=== PATIENT | male | born 1945 | race Caucasian/White ===

== ENCOUNTER → 2017-11-18 11:04 | Outpatient (CLI) | payer MEDICARE, OTHER, SELFPAY ==
--- NOTE | 2017-11-18 | DI.RAD.S_ITS ---
PROCEDURE: XR CERVICAL SPINE 4V OR 5V INDICATIONS: CERVICALGIA TECHNIQUE: 5 views of the cervical spine acquired. COMPARISON: [facility], MR, C-SPINE WITHOUT CONTRAST, 09/26/2010, 8:27. [facility], CR, CERVICAL SPINE 2 OR 3 VIEWS, 10/22/2010, 14:32. FINDINGS: Bones: No fractures or dislocations to the C7-T1 level. Oblique images demonstrate no bony foraminal stenoses. Anterior fusion C4-6 is noted. Hardware is intact. There is significant disc space narrowing at C6-7, C7-T1. Multilevel significant foraminal narrowing. Soft tissues: No prevertebral soft tissue swelling. IMPRESSION: Prominent degenerative disc and foraminal narrowing. Dictated by: Lennie Kramer M.D. on 11/18/2017 at 14:25 Approved by: Lennie Kramer M.D. on 11/18/2017 at 14:28
== END ==
PROVIDERS: PCP Student in an Organized Health Care Education/Training Program; Visit Provider Student in an Organized Health Care Education/Training Program
DX: M50.323 Other cervical disc degeneration at C6-C7 level (principal); M48.02 Spinal stenosis, cervical region
CPT/HCPCS: 72050

== ENCOUNTER 2017-11-22 12:55 | Emergency (ER) | payer MEDICARE, OTHER, SELFPAY ==
[2017-11-22 13:16] VITALS: BP 145/89; PULSE 60; RESP 15; O2SAT 94; BMI 28.8
--- NOTE | 2017-11-22 14:01 | DI.US.S_ITS ---
PROCEDURE: US PERIPH VENOUS UP EXTREM LT INDICATIONS: bruising/swelling of arm. no known trauma TECHNIQUE: Real-time imaging, as well as color and pulse Doppler interrogation, was performed of the left upper extremity deep veins from the inferior neck to the antecubital fossa. COMPARISON: None. FINDINGS: The internal jugular vein, visualized portions of the subclavian vein, axillary, and brachial veins are free of intraluminal thrombus. Where physically possible, the veins are normally compressible. Color and pulse Doppler demonstrate normal intraluminal flow, with expected phasicity and pulsatility. Additional scanning of the cephalic and basilic veins of the superficial system demonstrate normal compressibility, without thrombus. IMPRESSION: No deep vein thrombosis of the left upper extremity. Dictated by: Alesia Winters M.D. on 11/22/2017 at 15:46 Approved by: Alesia Winters M.D. on 11/22/2017 at 15:47
--- NOTE | 2017-11-22 14:03 | ED.EXTPRO ---
HPI - Extremity Problem General Chief complaint: Extremity Injury, Upper Stated complaint: BAD BRUISE ON LT ARM AND SWELLING Time Seen by Provider: 11/22/17 13:41 Source: patient Mode of arrival: ambulatory Limitations: no limitations History of Present Illness HPI Narrative: This is a 72-year-old gentleman who comes into the emergency department with bruising of his left upper extremity. Patient states he also has some bruising on his left abdomen. He does not recall any trauma. 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 He states that really hurt. He has not noticed any weakness. He does feel like there is some swelling or discomfort in the arm. He does take an aspirin daily and states he normally gets some mild bruising but nothing this extensive. He has not had any fevers. No chest pain, no shortness of breath. No nausea, vomiting diarrhea or constipation. He has not noticed any other symptoms of bleeding. He also does not recall having any injury to the side of his abdomen although he states he bumps into things quite frequently and is fairly physical. Patient has not noticed any blood in his urine. He has not been coughing up any blood. He has not had similar symptoms in the past. Patient does drink alcohol, states he drinks 2-4 drinks nightly when he is drinking which sounds like is upper is sporadic but more often than not. Related Data Home Medications Medication Instructions Recorded Confirmed ASPIRIN (Aspir-Low) 81 mg PO QDAY #0 10/17/10 omeprazole 20 mg PO QDAY #0 10/17/10 ACETAMINOPHEN 650 mg PO Q6HP #0 09/19/11 amlodipine [Norvasc] 7.5 mg PO DAILY #0 09/19/11 fluticasone 2 spray INTRANASAL QDAY #0 09/19/11 fluticasone [Flovent HFA] 1 puff INH BID #12 gm 09/19/11 gabapentin [Neurontin] 300 mg PO HS #30 cap 10/06/15 Previous Rx's Medication Instructions Recorded polymyxin B sulf-trimethoprim 0 TOPICAL SEE INSTRUCTIONS #1 bot 10/06/15 [Polytrim] Allergies Allergy/AdvReac Type Severity Reaction Status Date / Time oyster extract Allergy Unknown HIVES Verified 11/22/17 13:16 [OYSTER EXTRACT] Review of Systems Review of Systems All systems reviewed & are unremarkable except as noted in HPI and below Constitutional Denies chills, Denies fever(s), Denies frequent falls, Denies headache(s), Denies lethargy and Denies weakness ENT Ears, Nose, Mouth, and Throat: Denies headache(s) Cardiovascular Denies chest pain, Denies irregular heart rhythm, Denies lightheadedness, Denies palpitations, Denies dyspnea, Denies dyspnea on exertion and Denies orthopnea Respiratory Denies cough, Denies dyspnea, Denies dyspnea on exertion and Denies wheezing Gastrointestinal Gastrointestinal: Denies abdominal pain, Denies melena, Denies hematochezia, Denies change in bowel habits, Denies diarrhea, Denies nausea, Denies vomiting and Denies hematemesis Genitourinary Denies hematuria and Denies flank pain Musculoskeletal Reports as per HPI, Denies myalgias, Denies deformity, Denies limited range of motion and Reports other Integumentary/Breasts Reports unusual bruising Neurologic Denies frequent falls, Denies headache(s), Denies other visual disturbances and Denies weakness Endocrine Denies palpitations Allergic/Immunologic Denies wheezing COUNT INCLUDES THE [facility] Social History Smoking Status: Never smoker Exam Initial Vital Signs Initial Vital Signs: Vital Signs Pulse Rate 60 11/22/17 13:16 Respiratory Rate 15 11/22/17 13:16 Blood Pressure 145/89 H 11/22/17 13:16 Pulse Oximetry 94 11/22/17 13:16 Const General: cooperative, comfortable, well developed, well groomed and No acute distress Nutritional Appearance: well nourished Orientation: alert, awake, oriented x3 and not confused Chest Chest: normal inspection of the chest Resp Effort & Inspection: normal respiratory effort, able to speak in complete sentences, no respiratory distress and no use of accessory muscles Auscultation: clear to auscultation bilaterally, no rales, no rhonchi and no wheezes Cardio Rate: regular rate Rhythm: regular rhythm Heart Sounds: no click, no gallops, no murmurs and no rubs Pulses: normal peripheral pulses GI Inspection: abdominal wall ecchymosis (left waist, patient has 4cm area of eccymosis, no hematoma palpable. No other bruising noted.) and non-distended Palpation: soft, no hepatosplenomegaly, No guarding, No pulsatile mass and No tender Auscultation: normal bowel sounds Skin General: ecchymosis (Left upper extremity just above the medial fold of the elbow. Patient has bruising that appears to followed her pattern consistent with some drainage from gravity. Patient does not have any tenderness.) Neuro General: alert, oriented x3, gait normal and no focal motor deficits Speech: speech normal Extrem General: full ROM and capillary refill normal Right upper extremity: full ROM, normal capillary refill and shoulder/upper arm (5/5 muscle strength b/l upper ext, 2+ radial pulses b/l, normal sensation b/l) Details: swelling, axillary nerve sensory function normal and normal ROM; no tenderness, no abrasions and no crepitus; no cyanosis and no edema (slightly swelling above elbow on the medial side where ecchymosis is present, no hematoma palpated. ) Course Orders Ordered: ED Orders 11/22/17 14:01 US periph venous up extrem lt Stat 11/22/17 14:10 Complete Blood Count AUTO DIFF Stat Comprehensive Metabolic Panel Stat Partial Thromboplastin Time Stat Prothrombin Time INR Stat Vital Signs - 8 hr 11/22/17 13:16 11/22/17 15:52 Pulse Rate 60 87 Respiratory Rate 15 10 L Blood Pressure 145/89 H 144/71 H Pulse Oximetry 94 100 MDM - Extremity (Nontraumatic) Lab Data Result diagrams: 11/22/17 14:10 11/22/17 14:10 Lab Results 11/22/17 11/22/17 11/22/17 Range/Units 14:10 14:10 14:10 WBC 4.4 L (4.5-11.0) X10^3/uL RBC 5.02 (4.5-5.9) X10^6/uL Hgb 16.0 (13.5-17.5) g/dL Hct 46.5 (41-53) % MCV 92.7 (80-100) fL MCH 31.8 (26-34) PG MCHC 34.4 (30-36) % RDW 12.9 (11.6-14.8) % Plt Count 184 (150-400) X10^3/uL Neut % (Auto) 59.8 (50-75) % Lymph % (Auto) 24.7 L (25-40) % Glenn % (Auto) 11.9 (3-14) % Eos % (Auto) 3.0 (2-4) % Baso % (Auto) 0.6 (0-2) % Neut # (Auto) 2600 L (1918-7574) /uL PT 11.2 (10.1-12.7) SECONDS INR 1.0 (0.9-1.3) APTT 27 (26.4-36.2) SECONDS Sodium 144 (137-145) mmol/L Potassium 4.6 (3.4-5.1) mmol/L Chloride 105 (98-107) mmol/L Carbon Dioxide 30 (22-32) mmol/L BUN 14 (9-20) mg/dL Creatinine 0.80 (0.66-1.25) mg/dL Estimated GFR > 60.0 (>60) mL/min BUN/Creatinine Ratio 17.5 (6-22) Glucose 101 (80-110) mg/dL Calcium 9.8 (8.4-10.2) mg/dL Total Bilirubin 0.9 (0.2-1.3) mg/dL AST 34 (17-59) IU/L ALT 33 (21-72) IU/L Alkaline Phosphatase 79 (38-126) U/L Total Protein 7.7 (6.3-8.2) g/dL Albumin 4.6 (3.5-5.0) g/dL Globulin 3.1 (1.7-4.1) g/dL Albumin/Globulin Ratio 1.5 (1.0-2.8) Imaging Data Ultrasound upper extremity: Radiologist's impression: Patient: Elgin Styles MR#: [id number] : 1945 Acct:[id number] Age/Sex: 72 / M Date of Service: 11/22/17 Loc: ED Accession Number: [id number] Procedure: US periph venous up extrem lt Ordering Provider: Heather Cortez D.O. PROCEDURE: US PERIPH VENOUS UP EXTREM LT INDICATIONS: bruising/swelling of arm. no known trauma TECHNIQUE: Real-time imaging, as well as color and pulse Doppler interrogation, was performed of the left upper extremity deep veins from the inferior neck to the antecubital fossa. COMPARISON: None. FINDINGS: The internal jugular vein, visualized portions of the subclavian vein, axillary, and brachial veins are free of intraluminal thrombus. Where physically possible, the veins are normally compressible. Color and pulse Doppler demonstrate normal intraluminal flow, with expected phasicity and pulsatility. Additional scanning of the cephalic and basilic veins of the superficial system demonstrate normal compressibility, without thrombus. IMPRESSION: No deep vein thrombosis of the left upper extremity. Dictated by: Alesia Winters M.D. on 11/22/2017 at 15:46 Approved by: Alesia Winters M.D. on 11/22/2017 at 15:47 [facility] Narrative Medical decision making narrative: Discussed with patient his lab work does not show any show any acute abnormalities that would be causing his bruising. He does sound like he drinks pretty regularly and sometimes heavily so he could be falling or having other injuries although he denies these currently. He is on aspirin daily which would cause him to the bruising easier. He also had history of a feeling of a snap the other day although he did not think much of it on Thursday. This could potentially have been either a muscle tear or a tendon tear that was incomplete is his muscle strength is equal in bilateral upper extremities he has no difficulty with rotation, pronation supination or flexion extension. We did discuss that if he had a minor tear that he needs to avoid certain activities in order to prevent further tear and he should follow up with his primary care physician for referral. If he is continuing to have symptoms or even if not they may want to refer him for an MRI for further evaluation. Discharge Plan Departure Patient Disposition: Home Clinical Impression: Contusion of arm, left Discharge Date/Time: 11/22/17 15:53 Interventions: ED Discharge Assessment Last Done: 11/22/17 15:52 Activity Restrictions/Additional Instructions: Follow-up for re-evaluation, Call tomorrow for an appointment. Your lab work shows no acute abnormalities. Your exam does show bruising and could be consistent with a biceps tendon injury. I would recommend followup and avoiding any heavy lifting or sudden pulling of the arm as this could increase or severely injure the tendon if it does have a minor injury. Prescriptions: No Action omeprazole 20 MG capsule,delayed release(DR/EC) 20 mg PO QDAY Qty: 0 RF: 0 ASPIRIN (Aspir-Low) 81 mg PO QDAY Qty: 0 RF: 0 fluticasone 16 GM spray,suspension 2 spray Intranasal QDAY Qty: 0 RF: 0 ACETAMINOPHEN 650 mg PO Q6HP Qty: 0 RF: 0 fluticasone [Flovent HFA] 12 GM HFA aerosol inhaler 1 puff INH BID Qty: 12 RF: 0 amlodipine [Norvasc] 5 MG tablet 7.5 mg PO DAILY Qty: 0 RF: 0 gabapentin [Neurontin] 300 MG capsule 300 mg PO HS Qty: 30 RF: 0 polymyxin B sulf-trimethoprim [Polytrim] 10 ML drops Topical SEE INSTRUCTIONS Qty: 1 RF: 0 Referrals: Georgia Raymond PA-C [Primary Care Provider] -
[2017-11-22 14:22] LABS: Add Manual Diff / Slide Review NO; Basophils Percent Auto 0.6 % (0-2); Hematocrit 46.5 % (41-53); Lymphocytes Percent Auto 24.7 % (25-40); Mean Corpuscular HGB Conc 34.4 % (30-36); Mean Corpuscular Hemoglobin 31.8 PG (26-34); Mean Corpuscular Volume 92.7 fL (80-100); Monocytes Percent Auto 11.9 % (3-14); Neutrophils Absolute Auto 2600 /uL (3000-5900); Neutrophils Percent Auto 59.8 % (50-75); Platelet Count 184 X10^3/uL (150-400); Red Blood Cell Count 5.02 X10^6/uL (4.5-5.9); Red Cell Distribution Width 12.9 % (11.6-14.8); White Blood Cell Count 4.4 X10^3/uL (4.5-11.0)
[2017-11-22 14:26] LABS: Prothrombin Time 11.2 SECONDS (10.1-12.7)
[2017-11-22 14:28] LABS: PTT Partial Thromboplastin Tim 27 SECONDS (26.4-36.2)
[2017-11-22 14:30] LABS: Alanine Aminotransferase 33 IU/L (21-72); Albumin 4.6 g/dL (3.5-5.0); Albumin Globulin Ratio 1.5 (1.0-2.8); Alkaline Phosphatase 79 U/L (38-126); Aspartate Aminotransferase 34 IU/L (17-59); BUN Creatinine Ratio 17.5 (6-22); Bilirubin Total 0.9 mg/dL (0.2-1.3); Blood Urea Nitrogen 14 mg/dL (9-20); Calcium 9.8 mg/dL (8.4-10.2); Carbon Dioxide 30 mmol/L (22-32); Chloride 105 mmol/L (98-107); Estimated Glomerular Filt Rate > 60.0 mL/min (>60); Globulin 3.1 g/dL (1.7-4.1); Glucose 101 mg/dL (80-110); HEMOLYSIS < 15 (0-50); Potassium 4.6 mmol/L (3.4-5.1); Sodium 144 mmol/L (137-145); Total Protein 7.7 g/dL (6.3-8.2)
--- NOTE | 2017-11-22 15:17 | PC.NURSE ---
Purple bruising noted to left upper arm. Also a purple bruise noted on left hip/flank area. No known injury. Noticed the hip/flank bruise on Thursday. Noticed the arm bruise a couple hours ago. Takes baby aspirin daily.
[2017-11-22 15:52] VITALS: BP 144/71; PULSE 87; RESP 10; O2SAT 100
== END 2017-11-22 15:53 | disposition home or self-care (01) ==
PROVIDERS: Emergency Provider Emergency Medicine; PCP Student in an Organized Health Care Education/Training Program
DX: S40.022A Contusion of left upper arm, initial encounter (principal)
CPT/HCPCS: 36415; 80053; 85025; 85610; 85730; 93971; 99282; 99284

== ENCOUNTER 2017-12-14 15:15 | Outpatient (RCR) | payer MEDICARE, OTHER, SELFPAY ==
--- NOTE | 2017-11-25 17:00 | PT.OIE ---
Current Diagnoses Pain in left shoulder (11/25/17) Cervicalgia (11/25/17) Provider Visit Care Team Role Provider Type Georgia Raymond PA-C Attending Provider Physician Primary Care Provider Specialty: Internal Medicine Address: [address] [place] [address], [id number] Email: Physical Therapy Initial Evaluation PT-OP-A Visit Information Start: 11/25/17 09:12 Freq: Status: Active Protocol: Document 11/25/17 09:13 SAK (Rec: 11/25/17 16:58 SAK [id number]) Out-Patient Physical Therapy Visit Information Visit Information Visit Type Initial Evaluation Visit Note 03/18 Visit Start Time 09:13 Visit Stop Time 10:08 Total Visit Minutes 55 Visit Number 1 Number of POWER MARKETER Visits 0 Evaluation Information Evaluation Date 11/25/17 PT-OP-B Current Condition Start: 11/25/17 09:12 Freq: Status: Active Protocol: Document 11/25/17 09:13 SAK (Rec: 11/25/17 09:27 SAK [id number]) Current Condition History of Current Condition Onset Date 4 months Current Complaints progressive worsening of neck pain History of Current Condition No known injury, noted progressive increase in neck pain without numbness or tingling. Has also gained weight due to of a couple friends, not exercising as much. 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 Prior history of neck surgery with fusion. 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 Current Functional Impairments (Reported) Functional Limitations- ADL's turning head for driving PT-OP-C Subjective Start: 11/25/17 16:39 Freq: Status: Active Protocol: Document 11/25/17 09:13 SAK (Rec: 11/25/17 16:58 SAK [id number]) Patient Questionnaires Neck Disability Index NDI Score 32 Neck Disability Index Impairment 20 to 39% Impaired (Score 10- 19) OP-PT Pain Assessment Pain Assessment Grid Paper Pain Assessment Grid Completed Yes Location Left Neck Pain Location Details left cervical spine Intensity 7 Scale Used Numeric (1 - 10) Description Aching Spasm Tightness Frequency Frequent Pain Aggravating Factors Position Activity Pain Alleviating Factors None PT-OP-H Neuro Start: 11/25/17 16:39 Freq: Status: Active Protocol: Document 11/25/17 09:13 SAK (Rec: 11/25/17 16:58 [facility] [id number]) Sensation Evaluation Gross Sensation Gross Sensation WNL Comments Summary Comments denies N/T PT-OP-J Posture/Palpation/Skin Start: 11/25/17 16:58 Freq: Status: Active Protocol: Document 11/25/17 09:13 SAK (Rec: 11/25/17 16:59 [facility] [id number]) Posture Evaluation Position Sitting Head/C-Spine Posture Forward Head Shoulder Posture (L) Rounded (R) Rounded Scapula Posture (L) Protracted (R) Protracted Arm Posture (L) Internally Rotated (R) Internally Rotated Palpation Assessment Location One Palpation Location cervical spine and upper traps Palpation Findings Soft Tissue Tightness Tenderness PT-OP-K Range of Motion Start: 11/25/17 16:39 Freq: Status: Active Protocol: Document 11/25/17 09:13 [facility] (Rec: 11/25/17 16:58 [facility] [id number]) Cervical Spine Range of Motion Cervical Spine Active Testing Position Sitting Flexion 35 Extension 25 Rotation Left 38 Rotation Right 30 Lateral Flexion Left 10 Lateral Flexion Right 15 ROM Limitations Soft Tissue Tightness Shoulder Goniometric Range of Motion Shoulder ROM Limitations Comments shoulder ROM WFL though with pain left endrange especially internal rotation. Additionally patient injured left UE lifting a chair recently and has moderate bruising throughout right upper arm; went to ER with possible biceps injury. PT-OP-L Special Tests Start: 11/25/17 16:39 Freq: Status: Active Protocol: Document 11/25/17 09:13 [facility] (Rec: 11/25/17 16:58 [facility] [id number]) Special Tests Cervical Spine Special Tests Traction Test Results some decrease in pain Foraminal Compression Test Results negative PT-OP-M Strength Start: 11/25/17 16:39 Freq: Status: Active Protocol: Document 11/25/17 09:13 SAK (Rec: 11/25/17 16:58 [facility] [id number]) Cervical Spine Strength Cervical Spine Manual Muscle Testing Testing Position Sitting Flexion (C1-2) 4+ Good+ Extension 4+ Good+ Rotation Right 4+ Good+ Lateral Flexion Left (C3) 4+ Good+ Lateral Flexion Right (C3) 4+ Good+ PT-OP-Q Treatments Start: 11/25/17 16:39 Freq: Status: Active Protocol: Document 11/25/17 09:13 [facility] (Rec: 11/25/17 16:58 [facility] [id number]) Self-Care/Home Management Treatment Education Patient Education Home Exercise Program Other Education written instructions for gentle supine sidebending and rotation PT-OP-R Modalities Start: 11/25/17 16:39 Freq: Status: Active Protocol: Document 11/25/17 09:13 [facility] (Rec: 11/25/17 16:58 [facility] [id number]) Electric Stimulation Electric Stimulation Interferential Current (IFC) Body Location bilateral c/s and UT Duration (Minutes) 15 Intensity 16 Target/Sweep Sweep High/Low High Patient Position Hooklying Combined With Heat/Cold Hot Pack PT-OP-T Assessment and Plan Start: 11/25/17 16:39 Freq: Status: Active Protocol: Document 11/25/17 09:13 [facility] (Rec: 11/25/17 16:58 [facility] [id number]) Physical Therapy Assessment Rehab Potential Rehabilitation Potential Excellent Evaluation Complexity Number of Personal Factors/Comorbidities 1-2 Number of Body Systems Impaired 3 Clinical Presentation at Evaluation Evolving Impairments Impairments Activity Tolerance Pain Posture ROM Soft Tissue Mobility Goals Four Impairment posture Short Term Goal (STG) Patient will improve his postural awareness and be able to self-correct 75% STG Duration 6 wks Production Controller Goal (LTG) Patient will demonstrate improved postural alignment statically and dynamically with usual activities, especially artwork LTG Duration 3 months Three Impairment activity tolerance Short Term Goal (STG) Patient will report improved ability to tolerate his usual activities STG Duration 4 wks Production Controller Goal (LTG) Patient will be able to resume all usual activities without an increase in pain LTG Duration 3 months Two Impairment ROM Short Term Goal (STG) Patient to be instructed in ROM ex for cervical spine STG Duration 1 wks Production Controller Goal (LTG) Patient to improve neck ROM to WFL, sufficient to allow him to turn head for purposes of safe driving without difficulty. One Impairment pain Short Term Goal (STG) decrease pain to no greater than 4/10 STG Duration 6 wks Production Controller Goal (LTG) decrease pain to no greater than 1/10 LTG Duration 3 months Assessment Summary Assessment Patient presents with function -limiting neck pain left greater than right with no precipitating event. 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 Additionally has history of neck pain with prior surgical intervention and x-ray shows foraminal narrowing and degenerative disc disease. He would benefit from PT to address his pain, postural dysfunction, decreased ROM and help him return to his usual activities without an increase in pain. Physical Therapy Plan Frequency and Duration Frequency of Treatment 1x/Week Duration of Treatment 3 months Plan of Care Start Date 11/25/17 Plan of Care End Date 02/24/18 Therapeutic Interventions Therapeutic Interventions Home Exercise Program Manual Therapy Patient/Caregiver Education Self-Care/Home Management Soft Tissue Mobilization Taping Therapeutic Activities Therapeutic Exercises Modalities Cold Pack/Ice Massage Electric Stimulation Hot Packs Traction- Mechanical Next Visit Focus/Plan Next Note Type Treatment Note Next Visit Plan review HEP, postural exercises , manual therapy and modalities for pain
--- NOTE | 2017-11-25 17:00 | PT.OPPOC ---
Current Diagnoses Pain in left shoulder (11/25/17) Cervicalgia (11/25/17) Provider Visit Care Team Role Provider Type Georgia Raymond PA-C Attending Provider Physician Primary Care Provider Specialty: Internal Medicine Address: [address] [place] [address], [id number] Email: Plan Of Care PT-OP-T Assessment and Plan Start: 11/25/17 16:39 Freq: Status: Active Protocol: Document 11/25/17 09:13 SAK (Rec: 11/25/17 16:58 SAK [id number]) Physical Therapy Assessment Rehab Potential Rehabilitation Potential Excellent Evaluation Complexity Number of Personal Factors/Comorbidities 1-2 Number of Body Systems Impaired 3 Clinical Presentation at Evaluation Evolving Impairments Impairments Activity Tolerance Pain Posture ROM Soft Tissue Mobility Goals Four Impairment posture Short Term Goal (STG) Patient will improve his postural awareness and be able to self-correct 75% STG Duration 6 wks Rooming House Inspector Goal (LTG) Patient will demonstrate improved postural alignment statically and dynamically with usual activities, especially artwork LTG Duration 3 months Three Impairment activity tolerance Short Term Goal (STG) Patient will report improved ability to tolerate his usual activities STG Duration 4 wks Rooming House Inspector Goal (LTG) Patient will be able to resume all usual activities without an increase in pain LTG Duration 3 months Two Impairment ROM Short Term Goal (STG) Patient to be instructed in ROM ex for cervical spine STG Duration 1 wks Rooming House Inspector Goal (LTG) Patient to improve neck ROM to WFL, sufficient to allow him to turn head for purposes of safe driving without difficulty. One Impairment pain Short Term Goal (STG) decrease pain to no greater than 4/10 STG Duration 6 wks Senior Care Goal (LTG) decrease pain to no greater than 1/10 LTG Duration 3 months Assessment Summary Assessment Patient presents with function -limiting neck pain left greater than right with no precipitating event. 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 Additionally has history of neck pain with prior surgical intervention and x-ray shows foraminal narrowing and degenerative disc disease. He would benefit from PT to address his pain, postural dysfunction, decreased ROM and help him return to his usual activities without an increase in pain. Physical Therapy Plan Frequency and Duration Frequency of Treatment 1x/Week Duration of Treatment 3 months Plan of Care Start Date 11/25/17 Plan of Care End Date 02/24/18 Therapeutic Interventions Therapeutic Interventions Home Exercise Program Manual Therapy Patient/Caregiver Education Self-Care/Home Management Soft Tissue Mobilization Taping Therapeutic Activities Therapeutic Exercises Modalities Cold Pack/Ice Massage Electric Stimulation Hot Packs Traction- Mechanical Next Visit Focus/Plan Next Note Type Treatment Note Next Visit Plan review HEP, postural exercises , manual therapy and modalities for pain Plan of Care Dates Plan of Care Start Date 11/25/17 Plan of Care End Date 02/24/18 Please Sign and Return: I have reviewed this Plan of Care and certify that the skilled therapy services above are required to meet the patient?s needs. Physician Signature Date Printed Name and Credentials Clinical Instructor Signature Printed Name and Credentials
--- NOTE | 2017-12-08 16:28 | PT.OTN ---
Current Diagnoses Pain in left shoulder (12/08/17) Cervicalgia (12/08/17) Physical Therapy Treatment Note PT-OP-A Visit Information Start: 11/25/17 09:12 Freq: Status: Active Protocol: Document 12/08/17 15:18 [facility] (Rec: 12/08/17 16:00 [facility] [id number]) Out-Patient Physical Therapy Visit Information Visit Information Visit Type Treatment Note Visit Start Time 15:15 Visit Stop Time 16:10 Total Visit Minutes 55 Visit Number 2 Number of PRODUCT BLENDING SUPERVISOR Visits 0 PT-OP-B Current Condition Start: 11/25/17 09:12 Freq: Status: Active Protocol: Document 11/25/17 09:13 [facility] (Rec: 11/25/17 09:27 [facility] [id number]) Current Condition History of Current Condition Onset Date 4 months Current Complaints progressive worsening of neck pain History of Current Condition No known injury, noted progressive increase in neck pain without numbness or tingling. Has also gained weight due to of a couple friends, not exercising as much. 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 Prior history of neck surgery with fusion. 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 Patient Reported Progress Improving PT-OP-H Neuro Start: 11/25/17 16:39 Freq: Status: Active Protocol: Document 11/25/17 09:13 [facility] (Rec: 11/25/17 16:58 [facility] [id number]) Sensation Evaluation Gross Sensation Gross Sensation WNL Comments Summary Comments denies N/T PT-OP-J Posture/Palpation/Skin Start: 11/25/17 16:58 Freq: Status: Active Protocol: Document 11/25/17 09:13 [facility]AK (Rec: 11/25/17 16:59 [facility] [id number]) Posture Evaluation Position Sitting Head/C-Spine Posture Forward Head Shoulder Posture (L) Rounded (R) Rounded Scapula Posture (L) Protracted (R) Protracted Arm Posture (L) Internally Rotated (R) Internally Rotated Palpation Assessment Location One Palpation Location cervical spine and upper traps Palpation Findings Soft Tissue Tightness Tenderness PT-OP-K Range of Motion Start: 11/25/17 16:39 Freq: Status: Active Protocol: Document 11/25/17 09:13 [facility] (Rec: 11/25/17 16:58 [facility] [id number]) Cervical Spine Range of Motion Cervical Spine Active Testing Position Sitting Flexion 35 Extension 25 Rotation Left 38 Rotation Right 30 Lateral Flexion Left 10 Lateral Flexion Right 15 ROM Limitations Soft Tissue Tightness Shoulder Goniometric Range of Motion Shoulder ROM Limitations Comments shoulder ROM WFL though with pain left endrange especially internal rotation. Additionally patient injured left UE lifting a chair recently and has moderate bruising throughout right upper arm; went to ER with possible biceps injury. PT-OP-L Special Tests Start: 11/25/17 16:39 Freq: Status: Active Protocol: Document 11/25/17 09:13 [facility] (Rec: 11/25/17 16:58 [facility] [id number]) Special Tests Cervical Spine Special Tests Traction Test Results some decrease in pain Foraminal Compression Test Results negative PT-OP-M Strength Start: 11/25/17 16:39 Freq: Status: Active Protocol: Document 11/25/17 09:13 [facility] (Rec: 11/25/17 16:58 [facility] [id number]) Cervical Spine Strength Cervical Spine Manual Muscle Testing Testing Position Sitting Flexion (C1-2) 4+ Good+ Extension 4+ Good+ Rotation Right 4+ Good+ Lateral Flexion Left (C3) 4+ Good+ Lateral Flexion Right (C3) 4+ Good+ PT-OP-Q Treatments Start: 11/25/17 16:39 Freq: Status: Active Protocol: Document 12/08/17 15:18 [facility] (Rec: 12/08/17 16:28 [facility] [id number]) Cardio Equipment Upper Body Ergometer (UBE) Duration (Minutes) 6 RPM 60 Therapeutic Exercises Supine Exercises c/s AROM Reps/Minutes 5x iliopsoas stretch Reps/Minutes 2 hamstring stretch Reps/Minutes 2 DKTC, SKTC Reps/Minutes 10x lower trunk rotation Reps/Minutes 10x bridge (segmental) Reps/Minutes 10x Standing Exercises wall posture Reps/Minutes 5x row, shld ext, ER Equipment Used L1 TB Reps/Minutes 10x ea Comments postural emphasis Other Exercises c/s rotation contract/relax with eye movements Reps/Minutes 3x ea sude Manual Therapy Treatment Soft Tissue Mobilization c/s, pec dino Mobilization Type Myofascial Release Rolling Body Position Prone PT-OP-R Modalities Start: 11/25/17 16:39 Freq: Status: Active Protocol: Document 12/08/17 15:18 [facility] (Rec: 12/08/17 16:00 [facility] [id number]) Hot Pack/Cold Pack Treatment Hot Pack Location cervical and lumbar spines Patient Position Hooklying Treatment Duration (minutes) 15 Patient Tolerance Good PT-OP-T Assessment and Plan Start: 11/25/17 16:39 Freq: Status: Active Protocol: Document 12/08/17 15:18 [facility] (Rec: 12/08/17 16:28 [facility] [id number]) Physical Therapy Assessment Goals Four Impairment posture Short Term Goal (STG) Patient will improve his postural awareness and be able to self-correct 75% STG Duration 6 wks Prison Goal (LTG) Patient will demonstrate improved postural alignment statically and dynamically with usual activities, especially artwork LTG Duration 3 months Three Impairment activity tolerance Short Term Goal (STG) Patient will report improved ability to tolerate his usual activities STG Duration 4 wks Prison Goal (LTG) Patient will be able to resume all usual activities without an increase in pain LTG Duration 3 months Two Impairment ROM Short Term Goal (STG) Patient to be instructed in ROM ex for cervical spine STG Duration 1 wks Prison Goal (LTG) Patient to improve neck ROM to WFL, sufficient to allow him to turn head for purposes of safe driving without difficulty. One Impairment pain Short Term Goal (STG) decrease pain to no greater than 4/10 STG Duration 6 wks Prison Goal (LTG) decrease pain to no greater than 1/10 LTG Duration 3 months Assessment Summary Assessment Patient reports much improved neck pain after first session, working on postural correction as instructed. With postural correction of neck and shoulders patient tends to have posterior shift of thorax which may be contributing to LBP; needs work on integration of entire kinetic chain with postural correction. Physical Therapy Plan Frequency and Duration Frequency of Treatment 1x/Week Duration of Treatment 3 months Plan of Care Start Date 11/25/17 Plan of Care End Date 02/24/18 Therapeutic Interventions Therapeutic Interventions Home Exercise Program Manual Therapy Patient/Caregiver Education Self-Care/Home Management Soft Tissue Mobilization Taping Therapeutic Activities Therapeutic Exercises Modalities Cold Pack/Ice Massage Electric Stimulation Hot Packs Traction- Mechanical Next Visit Focus/Plan Next Note Type Treatment Note Next Visit Plan review HEP, postural exercises , manual therapy and modalities for pain
--- NOTE | 2017-12-14 16:03 | PT.OTN ---
Current Diagnoses Pain in left shoulder (12/14/17) Cervicalgia (12/14/17) Physical Therapy Treatment Note PT-OP-A Visit Information Start: 11/25/17 09:12 Freq: Status: Active Protocol: Document 12/14/17 15:20 [facility] (Rec: 12/14/17 16:02 [facility] [id number]) Out-Patient Physical Therapy Visit Information Visit Information Visit Type Treatment Note Visit Start Time 15:15 Visit Stop Time 16:05 Total Visit Minutes 50 Visit Number 3 Number of REACHER Visits 0 Evaluation Information Evaluation Date 11/25/17 PT-OP-B Current Condition Start: 11/25/17 09:12 Freq: Status: Active Protocol: Document 11/25/17 09:13 [facility] (Rec: 11/25/17 09:27 [facility] [id number]) Current Condition History of Current Condition Onset Date 4 months Current Complaints progressive worsening of neck pain History of Current Condition No known injury, noted progressive increase in neck pain without numbness or tingling. Has also gained weight due to of a couple friends, not exercising as much. 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 Prior history of neck surgery with fusion. 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 All painful areas better. Not sure he needs much more therapy PT-OP-H Neuro Start: 11/25/17 16:39 Freq: Status: Active Protocol: Document 11/25/17 09:13 [facility] (Rec: 11/25/17 16:58 [facility] [id number]) Sensation Evaluation Gross Sensation Gross Sensation WNL Comments Summary Comments denies N/T PT-OP-J Posture/Palpation/Skin Start: 11/25/17 16:58 Freq: Status: Active Protocol: Document 11/25/17 09:13 [facility] (Rec: 11/25/17 16:59 [facility] [id number]) Posture Evaluation Position Sitting Head/C-Spine Posture Forward Head Shoulder Posture (L) Rounded (R) Rounded Scapula Posture (L) Protracted (R) Protracted Arm Posture (L) Internally Rotated (R) Internally Rotated Palpation Assessment Location One Palpation Location cervical spine and upper traps Palpation Findings Soft Tissue Tightness Tenderness PT-OP-K Range of Motion Start: 11/25/17 16:39 Freq: Status: Active Protocol: Document 11/25/17 09:13 [facility] (Rec: 11/25/17 16:58 [facility] [id number]) Cervical Spine Range of Motion Cervical Spine Active Testing Position Sitting Flexion 35 Extension 25 Rotation Left 38 Rotation Right 30 Lateral Flexion Left 10 Lateral Flexion Right 15 ROM Limitations Soft Tissue Tightness Shoulder Goniometric Range of Motion Shoulder ROM Limitations Comments shoulder ROM WFL though with pain left endrange especially internal rotation. Additionally patient injured left UE lifting a chair recently and has moderate bruising throughout right upper arm; went to ER with possible biceps injury. PT-OP-L Special Tests Start: 11/25/17 16:39 Freq: Status: Active Protocol: Document 11/25/17 09:13 [facility] (Rec: 11/25/17 16:58 [facility] [id number]) Special Tests Cervical Spine Special Tests Traction Test Results some decrease in pain Foraminal Compression Test Results negative PT-OP-M Strength Start: 11/25/17 16:39 Freq: Status: Active Protocol: Document 11/25/17 09:13 [facility] (Rec: 11/25/17 16:58 [facility] [id number]) Cervical Spine Strength Cervical Spine Manual Muscle Testing Testing Position Sitting Flexion (C1-2) 4+ Good+ Extension 4+ Good+ Rotation Right 4+ Good+ Lateral Flexion Left (C3) 4+ Good+ Lateral Flexion Right (C3) 4+ Good+ PT-OP-Q Treatments Start: 11/25/17 16:39 Freq: Status: Active Protocol: Document 12/14/17 15:20 [facility] (Rec: 12/14/17 16:02 [facility] [id number]) Cardio Equipment Recumbent Elliptical (TGV Software) Duration (Minutes) 10 Resistance 4 Therapeutic Exercises Supine Exercises bicycle Reps/Minutes 1 min c/s AROM Reps/Minutes 5x iliopsoas stretch Reps/Minutes 2 hamstring stretch Reps/Minutes 2 DKTC, SKTC Reps/Minutes 10x lower trunk rotation Reps/Minutes 10x bridge (segmental) Reps/Minutes 10x Prone Exercises plank Reps/Minutes 1x 6 sec Comments poorly tolerated by shoulders PT-OP-R Modalities Start: 11/25/17 16:39 Freq: Status: Active Protocol: Document 12/14/17 15:20 [facility] (Rec: 12/14/17 16:03 [facility] [id number]) Hot Pack/Cold Pack Treatment Hot Pack Location cervical and lumbar spines Patient Position Hooklying Treatment Duration (minutes) 15 Patient Tolerance Good PT-OP-T Assessment and Plan Start: 11/25/17 16:39 Freq: Status: Active Protocol: Document 12/14/17 15:20 [facility] (Rec: 12/14/17 16:02 [facility] [id number]) Physical Therapy Assessment Goals Four Impairment posture Short Term Goal (STG) Patient will improve his postural awareness and be able to self-correct 75% STG Duration 6 wks Skilled Nursing Goal (LTG) Patient will demonstrate improved postural alignment statically and dynamically with usual activities, especially artwork LTG Duration 3 months Three Impairment activity tolerance Short Term Goal (STG) Patient will report improved ability to tolerate his usual activities STG Duration 4 wks Skilled Nursing Goal (LTG) Patient will be able to resume all usual activities without an increase in pain LTG Duration 3 months Two Impairment ROM Short Term Goal (STG) Patient to be instructed in ROM ex for cervical spine STG Duration 1 wks Skilled Nursing Goal (LTG) Patient to improve neck ROM to WFL, sufficient to allow him to turn head for purposes of safe driving without difficulty. One Impairment pain Short Term Goal (STG) decrease pain to no greater than 4/10 STG Duration 6 wks Skilled Nursing Goal (LTG) decrease pain to no greater than 1/10 LTG Duration 3 months Assessment Summary Assessment No significant pain today, reviewed HEP plan with modifications made and supine bicycle added for core strengthening. Feel patient may be ready for discharge pending any other issues coming up over the nexty week. Physical Therapy Plan Next Visit Focus/Plan Next Visit Plan Patient to cancel PT x 1 wk, let PT know if he is feeling ready for discharge or feels need to probleml-solve further issues related to his pain and function, HEP.
--- NOTE | 2018-04-13 14:19 | PT.OPDS ---
Current Diagnoses Pain in left shoulder (12/14/17) Cervicalgia (12/14/17) Provider Visit Care Team Role Provider Type Georgia Raymond PA-C Attending Provider Physician Primary Care Provider Specialty: Internal Medicine Address: [address] [place] [address], [facility] Email: Visit Number Visit Number 3 Discharge Summary PT-OP-B Current Condition Start: 11/25/17 09:12 Freq: Status: Active Protocol: Document 11/25/17 09:13 [facility] (Rec: 11/25/17 09:27 [facility] [id number]) Current Condition History of Current Condition Onset Date 4 months Current Complaints progressive worsening of neck pain History of Current Condition No known injury, noted progressive increase in neck pain without numbness or tingling. Has also gained weight due to of a couple friends, not exercising as much. 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 Prior history of neck surgery with fusion. 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 All painful areas better. Not sure he needs much more therapy PT-OP-H Neuro Start: 11/25/17 16:39 Freq: Status: Active Protocol: Document 11/25/17 09:13 [facility] (Rec: 11/25/17 16:58 [facility] [id number]) Sensation Evaluation Gross Sensation Gross Sensation WNL Comments Summary Comments denies N/T PT-OP-J Posture/Palpation/Skin Start: 11/25/17 16:58 Freq: Status: Active Protocol: Document 11/25/17 09:13 [facility] (Rec: 11/25/17 16:59 [facility] [id number]) Posture Evaluation Position Sitting Head/C-Spine Posture Forward Head Shoulder Posture (L) Rounded (R) Rounded Scapula Posture (L) Protracted (R) Protracted Arm Posture (L) Internally Rotated (R) Internally Rotated Palpation Assessment Location One Palpation Location cervical spine and upper traps Palpation Findings Soft Tissue Tightness Tenderness PT-OP-K Range of Motion Start: 11/25/17 16:39 Freq: Status: Active Protocol: Document 11/25/17 09:13 [facility] (Rec: 11/25/17 16:58 [facility] [id number]) Cervical Spine Range of Motion Cervical Spine Active Testing Position Sitting Flexion 35 Extension 25 Rotation Left 38 Rotation Right 30 Lateral Flexion Left 10 Lateral Flexion Right 15 ROM Limitations Soft Tissue Tightness Shoulder Goniometric Range of Motion Shoulder ROM Limitations Comments shoulder ROM WFL though with pain left endrange especially internal rotation. Additionally patient injured left UE lifting a chair recently and has moderate bruising throughout right upper arm; went to ER with possible biceps injury. PT-OP-L Special Tests Start: 11/25/17 16:39 Freq: Status: Active Protocol: Document 11/25/17 09:13 [facility] (Rec: 11/25/17 16:58 [facility] [id number]) Special Tests Cervical Spine Special Tests Traction Test Results some decrease in pain Foraminal Compression Test Results negative PT-OP-M Strength Start: 11/25/17 16:39 Freq: Status: Active Protocol: Document 11/25/17 09:13 [facility] (Rec: 11/25/17 16:58 [facility] [id number]) Cervical Spine Strength Cervical Spine Manual Muscle Testing Testing Position Sitting Flexion (C1-2) 4+ Good+ Extension 4+ Good+ Rotation Right 4+ Good+ Lateral Flexion Left (C3) 4+ Good+ Lateral Flexion Right (C3) 4+ Good+ PT-OP-T Assessment and Plan Start: 11/25/17 16:39 Freq: Status: Active Protocol: Document 04/13/18 14:18 [facility] (Rec: 04/13/18 14:19 [facility] [id number]) Physical Therapy Assessment Goals Four Impairment posture Short Term Goal (STG) Patient will improve his postural awareness and be able to self-correct 75% STG Duration 6 wks Detention Goal (LTG) Patient will demonstrate improved postural alignment statically and dynamically with usual activities, especially artwork LTG Duration 3 months Three Impairment activity tolerance Short Term Goal (STG) Patient will report improved ability to tolerate his usual activities STG Duration 4 wks Detention Goal (LTG) Patient will be able to resume all usual activities without an increase in pain LTG Duration 3 months Two Impairment ROM Short Term Goal (STG) Patient to be instructed in ROM ex for cervical spine STG Duration 1 wks Obstetrics/Gynecology Nurse Goal (LTG) Patient to improve neck ROM to WFL, sufficient to allow him to turn head for purposes of safe driving without difficulty. One Impairment pain Short Term Goal (STG) decrease pain to no greater than 4/10 STG Duration 6 wks Obstetrics/Gynecology Nurse Goal (LTG) decrease pain to no greater than 1/10 LTG Duration 3 months Physical Therapy Plan Discharge Physical Therapy Discharge Reasons Goals Met
== END 2018-04-13 16:33 ==
LOC: PHYS 15:15
PROVIDERS: PCP Student in an Organized Health Care Education/Training Program; Visit Provider Student in an Organized Health Care Education/Training Program
DX: M54.2 Cervicalgia (principal); M25.512 Pain in left shoulder
CPT/HCPCS: 97014; 97110; 97140; 97161; 97535; G0283

== ENCOUNTER → 2018-06-18 08:44 | Outpatient (CLI) | payer MEDICARE, OTHER, SELFPAY ==
--- NOTE | 2018-06-18 09:34 | DI.CT.S_ITS ---
PROCEDURE: CT ABDOMEN PELVIS W CON INDICATIONS: UPPER ABD PAIN TECHNIQUE: After the administration of oral and intravenous contrast, 5 mm thick sections acquired from the diaphragms to the symphysis. 5 mm thick coronal and sagittal reformats were performed. For radiation dose reduction, the following was used: automated exposure control, adjustment of mA and/or kV according to patient size. COMPARISON: [facility], CT, ABDOMEN/PELVIS WITH CONTRAST, 07/08/2015, 2:50. FINDINGS: Image quality: Excellent. ABDOMEN: Lung bases: Lung bases are clear. Heart size is normal. Advanced coronary artery atherosclerotic calcifications. Solid organs: Liver is normal in size and enhancement. Gallbladder is unremarkable. Biliary system is non-dilated. Pancreas enhances normally. Spleen is normal in size and enhancement. No adrenal nodules. Kidneys are normal in size and enhancement, without hydronephrosis. Peritoneum and bowel: Stomach, small bowel, and colon loops are normal in caliber and wall thickness. No free fluid or air. Large amount of fecal debris in the proximal transverse colon and right colon. Nodes and vessels: No retroperitoneal or mesenteric adenopathy. Aorta and inferior vena cava are normal in caliber. Aortic calcifications. Miscellaneous: No ventral hernias. PELVIS: Genitourinary: Bladder wall thickness is normal. Miscellaneous: No inguinal hernias or adenopathy. Bones: No suspicious bony lesions. Remote L3-L5 left hemilaminectomy. No vertebral body compression fractures. IMPRESSION: 1. No evidence acute abdominal process. 2. Large amount of fecal debris in proximal transverse colon and right colon 3. Extensive atherosclerotic coronary artery calcifications. Dictated by: Mario Tamayo M.D. on 06/18/2018 at 10:29 Approved by: Mario Tamayo M.D. on 06/18/2018 at 10:35
== END ==
PROVIDERS: PCP Student in an Organized Health Care Education/Training Program; Visit Provider Student in an Organized Health Care Education/Training Program
DX: R10.10 Upper abdominal pain, unspecified (principal); I25.10 Atherosclerotic heart disease of native coronary artery without angina pectoris
CPT/HCPCS: 74177; Q9967

== ENCOUNTER → 2018-08-31 13:44 | Outpatient (CLI) | payer MEDICARE, OTHER, SELFPAY ==
--- NOTE | 2018-08-31 | DI.NM.S_ITS ---
PROCEDURE: NM LUDWIG PERF SPECT REST & STR Rest and exercise myocardial perfusion SPECT with gated imaging and ejection fraction RADIOPHARMACEUTICAL: 21.6 mCi Tc-99m sestamibi IV at rest and 21.2 mCi Tc-99m sestamibi IV at peak exercise. A two day-protocol was performed. INDICATIONS: Chest pain, unspecified TECHNIQUE: Radiopharmaceutical was injected at peak stress test, and also at rest. SPECT images were obtained. SPECT myocardial perfusion images were displayed in short axis, horizontal long axis, and vertical long axis views. Gated images were reviewed using [employer] software. COMPARISON: None. CARDIAC STRESS: A standard Agustin treadmill exercise tolerance test was performed by the patient under the supervision of an attending staff. The patient exercised for 8 minutes and 5 seconds; functional aerobic impairment (EVELIO) is -20%. Hemodynamic data: There is normal blood pressure and heart rate response to exercise stress. Patient achieved 82% of maximum predicted heart rate at peak exercise. Symptoms: Patient denied chest pain during exercise. EKG: No diagnostic EKG changes of ischemia; no ectopy. FINDINGS: Raw data: There is good myocardial labeling by radiotracer. No significant motion artifacts. Gvlq-[id number]-tlhvk ratio is 0.32 (normal is less than 0.38 for sestamibi tracer, and less than 0.50 for thallium tracer). Left ventricle function: Gated images demonstrate normal left ventricle wall thickening. No segmental wall motion abnormality. No transient ischemic dilation; TID is 0.82 (normal less than 1.3). The left ventricle resting end-diastolic volume is 130 mL. Left ventricle stress ejection fraction is 70%; normal values are above 45%. Myocardial perfusion: There is moderately severe fixed inferior wall defect that essentially resolves with prone imaging suggesting diaphragmatic attenuation than true ischemia or infarction. IMPRESSION: Low risk, probably normal treadmill nuclear stress test. 1) Probably normal perfusion images. There is moderately severe fixed inferior wall defect that essentially resolves with prone imaging suggesting diaphragmatic attenuation than true ischemia or infarction. 2) Normal left ventricular size, wall motion, and systolic function (EF post stress 70%). 3) No ECG evidence of ischemia. 4) No angina during the study. 5) Good exercise tolerance (10.1 METs, EVELIO -20%). Adequate stress test based on double product. 6) Compared to the nuclear stress test done 07/30/2011, no significant change. Dictated by: Patrick Vazquez MD on 09/01/2018 at 12:51 Approved by: Patrick Vazquez MD on 09/01/2018 at 12:55
--- NOTE | 2018-08-31 14:56 | P.PCN_ITS ---
Cardiac Stress Test Report Referral & Results Date Patient Seen: 08/31/18 Requesting provider: Patrick Vazquez Indication: Chest discomfort Rest ECG: Unremarkable Procedure Note: Today following both written and verbal informed consent the patient was exercised according to a standard Agsutin protocol patient went for a total of 8 minutes 5 seconds achieving a maximum heart rate of 132, maximum systolic blood pressure of 180. This is approximately 10.1 METS. Exercise was terminated at this point because of targets were met. Patient was also given Cardiolite through a previously started Hep-Lock IV by the lead nuclear medicine technologist approximately 1 minute prior to the cessation of exercise. No ST-T segment changes Normal heart rate and blood pressure response Functional aerobic impairment-20% in the active scale her 120% of normal Rare PVC identified Impression: No ECG evidence of ischemia Excellent exercise capacity Please see perfusion imaging report as well. Please note: Actual ECG tracings can be found in the PACS system.
== END ==
PROVIDERS: PCP Student in an Organized Health Care Education/Training Program; Visit Provider Internal Medicine Cardiovascular Disease
DX: R07.9 Chest pain, unspecified (principal); I25.10 Atherosclerotic heart disease of native coronary artery without angina pectoris
CPT/HCPCS: 78452; 93016; 93017; 93018; A9502

== ENCOUNTER → 2018-10-19 09:51 | Outpatient (CLI) | payer MEDICARE, OTHER, SELFPAY ==
[2018-10-19 11:18] LABS: Cholesterol 160 mg/dL (140-199); HDL Cholesterol 69 mg/dL (40-60); LDL Cholesterol Calculated 62 mg/dL (<100); Triglycerides 146 mg/dL (35-150)
== END ==
PROVIDERS: PCP Student in an Organized Health Care Education/Training Program; Visit Provider Internal Medicine Cardiovascular Disease
DX: E78.5 Hyperlipidemia, unspecified (principal)
CPT/HCPCS: 36415; 80061

== ENCOUNTER → 2018-11-16 10:08 | Outpatient (CLI) | payer MEDICARE, OTHER, SELFPAY ==
[2018-11-16 10:42] LABS: Add Manual Diff / Slide Review NO; Basophils Absolute Auto 0 /uL (0-100); Basophils Percent Auto 0.6 % (0-2); Eosinophils Absolute Auto 200 /uL (0-450); Eosinophils Percent Auto 3.5 % (2-4); Hematocrit 46.4 % (41-53); Hemoglobin 15.8 g/dL (13.5-17.5); Lymphocytes Absolute Auto 1700 /uL (1100-4500); Lymphocytes Percent Auto 33.2 % (25-40); Mean Corpuscular Hemoglobin 32.1 PG (26-34); Mean Corpuscular Volume 94.3 fL (80-100); Monocytes Absolute Auto 600 /uL (0-900); Monocytes Percent Auto 10.8 % (3-14); Neutrophils Absolute Auto 2700 /uL (1500-7000); Neutrophils Percent Auto 51.9 % (50-75); Platelet Count 192 X10^3/uL (150-400); Red Blood Cell Count 4.92 X10^6/uL (4.5-5.9); Red Cell Distribution Width 12.9 % (11.6-14.8); White Blood Cell Count 5.3 X10^3/uL (4.5-11.0)
[2018-11-16 10:54] LABS: Alanine Aminotransferase 31 IU/L (21-72); Albumin 4.5 g/dL (3.5-5.0); Albumin Globulin Ratio 1.5 (1.0-2.8); Alkaline Phosphatase 63 U/L (38-126); Aspartate Aminotransferase 33 IU/L (17-59); BUN Creatinine Ratio 17.5 (6-22); Bilirubin Total 1.1 mg/dL (0.2-1.3); Blood Urea Nitrogen 14 mg/dL (9-20); Calcium 9.7 mg/dL (8.4-10.2); Carbon Dioxide 29 mmol/L (22-32); Chloride 103 mmol/L (98-107); Estimated Glomerular Filt Rate > 60.0 mL/min (>60); Globulin 3.1 g/dL (1.7-4.1); Glucose 102 mg/dL (80-110); HEMOLYSIS < 15 (0-50); Potassium 4.3 mmol/L (3.4-5.1); Sodium 141 mmol/L (137-145); Total Protein 7.6 g/dL (6.3-8.2)
[2018-11-16 12:01] LABS: TSH w/ Reflex to FT4 2.38 uIU/mL (0.47-4.68)
== END ==
PROVIDERS: PCP Student in an Organized Health Care Education/Training Program; Visit Provider Student in an Organized Health Care Education/Training Program
DX: E78.00 Pure hypercholesterolemia, unspecified (principal); I10 Essential (primary) hypertension; Z13.228 Encounter for screening for other metabolic disorders; M19.90 Unspecified osteoarthritis, unspecified site; F32.9 Major depressive disorder, single episode, unspecified; M48.061 Spinal stenosis, lumbar region without neurogenic claudication
CPT/HCPCS: 36415; 80053; 84443; 85025

== ENCOUNTER 2018-11-22 15:15 | Outpatient (RCR) | payer MEDICARE, OTHER, SELFPAY ==
--- NOTE | 2018-08-24 11:26 | PT.OPPOC ---
Current Diagnoses Pain in right shoulder (08/24/18) Unsteadiness on feet (08/24/18) Weakness (08/24/18) History of falling (08/24/18) Provider Visit Care Team Role Provider Type Georgia Raymond PA-C Attending Provider Physician Primary Care Provider Specialty: Internal Medicine Address: [address] [place] [address], [id number] Email: Plan Of Care PT-OP-T Assessment and Plan Start: 08/24/18 11:25 Freq: Status: Active Protocol: Document 08/24/18 11:26 SAK (Rec: 08/25/18 09:58 SAK [id number]) Physical Therapy Assessment Rehab Potential Rehabilitation Potential Good Evaluation Complexity Number of Personal Factors/Comorbidities 1-2 Number of Body Systems Impaired 3 Clinical Presentation at Evaluation Evolving Impairments Impairments Functional Activities Pain ROM Strength Goals dizziness with history of falls Impairment dizziness Long-Term Goal (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 LTG Duration 11/24/18 functional activity Impairment Quickdash UE disability score 23% Short Term Goal (STG) Decrease Quickdash score to no greater than 15% STG Duration 09/23/18 Long-Term Goal (LTG) Decrease Quickdash score to no greater than 5% LTG Duration 11/24/18 Strength Impairment decreased strength right shoulder Short Term Goal (STG) Patient to be independent with HEP for right shoulder strengthening STG Duration 09/23/18 Associate Professor Physician Goal (LTG) right shoulder strength 5/5 ROM Impairment decreased right shoulder ROM Short Term Goal (STG) Patient to be independent with HEP for purposes of right shoulder ROM STG Duration 09/23/18 Long-Term Goal (LTG) Patient to demonstrate full AROM right shoulder without pain LTG Duration 11/24/18 pain Impairment right shoulder pain Short Term Goal (STG) Decrease resting pain level to no greater than 3/10 STG Duration 09/23/18 Long-Term Goal (LTG) Decrease pain at rest and with usual activity to no greater than 1/10 LTG Duration 11/24/18 Assessment Summary Assessment Patient presents to PT with function-limiting pain in his right shoulder related to a fall. He states his dizziness may be related to dehydration and he has been upping his fluid intake with significant improvement in the dizziness, though still persists at lower level. At this time he would like to focus on his shoulder pain but we discussed having him see vestibular specialist in PT department if doesn't fully resolve. This PT notes patient ambulating better than when he was last seen in PT. He has good potential for improvement in his right shoulder pain with PT with modalities and manual therapy to decrease his pain and progression of ROM and strengthening exercises as tolerated. If no improvement seen with PT patient may benefit from imaging studies Physical Therapy Plan Frequency and Duration Frequency of Treatment 2x/Week Duration of Treatment 12 wks Plan of Care Start Date 08/24/18 Plan of Care End Date 11/24/18 Therapeutic Interventions Therapeutic Interventions Aquatic Therapy Home Exercise Program Joint Mobilizations Manual Therapy Neuromuscular Re-education Patient/Caregiver Education Self-Care/Home Management Soft Tissue Mobilization Taping Therapeutic Activities Therapeutic Exercises Modalities Cold Pack/Ice Massage Electric Stimulation Hot Packs Iontophoresis Ultrasound Next Visit Focus/Plan Next Note Type Treatment Note Next Visit Plan Initiate wand and theraband exercises for right shoulder. Plan of Care Dates Plan of Care Start Date 08/24/18 Plan of Care End Date 11/24/18 Please Sign and Return: I have reviewed this Plan of Care and certify that the skilled therapy services above are required to meet the patient?s needs. Physician Signature Date Printed Name and Credentials Clinical Instructor Signature Printed Name and Credentials
--- NOTE | 2018-08-24 11:26 | PT.OIE ---
Current Diagnoses Pain in right shoulder (08/24/18) Unsteadiness on feet (08/24/18) Weakness (08/24/18) History of falling (08/24/18) Provider Visit Care Team Role Provider Type Georgia Raymond PA-C Attending Provider Physician Primary Care Provider Specialty: Internal Medicine Address: [address] [place] [address], [id number] Email: Physical Therapy Initial Evaluation PT-OP-A Visit Information Start: 08/24/18 11:25 Freq: Status: Active Protocol: Document 08/24/18 11:26 SAK (Rec: 08/25/18 09:58 SAK [id number]) Out-Patient Physical Therapy Visit Information Visit Information Visit Type Initial Evaluation Visit Start Time 11:15 Visit Stop Time 12:15 Total Visit Minutes 60 Visit Number 1 Number of AUTOMOTIVE FINANCE MANAGER Visits 0 Evaluation Information Evaluation Date 08/24/18 Precautions Precautions PMH: HTN dizziness falls [facility] [place] [facility] PT-OP-B Current Condition Start: 08/24/18 11:25 Freq: Status: Active Protocol: Document 08/24/18 11:26 SAK (Rec: 08/24/18 12:05 SAK [id number]) Current Condition History of Current Condition Onset Date 07/17/18 Current Complaints right shoulder pain and dysfunction. History of Current Condition primary c/o right shoulder s/p fall onto right UE (elbow) jamming right shoulder. 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 Ice and heat helpful sometimes. States Tramedol and Meloxicam not really effective. Cannibas balm helpful. Pain seems to be worse after activity and then reports he experiences it at rest. Fall possibly related to severe dizziness. Improvement in hydration level has helped but some persistent dizziness. 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 Prior Treatments and Tests No imaging Treatment Goals Patient/Caregiver Goals Decrease shoulder pain to allow him to return to usual activities and sleep without pain. 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 PT-OP-C Subjective Start: 08/24/18 11:25 Freq: Status: Active Protocol: Document 08/24/18 11:26 [facility] (Rec: 08/25/18 09:58 [facility] [id number]) Patient Questionnaires Quick Dash- Upper Extremity Quick Dash UE Score 23 OP-PT Pain Assessment Pain Assessment Grid Paper Pain Assessment Grid Completed Yes Location Right Shoulder Pain Location Details anterior, inferior Intensity 5 Description Aching Pressure Sharp Shooting Stabbing Throbbing Frequency Frequent Pain Aggravating Factors Activity Pain Alleviating Factors Cold Heat Inactivity Pain Behaviors Pain Behaviors Facial Grimacing Guarding Wincing PT-OP-E Functional Tests Start: 08/24/18 11:25 Freq: Status: Active Protocol: Document 08/24/18 11:26 [facility] (Rec: 08/25/18 09:58 [facility] [id number]) Functional Tests Apley's Scratch Test Action 1- Left posterior shoulder Action 1- Right top of shoulder Action 2- Left T2 Action 2- Right back of head Action 3- Left T7 Action 3- Right T12 PT-OP-F Manual Assessment Start: 08/24/18 11:25 Freq: Status: Active Protocol: Document 08/24/18 11:26 [facility] (Rec: 08/25/18 09:58 [facility] [id number]) Manual Assessments Soft Tissue Assessment Soft Tissue Mobility Assessment tightness bilateral UT right greater than left Joint Mobility Assessment Joint Mobility Assessment Decreased inferior glide and posterior glide right PT-OP-J Posture/Palpation/Skin Start: 08/24/18 11:25 Freq: Status: Active Protocol: Document 08/24/18 11:26 [facility] (Rec: 08/25/18 09:58 [facility] [id number]) Posture Evaluation Position Sitting Head/C-Spine Posture Forward Head T-Spine Posture Increased Kyphosis Shoulder Posture (L) Rounded (R) Rounded Shoulder Subluxation Position (R) Anterior Arm Posture (L) Internally Rotated (R) Internally Rotated Palpation Assessment Location anterior shoulder Palpation Findings Tenderness Palpation Details GH joint line PT-OP-K Range of Motion Start: 08/24/18 11:25 Freq: Status: Active Protocol: Document 08/24/18 11:26 SAK (Rec: 08/25/18 09:58 [facility] [id number]) Cervical Spine Range of Motion Cervical Spine Active ROM Limitations Soft Tissue Tightness Bony Restriction Comments due to arthritis Shoulder Goniometric Range of Motion Shoulder Right Active Shoulder ROM WFL No Flexion 165 Extension 15 Abduction 145 External Rotation at 45 degrees 55 Abduction Internal Rotation 40 Left Shoulder ROM WFL Yes Shoulder ROM Limitations Shoulder ROM Limitations Pain Comments most painful with ER right Elbow/Forearm Range of Motion Elbow/Forearm jennyfer Elbow/Forearm ROM WFL Yes PT-OP-L Special Tests Start: 08/24/18 11:25 Freq: Status: Active Protocol: Document 08/24/18 11:26 [facility] (Rec: 08/25/18 09:58 [facility] [id number]) Special Tests Shoulder Special Tests Elevation Impingement Test Results negative Biceps Load II Test Test Results negative Belly Press Test Results negative Apprehension Test Test Results negative Drop Arm Rotator Cuff Test Results negative jennyfer PT-OP-M Strength Start: 08/24/18 11:25 Freq: Status: Active Protocol: Document 08/24/18 11:26 [facility] (Rec: 08/25/18 09:58 [facility] [id number]) Shoulder Strength Shoulder Manual Muscle Testing Right Flexion 4 Good Extension 4 Good Abduction (C5) 4 Good External Rotation 4- Good- Internal Rotation 4 Good Comments painful all resisted motions, worst with ER Left Flexion 5 Normal Extension 4+ Good+ Abduction (C5) 5 Normal External Rotation 4 Good Internal Rotation 4+ Good+ Elbow/Forearm Strength Elbow and Forearm Manual Muscle Testing Right Flexion (C6) 4+ Good+ Extension (C7) 4+ Good+ Left Flexion (C6) 5 Normal Extension (C7) 5 Normal PT-OP-Q Treatments Start: 08/24/18 11:25 Freq: Status: Active Protocol: Document 08/24/18 11:26 [facility] (Rec: 08/25/18 10:00 [facility] [id number]) Self-Care/Home Management Treatment Education Patient Education Home Exercise Program Pain Management PT-OP-R Modalities Start: 08/24/18 11:25 Freq: Status: Active Protocol: Document 08/24/18 11:26 [facility] (Rec: 08/25/18 09:58 [facility] [id number]) Electric Stimulation Electric Stimulation Interferential Current (IFC) Body Location right shoulder Duration (Minutes) 12 Target/Sweep Sweep High/Low High Patient Position Hooklying Combined With Heat/Cold Cold Pack Ultrasound Therapy Treatment anterior GH joint line Patient Position Supine Coupling Medium Ultrasound Gel Frequency Setting (mHz) 1 Mode Setting Pulsed Duty Cycle 50% Intensity Setting (w/cm2) 1.2 PT-OP-T Assessment and Plan Start: 08/24/18 11:25 Freq: Status: Active Protocol: Document 08/24/18 11:26 [facility] (Rec: 08/25/18 09:58 [facility] [id number]) Physical Therapy Assessment Rehab Potential Rehabilitation Potential Good Evaluation Complexity Number of Personal Factors/Comorbidities 1-2 Number of Body Systems Impaired 3 Clinical Presentation at Evaluation Evolving Impairments Impairments Functional Activities Pain ROM Strength Goals dizziness with history of falls Impairment dizziness Lobby Concierge Goal (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 LTG Duration 11/24/18 functional activity Impairment Quickdash UE disability score 23% Short Term Goal (STG) Decrease Quickdash score to no greater than 15% STG Duration 09/23/18 Lobby Concierge Goal (LTG) Decrease Quickdash score to no greater than 5% LTG Duration 11/24/18 Strength Impairment decreased strength right shoulder Short Term Goal (STG) Patient to be independent with HEP for right shoulder strengthening STG Duration 09/23/18 Lobby Concierge Goal (LTG) right shoulder strength 5/5 ROM Impairment decreased right shoulder ROM Short Term Goal (STG) Patient to be independent with HEP for purposes of right shoulder ROM STG Duration 09/23/18 Lobby Concierge Goal (LTG) Patient to demonstrate full AROM right shoulder without pain LTG Duration 11/24/18 pain Impairment right shoulder pain Short Term Goal (STG) Decrease resting pain level to no greater than 3/10 STG Duration 09/23/18 Lobby Concierge Goal (LTG) Decrease pain at rest and with usual activity to no greater than 1/10 LTG Duration 11/24/18 Assessment Summary Assessment Patient presents to PT with function-limiting pain in his right shoulder related to a fall. He states his dizziness may be related to dehydration and he has been upping his fluid intake with significant improvement in the dizziness, though still persists at lower level. At this time he would like to focus on his shoulder pain but we discussed having him see vestibular specialist in PT department if doesn't fully resolve. This PT notes patient ambulating better than when he was last seen in PT. He has good potential for improvement in his right shoulder pain with PT with modalities and manual therapy to decrease his pain and progression of ROM and strengthening exercises as tolerated. If no improvement seen with PT patient may benefit from imaging studies Physical Therapy Plan Frequency and Duration Frequency of Treatment 2x/Week Duration of Treatment 12 wks Plan of Care Start Date 08/24/18 Plan of Care End Date 11/24/18 Therapeutic Interventions Therapeutic Interventions Aquatic Therapy Home Exercise Program Joint Mobilizations Manual Therapy Neuromuscular Re-education Patient/Caregiver Education Self-Care/Home Management Soft Tissue Mobilization Taping Therapeutic Activities Therapeutic Exercises Modalities Cold Pack/Ice Massage Electric Stimulation Hot Packs Iontophoresis Ultrasound Next Visit Focus/Plan Next Note Type Treatment Note Next Visit Plan Initiate wand and theraband exercises for right shoulder.
--- NOTE | 2018-08-26 16:06 | PT.OTN ---
Current Diagnoses Pain in right shoulder (08/26/18) Unsteadiness on feet (08/26/18) Weakness (08/26/18) History of falling (08/26/18) Physical Therapy Treatment Note PT-OP-A Visit Information Start: 08/24/18 11:25 Freq: Status: Active Protocol: Document 08/26/18 15:50 SAK (Rec: 08/26/18 16:06 [facility] [id number]) Out-Patient Physical Therapy Visit Information Visit Information Visit Type Initial Evaluation Visit Start Time 14:30 Visit Stop Time 15:25 Total Visit Minutes 55 Visit Number 2 Number of TIN PLATER Visits 0 Evaluation Information Evaluation Date 08/24/18 Precautions Precautions PMH: HTN dizziness falls [place] [place] [facility] PT-OP-B Current Condition Start: 08/24/18 11:25 Freq: Status: Active Protocol: Document 08/24/18 11:26 SAK (Rec: 08/24/18 12:05 SAK [id number]) Current Condition History of Current Condition Onset Date 07/17/18 Current Complaints right shoulder pain and dysfunction. History of Current Condition primary c/o right shoulder s/p fall onto right UE (elbow) jamming right shoulder. 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 Ice and heat helpful sometimes. States Tramedol and Meloxicam not really effective. Cannibas balm helpful. Pain seems to be worse after activity and then reports he experiences it at rest. Fall possibly related to severe dizziness. Improvement in hydration level has helped but some persistent dizziness. 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 Prior Treatments and Tests No imaging Treatment Goals Patient/Caregiver Goals Decrease shoulder pain to allow him to return to usual activities and sleep without pain. 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 Pain with reaching activities mostly today. PT-OP-E Functional Tests Start: 08/24/18 11:25 Freq: Status: Active Protocol: Document 08/24/18 11:26 [facility] (Rec: 08/25/18 09:58 [facility] [id number]) Functional Tests Apley's Scratch Test Action 1- Left posterior shoulder Action 1- Right top of shoulder Action 2- Left T2 Action 2- Right back of head Action 3- Left T7 Action 3- Right T12 PT-OP-F Manual Assessment Start: 08/24/18 11:25 Freq: Status: Active Protocol: Document 08/24/18 11:26 [facility] (Rec: 08/25/18 09:58 [facility] [id number]) Manual Assessments Soft Tissue Assessment Soft Tissue Mobility Assessment tightness bilateral UT right greater than left Joint Mobility Assessment Joint Mobility Assessment Decreased inferior glide and posterior glide right PT-OP-J Posture/Palpation/Skin Start: 08/24/18 11:25 Freq: Status: Active Protocol: Document 08/24/18 11:26 [facility] (Rec: 08/25/18 09:58 [facility] [id number]) Posture Evaluation Position Sitting Head/C-Spine Posture Forward Head T-Spine Posture Increased Kyphosis Shoulder Posture (L) Rounded (R) Rounded Shoulder Subluxation Position (R) Anterior Arm Posture (L) Internally Rotated (R) Internally Rotated Palpation Assessment Location anterior shoulder Palpation Findings Tenderness Palpation Details GH joint line PT-OP-K Range of Motion Start: 08/24/18 11:25 Freq: Status: Active Protocol: Document 08/24/18 11:26 [facility] (Rec: 08/25/18 09:58 [facility] [id number]) Cervical Spine Range of Motion Cervical Spine Active ROM Limitations Soft Tissue Tightness Bony Restriction Comments due to arthritis Shoulder Goniometric Range of Motion Shoulder Right Active Shoulder ROM WFL No Flexion 165 Extension 15 Abduction 145 External Rotation at 45 degrees 55 Abduction Internal Rotation 40 Left Shoulder ROM WFL Yes Shoulder ROM Limitations Shoulder ROM Limitations Pain Comments most painful with ER right Elbow/Forearm Range of Motion Elbow/Forearm jennyfer Elbow/Forearm ROM WFL Yes PT-OP-L Special Tests Start: 08/24/18 11:25 Freq: Status: Active Protocol: Document 08/24/18 11:26 [facility] (Rec: 08/25/18 09:58 [facility] [id number]) Special Tests Shoulder Special Tests Elevation Impingement Test Results negative Biceps Load II Test Test Results negative Belly Press Test Results negative Apprehension Test Test Results negative Drop Arm Rotator Cuff Test Results negative jennyfer PT-OP-M Strength Start: 08/24/18 11:25 Freq: Status: Active Protocol: Document 08/24/18 11:26 [facility] (Rec: 08/25/18 09:58 [facility] [id number]) Shoulder Strength Shoulder Manual Muscle Testing Right Flexion 4 Good Extension 4 Good Abduction (C5) 4 Good External Rotation 4- Good- Internal Rotation 4 Good Comments painful all resisted motions, worst with ER Left Flexion 5 Normal Extension 4+ Good+ Abduction (C5) 5 Normal External Rotation 4 Good Internal Rotation 4+ Good+ Elbow/Forearm Strength Elbow and Forearm Manual Muscle Testing Right Flexion (C6) 4+ Good+ Extension (C7) 4+ Good+ Left Flexion (C6) 5 Normal Extension (C7) 5 Normal PT-OP-Q Treatments Start: 08/24/18 11:25 Freq: Status: Active Protocol: Document 08/26/18 15:50 [facility] (Rec: 08/26/18 16:06 [facility] [id number]) Therapeutic Exercises Supine Exercises shoulder IR/ER Reps/Minutes 10x Comments AAROM at 45 shoulder flex 90 to 180 Equipment Used wand, 1# Reps/Minutes 10x chest press Equipment Used wand, 1# Reps/Minutes 10x Standing Exercises row, shld ext, ER Equipment Used L1 TB Reps/Minutes 10x Manual Therapy Treatment Soft Tissue Mobilization pec dino, biceps Mobilization Type Myofascial Release Rolling Strumming Comments with manual pec stretch Joint Mobilizations lateral distraction GH Grade II Body Position Hooklying GH long axis distraction Grade II Body Position Hooklying PT-OP-R Modalities Start: 08/24/18 11:25 Freq: Status: Active Protocol: Document 08/26/18 15:50 [facility] (Rec: 08/26/18 16:06 [facility] [id number]) Electric Stimulation Electric Stimulation Interferential Current (IFC) Body Location right shoulder Duration (Minutes) 12 Target/Sweep Sweep High/Low High Patient Position Hooklying Combined With Heat/Cold Cold Pack Ultrasound Therapy Treatment anterior GH joint line Patient Position Supine Coupling Medium Ultrasound Gel Frequency Setting (mHz) 1 Mode Setting Pulsed Duty Cycle 50% Intensity Setting (w/cm2) 1.2 PT-OP-T Assessment and Plan Start: 08/24/18 11:25 Freq: Status: Active Protocol: Document 08/26/18 15:50 [facility] (Rec: 08/26/18 16:06 SAK [id number]) Physical Therapy Assessment Goals dizziness with history of falls Impairment dizziness Install Technician Goal (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 LTG Duration 11/24/18 functional activity Impairment Quickdash UE disability score 23% Short Term Goal (STG) Decrease Quickdash score to no greater than 15% STG Duration 09/23/18 Install Technician Goal (LTG) Decrease Quickdash score to no greater than 5% LTG Duration 11/24/18 Strength Impairment decreased strength right shoulder Short Term Goal (STG) Patient to be independent with HEP for right shoulder strengthening STG Duration 09/23/18 Jail Goal (LTG) right shoulder strength 5/5 ROM Impairment decreased right shoulder ROM Short Term Goal (STG) Patient to be independent with HEP for purposes of right shoulder ROM STG Duration 09/23/18 Install Technician Goal (LTG) Patient to demonstrate full AROM right shoulder without pain LTG Duration 11/24/18 pain Impairment right shoulder pain Short Term Goal (STG) Decrease resting pain level to no greater than 3/10 STG Duration 09/23/18 Jail Goal (LTG) Decrease pain at rest and with usual activity to no greater than 1/10 LTG Duration 11/24/18 Assessment Summary Assessment Good response to first PT treatment with decrease in shoulder pain and improved ability to sleep. Has obtained a referral for dizziness so will schedule with vestibular specialist when able. Physical Therapy Plan Frequency and Duration Frequency of Treatment 2x/Week Duration of Treatment 12 wks Plan of Care Start Date 08/24/18 Plan of Care End Date 11/24/18 Therapeutic Interventions Therapeutic Interventions Aquatic Therapy Home Exercise Program Joint Mobilizations Manual Therapy Neuromuscular Re-education Patient/Caregiver Education Self-Care/Home Management Soft Tissue Mobilization Taping Therapeutic Activities Therapeutic Exercises Modalities Cold Pack/Ice Massage Electric Stimulation Hot Packs Iontophoresis Ultrasound Next Visit Focus/Plan Next Note Type Treatment Note Next Visit Plan Assess response to today's session, progress strengthening ex for right shoulder as tolerated. Patient to schedule for PT appointment with vestibular PT .
--- NOTE | 2018-08-30 15:31 | PT.OTRE ---
Current Diagnoses Pain in right shoulder (08/30/18) Unsteadiness on feet (08/30/18) Dizziness and giddiness (08/30/18) Weakness (08/30/18) History of falling (08/30/18) Provider Visit Care Team Role Provider Type Georgia Raymond PA-C Attending Provider Physician Primary Care Provider Specialty: Internal Medicine Address: [address] [place] [address], [facility] Email: Physical Therapy Re-Evaluation PT-OP-A Visit Information Start: 08/24/18 11:25 Freq: Status: Active Protocol: Document 08/30/18 12:00 DCW (Rec: 08/30/18 15:30 DCW [id number]) Out-Patient Physical Therapy Visit Information Visit Information Visit Type Re-Evaluation Visit Start Time 12:00 Visit Stop Time 12:45 Total Visit Minutes 45 Visit Number 3 Number of BOARD WINDER Visits 0 Evaluation Information Evaluation Date 08/24/18 Precautions Precautions PMH: HTN dizziness falls [place] LUIS PT-OP-B Current Condition Start: 08/24/18 11:25 Freq: Status: Active Protocol: Document 08/30/18 12:00 DCW (Rec: 08/30/18 15:30 DCW [id number]) Current Condition History of Current Condition Onset Date 07/17/18 Current Complaints right shoulder pain and dysfunction. History of Current Condition primary c/o right shoulder s/p fall onto right UE (elbow) jamming right shoulder. 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 Ice and heat helpful sometimes. States Tramedol and Meloxicam not really effective. Cannibas balm helpful. Pain seems to be worse after activity and then reports he experiences it at rest. Fall possibly related to severe dizziness. Improvement in hydration level has helped but some persistent dizziness. Since last seen in PT has had gut problems and has been to associate financial planner as well; having treadmill test end of month. ADDENDUM 08/30/18: Pt underwent vestibular assessment today for ongoing complaints of imbalance. Pt reports he was having symptoms of dizziness, like my head was expanded, or like I had a stuffy head cold for a number of months, until he was instructed by a associate financial planner to drink more water. This helped his eliminate the main complaints of dizziness, but since that time (~1 year), he has just had a chronic sensation of dizziness/poor balance. Pt notes that his symptoms mainly occur after standing up and starting to walk, but is still present at a low-level occasionall when sitting still . Prior Treatments and Tests No imaging PT-OP-C Subjective Start: 08/24/18 11:25 Freq: Status: Active Protocol: Document 08/30/18 12:00 DCW (Rec: 08/30/18 15:30 DCW [id number]) OP-PT Subjective Patient Comments Patient Comments Pt notes that he is scared to work on his balance due to his falls history PT-OP-D Balance Start: 08/24/18 11:25 Freq: Status: Active Protocol: Document 08/30/18 12:00 DCW (Rec: 08/30/18 15:30 DCW [id number]) Balance Tests CTSIB CTSIB Position 1 Mild Sway CTSIB Position 2 Moderate Sway CTSIB Position 3 Severe Sway CTSIB Position 4 Moderate Sway CTSIB Position 5 Fall Reaction CTSIB Position 6 Fall Reaction PT-OP-E Functional Tests Start: 08/24/18 11:25 Freq: Status: Active Protocol: Document 08/24/18 11:26 SAK (Rec: 08/25/18 09:58 SAK [id number]) Functional Tests Apley's Scratch Test Action 1: The subject is instructed to touch the opposite shoulder with his/her hand. This motion checks Glenohumeral adduction, internal rotation , horizontal adduction and scapular protraction Action 2: The subject is instructed to place his/her arm overhead and reach behind the neck to touch his/her upper back. This motion checks Glenohumeral abduction, external rotation and scapular upward rotation and elevation. Action 3: The subject puts his/her hand on the lower back and reaches upward as far as possible. This motion checks glenohumeral adduction, internal rotation and scapular retraction with downward rotation Action 1- Left posterior shoulder Action 1- Right top of shoulder Action 2- Left T2 Action 2- Right back of head Action 3- Left T7 Action 3- Right T12 PT-OP-F Manual Assessment Start: 08/24/18 11:25 Freq: Status: Active Protocol: Document 08/24/18 11:26 [facility] (Rec: 08/25/18 09:58 [facility] [id number]) Manual Assessments Soft Tissue Assessment Soft Tissue Mobility Assessment tightness bilateral UT right greater than left Joint Mobility Assessment Joint Mobility Assessment Decreased inferior glide and posterior glide right PT-OP-J Posture/Palpation/Skin Start: 08/24/18 11:25 Freq: Status: Active Protocol: Document 08/24/18 11:26 [facility] (Rec: 08/25/18 09:58 [facility] [id number]) Posture Evaluation Position Sitting Head/C-Spine Posture Forward Head T-Spine Posture Increased Kyphosis Shoulder Posture (L) Rounded (R) Rounded Shoulder Subluxation Position (R) Anterior Arm Posture (L) Internally Rotated (R) Internally Rotated Palpation Assessment Location anterior shoulder Palpation Findings Tenderness Palpation Details GH joint line PT-OP-K Range of Motion Start: 08/24/18 11:25 Freq: Status: Active Protocol: Document 08/24/18 11:26 [facility] (Rec: 08/25/18 09:58 [facility] [id number]) Cervical Spine Range of Motion Cervical Spine Active ROM Limitations Soft Tissue Tightness Bony Restriction Comments due to arthritis Shoulder Goniometric Range of Motion Shoulder Measured in Degrees Right Active Shoulder ROM WFL No Flexion 165 Extension 15 Abduction 145 External Rotation at 45 degrees 55 Abduction Internal Rotation 40 Left Shoulder ROM WFL Yes Shoulder ROM Limitations Shoulder ROM Limitations Pain Comments most painful with ER right Elbow/Forearm Range of Motion Elbow/Forearm Measured in Degrees jennyfer Elbow/Forearm ROM WFL Yes PT-OP-L Special Tests Start: 08/24/18 11:25 Freq: Status: Active Protocol: Document 08/24/18 11:26 [facility] (Rec: 08/25/18 09:58 [facility] [id number]) Special Tests Shoulder Special Tests Elevation Impingement Test Results negative Biceps Load II Test Test Results negative Belly Press Test Results negative Apprehension Test Test Results negative Drop Arm Rotator Cuff Test Results negative jennyfer PT-OP-M Strength Start: 08/24/18 11:25 Freq: Status: Active Protocol: Document 08/24/18 11:26 [facility] (Rec: 08/25/18 09:58 [facility] [id number]) Shoulder Strength Shoulder Manual Muscle Testing Right Flexion 4 Good Extension 4 Good Abduction (C5) 4 Good External Rotation 4- Good- Internal Rotation 4 Good Comments painful all resisted motions, worst with ER Left Flexion 5 Normal Extension 4+ Good+ Abduction (C5) 5 Normal External Rotation 4 Good Internal Rotation 4+ Good+ Elbow/Forearm Strength Elbow and Forearm Manual Muscle Testing Right Flexion (C6) 4+ Good+ Extension (C7) 4+ Good+ Left Flexion (C6) 5 Normal Extension (C7) 5 Normal PT-OP-O Vestibular Start: 08/24/18 11:25 Freq: Status: Active Protocol: Document 08/30/18 12:00 DCW (Rec: 08/30/18 15:30 DCW [id number]) Vestibular Assessment Screening Tests Vestibular Artery Screen Negative Auditory Tests Ortiz Test Negative Rinne Test Negative Air Conduction Results Equal Visual Testing Smooth Pursuits Horizontal WNL Smooth Pursuits Vertical WNL Saccades Horizontal WNL Gaze Evoked Nystagmus With Fixation Negative Gaze Evoked Nystagmus Without Fixation Negative Heave Test Unclear Thrust Head Unclear DVA (Line Degradation) 4 Head Shake Negative Spontaneous Nystagmus Negative Positional Testing Merrill-Hallpike Negative Left Negative Right Rolling Test Negative Left Negative Right Comments Vestibular Comments Thrust and heave tests inconclusive due to pt closing his eyes and jerking his head in shock with every single attempt PT-OP-Q Treatments Start: 08/24/18 11:25 Freq: Status: Active Protocol: Document 08/26/18 15:50 SAK (Rec: 08/26/18 16:06 [facility] [id number]) Therapeutic Exercises Supine Exercises shoulder IR/ER Reps/Minutes 10x Comments AAROM at 45 shoulder flex 90 to 180 Equipment Used wand, 1# Reps/Minutes 10x chest press Equipment Used wand, 1# Reps/Minutes 10x Standing Exercises row, shld ext, ER Equipment Used L1 TB Reps/Minutes 10x Manual Therapy Treatment Soft Tissue Mobilization pec dino, biceps Mobilization Type Myofascial Release Rolling Strumming Comments with manual pec stretch Joint Mobilizations lateral distraction GH Grade II Body Position Hooklying GH long axis distraction Grade II Body Position Hooklying PT-OP-R Modalities Start: 08/24/18 11:25 Freq: Status: Active Protocol: Document 08/26/18 15:50 SAK (Rec: 08/26/18 16:06 SAK [id number]) Electric Stimulation Electric Stimulation Interferential Current (IFC) Body Location right shoulder Duration (Minutes) 12 Target/Sweep Sweep High/Low High Patient Position Hooklying Combined With Heat/Cold Cold Pack Ultrasound Therapy Treatment anterior GH joint line Patient Position Supine Coupling Medium Ultrasound Gel Frequency Setting (mHz) 1 Mode Setting Pulsed Duty Cycle 50% Intensity Setting (w/cm2) 1.2 PT-OP-T Assessment and Plan Start: 08/24/18 11:25 Freq: Status: Active Protocol: Document 08/30/18 12:00 DCW (Rec: 08/30/18 15:30 DCW [id number]) Physical Therapy Assessment Goals dizziness with history of falls Impairment dizziness Rail Bender Goal (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 LTG Duration 11/24/18 functional activity Impairment Quickdash UE disability score 23% Short Term Goal (STG) Decrease Quickdash score to no greater than 15% STG Duration 09/23/18 [facility] Goal (LTG) Decrease Quickdash score to no greater than 5% LTG Duration 11/24/18 Strength Impairment decreased strength right shoulder Short Term Goal (STG) Patient to be independent with HEP for right shoulder strengthening STG Duration 09/23/18 Rail Bender Goal (LTG) right shoulder strength 5/5 ROM Impairment decreased right shoulder ROM Short Term Goal (STG) Patient to be independent with HEP for purposes of right shoulder ROM STG Duration 09/23/18 [facility] Goal (LTG) Patient to demonstrate full AROM right shoulder without pain LTG Duration 11/24/18 pain Impairment right shoulder pain Short Term Goal (STG) Decrease resting pain level to no greater than 3/10 STG Duration 09/23/18 [facility] Goal (LTG) Decrease pain at rest and with usual activity to no greater than 1/10 LTG Duration 11/24/18 Assessment Summary Assessment Pt's vestibular examination entirely negative. Per CTSIB, pt clearly has impaired balance, especially when visual imput in removed, however there is no indication of central or peripheral vertigo. Pt's symptoms may be caused by cervicogenic dysfunction, however there is no appropriate testing to rule this in. Other DDx may include orthostatic hypotension, however this is less likely due to symptoms with sitting still, or may be side-effects from multiple medications. Pt should benefit from skilled therapy focusing on balance training, as well as continue current POC for his right shoulder dysfunction . Physical Therapy Plan Frequency and Duration Frequency of Treatment 2x/Week Duration of Treatment 12 wks Plan of Care Start Date 08/30/18 Plan of Care End Date 11/30/18 Therapeutic Interventions Therapeutic Interventions Aquatic Therapy Home Exercise Program Joint Mobilizations Manual Therapy Neuromuscular Re-education Patient/Caregiver Education Self-Care/Home Management Soft Tissue Mobilization Taping Therapeutic Activities Therapeutic Exercises Modalities Cold Pack/Ice Massage Electric Stimulation Hot Packs Iontophoresis Ultrasound Next Visit Focus/Plan Next Note Type Treatment Note Next Visit Plan Assess response to today's session, progress strengthening ex for right shoulder as tolerated. Work on static/dynamic balance training.
--- NOTE | 2018-08-30 15:31 | PT.OPPOC ---
Current Diagnoses Pain in right shoulder (08/30/18) Unsteadiness on feet (08/30/18) Dizziness and giddiness (08/30/18) Weakness (08/30/18) History of falling (08/30/18) Provider Visit Care Team Role Provider Type Georgia Raymond PA-C Attending Provider Physician Primary Care Provider Specialty: Internal Medicine Address: [address] [place] [address], [facility] Email: Plan Of Care PT-OP-T Assessment and Plan Start: 08/24/18 11:25 Freq: Status: Active Protocol: Document 08/30/18 12:00 DCW (Rec: 08/30/18 15:30 DCW [id number]) Physical Therapy Assessment Goals dizziness with history of falls Impairment dizziness Detention Goal (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 LTG Duration 11/24/18 functional activity Impairment Quickdash UE disability score 23% Short Term Goal (STG) Decrease Quickdash score to no greater than 15% STG Duration 09/23/18 Management Trainee Marketing Goal (LTG) Decrease Quickdash score to no greater than 5% LTG Duration 11/24/18 Strength Impairment decreased strength right shoulder Short Term Goal (STG) Patient to be independent with HEP for right shoulder strengthening STG Duration 09/23/18 Detention Goal (LTG) right shoulder strength 5/5 ROM Impairment decreased right shoulder ROM Short Term Goal (STG) Patient to be independent with HEP for purposes of right shoulder ROM STG Duration 09/23/18 Management Trainee Marketing Goal (LTG) Patient to demonstrate full AROM right shoulder without pain LTG Duration 11/24/18 pain Impairment right shoulder pain Short Term Goal (STG) Decrease resting pain level to no greater than 3/10 STG Duration 09/23/18 Management Trainee Marketing Goal (LTG) Decrease pain at rest and with usual activity to no greater than 1/10 LTG Duration 11/24/18 Assessment Summary Assessment Pt's vestibular examination entirely negative. Per CTSIB, pt clearly has impaired balance, especially when visual imput in removed, however there is no indication of central or peripheral vertigo. Pt's symptoms may be caused by cervicogenic dysfunction, however there is no appropriate testing to rule this in. Other DDx may include orthostatic hypotension, however this is less likely due to symptoms with sitting still, or may be side-effects from multiple medications. Pt should benefit from skilled therapy focusing on balance training, as well as continue current POC for his right shoulder dysfunction . Physical Therapy Plan Frequency and Duration Frequency of Treatment 2x/Week Duration of Treatment 12 wks Plan of Care Start Date 08/30/18 Plan of Care End Date 11/30/18 Therapeutic Interventions Therapeutic Interventions Aquatic Therapy Home Exercise Program Joint Mobilizations Manual Therapy Neuromuscular Re-education Patient/Caregiver Education Self-Care/Home Management Soft Tissue Mobilization Taping Therapeutic Activities Therapeutic Exercises Modalities Cold Pack/Ice Massage Electric Stimulation Hot Packs Iontophoresis Ultrasound Next Visit Focus/Plan Next Note Type Treatment Note Next Visit Plan Assess response to today's session, progress strengthening ex for right shoulder as tolerated. Work on static/dynamic balance training. Plan of Care Dates Plan of Care Start Date 08/30/18 Plan of Care End Date 11/30/18 Please Sign and Return: I have reviewed this Plan of Care and certify that the skilled therapy services above are required to meet the patient?s needs. Physician Signature Date Printed Name and Credentials Clinical Instructor Signature Printed Name and Credentials
--- NOTE | 2018-09-03 14:30 | PT.OTN ---
Current Diagnoses Pain in right shoulder (09/03/18) Unsteadiness on feet (09/03/18) Dizziness and giddiness (09/03/18) Weakness (09/03/18) History of falling (09/03/18) Physical Therapy Treatment Note PT-OP-A Visit Information Start: 08/24/18 11:25 Freq: Status: Active Protocol: Document 09/03/18 08:14 SAK (Rec: 09/03/18 08:30 SAK [id number]) Out-Patient Physical Therapy Visit Information Visit Information Visit Type Treatment Note Visit Start Time 08:15 Visit Stop Time 09:10 Total Visit Minutes 55 Visit Number 4 Number of ERISA ATTORNEY Visits 0 Evaluation Information Evaluation Date 09/03/18 Precautions Precautions PMH: HTN dizziness falls [place] PT-OP-B Current Condition Start: 08/24/18 11:25 Freq: Status: Active Protocol: Document 08/30/18 12:00 DCW (Rec: 08/30/18 15:30 DCW [id number]) Current Condition History of Current Condition Onset Date 07/17/18 Current Complaints right shoulder pain and dysfunction. History of Current Condition primary c/o right shoulder s/p fall onto right UE (elbow) jamming right shoulder. 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 Ice and heat helpful sometimes. States Tramedol and Meloxicam not really effective. Cannibas balm helpful. Pain seems to be worse after activity and then reports he experiences it at rest. Fall possibly related to severe dizziness. Improvement in hydration level has helped but some persistent dizziness. Since last seen in PT has had gut problems and has been to facilities maintenance worker as well; having treadmill test end of month. ADDENDUM 08/30/18: Pt underwent vestibular assessment today for ongoing complaints of imbalance. Pt reports he was having symptoms of dizziness, like my head was expanded, or like I had a stuffy head cold for a number of months, until he was instructed by a facilities maintenance worker to drink more water. This helped his eliminate the main complaints of dizziness, but since that time (~1 year), he has just had a chronic sensation of dizziness/poor balance. Pt notes that his symptoms mainly occur after standing up and starting to walk, but is still present at a low-level occasionall when sitting still . Prior Treatments and Tests No imaging PT-OP-C Subjective Start: 08/24/18 11:25 Freq: Status: Active Protocol: Document 09/03/18 08:14 SAK (Rec: 09/03/18 08:30 SAK [id number]) OP-PT Subjective Patient Comments Patient Comments Had to get up after a couple hours; put cannibas ball on it , used Tylenol, ice, and slept in chair. Decreased pain for a couple hours after last treatment on shoulder. PT-OP-D Balance Start: 08/24/18 11:25 Freq: Status: Active Protocol: Document 08/30/18 12:00 DCW (Rec: 08/30/18 15:30 DCW [id number]) Balance Tests CTSIB CTSIB Position 1 Mild Sway CTSIB Position 2 Moderate Sway CTSIB Position 3 Severe Sway CTSIB Position 4 Moderate Sway CTSIB Position 5 Fall Reaction CTSIB Position 6 Fall Reaction PT-OP-E Functional Tests Start: 08/24/18 11:25 Freq: Status: Active Protocol: Document 08/24/18 11:26 SAK (Rec: 08/25/18 09:58 [facility] [id number]) Functional Tests Apley's Scratch Test Action 1- Left posterior shoulder Action 1- Right top of shoulder Action 2- Left T2 Action 2- Right back of head Action 3- Left T7 Action 3- Right T12 PT-OP-F Manual Assessment Start: 08/24/18 11:25 Freq: Status: Active Protocol: Document 08/24/18 11:26 SAK (Rec: 08/25/18 09:58 [facility] [id number]) Manual Assessments Soft Tissue Assessment Soft Tissue Mobility Assessment tightness bilateral UT right greater than left Joint Mobility Assessment Joint Mobility Assessment Decreased inferior glide and posterior glide right PT-OP-J Posture/Palpation/Skin Start: 08/24/18 11:25 Freq: Status: Active Protocol: Document 08/24/18 11:26 SAK (Rec: 08/25/18 09:58 [facility] [id number]) Posture Evaluation Position Sitting Head/C-Spine Posture Forward Head T-Spine Posture Increased Kyphosis Shoulder Posture (L) Rounded (R) Rounded Shoulder Subluxation Position (R) Anterior Arm Posture (L) Internally Rotated (R) Internally Rotated Palpation Assessment Location anterior shoulder Palpation Findings Tenderness Palpation Details GH joint line PT-OP-K Range of Motion Start: 08/24/18 11:25 Freq: Status: Active Protocol: Document 08/24/18 11:26 SAK (Rec: 08/25/18 09:58 [facility] [id number]) Cervical Spine Range of Motion Cervical Spine Active ROM Limitations Soft Tissue Tightness Bony Restriction Comments due to arthritis Shoulder Goniometric Range of Motion Shoulder Right Active Shoulder ROM WFL No Flexion 165 Extension 15 Abduction 145 External Rotation at 45 degrees 55 Abduction Internal Rotation 40 Left Shoulder ROM WFL Yes Shoulder ROM Limitations Shoulder ROM Limitations Pain Comments most painful with ER right Elbow/Forearm Range of Motion Elbow/Forearm jennyfer Elbow/Forearm ROM WFL Yes PT-OP-L Special Tests Start: 08/24/18 11:25 Freq: Status: Active Protocol: Document 08/24/18 11:26 [facility] (Rec: 08/25/18 09:58 [facility] [id number]) Special Tests Shoulder Special Tests Elevation Impingement Test Results negative Biceps Load II Test Test Results negative Belly Press Test Results negative Apprehension Test Test Results negative Drop Arm Rotator Cuff Test Results negative jennyfer PT-OP-M Strength Start: 08/24/18 11:25 Freq: Status: Active Protocol: Document 08/24/18 11:26 [facility] (Rec: 08/25/18 09:58 [facility] [id number]) Shoulder Strength Shoulder Manual Muscle Testing Right Flexion 4 Good Extension 4 Good Abduction (C5) 4 Good External Rotation 4- Good- Internal Rotation 4 Good Comments painful all resisted motions, worst with ER Left Flexion 5 Normal Extension 4+ Good+ Abduction (C5) 5 Normal External Rotation 4 Good Internal Rotation 4+ Good+ Elbow/Forearm Strength Elbow and Forearm Manual Muscle Testing Right Flexion (C6) 4+ Good+ Extension (C7) 4+ Good+ Left Flexion (C6) 5 Normal Extension (C7) 5 Normal PT-OP-O Vestibular Start: 08/24/18 11:25 Freq: Status: Active Protocol: Document 08/30/18 12:00 DCW (Rec: 08/30/18 15:30 DCW [id number]) Vestibular Assessment Screening Tests Vestibular Artery Screen Negative Auditory Tests Ortiz Test Negative Rinne Test Negative Air Conduction Results Equal Visual Testing Smooth Pursuits Horizontal WNL Smooth Pursuits Vertical WNL Saccades Horizontal WNL Gaze Evoked Nystagmus With Fixation Negative Gaze Evoked Nystagmus Without Fixation Negative Heave Test Unclear Thrust Head Unclear DVA (Line Degradation) 4 Head Shake Negative Spontaneous Nystagmus Negative Positional Testing [place]-Hallpike Negative Left Negative Right Rolling Test Negative Left Negative Right Comments Vestibular Comments Thrust and heave tests inconclusive due to pt closing his eyes and jerking his head in shock with every single attempt PT-OP-Q Treatments Start: 08/24/18 11:25 Freq: Status: Active Protocol: Document 09/03/18 08:14 [facility] (Rec: 09/03/18 08:30 [facility] [id number]) Therapeutic Exercises Supine Exercises shoulder IR/ER Reps/Minutes 10x Comments AAROM at 45 shoulder flex 90 to 180 Equipment Used wand, 1# Reps/Minutes 10x chest press Equipment Used wand, 1# Reps/Minutes 10x Standing Exercises row, shld ext, ER Equipment Used L1 TB Reps/Minutes 10x Comments verbal and manual cues Manual Therapy Treatment Soft Tissue Mobilization pec dino, biceps Mobilization Type Myofascial Release Rolling Strumming Comments with manual pec stretch Joint Mobilizations lateral distraction GH Grade II Body Position Hooklying GH long axis distraction Grade II Body Position Hooklying PT-OP-R Modalities Start: 08/24/18 11:25 Freq: Status: Active Protocol: Document 09/03/18 08:14 [facility] (Rec: 09/03/18 08:30 [facility] [id number]) Electric Stimulation Electric Stimulation Interferential Current (IFC) Body Location right shoulder Duration (Minutes) 12 Target/Sweep Sweep High/Low High Patient Position Hooklying Combined With Heat/Cold Cold Pack Ultrasound Therapy Treatment anterior GH joint line Patient Position Supine Coupling Medium Ultrasound Gel Frequency Setting (mHz) 1 Mode Setting Pulsed Duty Cycle 50% Intensity Setting (w/cm2) 1.2 PT-OP-T Assessment and Plan Start: 08/24/18 11:25 Freq: Status: Active Protocol: Document 09/03/18 08:14 [facility] (Rec: 09/03/18 08:30 [facility] [id number]) Physical Therapy Assessment Goals dizziness with history of falls Impairment dizziness Grades 9 Through 12 Teacher Goal (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 Evaluated by vestibular specialist who did not feel he would benefit from PT, no BPPV. LTG Duration MET functional activity Impairment Quickdash UE disability score 23% Short Term Goal (STG) Decrease Quickdash score to no greater than 15% STG Duration 09/23/18 [employer] 9 [employer] 12 Teacher Goal (LTG) Decrease Quickdash score to no greater than 5% LTG Duration 11/24/18 Strength Impairment decreased strength right shoulder Short Term Goal (STG) Patient to be independent with HEP for right shoulder strengthening STG Duration 09/23/18 Fpc Goal (LTG) right shoulder strength 5/5 ROM Impairment decreased right shoulder ROM Short Term Goal (STG) Patient to be independent with HEP for purposes of right shoulder ROM STG Duration 09/23/18 Gr[employer] 9 Through 12 Teacher Goal (LTG) Patient to demonstrate full AROM right shoulder without pain LTG Duration 11/24/18 pain Impairment right shoulder pain Short Term Goal (STG) Decrease resting pain level to no greater than 3/10 STG Duration 09/23/18 Gr[employer] 9 Through 12 Teacher Goal (LTG) Decrease pain at rest and with usual activity to no greater than 1/10 LTG Duration 11/24/18 Assessment Summary Assessment Patient responds well to PT. Needs moderate verbal and manual cues for correct exercise performance especially activation of scapular stabilizers. Instructed to use L1 TB at home (has been using L3 and demonstrates compensatory patterns with use of L3) Physical Therapy Plan Frequency and Duration Frequency of Treatment 2x/Week Duration of Treatment 12 wks Plan of Care Start Date 08/30/18 Plan of Care End Date 11/30/18 Therapeutic Interventions Therapeutic Interventions Aquatic Therapy Home Exercise Program Joint Mobilizations Manual Therapy Neuromuscular Re-education Patient/Caregiver Education Self-Care/Home Management Soft Tissue Mobilization Taping Therapeutic Activities Therapeutic Exercises Modalities Cold Pack/Ice Massage Electric Stimulation Hot Packs Iontophoresis Ultrasound Next Visit Focus/Plan Next Note Type Treatment Note Next Visit Plan Continue PT to decrease pain and improve right shoulder function.
--- NOTE | 2018-09-15 15:55 | PT.OTN ---
Current Diagnoses Pain in right shoulder (09/15/18) Unsteadiness on feet (09/15/18) Dizziness and giddiness (09/15/18) Weakness (09/15/18) History of falling (09/15/18) Physical Therapy Treatment Note PT-OP-A Visit Information Start: 08/24/18 11:25 Freq: Status: Active Protocol: Document 09/15/18 10:14 SAK (Rec: 09/15/18 11:01 SAK [id number]) Out-Patient Physical Therapy Visit Information Visit Information Visit Type Treatment Note Visit Start Time 10:15 Visit Stop Time 11:10 Total Visit Minutes 55 Visit Number 5 Number of SOCKET WELDER HELPER Visits 0 Evaluation Information Evaluation Date 09/03/18 Precautions Precautions PMH: HTN dizziness falls [place] PT-OP-B Current Condition Start: 08/24/18 11:25 Freq: Status: Active Protocol: Document 08/30/18 12:00 DCW (Rec: 08/30/18 15:30 DCW [id number]) Current Condition History of Current Condition Onset Date 07/17/18 Current Complaints right shoulder pain and dysfunction. History of Current Condition primary c/o right shoulder s/p fall onto right UE (elbow) jamming right shoulder. 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 Ice and heat helpful sometimes. States Tramedol and Meloxicam not really effective. Cannibas balm helpful. Pain seems to be worse after activity and then reports he experiences it at rest. Fall possibly related to severe dizziness. Improvement in hydration level has helped but some persistent dizziness. Since last seen in PT has had gut problems and has been to technology instructor as well; having treadmill test end of month. ADDENDUM 08/30/18: Pt underwent vestibular assessment today for ongoing complaints of imbalance. Pt reports he was having symptoms of dizziness, like my head was expanded, or like I had a stuffy head cold for a number of months, until he was instructed by a technology instructor to drink more water. This helped his eliminate the main complaints of dizziness, but since that time (~1 year), he has just had a chronic sensation of dizziness/poor balance. Pt notes that his symptoms mainly occur after standing up and starting to walk, but is still present at a low-level occasionall when sitting still . Prior Treatments and Tests No imaging PT-OP-C Subjective Start: 08/24/18 11:25 Freq: Status: Active Protocol: Document 09/03/18 08:14 SAK (Rec: 09/03/18 08:30 SAK [id number]) OP-PT Subjective Patient Comments Patient Comments Had to get up after a couple hours; put cannibas ball on it , used Tylenol, ice, and slept in chair. Decreased pain for a couple hours after last treatment on shoulder. PT-OP-D Balance Start: 08/24/18 11:25 Freq: Status: Active Protocol: Document 08/30/18 12:00 DCW (Rec: 08/30/18 15:30 DCW [id number]) Balance Tests CTSIB CTSIB Position 1 Mild Sway CTSIB Position 2 Moderate Sway CTSIB Position 3 Severe Sway CTSIB Position 4 Moderate Sway CTSIB Position 5 Fall Reaction CTSIB Position 6 Fall Reaction PT-OP-E Functional Tests Start: 08/24/18 11:25 Freq: Status: Active Protocol: Document 08/24/18 11:26 SAK (Rec: 08/25/18 09:58 [facility] [id number]) Functional Tests Apley's Scratch Test Action 1- Left posterior shoulder Action 1- Right top of shoulder Action 2- Left T2 Action 2- Right back of head Action 3- Left T7 Action 3- Right T12 PT-OP-F Manual Assessment Start: 08/24/18 11:25 Freq: Status: Active Protocol: Document 08/24/18 11:26 SAK (Rec: 08/25/18 09:58 [facility] [id number]) Manual Assessments Soft Tissue Assessment Soft Tissue Mobility Assessment tightness bilateral UT right greater than left Joint Mobility Assessment Joint Mobility Assessment Decreased inferior glide and posterior glide right PT-OP-J Posture/Palpation/Skin Start: 08/24/18 11:25 Freq: Status: Active Protocol: Document 08/24/18 11:26 SAK (Rec: 08/25/18 09:58 [facility] [id number]) Posture Evaluation Position Sitting Head/C-Spine Posture Forward Head T-Spine Posture Increased Kyphosis Shoulder Posture (L) Rounded (R) Rounded Shoulder Subluxation Position (R) Anterior Arm Posture (L) Internally Rotated (R) Internally Rotated Palpation Assessment Location anterior shoulder Palpation Findings Tenderness Palpation Details GH joint line PT-OP-K Range of Motion Start: 08/24/18 11:25 Freq: Status: Active Protocol: Document 08/24/18 11:26 SAK (Rec: 08/25/18 09:58 [facility] [id number]) Cervical Spine Range of Motion Cervical Spine Active ROM Limitations Soft Tissue Tightness Bony Restriction Comments due to arthritis Shoulder Goniometric Range of Motion Shoulder Right Active Shoulder ROM WFL No Flexion 165 Extension 15 Abduction 145 External Rotation at 45 degrees 55 Abduction Internal Rotation 40 Left Shoulder ROM WFL Yes Shoulder ROM Limitations Shoulder ROM Limitations Pain Comments most painful with ER right Elbow/Forearm Range of Motion Elbow/Forearm jennyfer Elbow/Forearm ROM WFL Yes PT-OP-L Special Tests Start: 08/24/18 11:25 Freq: Status: Active Protocol: Document 08/24/18 11:26 [facility] (Rec: 08/25/18 09:58 [facility] [id number]) Special Tests Shoulder Special Tests Elevation Impingement Test Results negative Biceps Load II Test Test Results negative Belly Press Test Results negative Apprehension Test Test Results negative Drop Arm Rotator Cuff Test Results negative jennyfer PT-OP-M Strength Start: 08/24/18 11:25 Freq: Status: Active Protocol: Document 08/24/18 11:26 [facility] (Rec: 08/25/18 09:58 [facility] [id number]) Shoulder Strength Shoulder Manual Muscle Testing Right Flexion 4 Good Extension 4 Good Abduction (C5) 4 Good External Rotation 4- Good- Internal Rotation 4 Good Comments painful all resisted motions, worst with ER Left Flexion 5 Normal Extension 4+ Good+ Abduction (C5) 5 Normal External Rotation 4 Good Internal Rotation 4+ Good+ Elbow/Forearm Strength Elbow and Forearm Manual Muscle Testing Right Flexion (C6) 4+ Good+ Extension (C7) 4+ Good+ Left Flexion (C6) 5 Normal Extension (C7) 5 Normal PT-OP-O Vestibular Start: 08/24/18 11:25 Freq: Status: Active Protocol: Document 08/30/18 12:00 DCW (Rec: 08/30/18 15:30 DCW [id number]) Vestibular Assessment Screening Tests Vestibular Artery Screen Negative Auditory Tests Ortiz Test Negative Rinne Test Negative Air Conduction Results Equal Visual Testing Smooth Pursuits Horizontal WNL Smooth Pursuits Vertical WNL Saccades Horizontal WNL Gaze Evoked Nystagmus With Fixation Negative Gaze Evoked Nystagmus Without Fixation Negative Heave Test Unclear Thrust Head Unclear DVA (Line Degradation) 4 Head Shake Negative Spontaneous Nystagmus Negative Positional Testing [place]-Hallpike Negative Left Negative Right Rolling Test Negative Left Negative Right Comments Vestibular Comments Thrust and heave tests inconclusive due to pt closing his eyes and jerking his head in shock with every single attempt PT-OP-Q Treatments Start: 08/24/18 11:25 Freq: Status: Active Protocol: Document 09/15/18 10:14 [facility] (Rec: 09/15/18 11:01 [facility] [id number]) Therapeutic Exercises Supine Exercises shoulder IR/ER Reps/Minutes 10x Comments AAROM at 45 Standing Exercises UT stretch Reps/Minutes 2x Comments due to increased muscle tension and guarding scapular squeeze Reps/Minutes 10x Manual Therapy Treatment Soft Tissue Mobilization pec dino, biceps Mobilization Type Myofascial Release Rolling Strumming Comments with manual pec stretch Joint Mobilizations posterior glide Grade III Body Position Hooklying lateral distraction GH Grade II Body Position Hooklying GH long axis distraction Grade II Body Position Hooklying PT-OP-R Modalities Start: 08/24/18 11:25 Freq: Status: Active Protocol: Document 09/15/18 10:14 [facility] (Rec: 09/15/18 11:01 [facility] [id number]) Electric Stimulation Electric Stimulation Interferential Current (IFC) Body Location right shoulder Duration (Minutes) 12 Target/Sweep Sweep High/Low High Patient Position Hooklying Combined With Heat/Cold Cold Pack Ultrasound Therapy Treatment anterior GH joint line Patient Position Supine Coupling Medium Ultrasound Gel Frequency Setting (mHz) 1 Mode Setting Pulsed Duty Cycle 50% Intensity Setting (w/cm2) 1.2 PT-OP-T Assessment and Plan Start: 08/24/18 11:25 Freq: Status: Active Protocol: Document 09/15/18 10:14 [facility] (Rec: 09/15/18 11:01 [facility] [id number]) Physical Therapy Assessment Goals dizziness with history of falls Impairment dizziness Care Home Goal (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 Evaluated by vestibular specialist who did not feel he would benefit from PT, no BPPV. LTG Duration MET functional activity Impairment Quickdash UE disability score 23% Short Term Goal (STG) Decrease Quickdash score to no greater than 15% STG Duration 09/23/18 Care Home Goal (LTG) Decrease Quickdash score to no greater than 5% LTG Duration 11/24/18 Strength Impairment decreased strength right shoulder Short Term Goal (STG) Patient to be independent with HEP for right shoulder strengthening STG Duration 09/23/18 Care Home Goal (LTG) right shoulder strength 5/5 ROM Impairment decreased right shoulder ROM Short Term Goal (STG) Patient to be independent with HEP for purposes of right shoulder ROM STG Duration 09/23/18 Fleet Administrator Goal (LTG) Patient to demonstrate full AROM right shoulder without pain LTG Duration 11/24/18 pain Impairment right shoulder pain Short Term Goal (STG) Decrease resting pain level to no greater than 3/10 STG Duration 09/23/18 Fleet Administrator Goal (LTG) Decrease pain at rest and with usual activity to no greater than 1/10 LTG Duration 11/24/18 Assessment Summary Assessment Patient pain exacerbated by overuse of right shoulder; states his physician had him wear a sling for a few days and it improved significantly though still with more pain at this time. States he is trying to limit use of his right UE though not wearing sling anymore. Moderate muscle guarding of right UE noted; decreased with treatment. Physical Therapy Plan Frequency and Duration Frequency of Treatment 2x/Week Duration of Treatment 12 wks Plan of Care Start Date 08/30/18 Plan of Care End Date 11/30/18 Therapeutic Interventions Therapeutic Interventions Aquatic Therapy Home Exercise Program Joint Mobilizations Manual Therapy Neuromuscular Re-education Patient/Caregiver Education Self-Care/Home Management Soft Tissue Mobilization Taping Therapeutic Activities Therapeutic Exercises Modalities Cold Pack/Ice Massage Electric Stimulation Hot Packs Iontophoresis Ultrasound Next Visit Focus/Plan Next Note Type Treatment Note Next Visit Plan Continue PT to decrease pain and improve right shoulder function.
--- NOTE | 2018-09-17 12:15 | PT.OTN ---
Current Diagnoses Pain in right shoulder (09/17/18) Unsteadiness on feet (09/17/18) Dizziness and giddiness (09/17/18) Weakness (09/17/18) History of falling (09/17/18) Physical Therapy Treatment Note PT-OP-A Visit Information Start: 08/24/18 11:25 Freq: Status: Active Protocol: Document 09/17/18 12:15 SAK (Rec: 09/19/18 17:13 SAK [id number]) Out-Patient Physical Therapy Visit Information Visit Information Visit Type Aquatic Treatment Note Visit Start Time 12:15 Visit Stop Time 13:00 Total Visit Minutes 45 Visit Number 6 Number of HIM DIRECTOR Visits 0 Evaluation Information Evaluation Date 09/03/18 Precautions Precautions PMH: HTN dizziness falls [place] PT-OP-B Current Condition Start: 08/24/18 11:25 Freq: Status: Active Protocol: Document 08/30/18 12:00 DCW (Rec: 08/30/18 15:30 DCW [id number]) Current Condition History of Current Condition Onset Date 07/17/18 Current Complaints right shoulder pain and dysfunction. History of Current Condition primary c/o right shoulder s/p fall onto right UE (elbow) jamming right shoulder. 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 Ice and heat helpful sometimes. States Tramedol and Meloxicam not really effective. Cannibas balm helpful. Pain seems to be worse after activity and then reports he experiences it at rest. Fall possibly related to severe dizziness. Improvement in hydration level has helped but some persistent dizziness. Since last seen in PT has had gut problems and has been to cryptological technician as well; having treadmill test end of month. ADDENDUM 08/30/18: Pt underwent vestibular assessment today for ongoing complaints of imbalance. Pt reports he was having symptoms of dizziness, like my head was expanded, or like I had a stuffy head cold for a number of months, until he was instructed by a cryptological technician to drink more water. This helped his eliminate the main complaints of dizziness, but since that time (~1 year), he has just had a chronic sensation of dizziness/poor balance. Pt notes that his symptoms mainly occur after standing up and starting to walk, but is still present at a low-level occasionall when sitting still . Prior Treatments and Tests No imaging PT-OP-C Subjective Start: 08/24/18 11:25 Freq: Status: Active Protocol: Document 09/03/18 08:14 SAK (Rec: 09/03/18 08:30 SAK [id number]) OP-PT Subjective Patient Comments Patient Comments Had to get up after a couple hours; put cannibas ball on it , used Tylenol, ice, and slept in chair. Decreased pain for a couple hours after last treatment on shoulder. PT-OP-D Balance Start: 08/24/18 11:25 Freq: Status: Active Protocol: Document 08/30/18 12:00 DCW (Rec: 08/30/18 15:30 DCW [id number]) Balance Tests CTSIB CTSIB Position 1 Mild Sway CTSIB Position 2 Moderate Sway CTSIB Position 3 Severe Sway CTSIB Position 4 Moderate Sway CTSIB Position 5 Fall Reaction CTSIB Position 6 Fall Reaction PT-OP-E Functional Tests Start: 08/24/18 11:25 Freq: Status: Active Protocol: Document 08/24/18 11:26 [facility] (Rec: 08/25/18 09:58 [facility] [id number]) Functional Tests Apley's Scratch Test Action 1- Left posterior shoulder Action 1- Right top of shoulder Action 2- Left T2 Action 2- Right back of head Action 3- Left T7 Action 3- Right T12 PT-OP-F Manual Assessment Start: 08/24/18 11:25 Freq: Status: Active Protocol: Document 08/24/18 11:26 SAK (Rec: 08/25/18 09:58 [facility] [id number]) Manual Assessments Soft Tissue Assessment Soft Tissue Mobility Assessment tightness bilateral UT right greater than left Joint Mobility Assessment Joint Mobility Assessment Decreased inferior glide and posterior glide right PT-OP-J Posture/Palpation/Skin Start: 08/24/18 11:25 Freq: Status: Active Protocol: Document 08/24/18 11:26 SAK (Rec: 08/25/18 09:58 [facility] [id number]) Posture Evaluation Position Sitting Head/C-Spine Posture Forward Head T-Spine Posture Increased Kyphosis Shoulder Posture (L) Rounded (R) Rounded Shoulder Subluxation Position (R) Anterior Arm Posture (L) Internally Rotated (R) Internally Rotated Palpation Assessment Location anterior shoulder Palpation Findings Tenderness Palpation Details GH joint line PT-OP-K Range of Motion Start: 08/24/18 11:25 Freq: Status: Active Protocol: Document 08/24/18 11:26 [facility] (Rec: 08/25/18 09:58 [facility] [id number]) Cervical Spine Range of Motion Cervical Spine Active ROM Limitations Soft Tissue Tightness Bony Restriction Comments due to arthritis Shoulder Goniometric Range of Motion Shoulder Right Active Shoulder ROM WFL No Flexion 165 Extension 15 Abduction 145 External Rotation at 45 degrees 55 Abduction Internal Rotation 40 Left Shoulder ROM WFL Yes Shoulder ROM Limitations Shoulder ROM Limitations Pain Comments most painful with ER right Elbow/Forearm Range of Motion Elbow/Forearm jennyfer Elbow/Forearm ROM WFL Yes PT-OP-L Special Tests Start: 08/24/18 11:25 Freq: Status: Active Protocol: Document 08/24/18 11:26 [facility] (Rec: 08/25/18 09:58 [facility] [id number]) Special Tests Shoulder Special Tests Elevation Impingement Test Results negative Biceps Load II Test Test Results negative Belly Press Test Results negative Apprehension Test Test Results negative Drop Arm Rotator Cuff Test Results negative jennyfer PT-OP-M Strength Start: 08/24/18 11:25 Freq: Status: Active Protocol: Document 08/24/18 11:26 [facility] (Rec: 08/25/18 09:58 [facility] [id number]) Shoulder Strength Shoulder Manual Muscle Testing Right Flexion 4 Good Extension 4 Good Abduction (C5) 4 Good External Rotation 4- Good- Internal Rotation 4 Good Comments painful all resisted motions, worst with ER Left Flexion 5 Normal Extension 4+ Good+ Abduction (C5) 5 Normal External Rotation 4 Good Internal Rotation 4+ Good+ Elbow/Forearm Strength Elbow and Forearm Manual Muscle Testing Right Flexion (C6) 4+ Good+ Extension (C7) 4+ Good+ Left Flexion (C6) 5 Normal Extension (C7) 5 Normal PT-OP-O Vestibular Start: 08/24/18 11:25 Freq: Status: Active Protocol: Document 08/30/18 12:00 DCW (Rec: 08/30/18 15:30 DCW [id number]) Vestibular Assessment Screening Tests Vestibular Artery Screen Negative Auditory Tests Ortiz Test Negative Rinne Test Negative Air Conduction Results Equal Visual Testing Smooth Pursuits Horizontal WNL Smooth Pursuits Vertical WNL Saccades Horizontal WNL Gaze Evoked Nystagmus With Fixation Negative Gaze Evoked Nystagmus Without Fixation Negative Heave Test Unclear Thrust Head Unclear DVA (Line Degradation) 4 Head Shake Negative Spontaneous Nystagmus Negative Positional Testing La-Hallpike Negative Left Negative Right Rolling Test Negative Left Negative Right Comments Vestibular Comments Thrust and heave tests inconclusive due to pt closing his eyes and jerking his head in shock with every single attempt PT-OP-Q Treatments Start: 08/24/18 11:25 Freq: Status: Active Protocol: Document 09/15/18 10:14 [facility] (Rec: 09/15/18 11:01 [facility] [id number]) Therapeutic Exercises Supine Exercises shoulder IR/ER Reps/Minutes 10x Comments AAROM at 45 Standing Exercises UT stretch Reps/Minutes 2x Comments due to increased muscle tension and guarding scapular squeeze Reps/Minutes 10x Manual Therapy Treatment Soft Tissue Mobilization pec dino, biceps Mobilization Type Myofascial Release Rolling Strumming Comments with manual pec stretch Joint Mobilizations posterior glide Grade III Body Position Hooklying lateral distraction GH Grade II Body Position Hooklying GH long axis distraction Grade II Body Position Hooklying PT-OP-R Modalities Start: 08/24/18 11:25 Freq: Status: Active Protocol: Document 09/15/18 10:14 [facility] (Rec: 09/15/18 11:01 [facility] [id number]) Electric Stimulation Electric Stimulation Interferential Current (IFC) Body Location right shoulder Duration (Minutes) 12 Target/Sweep Sweep High/Low High Patient Position Hooklying Combined With Heat/Cold Cold Pack Ultrasound Therapy Treatment anterior GH joint line Patient Position Supine Coupling Medium Ultrasound Gel Frequency Setting (mHz) 1 Mode Setting Pulsed Duty Cycle 50% Intensity Setting (w/cm2) 1.2 PT-OP-S Aquatic Treatment Start: 08/24/18 11:25 Freq: Status: Active Protocol: Document 09/17/18 12:15 [facility] (Rec: 09/19/18 17:13 [facility] [id number]) Aquatics Treatment Pool Entry/Exit Pool Entry/Exit Method Stairs Assistance Independent Water Walking march with shoulder flex/ext Water Level Chest Level Level of Assistance Verbal Cues sideways with shoulder ab/ad Water Level Chest Level Level of Assistance Verbal Cues backward with reverse breastroke UE's Water Level Chest Level Level of Assistance Verbal Cues forward with breastroke UE's Water Level Chest Level Level of Assistance Verbal Cues Upper Extremity Exercises UE circles Body Position Standing Water Level Chest Level Reps/Duration 12x shoulder IR/ER Body Position Standing Water Level Chest Level Reps/Duration 12x shoulder flex/ex Body Position Standing Water Level Chest Level Reps/Duration 12x shoulder hor ab/ad Body Position Standing Water Level Chest Level Reps/Duration 12x Upper Extremity Stretches UT stretch Body Position Standing Water Level Chest Level [place] Activities [place] Activities Bicycle [place] Running Other Activities with gentle UE breastroke and flex/ext as indicated and tolerated Equipment flotation belt L Duration 10 min Manual Techniques Esteban Prasadaz for shoulder PROM Aquatic Massage To decrease muscle tension UT, rhomboids right PT-OP-T Assessment and Plan Start: 08/24/18 11:25 Freq: Status: Active Protocol: Document 09/17/18 12:15 SAK (Rec: 09/19/18 17:13 SAK [id number]) Physical Therapy Assessment Goals dizziness with history of falls Impairment dizziness [employer] Goal (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 Evaluated by vestibular specialist who did not feel he would benefit from PT, no BPPV. LTG Duration MET functional activity Impairment Quickdash UE disability score 23% Short Term Goal (STG) Decrease Quickdash score to no greater than 15% STG Duration 09/23/18 Detention Goal (LTG) Decrease Quickdash score to no greater than 5% LTG Duration 11/24/18 Strength Impairment decreased strength right shoulder Short Term Goal (STG) Patient to be independent with HEP for right shoulder strengthening STG Duration 09/23/18 Detention Goal (LTG) right shoulder strength 5/5 ROM Impairment decreased right shoulder ROM Short Term Goal (STG) Patient to be independent with HEP for purposes of right shoulder ROM STG Duration 09/23/18 Detention Goal (LTG) Patient to demonstrate full AROM right shoulder without pain LTG Duration 11/24/18 pain Impairment right shoulder pain Short Term Goal (STG) Decrease resting pain level to no greater than 3/10 STG Duration 09/23/18 Svp [employer] Goal (LTG) Decrease pain at rest and with usual activity to no greater than 1/10 LTG Duration 11/24/18 Progress Towards Goals Progress Towards Goals Progressing Toward Goals Assessment Summary Assessment Good tolerance for aquatic therapy, denied increase in pain. Physical Therapy Plan Frequency and Duration Frequency of Treatment 2x/Week Duration of Treatment 12 wks Plan of Care Start Date 08/30/18 Plan of Care End Date 11/30/18 Therapeutic Interventions Therapeutic Interventions Aquatic Therapy Home Exercise Program Joint Mobilizations Manual Therapy Neuromuscular Re-education Patient/Caregiver Education Self-Care/Home Management Soft Tissue Mobilization Taping Therapeutic Activities Therapeutic Exercises Modalities Cold Pack/Ice Massage Electric Stimulation Hot Packs Iontophoresis Ultrasound Next Visit Focus/Plan Next Note Type Treatment Note Next Visit Plan Continue to progress with ther ex in land and aquatic therapy settings, modalities and manual therapy as indicated.
--- NOTE | 2018-09-20 16:15 | PT.OTN ---
Current Diagnoses Pain in right shoulder (09/20/18) Unsteadiness on feet (09/20/18) Dizziness and giddiness (09/20/18) Weakness (09/20/18) History of falling (09/20/18) Physical Therapy Treatment Note PT-OP-A Visit Information Start: 08/24/18 11:25 Freq: Status: Active Protocol: Document 09/20/18 15:17 SAK (Rec: 09/20/18 16:14 SAK [id number]) Out-Patient Physical Therapy Visit Information Visit Information Visit Type Treatment Note Visit Start Time 15:15 Visit Stop Time 16:10 Total Visit Minutes 45 Visit Number 7 Number of SQL DBA Visits 0 Evaluation Information Evaluation Date 09/03/18 Precautions Precautions PMH: HTN dizziness falls TE-MOAK LUIS PT-OP-B Current Condition Start: 08/24/18 11:25 Freq: Status: Active Protocol: Document 08/30/18 12:00 DCW (Rec: 08/30/18 15:30 DCW [id number]) Current Condition History of Current Condition Onset Date 07/17/18 Current Complaints right shoulder pain and dysfunction. History of Current Condition primary c/o right shoulder s/p fall onto right UE (elbow) jamming right shoulder. 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 Ice and heat helpful sometimes. States Tramedol and Meloxicam not really effective. Cannibas balm helpful. Pain seems to be worse after activity and then reports he experiences it at rest. Fall possibly related to severe dizziness. Improvement in hydration level has helped but some persistent dizziness. Since last seen in PT has had gut problems and has been to rubber flap cutter as well; having treadmill test end of month. ADDENDUM 08/30/18: Pt underwent vestibular assessment today for ongoing complaints of imbalance. Pt reports he was having symptoms of dizziness, like my head was expanded, or like I had a stuffy head cold for a number of months, until he was instructed by a rubber flap cutter to drink more water. This helped his eliminate the main complaints of dizziness, but since that time (~1 year), he has just had a chronic sensation of dizziness/poor balance. Pt notes that his symptoms mainly occur after standing up and starting to walk, but is still present at a low-level occasionall when sitting still . Prior Treatments and Tests No imaging PT-OP-C Subjective Start: 08/24/18 11:25 Freq: Status: Active Protocol: Document 09/03/18 08:14 SAK (Rec: 09/03/18 08:30 SAK [id number]) OP-PT Subjective Patient Comments Patient Comments Had to get up after a couple hours; put cannibas ball on it , used Tylenol, ice, and slept in chair. Decreased pain for a couple hours after last treatment on shoulder. PT-OP-D Balance Start: 08/24/18 11:25 Freq: Status: Active Protocol: Document 08/30/18 12:00 DCW (Rec: 08/30/18 15:30 DCW [id number]) Balance Tests CTSIB CTSIB Position 1 Mild Sway CTSIB Position 2 Moderate Sway CTSIB Position 3 Severe Sway CTSIB Position 4 Moderate Sway CTSIB Position 5 Fall Reaction CTSIB Position 6 Fall Reaction PT-OP-E Functional Tests Start: 08/24/18 11:25 Freq: Status: Active Protocol: Document 08/24/18 11:26 SAK (Rec: 08/25/18 09:58 [facility] [id number]) Functional Tests Apley's Scratch Test Action 1- Left posterior shoulder Action 1- Right top of shoulder Action 2- Left T2 Action 2- Right back of head Action 3- Left T7 Action 3- Right T12 PT-OP-F Manual Assessment Start: 08/24/18 11:25 Freq: Status: Active Protocol: Document 08/24/18 11:26 SAK (Rec: 08/25/18 09:58 [facility] [id number]) Manual Assessments Soft Tissue Assessment Soft Tissue Mobility Assessment tightness bilateral UT right greater than left Joint Mobility Assessment Joint Mobility Assessment Decreased inferior glide and posterior glide right PT-OP-J Posture/Palpation/Skin Start: 08/24/18 11:25 Freq: Status: Active Protocol: Document 08/24/18 11:26 SAK (Rec: 08/25/18 09:58 [facility] [id number]) Posture Evaluation Position Sitting Head/C-Spine Posture Forward Head T-Spine Posture Increased Kyphosis Shoulder Posture (L) Rounded (R) Rounded Shoulder Subluxation Position (R) Anterior Arm Posture (L) Internally Rotated (R) Internally Rotated Palpation Assessment Location anterior shoulder Palpation Findings Tenderness Palpation Details GH joint line PT-OP-K Range of Motion Start: 08/24/18 11:25 Freq: Status: Active Protocol: Document 08/24/18 11:26 SAK (Rec: 08/25/18 09:58 [facility] [id number]) Cervical Spine Range of Motion Cervical Spine Active ROM Limitations Soft Tissue Tightness Bony Restriction Comments due to arthritis Shoulder Goniometric Range of Motion Shoulder Right Active Shoulder ROM WFL No Flexion 165 Extension 15 Abduction 145 External Rotation at 45 degrees 55 Abduction Internal Rotation 40 Left Shoulder ROM WFL Yes Shoulder ROM Limitations Shoulder ROM Limitations Pain Comments most painful with ER right Elbow/Forearm Range of Motion Elbow/Forearm jennyfer Elbow/Forearm ROM WFL Yes PT-OP-L Special Tests Start: 08/24/18 11:25 Freq: Status: Active Protocol: Document 08/24/18 11:26 [facility] (Rec: 08/25/18 09:58 [facility] [id number]) Special Tests Shoulder Special Tests Elevation Impingement Test Results negative Biceps Load II Test Test Results negative Belly Press Test Results negative Apprehension Test Test Results negative Drop Arm Rotator Cuff Test Results negative jennyfer PT-OP-M Strength Start: 08/24/18 11:25 Freq: Status: Active Protocol: Document 08/24/18 11:26 [facility] (Rec: 08/25/18 09:58 [facility] [id number]) Shoulder Strength Shoulder Manual Muscle Testing Right Flexion 4 Good Extension 4 Good Abduction (C5) 4 Good External Rotation 4- Good- Internal Rotation 4 Good Comments painful all resisted motions, worst with ER Left Flexion 5 Normal Extension 4+ Good+ Abduction (C5) 5 Normal External Rotation 4 Good Internal Rotation 4+ Good+ Elbow/Forearm Strength Elbow and Forearm Manual Muscle Testing Right Flexion (C6) 4+ Good+ Extension (C7) 4+ Good+ Left Flexion (C6) 5 Normal Extension (C7) 5 Normal PT-OP-O Vestibular Start: 08/24/18 11:25 Freq: Status: Active Protocol: Document 08/30/18 12:00 DCW (Rec: 08/30/18 15:30 DCW [id number]) Vestibular Assessment Screening Tests Vestibular Artery Screen Negative Auditory Tests Ortiz Test Negative Rinne Test Negative Air Conduction Results Equal Visual Testing Smooth Pursuits Horizontal WNL Smooth Pursuits Vertical WNL Saccades Horizontal WNL Gaze Evoked Nystagmus With Fixation Negative Gaze Evoked Nystagmus Without Fixation Negative Heave Test Unclear Thrust Head Unclear DVA (Line Degradation) 4 Head Shake Negative Spontaneous Nystagmus Negative Positional Testing [place]-Hallpike Negative Left Negative Right Rolling Test Negative Left Negative Right Comments Vestibular Comments Thrust and heave tests inconclusive due to pt closing his eyes and jerking his head in shock with every single attempt PT-OP-Q Treatments Start: 08/24/18 11:25 Freq: Status: Active Protocol: Document 09/20/18 15:17 [facility] (Rec: 09/20/18 16:14 [facility] [id number]) Therapeutic Exercises Sitting Exercises pulleys for shoulder flex Reps/Minutes 10x Standing Exercises shoulder flex Standing Exercise Name with isometric abd Resistance L1 TB Reps/Minutes 10x shoulder add Resistance L1 TB Reps/Minutes 10x UT stretch Reps/Minutes 2x Comments due to increased muscle tension and guarding row, shld ext, ER Equipment Used L1 TB Reps/Minutes 10x Comments verbal and manual cues Manual Therapy Treatment Soft Tissue Mobilization rhomboids, Teres min and dino Mobilization Type Rolling Strumming Intensity/Depth mod Body Position Sidelying pec dino, biceps Mobilization Type Myofascial Release Rolling Strumming Comments with manual pec stretch Taping right shoulder Comments 3 Y strips PT-OP-R Modalities Start: 08/24/18 11:25 Freq: Status: Active Protocol: Document 09/20/18 15:17 [facility] (Rec: 09/20/18 16:14 [facility] [id number]) Electric Stimulation Electric Stimulation Interferential Current (IFC) Body Location right shoulder Duration (Minutes) 12 Target/Sweep Sweep High/Low High Patient Position Hooklying Combined With Heat/Cold Cold Pack Ultrasound Therapy Treatment anterior GH joint line Patient Position Supine Coupling Medium Ultrasound Gel Frequency Setting (mHz) 1 Mode Setting Pulsed Duty Cycle 50% Intensity Setting (w/cm2) 1.2 PT-OP-S Aquatic Treatment Start: 08/24/18 11:25 Freq: Status: Active Protocol: Document 09/17/18 12:15 [facility] (Rec: 09/19/18 17:13 [facility] [id number]) Aquatics Treatment Pool Entry/Exit Pool Entry/Exit Method Stairs Assistance Independent Water Walking march with shoulder flex/ext Water Level Chest Level Level of Assistance Verbal Cues sideways with shoulder ab/ad Water Level Chest Level Level of Assistance Verbal Cues backward with reverse breastroke UE's Water Level Chest Level Level of Assistance Verbal Cues forward with breastroke UE's Water Level Chest Level Level of Assistance Verbal Cues Upper Extremity Exercises UE circles Body Position Standing Water Level Chest Level Reps/Duration 12x shoulder IR/ER Body Position Standing Water Level Chest Level Reps/Duration 12x shoulder flex/ex Body Position Standing Water Level Chest Level Reps/Duration 12x shoulder hor ab/ad Body Position Standing Water Level Chest Level Reps/Duration 12x Upper Extremity Stretches UT stretch Body Position Standing Water Level Chest Level Paw Paw Activities P[place] Paw Activities Bicycle Cross Country Running Other Activities with gentle UE breastroke and flex/ext as indicated and tolerated Equipment flotation belt L Duration 10 min Manual Techniques Esteban Argueta for shoulder PROM Aquatic Massage To decrease muscle tension UT, rhomboids right PT-OP-T Assessment and Plan Start: 08/24/18 11:25 Freq: Status: Active Protocol: Document 09/20/18 15:17 SAK (Rec: 09/20/18 16:14 SAK [id number]) Physical Therapy Assessment Goals dizziness with history of falls Impairment dizziness [facility] Goal (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 Evaluated by vestibular specialist who did not feel he would benefit from PT, no BPPV. LTG Duration MET functional activity Impairment Quickdash UE disability score 23% Short Term Goal (STG) Decrease Quickdash score to no greater than 15% STG Duration 09/23/18 [facility] Goal (LTG) Decrease Quickdash score to no greater than 5% LTG Duration 11/24/18 Strength Impairment decreased strength right shoulder Short Term Goal (STG) Patient to be independent with HEP for right shoulder strengthening STG Duration 09/23/18 [facility] Goal (LTG) right shoulder strength 5/5 ROM Impairment decreased right shoulder ROM Short Term Goal (STG) Patient to be independent with HEP for purposes of right shoulder ROM STG Duration 09/23/18 [facility] Goal (LTG) Patient to demonstrate full AROM right shoulder without pain LTG Duration 11/24/18 pain Impairment right shoulder pain Short Term Goal (STG) Decrease resting pain level to no greater than 3/10 STG Duration 09/23/18 [facility] Goal (LTG) Decrease pain at rest and with usual activity to no greater than 1/10 LTG Duration 11/24/18 Progress Towards Goals Progress Towards Goals Progressing Toward Goals Assessment Summary Assessment Pain decreasing, toleratede new ex well with modifications and cues to exercise in pain- free ROM. Unable to tolerate sidelying shoulder abd Physical Therapy Plan Frequency and Duration Frequency of Treatment 2x/Week Duration of Treatment 12 wks Plan of Care Start Date 08/30/18 Plan of Care End Date 11/30/18 Therapeutic Interventions Therapeutic Interventions Aquatic Therapy Home Exercise Program Joint Mobilizations Manual Therapy Neuromuscular Re-education Patient/Caregiver Education Self-Care/Home Management Soft Tissue Mobilization Taping Therapeutic Activities Therapeutic Exercises Modalities Cold Pack/Ice Massage Electric Stimulation Hot Packs Iontophoresis Ultrasound Next Visit Focus/Plan Next Note Type Treatment Note Next Visit Plan Continue to progress with ther ex in land and aquatic therapy settings, modalities and manual therapy as indicated.
--- NOTE | 2018-09-22 17:00 | PT.OTN ---
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 History of Current Condition primary c/o right shoulder s/p fall onto right UE (elbow) jamming right shoulder. 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 Ice and heat helpful sometimes. States Tramedol and Meloxicam not really effective. Cannibas balm helpful. Pain seems to be worse after activity and then reports he experiences it at rest. Fall possibly related to severe dizziness. Improvement in hydration level has helped but some persistent dizziness. Since last seen in PT has had gut problems and has been to sports coordinator as well; having treadmill test end of month. ADDENDUM 08/30/18: Pt underwent vestibular assessment today for ongoing complaints of imbalance. Pt reports he was having symptoms of dizziness, like my head was expanded, or like I had a stuffy head cold for a number of months, until he was instructed by a sports coordinator to drink more water. This helped his eliminate the main complaints of dizziness, but since that time (~1 year), he has just had a chronic sensation of dizziness/poor balance. Pt notes that his symptoms mainly occur after standing up and starting to walk, but is still present at a low-level occasionall when sitting still . Prior Treatments and Tests No imaging PT-OP-C Subjective Start: 08/24/18 11:25 Freq: Status: Active Protocol: Document 09/03/18 08:14 SAK (Rec: 09/03/18 08:30 SAK [id number]) OP-PT Subjective Patient Comments Patient Comments Had to get up after a couple hours; put cannibas ball on it , used Tylenol, ice, and slept in chair. Decreased pain for a couple hours after last treatment on shoulder. PT-OP-D Balance Start: 08/24/18 11:25 Freq: Status: Active Protocol: Document 08/30/18 12:00 DCW (Rec: 08/30/18 15:30 DCW [id number]) Balance Tests CTSIB CTSIB Position 1 Mild Sway CTSIB Position 2 Moderate Sway CTSIB Position 3 Severe Sway CTSIB Position 4 Moderate Sway CTSIB Position 5 Fall Reaction CTSIB Position 6 Fall Reaction PT-OP-E Functional Tests Start: 08/24/18 11:25 Freq: Status: Active Protocol: Document 08/24/18 11:26 SAK (Rec: 08/25/18 09:58 [facility] [id number]) Functional Tests Apley's Scratch Test Action 1- Left posterior shoulder Action 1- Right top of shoulder Action 2- Left T2 Action 2- Right back of head Action 3- Left T7 Action 3- Right T12 PT-OP-F Manual Assessment Start: 08/24/18 11:25 Freq: Status: Active Protocol: Document 08/24/18 11:26 SAK (Rec: 08/25/18 09:58 [facility] [id number]) Manual Assessments Soft Tissue Assessment Soft Tissue Mobility Assessment tightness bilateral UT right greater than left Joint Mobility Assessment Joint Mobility Assessment Decreased inferior glide and posterior glide right PT-OP-J Posture/Palpation/Skin Start: 08/24/18 11:25 Freq: Status: Active Protocol: Document 08/24/18 11:26 SAK (Rec: 08/25/18 09:58 [facility] [id number]) Posture Evaluation Position Sitting Head/C-Spine Posture Forward Head T-Spine Posture Increased Kyphosis Shoulder Posture (L) Rounded (R) Rounded Shoulder Subluxation Position (R) Anterior Arm Posture (L) Internally Rotated (R) Internally Rotated Palpation Assessment Location anterior shoulder Palpation Findings Tenderness Palpation Details GH joint line PT-OP-K Range of Motion Start: 08/24/18 11:25 Freq: Status: Active Protocol: Document 08/24/18 11:26 SAK (Rec: 08/25/18 09:58 [facility] [id number]) Cervical Spine Range of Motion Cervical Spine Active ROM Limitations Soft Tissue Tightness Bony Restriction Comments due to arthritis Shoulder Goniometric Range of Motion Shoulder Right Active Shoulder ROM WFL No Flexion 165 Extension 15 Abduction 145 External Rotation at 45 degrees 55 Abduction Internal Rotation 40 Left Shoulder ROM WFL Yes Shoulder ROM Limitations Shoulder ROM Limitations Pain Comments most painful with ER right Elbow/Forearm Range of Motion Elbow/Forearm jennyfer Elbow/Forearm ROM WFL Yes PT-OP-L Special Tests Start: 08/24/18 11:25 Freq: Status: Active Protocol: Document 08/24/18 11:26 [facility] (Rec: 08/25/18 09:58 [facility] [id number]) Special Tests Shoulder Special Tests Elevation Impingement Test Results negative Biceps Load II Test Test Results negative Belly Press Test Results negative Apprehension Test Test Results negative Drop Arm Rotator Cuff Test Results negative jennyfer PT-OP-M Strength Start: 08/24/18 11:25 Freq: Status: Active Protocol: Document 08/24/18 11:26 [facility] (Rec: 08/25/18 09:58 [facility] [id number]) Shoulder Strength Shoulder Manual Muscle Testing Right Flexion 4 Good Extension 4 Good Abduction (C5) 4 Good External Rotation 4- Good- Internal Rotation 4 Good Comments painful all resisted motions, worst with ER Left Flexion 5 Normal Extension 4+ Good+ Abduction (C5) 5 Normal External Rotation 4 Good Internal Rotation 4+ Good+ Elbow/Forearm Strength Elbow and Forearm Manual Muscle Testing Right Flexion (C6) 4+ Good+ Extension (C7) 4+ Good+ Left Flexion (C6) 5 Normal Extension (C7) 5 Normal PT-OP-O Vestibular Start: 08/24/18 11:25 Freq: Status: Active Protocol: Document 08/30/18 12:00 DCW (Rec: 08/30/18 15:30 DCW [id number]) Vestibular Assessment Screening Tests Vestibular Artery Screen Negative Auditory Tests Ortiz Test Negative Rinne Test Negative Air Conduction Results Equal Visual Testing Smooth Pursuits Horizontal WNL Smooth Pursuits Vertical WNL Saccades Horizontal WNL Gaze Evoked Nystagmus With Fixation Negative Gaze Evoked Nystagmus Without Fixation Negative Heave Test Unclear Thrust Head Unclear DVA (Line Degradation) 4 Head Shake Negative Spontaneous Nystagmus Negative Positional Testing La-Hallpike Negative Left Negative Right Rolling Test Negative Left Negative Right Comments Vestibular Comments Thrust and heave tests inconclusive due to pt closing his eyes and jerking his head in shock with every single attempt PT-OP-Q Treatments Start: 08/24/18 11:25 Freq: Status: Active Protocol: Document 09/20/18 15:17 [facility] (Rec: 09/20/18 16:14 [facility] [id number]) Therapeutic Exercises Sitting Exercises pulleys for shoulder flex Reps/Minutes 10x Standing Exercises shoulder flex Standing Exercise Name with isometric abd Resistance L1 TB Reps/Minutes 10x shoulder add Resistance L1 TB Reps/Minutes 10x UT stretch Reps/Minutes 2x Comments due to increased muscle tension and guarding row, shld ext, ER Equipment Used L1 TB Reps/Minutes 10x Comments verbal and manual cues Manual Therapy Treatment Soft Tissue Mobilization rhomboids, Teres min and dino Mobilization Type Rolling Strumming Intensity/Depth mod Body Position Sidelying pec dino, biceps Mobilization Type Myofascial Release Rolling Strumming Comments with manual pec stretch Taping right shoulder Comments 3 Y strips PT-OP-R Modalities Start: 08/24/18 11:25 Freq: Status: Active Protocol: Document 09/20/18 15:17 [facility] (Rec: 09/20/18 16:14 [facility] [id number]) Electric Stimulation Electric Stimulation Interferential Current (IFC) Body Location right shoulder Duration (Minutes) 12 Target/Sweep Sweep High/Low High Patient Position Hooklying Combined With Heat/Cold Cold Pack Ultrasound Therapy Treatment anterior GH joint line Patient Position Supine Coupling Medium Ultrasound Gel Frequency Setting (mHz) 1 Mode Setting Pulsed Duty Cycle 50% Intensity Setting (w/cm2) 1.2 PT-OP-S Aquatic Treatment Start: 08/24/18 11:25 Freq: Status: Active Protocol: Document 09/22/18 11:30 [facility] (Rec: 09/22/18 17:00 [facility] [id number]) Aquatics Treatment Pool Entry/Exit Pool Entry/Exit Method Stairs Assistance Independent Water Walking march with shoulder flex/ext Water Level Chest Level Level of Assistance Verbal Cues sideways with shoulder ab/ad Water Level Chest Level Level of Assistance Verbal Cues backward with reverse breastroke UE's Water Level Chest Level Level of Assistance Verbal Cues forward with breastroke UE's Water Level Chest Level Level of Assistance Verbal Cues Upper Extremity Exercises water angels Body Position Supine Equipment neck and waist floats, LE floats Reps/Duration 10x UE pull downs Body Position Standing Equipment med barbells Reps/Duration forward and lat pec stretch Details walk with noodle behind figure 8's Body Position Standing Equipment 12 disc UE circles Body Position Standing Water Level Chest Level Reps/Duration 12x shoulder IR/ER Body Position Standing Water Level Chest Level Reps/Duration 12x shoulder flex/ex Body Position Standing Water Level Chest Level Reps/Duration 12x shoulder hor ab/ad Body Position Standing Water Level Chest Level Reps/Duration 12x Upper Extremity Stretches UT stretch Body Position Standing Water Level Chest Level [place] Activities [place] Activities Bicycle [place] Running Equipment flotation belt L Duration 10 min Comments 6 rounds of intervals 15:30 x 3, 30:30 x 3 Manual Techniques Bad Ragaz for shoulder PROM Aquatic Joint Mobilizations thoracic PA's to increase thoracic mobility Aquatic Massage To decrease muscle tension UT, rhomboids right PT-OP-T Assessment and Plan Start: 08/24/18 11:25 Freq: Status: Active Protocol: Document 09/22/18 11:30 [facility] (Rec: 09/22/18 17:00 [facility] [id number]) Physical Therapy Assessment Goals dizziness with history of falls Impairment dizziness Detention Goal (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 Evaluated by vestibular specialist who did not feel he would benefit from PT, no BPPV. LTG Duration MET functional activity Impairment Quickdash UE disability score 23% Short Term Goal (STG) Decrease Quickdash score to no greater than 15% STG Duration 09/23/18 Media Relations Intern Goal (LTG) Decrease Quickdash score to no greater than 5% LTG Duration 11/24/18 Strength Impairment decreased strength right shoulder Short Term Goal (STG) Patient to be independent with HEP for right shoulder strengthening STG Duration 09/23/18 Media Relations Intern Goal (LTG) right shoulder strength 5/5 ROM Impairment decreased right shoulder ROM Short Term Goal (STG) Patient to be independent with HEP for purposes of right shoulder ROM STG Duration 09/23/18 Media Relations Intern Goal (LTG) Patient to demonstrate full AROM right shoulder without pain LTG Duration 11/24/18 pain Impairment right shoulder pain Short Term Goal (STG) Decrease resting pain level to no greater than 3/10 STG Duration 09/23/18 Media Relations Intern Goal (LTG) Decrease pain at rest and with usual activity to no greater than 1/10 LTG Duration 11/24/18 Progress Towards Goals Progress Towards Goals Progressing Toward Goals Assessment Summary Assessment Continues to progress with increasing functional strength and activity tolerance. Physical Therapy Plan Frequency and Duration Frequency of Treatment 2x/Week Duration of Treatment 12 wks Plan of Care Start Date 08/30/18 Plan of Care End Date 11/30/18 Therapeutic Interventions Therapeutic Interventions Aquatic Therapy Home Exercise Program Joint Mobilizations Manual Therapy Neuromuscular Re-education Patient/Caregiver Education Self-Care/Home Management Soft Tissue Mobilization Taping Therapeutic Activities Therapeutic Exercises Modalities Cold Pack/Ice Massage Electric Stimulation Hot Packs Iontophoresis Ultrasound Next Visit Focus/Plan Next Note Type Treatment Note Next Visit Plan Continue to progress with ther ex in land and aquatic therapy settings, modalities and manual therapy as indicated.
--- NOTE | 2018-09-24 15:24 | PT.OTN ---
Current Diagnoses Pain in right shoulder (09/24/18) Unsteadiness on feet (09/24/18) Dizziness and giddiness (09/24/18) Weakness (09/24/18) History of falling (09/24/18) Physical Therapy Treatment Note PT-OP-A Visit Information Start: 08/24/18 11:25 Freq: Status: Active Protocol: Document 09/24/18 15:14 LJ (Rec: 09/24/18 15:24 LJ [id number]) Out-Patient Physical Therapy Visit Information Visit Information Visit Type Aquatic Treatment Note Visit Start Time 11:30 Visit Stop Time 12:15 Total Visit Minutes 45 Visit Number 9 Number of SIZE MARKER Visits 1 Precautions Precautions PMH: HTN dizziness falls TATITLEK LUIS PT-OP-B Current Condition Start: 08/24/18 11:25 Freq: Status: Active Protocol: Document 08/30/18 12:00 DCW (Rec: 08/30/18 15:30 DCW [id number]) Current Condition History of Current Condition Onset Date 07/17/18 Current Complaints right shoulder pain and dysfunction. History of Current Condition primary c/o right shoulder s/p fall onto right UE (elbow) jamming right shoulder. 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 Ice and heat helpful sometimes. States Tramedol and Meloxicam not really effective. Cannibas balm helpful. Pain seems to be worse after activity and then reports he experiences it at rest. Fall possibly related to severe dizziness. Improvement in hydration level has helped but some persistent dizziness. Since last seen in PT has had gut problems and has been to patient support specialist as well; having treadmill test end of month. ADDENDUM 08/30/18: Pt underwent vestibular assessment today for ongoing complaints of imbalance. Pt reports he was having symptoms of dizziness, like my head was expanded, or like I had a stuffy head cold for a number of months, until he was instructed by a patient support specialist to drink more water. This helped his eliminate the main complaints of dizziness, but since that time (~1 year), he has just had a chronic sensation of dizziness/poor balance. Pt notes that his symptoms mainly occur after standing up and starting to walk, but is still present at a low-level occasionall when sitting still . Prior Treatments and Tests No imaging PT-OP-C Subjective Start: 08/24/18 11:25 Freq: Status: Active Protocol: Document 09/24/18 15:14 LJ (Rec: 09/24/18 15:24 LJ [email or web address]) OP-PT Subjective Patient Comments Patient Comments pt has been feeling well and pain free on right shoulder. Resumed t band exercises recently and feels ready to move to higher resistance band . PT-OP-D Balance Start: 08/24/18 11:25 Freq: Status: Active Protocol: Document 08/30/18 12:00 DCW (Rec: 08/30/18 15:30 DCW [id number]) Balance Tests CTSIB CTSIB Position 1 Mild Sway CTSIB Position 2 Moderate Sway CTSIB Position 3 Severe Sway CTSIB Position 4 Moderate Sway CTSIB Position 5 Fall Reaction CTSIB Position 6 Fall Reaction PT-OP-E Functional Tests Start: 08/24/18 11:25 Freq: Status: Active Protocol: Document 08/24/18 11:26 SAK (Rec: 08/25/18 09:58 SAK [id number]) Functional Tests Apley's Scratch Test Action 1- Left posterior shoulder Action 1- Right top of shoulder Action 2- Left T2 Action 2- Right back of head Action 3- Left T7 Action 3- Right T12 PT-OP-F Manual Assessment Start: 08/24/18 11:25 Freq: Status: Active Protocol: Document 08/24/18 11:26 SAK (Rec: 08/25/18 09:58 SAK [id number]) Manual Assessments Soft Tissue Assessment Soft Tissue Mobility Assessment tightness bilateral UT right greater than left Joint Mobility Assessment Joint Mobility Assessment Decreased inferior glide and posterior glide right PT-OP-J Posture/Palpation/Skin Start: 08/24/18 11:25 Freq: Status: Active Protocol: Document 08/24/18 11:26 SAK (Rec: 08/25/18 09:58 SAK [id number]) Posture Evaluation Position Sitting Head/C-Spine Posture Forward Head T-Spine Posture Increased Kyphosis Shoulder Posture (L) Rounded (R) Rounded Shoulder Subluxation Position (R) Anterior Arm Posture (L) Internally Rotated (R) Internally Rotated Palpation Assessment Location anterior shoulder Palpation Findings Tenderness Palpation Details GH joint line PT-OP-K Range of Motion Start: 08/24/18 11:25 Freq: Status: Active Protocol: Document 08/24/18 11:26 [facility] (Rec: 08/25/18 09:58 [facility] [id number]) Cervical Spine Range of Motion Cervical Spine Active ROM Limitations Soft Tissue Tightness Bony Restriction Comments due to arthritis Shoulder Goniometric Range of Motion Shoulder Right Active Shoulder ROM WFL No Flexion 165 Extension 15 Abduction 145 External Rotation at 45 degrees 55 Abduction Internal Rotation 40 Left Shoulder ROM WFL Yes Shoulder ROM Limitations Shoulder ROM Limitations Pain Comments most painful with ER right Elbow/Forearm Range of Motion Elbow/Forearm jennyfer Elbow/Forearm ROM WFL Yes PT-OP-L Special Tests Start: 08/24/18 11:25 Freq: Status: Active Protocol: Document 08/24/18 11:26 [facility] (Rec: 08/25/18 09:58 [facility] [id number]) Special Tests Shoulder Special Tests Elevation Impingement Test Results negative Biceps Load II Test Test Results negative Belly Press Test Results negative Apprehension Test Test Results negative Drop Arm Rotator Cuff Test Results negative jennyfer PT-OP-M Strength Start: 08/24/18 11:25 Freq: Status: Active Protocol: Document 08/24/18 11:26 [facility] (Rec: 08/25/18 09:58 [facility] [id number]) Shoulder Strength Shoulder Manual Muscle Testing Right Flexion 4 Good Extension 4 Good Abduction (C5) 4 Good External Rotation 4- Good- Internal Rotation 4 Good Comments painful all resisted motions, worst with ER Left Flexion 5 Normal Extension 4+ Good+ Abduction (C5) 5 Normal External Rotation 4 Good Internal Rotation 4+ Good+ Elbow/Forearm Strength Elbow and Forearm Manual Muscle Testing Right Flexion (C6) 4+ Good+ Extension (C7) 4+ Good+ Left Flexion (C6) 5 Normal Extension (C7) 5 Normal PT-OP-O Vestibular Start: 08/24/18 11:25 Freq: Status: Active Protocol: Document 08/30/18 12:00 DCW (Rec: 08/30/18 15:30 DCW [id number]) Vestibular Assessment Screening Tests Vestibular Artery Screen Negative Auditory Tests Ortiz Test Negative Rinne Test Negative Air Conduction Results Equal Visual Testing Smooth Pursuits Horizontal WNL Smooth Pursuits Vertical WNL Saccades Horizontal WNL Gaze Evoked Nystagmus With Fixation Negative Gaze Evoked Nystagmus Without Fixation Negative Heave Test Unclear Thrust Head Unclear DVA (Line Degradation) 4 Head Shake Negative Spontaneous Nystagmus Negative Positional Testing La-Hallpike Negative Left Negative Right Rolling Test Negative Left Negative Right Comments Vestibular Comments Thrust and heave tests inconclusive due to pt closing his eyes and jerking his head in shock with every single attempt PT-OP-Q Treatments Start: 08/24/18 11:25 Freq: Status: Active Protocol: Document 09/20/18 15:17 SAK (Rec: 09/20/18 16:14 SAK [id number]) Therapeutic Exercises Sitting Exercises pulleys for shoulder flex Reps/Minutes 10x Standing Exercises shoulder flex Standing Exercise Name with isometric abd Resistance L1 TB Reps/Minutes 10x shoulder add Resistance L1 TB Reps/Minutes 10x UT stretch Reps/Minutes 2x Comments due to increased muscle tension and guarding row, shld ext, ER Equipment Used L1 TB Reps/Minutes 10x Comments verbal and manual cues Manual Therapy Treatment Soft Tissue Mobilization rhomboids, Teres min and dino Mobilization Type Rolling Strumming Intensity/Depth mod Body Position Sidelying pec dino, biceps Mobilization Type Myofascial Release Rolling Strumming Comments with manual pec stretch Taping right shoulder Comments 3 Y strips PT-OP-R Modalities Start: 08/24/18 11:25 Freq: Status: Active Protocol: Document 09/20/18 15:17 [facility] (Rec: 09/20/18 16:14 SAK [id number]) Electric Stimulation Electric Stimulation Interferential Current (IFC) Body Location right shoulder Duration (Minutes) 12 Target/Sweep Sweep High/Low High Patient Position Hooklying Combined With Heat/Cold Cold Pack Ultrasound Therapy Treatment anterior GH joint line Patient Position Supine Coupling Medium Ultrasound Gel Frequency Setting (mHz) 1 Mode Setting Pulsed Duty Cycle 50% Intensity Setting (w/cm2) 1.2 PT-OP-S Aquatic Treatment Start: 08/24/18 11:25 Freq: Status: Active Protocol: Document 09/24/18 15:14 DEION (Rec: 09/24/18 15:24 LJ [id number]) Aquatics Treatment Pool Entry/Exit Pool Entry/Exit Method Stairs Assistance Independent Water Walking march with shoulder flex/ext Water Level Chest Level Level of Assistance Verbal Cues Comments keeping shoulders adducted sideways with shoulder ab/ad Water Level Chest Level Level of Assistance Verbal Cues backward with reverse breastroke UE's Water Level Chest Level Level of Assistance Verbal Cues Upper Extremity Exercises lat pull downs Body Position Standing Water Level Chest Level Equipment stretch cords Reps/Duration 12x Comments double cords pec stretch Details walk Water Level Chest Level Equipment UE paddles shoulder IR/ER Body Position Standing Water Level Chest Level Equipment stretch cords-single Reps/Duration 12x shoulder flex/ex Body Position Standing Water Level Chest Level Equipment stretch cords Reps/Duration 12x Upper Extremity Stretches UT stretch Body Position Standing Water Level Chest Level [place] Activities [place] Activities Bicycle [place] Running Other Activities modified side stroke Equipment flotation belt L Duration 10 min Manual Techniques Bad Ragaz for shoulder PROM Aquatic Joint Mobilizations thoracic PA's to increase thoracic mobility Aquatic Massage To decrease muscle tension UT, rhomboids right PT-OP-T Assessment and Plan Start: 08/24/18 11:25 Freq: Status: Active Protocol: Document 09/24/18 15:14 LJ (Rec: 09/24/18 15:24 LJ [email or web address]) Physical Therapy Assessment Goals dizziness with history of falls Impairment 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 Evaluated by vestibular specialist who did not feel he would benefit from PT, no BPPV. LTG Duration MET functional activity Impairment Quickdash UE disability score 23% Short Term Goal (STG) Decrease Quickdash score to no greater than 15% STG Duration 09/23/18 Custodial Goal (LTG) Decrease Quickdash score to no greater than 5% LTG Duration 11/24/18 Strength Impairment decreased strength right shoulder Short Term Goal (STG) Patient to be independent with HEP for right shoulder strengthening STG Duration 09/23/18 [facility] [employer] Goal (LTG) right shoulder strength 5/5 ROM Impairment decreased right shoulder ROM Short Term Goal (STG) Patient to be independent with HEP for purposes of right shoulder ROM STG Duration 09/23/18 [facility] [employer] Goal (LTG) Patient to demonstrate full AROM right shoulder without pain LTG Duration 11/24/18 pain Impairment right shoulder pain Short Term Goal (STG) Decrease resting pain level to no greater than 3/10 STG Duration 09/23/18 Custodial Goal (LTG) Decrease pain at rest and with usual activity to no greater than 1/10 LTG Duration 11/24/18 Progress Towards Goals Progress Towards Goals Progressing Toward Goals Assessment Summary Assessment Continues to progress with increasing functional strength and activity tolerance. Physical Therapy Plan Frequency and Duration Frequency of Treatment 2x/Week Duration of Treatment 12 wks Plan of Care Start Date 08/30/18 Plan of Care End Date 11/30/18 Therapeutic Interventions Therapeutic Interventions Aquatic Therapy Home Exercise Program Joint Mobilizations Manual Therapy Neuromuscular Re-education Patient/Caregiver Education Self-Care/Home Management Soft Tissue Mobilization Taping Therapeutic Activities Therapeutic Exercises Modalities Cold Pack/Ice Massage Electric Stimulation Hot Packs Iontophoresis Ultrasound Next Visit Focus/Plan Next Visit Plan Continue to progress with ther ex in land and aquatic therapy settings, modalities and manual therapy as indicated.
--- NOTE | 2018-09-29 07:54 | PT.OTN ---
Current Diagnoses Pain in right shoulder (09/27/18) Unsteadiness on feet (09/27/18) Dizziness and giddiness (09/27/18) Weakness (09/27/18) History of falling (09/27/18) Physical Therapy Treatment Note PT-OP-A Visit Information Start: 08/24/18 11:25 Freq: Status: Active Protocol: Document 09/27/18 11:30 SAK (Rec: 09/29/18 07:52 SAK [id number]) Out-Patient Physical Therapy Visit Information Visit Information Visit Type Aquatic Treatment Note Visit Start Time 11:30 Visit Stop Time 12:15 Total Visit Minutes 45 Visit Number 10 Number of BLOW PIT OPERATOR Visits 0 Precautions Precautions PMH: HTN dizziness falls GALENA LUIS PT-OP-B Current Condition Start: 08/24/18 11:25 Freq: Status: Active Protocol: Document 08/30/18 12:00 DCW (Rec: 08/30/18 15:30 DCW [id number]) Current Condition History of Current Condition Onset Date 07/17/18 Current Complaints right shoulder pain and dysfunction. History of Current Condition primary c/o right shoulder s/p fall onto right UE (elbow) jamming right shoulder. 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 Ice and heat helpful sometimes. States Tramedol and Meloxicam not really effective. Cannibas balm helpful. Pain seems to be worse after activity and then reports he experiences it at rest. Fall possibly related to severe dizziness. Improvement in hydration level has helped but some persistent dizziness. Since last seen in PT has had gut problems and has been to hoop punch and coiler operator helper as well; having treadmill test end of month. ADDENDUM 08/30/18: Pt underwent vestibular assessment today for ongoing complaints of imbalance. Pt reports he was having symptoms of dizziness, like my head was expanded, or like I had a stuffy head cold for a number of months, until he was instructed by a hoop punch and coiler operator helper to drink more water. This helped his eliminate the main complaints of dizziness, but since that time (~1 year), he has just had a chronic sensation of dizziness/poor balance. Pt notes that his symptoms mainly occur after standing up and starting to walk, but is still present at a low-level occasionall when sitting still . Prior Treatments and Tests No imaging PT-OP-C Subjective Start: 08/24/18 11:25 Freq: Status: Active Protocol: Document 09/27/18 11:30 SAK (Rec: 09/29/18 07:52 SAK [id number]) OP-PT Subjective Patient Comments Patient Comments Reports doing some of his art activities using left UE is awkward but is trying to do as recommended to decrease overuse right UE PT-OP-D Balance Start: 08/24/18 11:25 Freq: Status: Active Protocol: Document 08/30/18 12:00 DCW (Rec: 08/30/18 15:30 DCW [id number]) Balance Tests CTSIB CTSIB Position 1 Mild Sway CTSIB Position 2 Moderate Sway CTSIB Position 3 Severe Sway CTSIB Position 4 Moderate Sway CTSIB Position 5 Fall Reaction CTSIB Position 6 Fall Reaction PT-OP-E Functional Tests Start: 08/24/18 11:25 Freq: Status: Active Protocol: Document 08/24/18 11:26 SAK (Rec: 08/25/18 09:58 SAK [id number]) Functional Tests Apley's Scratch Test Action 1- Left posterior shoulder Action 1- Right top of shoulder Action 2- Left T2 Action 2- Right back of head Action 3- Left T7 Action 3- Right T12 PT-OP-F Manual Assessment Start: 08/24/18 11:25 Freq: Status: Active Protocol: Document 08/24/18 11:26 SAK (Rec: 08/25/18 09:58 SAK [id number]) Manual Assessments Soft Tissue Assessment Soft Tissue Mobility Assessment tightness bilateral UT right greater than left Joint Mobility Assessment Joint Mobility Assessment Decreased inferior glide and posterior glide right PT-OP-J Posture/Palpation/Skin Start: 08/24/18 11:25 Freq: Status: Active Protocol: Document 08/24/18 11:26 SAK (Rec: 08/25/18 09:58 SAK [id number]) Posture Evaluation Position Sitting Head/C-Spine Posture Forward Head T-Spine Posture Increased Kyphosis Shoulder Posture (L) Rounded (R) Rounded Shoulder Subluxation Position (R) Anterior Arm Posture (L) Internally Rotated (R) Internally Rotated Palpation Assessment Location anterior shoulder Palpation Findings Tenderness Palpation Details GH joint line PT-OP-K Range of Motion Start: 08/24/18 11:25 Freq: Status: Active Protocol: Document 08/24/18 11:26 [facility] (Rec: 08/25/18 09:58 [facility] [id number]) Cervical Spine Range of Motion Cervical Spine Active ROM Limitations Soft Tissue Tightness Bony Restriction Comments due to arthritis Shoulder Goniometric Range of Motion Shoulder Right Active Shoulder ROM WFL No Flexion 165 Extension 15 Abduction 145 External Rotation at 45 degrees 55 Abduction Internal Rotation 40 Left Shoulder ROM WFL Yes Shoulder ROM Limitations Shoulder ROM Limitations Pain Comments most painful with ER right Elbow/Forearm Range of Motion Elbow/Forearm jennyfer Elbow/Forearm ROM WFL Yes PT-OP-L Special Tests Start: 08/24/18 11:25 Freq: Status: Active Protocol: Document 08/24/18 11:26 [facility] (Rec: 08/25/18 09:58 [facility] [id number]) Special Tests Shoulder Special Tests Elevation Impingement Test Results negative Biceps Load II Test Test Results negative Belly Press Test Results negative Apprehension Test Test Results negative Drop Arm Rotator Cuff Test Results negative jennyfer PT-OP-M Strength Start: 08/24/18 11:25 Freq: Status: Active Protocol: Document 08/24/18 11:26 [facility] (Rec: 08/25/18 09:58 [facility] [id number]) Shoulder Strength Shoulder Manual Muscle Testing Right Flexion 4 Good Extension 4 Good Abduction (C5) 4 Good External Rotation 4- Good- Internal Rotation 4 Good Comments painful all resisted motions, worst with ER Left Flexion 5 Normal Extension 4+ Good+ Abduction (C5) 5 Normal External Rotation 4 Good Internal Rotation 4+ Good+ Elbow/Forearm Strength Elbow and Forearm Manual Muscle Testing Right Flexion (C6) 4+ Good+ Extension (C7) 4+ Good+ Left Flexion (C6) 5 Normal Extension (C7) 5 Normal PT-OP-O Vestibular Start: 08/24/18 11:25 Freq: Status: Active Protocol: Document 08/30/18 12:00 DCW (Rec: 08/30/18 15:30 DCW [id number]) Vestibular Assessment Screening Tests Vestibular Artery Screen Negative Auditory Tests Ortiz Test Negative Rinne Test Negative Air Conduction Results Equal Visual Testing Smooth Pursuits Horizontal WNL Smooth Pursuits Vertical WNL Saccades Horizontal WNL Gaze Evoked Nystagmus With Fixation Negative Gaze Evoked Nystagmus Without Fixation Negative Heave Test Unclear Thrust Head Unclear DVA (Line Degradation) 4 Head Shake Negative Spontaneous Nystagmus Negative Positional Testing [place]-Hallpike Negative Left Negative Right Rolling Test Negative Left Negative Right Comments Vestibular Comments Thrust and heave tests inconclusive due to pt closing his eyes and jerking his head in shock with every single attempt PT-OP-Q Treatments Start: 08/24/18 11:25 Freq: Status: Active Protocol: Document 09/20/18 15:17 [facility] (Rec: 09/20/18 16:14 SAK [id number]) Therapeutic Exercises Sitting Exercises pulleys for shoulder flex Reps/Minutes 10x Standing Exercises shoulder flex Standing Exercise Name with isometric abd Resistance L1 TB Reps/Minutes 10x shoulder add Resistance L1 TB Reps/Minutes 10x UT stretch Reps/Minutes 2x Comments due to increased muscle tension and guarding row, shld ext, ER Equipment Used L1 TB Reps/Minutes 10x Comments verbal and manual cues Manual Therapy Treatment Soft Tissue Mobilization rhomboids, Teres min and dino Mobilization Type Rolling Strumming Intensity/Depth mod Body Position Sidelying pec idno, biceps Mobilization Type Myofascial Release Rolling Strumming Comments with manual pec stretch Taping right shoulder Comments 3 Y strips PT-OP-R Modalities Start: 08/24/18 11:25 Freq: Status: Active Protocol: Document 09/20/18 15:17 [facility] (Rec: 09/20/18 16:14 [facility] [id number]) Electric Stimulation Electric Stimulation Interferential Current (IFC) Body Location right shoulder Duration (Minutes) 12 Target/Sweep Sweep High/Low High Patient Position Hooklying Combined With Heat/Cold Cold Pack Ultrasound Therapy Treatment anterior GH joint line Patient Position Supine Coupling Medium Ultrasound Gel Frequency Setting (mHz) 1 Mode Setting Pulsed Duty Cycle 50% Intensity Setting (w/cm2) 1.2 PT-OP-S Aquatic Treatment Start: 08/24/18 11:25 Freq: Status: Active Protocol: Document 09/27/18 11:30 [facility] (Rec: 09/29/18 07:52 [facility] [id number]) Aquatics Treatment Pool Entry/Exit Pool Entry/Exit Method Stairs Assistance Independent Water Walking march with shoulder flex/ext Water Level Chest Level Level of Assistance Verbal Cues Comments keeping shoulders adducted sideways with shoulder ab/ad Water Level Chest Level Level of Assistance Verbal Cues backward with reverse breastroke UE's Water Level Chest Level Level of Assistance Verbal Cues forward with breastroke UE's Water Level Chest Level Level of Assistance Verbal Cues Upper Extremity Exercises water angels Body Position Supine Equipment neck and waist floats, LE floats Reps/Duration 10x UE pull downs Body Position Standing Equipment med barbells Reps/Duration forward and lat pec stretch Details walk Water Level Chest Level Equipment UE paddles figure 8's Body Position Standing Equipment 12 disc Upper Extremity Stretches UT stretch Body Position Standing Water Level Chest Level [place] Activities [place] Activities Bicycle [place] Running Other Activities modified side stroke forward with barbell held behind with scapulae squeeze and depression Equipment flotation belt L Duration 10 min Comments long barbell with backward bicycle with emphasis on shoulder stab Manual Techniques Esteban [place] for shoulder PROM and thoracic mobilization Aquatic Joint Mobilizations thoracic PA's to increase thoracic mobility Aquatic Massage To decrease muscle tension UT, rhomboids right PT-OP-T Assessment and Plan Start: 08/24/18 11:25 Freq: Status: Active Protocol: Document 09/27/18 11:30 SAK (Rec: 09/29/18 07:52 SAK [id number]) Physical Therapy Assessment Goals dizziness with history of falls Impairment dizziness Fur Blender Goal (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 Evaluated by vestibular specialist who did not feel he would benefit from PT, no BPPV. LTG Duration MET functional activity Impairment Quickdash UE disability score 23% Short Term Goal (STG) Decrease Quickdash score to no greater than 15% 09/27/18: good goal progress STG Duration 09/23/18 Prison Goal (LTG) Decrease Quickdash score to no greater than 5% LTG Duration 11/24/18 Strength Impairment decreased strength right shoulder Short Term Goal (STG) Patient to be independent with HEP for right shoulder strengthening 09/27/18 goal met for land- based though ongoing progression for land-based and aquatic. Not yet met for aquatic STG Duration 09/23/18 Prison Goal (LTG) right shoulder strength 5/5 09/27/18: good goal progress, not fully achieved LTG Duration 11/24/18 ROM Impairment decreased right shoulder ROM Short Term Goal (STG) Patient to be independent with HEP for purposes of right shoulder ROM 09/27/18: goal MET for land- based HEP, not aquatic STG Duration 09/23/18 Fur Blender Goal (LTG) Patient to demonstrate full AROM right shoulder without pain LTG Duration 11/24/18 pain Impairment right shoulder pain Short Term Goal (STG) Decrease resting pain level to no greater than 3/10 09/27/18: good goal progress STG Duration 09/23/18 Fur Blender Goal (LTG) Decrease pain at rest and with usual activity to no greater than 1/10 LTG Duration 11/24/18 Progress Towards Goals Progress Towards Goals Progressing Toward Goals Assessment Summary Assessment Good progress with decrease in pain and improving functional activity tolerance. Good follow-through as well with modification of activities to prevent overuse. Physical Therapy Plan Frequency and Duration Frequency of Treatment 2x/Week Duration of Treatment 12 wks Plan of Care Start Date 08/30/18 Plan of Care End Date 11/30/18 Therapeutic Interventions Therapeutic Interventions Aquatic Therapy Home Exercise Program Joint Mobilizations Manual Therapy Neuromuscular Re-education Patient/Caregiver Education Self-Care/Home Management Soft Tissue Mobilization Taping Therapeutic Activities Therapeutic Exercises Modalities Cold Pack/Ice Massage Electric Stimulation Hot Packs Iontophoresis Ultrasound Next Visit Focus/Plan Next Visit Plan Continue PT with emphasis on aquatic PT as patient compliant with HEP and is reporting better benefit from aquatic PT. Patient to bring mask and snorkel next visit for prone aquatic therapy activities.
--- NOTE | 2018-10-06 14:46 | PT.OTN ---
Current Diagnoses Pain in right shoulder (10/06/18) Unsteadiness on feet (10/06/18) Dizziness and giddiness (10/06/18) Weakness (10/06/18) History of falling (10/06/18) Physical Therapy Treatment Note PT-OP-A Visit Information Start: 08/24/18 11:25 Freq: Status: Active Protocol: Document 10/06/18 13:00 LJ (Rec: 10/06/18 14:46 LJ [id number]) Out-Patient Physical Therapy Visit Information Visit Information Visit Type Aquatic Treatment Note Visit Start Time 13:00 Visit Stop Time 13:45 Total Visit Minutes 45 Visit Number 11 Number of BOARD OF DIRECTORS Visits 1 Precautions Precautions PMH: HTN dizziness falls NOORVIK LUIS PT-OP-B Current Condition Start: 08/24/18 11:25 Freq: Status: Active Protocol: Document 08/30/18 12:00 DCW (Rec: 08/30/18 15:30 DCW [id number]) Current Condition History of Current Condition Onset Date 07/17/18 Current Complaints right shoulder pain and dysfunction. History of Current Condition primary c/o right shoulder s/p fall onto right UE (elbow) jamming right shoulder. 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 Ice and heat helpful sometimes. States Tramedol and Meloxicam not really effective. Cannibas balm helpful. Pain seems to be worse after activity and then reports he experiences it at rest. Fall possibly related to severe dizziness. Improvement in hydration level has helped but some persistent dizziness. Since last seen in PT has had gut problems and has been to tour leader as well; having treadmill test end of month. ADDENDUM 08/30/18: Pt underwent vestibular assessment today for ongoing complaints of imbalance. Pt reports he was having symptoms of dizziness, like my head was expanded, or like I had a stuffy head cold for a number of months, until he was instructed by a tour leader to drink more water. This helped his eliminate the main complaints of dizziness, but since that time (~1 year), he has just had a chronic sensation of dizziness/poor balance. Pt notes that his symptoms mainly occur after standing up and starting to walk, but is still present at a low-level occasionall when sitting still . Prior Treatments and Tests No imaging PT-OP-C Subjective Start: 08/24/18 11:25 Freq: Status: Active Protocol: Document 10/06/18 13:00 LJ (Rec: 10/06/18 14:46 LJ [email or web address]) OP-PT Subjective Patient Comments Patient Comments Back still stiff when waking in the mornng. Shoulder is feeling fine. PT-OP-D Balance Start: 08/24/18 11:25 Freq: Status: Active Protocol: Document 08/30/18 12:00 DCW (Rec: 08/30/18 15:30 DCW [id number]) Balance Tests CTSIB CTSIB Position 1 Mild Sway CTSIB Position 2 Moderate Sway CTSIB Position 3 Severe Sway CTSIB Position 4 Moderate Sway CTSIB Position 5 Fall Reaction CTSIB Position 6 Fall Reaction PT-OP-E Functional Tests Start: 08/24/18 11:25 Freq: Status: Active Protocol: Document 08/24/18 11:26 SAK (Rec: 08/25/18 09:58 SAK [id number]) Functional Tests Apley's Scratch Test Action 1- Left posterior shoulder Action 1- Right top of shoulder Action 2- Left T2 Action 2- Right back of head Action 3- Left T7 Action 3- Right T12 PT-OP-F Manual Assessment Start: 08/24/18 11:25 Freq: Status: Active Protocol: Document 08/24/18 11:26 SAK (Rec: 08/25/18 09:58 SAK [id number]) Manual Assessments Soft Tissue Assessment Soft Tissue Mobility Assessment tightness bilateral UT right greater than left Joint Mobility Assessment Joint Mobility Assessment Decreased inferior glide and posterior glide right PT-OP-J Posture/Palpation/Skin Start: 08/24/18 11:25 Freq: Status: Active Protocol: Document 08/24/18 11:26 SAK (Rec: 08/25/18 09:58 SAK [id number]) Posture Evaluation Position Sitting Head/C-Spine Posture Forward Head T-Spine Posture Increased Kyphosis Shoulder Posture (L) Rounded (R) Rounded Shoulder Subluxation Position (R) Anterior Arm Posture (L) Internally Rotated (R) Internally Rotated Palpation Assessment Location anterior shoulder Palpation Findings Tenderness Palpation Details GH joint line PT-OP-K Range of Motion Start: 08/24/18 11:25 Freq: Status: Active Protocol: Document 08/24/18 11:26 SAK (Rec: 08/25/18 09:58 [facility] [id number]) Cervical Spine Range of Motion Cervical Spine Active ROM Limitations Soft Tissue Tightness Bony Restriction Comments due to arthritis Shoulder Goniometric Range of Motion Shoulder Right Active Shoulder ROM WFL No Flexion 165 Extension 15 Abduction 145 External Rotation at 45 degrees 55 Abduction Internal Rotation 40 Left Shoulder ROM WFL Yes Shoulder ROM Limitations Shoulder ROM Limitations Pain Comments most painful with ER right Elbow/Forearm Range of Motion Elbow/Forearm jennyfer Elbow/Forearm ROM WFL Yes PT-OP-L Special Tests Start: 08/24/18 11:25 Freq: Status: Active Protocol: Document 08/24/18 11:26 [facility] (Rec: 08/25/18 09:58 [facility] [id number]) Special Tests Shoulder Special Tests Elevation Impingement Test Results negative Biceps Load II Test Test Results negative Belly Press Test Results negative Apprehension Test Test Results negative Drop Arm Rotator Cuff Test Results negative jennyfer PT-OP-M Strength Start: 08/24/18 11:25 Freq: Status: Active Protocol: Document 08/24/18 11:26 [facility] (Rec: 08/25/18 09:58 [facility] [id number]) Shoulder Strength Shoulder Manual Muscle Testing Right Flexion 4 Good Extension 4 Good Abduction (C5) 4 Good External Rotation 4- Good- Internal Rotation 4 Good Comments painful all resisted motions, worst with ER Left Flexion 5 Normal Extension 4+ Good+ Abduction (C5) 5 Normal External Rotation 4 Good Internal Rotation 4+ Good+ Elbow/Forearm Strength Elbow and Forearm Manual Muscle Testing Right Flexion (C6) 4+ Good+ Extension (C7) 4+ Good+ Left Flexion (C6) 5 Normal Extension (C7) 5 Normal PT-OP-O Vestibular Start: 08/24/18 11:25 Freq: Status: Active Protocol: Document 08/30/18 12:00 DCW (Rec: 08/30/18 15:30 DCW [id number]) Vestibular Assessment Screening Tests Vestibular Artery Screen Negative Auditory Tests Ortiz Test Negative Rinne Test Negative Air Conduction Results Equal Visual Testing Smooth Pursuits Horizontal WNL Smooth Pursuits Vertical WNL Saccades Horizontal WNL Gaze Evoked Nystagmus With Fixation Negative Gaze Evoked Nystagmus Without Fixation Negative Heave Test Unclear Thrust Head Unclear DVA (Line Degradation) 4 Head Shake Negative Spontaneous Nystagmus Negative Positional Testing [place]-Hallpike Negative Left Negative Right Rolling Test Negative Left Negative Right Comments Vestibular Comments Thrust and heave tests inconclusive due to pt closing his eyes and jerking his head in shock with every single attempt PT-OP-Q Treatments Start: 08/24/18 11:25 Freq: Status: Active Protocol: Document 09/20/18 15:17 [facility] (Rec: 09/20/18 16:14 SAK [id number]) Therapeutic Exercises Sitting Exercises pulleys for shoulder flex Reps/Minutes 10x Standing Exercises shoulder flex Standing Exercise Name with isometric abd Resistance L1 TB Reps/Minutes 10x shoulder add Resistance L1 TB Reps/Minutes 10x UT stretch Reps/Minutes 2x Comments due to increased muscle tension and guarding row, shld ext, ER Equipment Used L1 TB Reps/Minutes 10x Comments verbal and manual cues Manual Therapy Treatment Soft Tissue Mobilization rhomboids, Teres min and dino Mobilization Type Rolling Strumming Intensity/Depth mod Body Position Sidelying pec dino, biceps Mobilization Type Myofascial Release Rolling Strumming Comments with manual pec stretch Taping right shoulder Comments 3 Y strips PT-OP-R Modalities Start: 08/24/18 11:25 Freq: Status: Active Protocol: Document 09/20/18 15:17 [facility] (Rec: 09/20/18 16:14 [facility] [id number]) Electric Stimulation Electric Stimulation Interferential Current (IFC) Body Location right shoulder Duration (Minutes) 12 Target/Sweep Sweep High/Low High Patient Position Hooklying Combined With Heat/Cold Cold Pack Ultrasound Therapy Treatment anterior GH joint line Patient Position Supine Coupling Medium Ultrasound Gel Frequency Setting (mHz) 1 Mode Setting Pulsed Duty Cycle 50% Intensity Setting (w/cm2) 1.2 PT-OP-S Aquatic Treatment Start: 08/24/18 11:25 Freq: Status: Active Protocol: Document 10/06/18 13:00 DEION (Rec: 10/06/18 14:46 LJ [id number]) Aquatics Treatment Pool Entry/Exit Pool Entry/Exit Method Stairs Assistance Independent Water Walking Marching Water Level Chest Level Comments recrip hand to knee; forward and backward march with shoulder flex/ext Water Level Chest Level Level of Assistance Verbal Cues Comments keeping shoulders adducted sideways with shoulder ab/ad Water Level Chest Level Level of Assistance Verbal Cues backward with reverse breastroke UE's Water Level Chest Level Level of Assistance Verbal Cues forward with breastroke UE's Water Level Chest Level Level of Assistance Verbal Cues Upper Extremity Exercises lat pull downs Body Position Standing Water Level Chest Level Equipment stretch cords Reps/Duration 12x Comments M BB UE pull downs Body Position Standing Equipment med barbells Reps/Duration forward and lat pec stretch Details walk Water Level Chest Level Equipment UE paddles figure 8's Body Position Standing Equipment 12 disc shoulder IR/ER Body Position Standing Water Level Chest Level Equipment UE paddles Reps/Duration 12x shoulder flex/ex Body Position Standing Water Level Chest Level Equipment UE paddles Reps/Duration 12x2 Comments alternating also shoulder hor ab/ad Body Position Standing Water Level Chest Level Reps/Duration 12x2 Comments alternating also Spinal Exercises rotation Body Position Standing Water Level Chest Level Equipment stretch cords Reps/Duration 12x2 Swim Strokes modified front crawl Other Equipment Used mask snorkel fins Laps/Duration 4 side stroke Laps/Duration 4 Comments cues for head position PT-OP-T Assessment and Plan Start: 08/24/18 11:25 Freq: Status: Active Protocol: Document 10/06/18 13:00 DEION (Rec: 10/06/18 14:46 DEION [id number]) Physical Therapy Assessment Goals dizziness with history of falls Impairment dizziness Longterm Goal (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 Evaluated by vestibular specialist who did not feel he would benefit from PT, no BPPV. LTG Duration MET functional activity Impairment Quickdash UE disability score 23% Short Term Goal (STG) Decrease Quickdash score to no greater than 15% 09/27/18: good goal progress STG Duration 09/23/18 Longterm Goal (LTG) Decrease Quickdash score to no greater than 5% LTG Duration 11/24/18 Strength Impairment decreased strength right shoulder Short Term Goal (STG) Patient to be independent with HEP for right shoulder strengthening 09/27/18 goal met for land- based though ongoing progression for land-based and aquatic. Not yet met for aquatic STG Duration 09/23/18 Longterm Goal (LTG) right shoulder strength /09/27/18: good goal progress, not fully achieved LTG Duration 11/24/18 ROM Impairment decreased right shoulder ROM Short Term Goal (STG) Patient to be independent with HEP for purposes of right shoulder ROM 09/27/18: goal MET for land- based HEP, not aquatic STG Duration 09/23/18 Marine Pipefitter Goal (LTG) Patient to demonstrate full AROM right shoulder without pain LTG Duration 11/24/18 pain Impairment right shoulder pain Short Term Goal (STG) Decrease resting pain level to no greater than 3/10 09/27/18: good goal progress STG Duration 09/23/18 Marine Pipefitter Goal (LTG) Decrease pain at rest and with usual activity to no greater than 1/10 LTG Duration 11/24/18 Progress Towards Goals Progress Towards Goals Progressing Toward Goals Assessment Summary Assessment pt tolerated aquatic therapy well today. Able to do new swim strokes with good success . Physical Therapy Plan Frequency and Duration Frequency of Treatment 2x/Week Duration of Treatment 12 wks Plan of Care Start Date 08/30/18 Plan of Care End Date 11/30/18 Therapeutic Interventions Therapeutic Interventions Aquatic Therapy Home Exercise Program Joint Mobilizations Manual Therapy Neuromuscular Re-education Patient/Caregiver Education Self-Care/Home Management Soft Tissue Mobilization Taping Therapeutic Activities Therapeutic Exercises Modalities Cold Pack/Ice Massage Electric Stimulation Hot Packs Iontophoresis Ultrasound Next Visit Focus/Plan Next Note Type Treatment Note Next Visit Plan Continue aquatic therapy with emphasis on returning pt to former activity level and function.
--- NOTE | 2018-10-08 14:59 | PT.OTN ---
Current Diagnoses Pain in right shoulder (10/06/18) Unsteadiness on feet (10/06/18) Dizziness and giddiness (10/06/18) Weakness (10/06/18) History of falling (10/06/18) Physical Therapy Treatment Note PT-OP-A Visit Information Start: 08/24/18 11:25 Freq: Status: Active Protocol: Document 10/08/18 13:00 LJ (Rec: 10/08/18 14:59 LJ [id number]) Out-Patient Physical Therapy Visit Information Visit Information Visit Type Aquatic Treatment Note Visit Start Time 13:00 Visit Stop Time 13:45 Total Visit Minutes 45 Visit Number 12 Number of FIRE [employer] SPRINKLER INSPECTOR Visits 2 Precautions Precautions PMH: HTN dizziness falls [facility] PT-OP-B Current Condition Start: 08/24/18 11:25 Freq: Status: Active Protocol: Document 08/30/18 12:00 DCW (Rec: 08/30/18 15:30 DCW [id number]) Current Condition History of Current Condition Onset Date 07/17/18 Current Complaints right shoulder pain and dysfunction. History of Current Condition primary c/o right shoulder s/p fall onto right UE (elbow) jamming right shoulder. 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 Ice and heat helpful sometimes. States Tramedol and Meloxicam not really effective. Cannibas balm helpful. Pain seems to be worse after activity and then reports he experiences it at rest. Fall possibly related to severe dizziness. Improvement in hydration level has helped but some persistent dizziness. Since last seen in PT has had gut problems and has been to cloth coverer as well; having treadmill test end of month. ADDENDUM 08/30/18: Pt underwent vestibular assessment today for ongoing complaints of imbalance. Pt reports he was having symptoms of dizziness, like my head was expanded, or like I had a stuffy head cold for a number of months, until he was instructed by a cloth coverer to drink more water. This helped his eliminate the main complaints of dizziness, but since that time (~1 year), he has just had a chronic sensation of dizziness/poor balance. Pt notes that his symptoms mainly occur after standing up and starting to walk, but is still present at a low-level occasionall when sitting still . Prior Treatments and Tests No imaging PT-OP-C Subjective Start: 08/24/18 11:25 Freq: Status: Active Protocol: Document 10/08/18 13:00 LJ (Rec: 10/08/18 14:59 LJ [id number]) OP-PT Subjective Patient Comments Patient Comments Back still stiff when waking in the mornng. Shoulder is feeling fine. States he feels good after aquatic tx PT-OP-D Balance Start: 08/24/18 11:25 Freq: Status: Active Protocol: Document 08/30/18 12:00 DCW (Rec: 08/30/18 15:30 DCW [id number]) Balance Tests CTSIB CTSIB Position 1 Mild Sway CTSIB Position 2 Moderate Sway CTSIB Position 3 Severe Sway CTSIB Position 4 Moderate Sway CTSIB Position 5 Fall Reaction CTSIB Position 6 Fall Reaction PT-OP-E Functional Tests Start: 08/24/18 11:25 Freq: Status: Active Protocol: Document 08/24/18 11:26 SAK (Rec: 08/25/18 09:58 SAK [id number]) Functional Tests Apley's Scratch Test Action 1- Left posterior shoulder Action 1- Right top of shoulder Action 2- Left T2 Action 2- Right back of head Action 3- Left T7 Action 3- Right T12 PT-OP-F Manual Assessment Start: 08/24/18 11:25 Freq: Status: Active Protocol: Document 08/24/18 11:26 SAK (Rec: 08/25/18 09:58 SAK [id number]) Manual Assessments Soft Tissue Assessment Soft Tissue Mobility Assessment tightness bilateral UT right greater than left Joint Mobility Assessment Joint Mobility Assessment Decreased inferior glide and posterior glide right PT-OP-J Posture/Palpation/Skin Start: 08/24/18 11:25 Freq: Status: Active Protocol: Document 08/24/18 11:26 SAK (Rec: 08/25/18 09:58 SAK [id number]) Posture Evaluation Position Sitting Head/C-Spine Posture Forward Head T-Spine Posture Increased Kyphosis Shoulder Posture (L) Rounded (R) Rounded Shoulder Subluxation Position (R) Anterior Arm Posture (L) Internally Rotated (R) Internally Rotated Palpation Assessment Location anterior shoulder Palpation Findings Tenderness Palpation Details GH joint line PT-OP-K Range of Motion Start: 08/24/18 11:25 Freq: Status: Active Protocol: Document 08/24/18 11:26 [facility] (Rec: 08/25/18 09:58 [facility] [id number]) Cervical Spine Range of Motion Cervical Spine Active ROM Limitations Soft Tissue Tightness Bony Restriction Comments due to arthritis Shoulder Goniometric Range of Motion Shoulder Right Active Shoulder ROM WFL No Flexion 165 Extension 15 Abduction 145 External Rotation at 45 degrees 55 Abduction Internal Rotation 40 Left Shoulder ROM WFL Yes Shoulder ROM Limitations Shoulder ROM Limitations Pain Comments most painful with ER right Elbow/Forearm Range of Motion Elbow/Forearm jennyfer Elbow/Forearm ROM WFL Yes PT-OP-L Special Tests Start: 08/24/18 11:25 Freq: Status: Active Protocol: Document 08/24/18 11:26 [facility] (Rec: 08/25/18 09:58 [facility] [id number]) Special Tests Shoulder Special Tests Elevation Impingement Test Results negative Biceps Load II Test Test Results negative Belly Press Test Results negative Apprehension Test Test Results negative Drop Arm Rotator Cuff Test Results negative jennyfer PT-OP-M Strength Start: 08/24/18 11:25 Freq: Status: Active Protocol: Document 08/24/18 11:26 [facility] (Rec: 08/25/18 09:58 [facility] [id number]) Shoulder Strength Shoulder Manual Muscle Testing Right Flexion 4 Good Extension 4 Good Abduction (C5) 4 Good External Rotation 4- Good- Internal Rotation 4 Good Comments painful all resisted motions, worst with ER Left Flexion 5 Normal Extension 4+ Good+ Abduction (C5) 5 Normal External Rotation 4 Good Internal Rotation 4+ Good+ Elbow/Forearm Strength Elbow and Forearm Manual Muscle Testing Right Flexion (C6) 4+ Good+ Extension (C7) 4+ Good+ Left Flexion (C6) 5 Normal Extension (C7) 5 Normal PT-OP-O Vestibular Start: 08/24/18 11:25 Freq: Status: Active Protocol: Document 08/30/18 12:00 DCW (Rec: 08/30/18 15:30 DCW [id number]) Vestibular Assessment Screening Tests Vestibular Artery Screen Negative Auditory Tests Ortiz Test Negative Rinne Test Negative Air Conduction Results Equal Visual Testing Smooth Pursuits Horizontal WNL Smooth Pursuits Vertical WNL Saccades Horizontal WNL Gaze Evoked Nystagmus With Fixation Negative Gaze Evoked Nystagmus Without Fixation Negative Heave Test Unclear Thrust Head Unclear DVA (Line Degradation) 4 Head Shake Negative Spontaneous Nystagmus Negative Positional Testing [place]-Hallpike Negative Left Negative Right Rolling Test Negative Left Negative Right Comments Vestibular Comments Thrust and heave tests inconclusive due to pt closing his eyes and jerking his head in shock with every single attempt PT-OP-Q Treatments Start: 08/24/18 11:25 Freq: Status: Active Protocol: Document 09/20/18 15:17 [facility] (Rec: 09/20/18 16:14 SAK [id number]) Therapeutic Exercises Sitting Exercises pulleys for shoulder flex Reps/Minutes 10x Standing Exercises shoulder flex Standing Exercise Name with isometric abd Resistance L1 TB Reps/Minutes 10x shoulder add Resistance L1 TB Reps/Minutes 10x UT stretch Reps/Minutes 2x Comments due to increased muscle tension and guarding row, shld ext, ER Equipment Used L1 TB Reps/Minutes 10x Comments verbal and manual cues Manual Therapy Treatment Soft Tissue Mobilization rhomboids, Teres min and dino Mobilization Type Rolling Strumming Intensity/Depth mod Body Position Sidelying pec dino, biceps Mobilization Type Myofascial Release Rolling Strumming Comments with manual pec stretch Taping right shoulder Comments 3 Y strips PT-OP-R Modalities Start: 08/24/18 11:25 Freq: Status: Active Protocol: Document 09/20/18 15:17 [facility] (Rec: 09/20/18 16:14 [facility] [id number]) Electric Stimulation Electric Stimulation Interferential Current (IFC) Body Location right shoulder Duration (Minutes) 12 Target/Sweep Sweep High/Low High Patient Position Hooklying Combined With Heat/Cold Cold Pack Ultrasound Therapy Treatment anterior GH joint line Patient Position Supine Coupling Medium Ultrasound Gel Frequency Setting (mHz) 1 Mode Setting Pulsed Duty Cycle 50% Intensity Setting (w/cm2) 1.2 PT-OP-S Aquatic Treatment Start: 08/24/18 11:25 Freq: Status: Active Protocol: Document 10/08/18 13:00 [facility] (Rec: 10/08/18 14:59 LJ [id number]) Aquatics Treatment Pool Entry/Exit Pool Entry/Exit Method Stairs Assistance Independent Water Walking quick directional changes Water Level Chest Level Level of Assistance Verbal Cues Comments pt with difficulty stabilizing Marching Water Level Chest Level Comments recrip hand to knee; forward and backward march with shoulder flex/ext Water Level Chest Level Level of Assistance Verbal Cues Comments keeping shoulders adducted sideways with shoulder ab/ad Water Level Chest Level Level of Assistance Verbal Cues backward with reverse breastroke UE's Water Level Chest Level Level of Assistance Verbal Cues forward with breastroke UE's Water Level Chest Level Level of Assistance Verbal Cues Upper Extremity Exercises lat pull downs Body Position Standing Water Level Chest Level Equipment stretch cords Reps/Duration 12x Comments M BB UE pull downs Body Position Standing Equipment med barbells Reps/Duration forward and lat pec stretch Details walk Water Level Chest Level Equipment UE paddles shoulder IR/ER Body Position Standing Water Level Chest Level Equipment cords Reps/Duration 12x shoulder flex/ex Body Position Standing Water Level Chest Level Equipment cords Reps/Duration 12x2 Comments alternating also shoulder hor ab/ad Body Position Standing Water Level Chest Level Equipment UE paddles Reps/Duration 12x2 Comments alternating also Spinal Exercises rotation Body Position Standing Water Level Chest Level Equipment stretch cords Reps/Duration 12x2 Balance static stabilization Body Position Standing Water Level Chest Level Reps/Duration 5 min Comments various foot positions inc SLS Swim Strokes modified front crawl Other Equipment Used mask snorkel fins Laps/Duration 8 PT-OP-T Assessment and Plan Start: 08/24/18 11:25 Freq: Status: Active Protocol: Document 10/08/18 13:00 DEOIN (Rec: 10/08/18 14:59 [id number]) Physical Therapy Assessment Goals dizziness with history of falls Impairment dizziness Hvac Sales Representative Goal (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 Evaluated by vestibular specialist who did not feel he would benefit from PT, no BPPV. LTG Duration MET functional activity Impairment Quickdash UE disability score 23% Short Term Goal (STG) Decrease Quickdash score to no greater than 15% 09/27/18: good goal progress STG Duration 09/23/18 Senior Living Goal (LTG) Decrease Quickdash score to no greater than 5% LTG Duration 11/24/18 Strength Impairment decreased strength right shoulder Short Term Goal (STG) Patient to be independent with HEP for right shoulder strengthening 09/27/18 goal met for land- based though ongoing progression for land-based and aquatic. Not yet met for aquatic STG Duration 09/23/18 Senior Living Goal (LTG) right shoulder strength 5/5 09/27/18: good goal progress, not fully achieved LTG Duration 11/24/18 ROM Impairment decreased right shoulder ROM Short Term Goal (STG) Patient to be independent with HEP for purposes of right shoulder ROM 09/27/18: goal MET for land- based HEP, not aquatic STG Duration 09/23/18 Senior Living Goal (LTG) Patient to demonstrate full AROM right shoulder without pain LTG Duration 11/24/18 pain Impairment right shoulder pain Short Term Goal (STG) Decrease resting pain level to no greater than 3/10 09/27/18: good goal progress STG Duration 09/23/18 Senior Living Goal (LTG) Decrease pain at rest and with usual activity to no greater than 1/10 LTG Duration 11/24/18 Progress Towards Goals Progress Towards Goals Progressing Toward Goals Assessment Summary Assessment Pt progressing with shoulder strength and stabilization. Had difficulty with balance and quick directional changes Physical Therapy Plan Frequency and Duration Frequency of Treatment 2x/Week Duration of Treatment 12 wks Plan of Care Start Date 08/30/18 Plan of Care End Date 11/30/18 Therapeutic Interventions Therapeutic Interventions Aquatic Therapy Home Exercise Program Joint Mobilizations Manual Therapy Neuromuscular Re-education Patient/Caregiver Education Self-Care/Home Management Soft Tissue Mobilization Taping Therapeutic Activities Therapeutic Exercises Modalities Cold Pack/Ice Massage Electric Stimulation Hot Packs Iontophoresis Ultrasound Next Visit Focus/Plan Next Note Type Treatment Note Next Visit Plan Continue aquatic therapy with emphasis on returning pt to former activity level and function. Work on balance exercises.
--- NOTE | 2018-10-11 15:17 | PT.OTN ---
Current Diagnoses Pain in right shoulder (10/11/18) Unsteadiness on feet (10/11/18) Dizziness and giddiness (10/11/18) Weakness (10/11/18) History of falling (10/11/18) Physical Therapy Treatment Note PT-OP-A Visit Information Start: 08/24/18 11:25 Freq: Status: Active Protocol: Document 10/11/18 12:25 LJ (Rec: 10/11/18 15:17 LJ [id number]) Out-Patient Physical Therapy Visit Information Visit Information Visit Type Aquatic Treatment Note Visit Start Time 12:25 Visit Stop Time 13:00 Total Visit Minutes 35 Visit Number 13 Number of SKILLS AUDITOR Visits 3 Precautions Precautions PMH: HTN dizziness falls TULALIP LUIS PT-OP-B Current Condition Start: 08/24/18 11:25 Freq: Status: Active Protocol: Document 08/30/18 12:00 DCW (Rec: 08/30/18 15:30 DCW [id number]) Current Condition History of Current Condition Onset Date 07/17/18 Current Complaints right shoulder pain and dysfunction. History of Current Condition primary c/o right shoulder s/p fall onto right UE (elbow) jamming right shoulder. 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 Ice and heat helpful sometimes. States Tramedol and Meloxicam not really effective. Cannibas balm helpful. Pain seems to be worse after activity and then reports he experiences it at rest. Fall possibly related to severe dizziness. Improvement in hydration level has helped but some persistent dizziness. Since last seen in PT has had gut problems and has been to road freight firer as well; having treadmill test end of month. ADDENDUM 08/30/18: Pt underwent vestibular assessment today for ongoing complaints of imbalance. Pt reports he was having symptoms of dizziness, like my head was expanded, or like I had a stuffy head cold for a number of months, until he was instructed by a road freight firer to drink more water. This helped his eliminate the main complaints of dizziness, but since that time (~1 year), he has just had a chronic sensation of dizziness/poor balance. Pt notes that his symptoms mainly occur after standing up and starting to walk, but is still present at a low-level occasionall when sitting still . Prior Treatments and Tests No imaging PT-OP-C Subjective Start: 08/24/18 11:25 Freq: Status: Active Protocol: Document 10/11/18 12:25 LJ (Rec: 10/11/18 15:17 LJ [id number]) OP-PT Subjective Patient Comments Patient Comments Pt still c/o back stiffness in am. Having sciatic symptoms lately. States his shoulders seem to be doing fine. PT-OP-D Balance Start: 08/24/18 11:25 Freq: Status: Active Protocol: Document 08/30/18 12:00 DCW (Rec: 08/30/18 15:30 DCW [id number]) Balance Tests CTSIB CTSIB Position 1 Mild Sway CTSIB Position 2 Moderate Sway CTSIB Position 3 Severe Sway CTSIB Position 4 Moderate Sway CTSIB Position 5 Fall Reaction CTSIB Position 6 Fall Reaction PT-OP-E Functional Tests Start: 08/24/18 11:25 Freq: Status: Active Protocol: Document 08/24/18 11:26 SAK (Rec: 08/25/18 09:58 SAK [id number]) Functional Tests Apley's Scratch Test Action 1- Left posterior shoulder Action 1- Right top of shoulder Action 2- Left T2 Action 2- Right back of head Action 3- Left T7 Action 3- Right T12 PT-OP-F Manual Assessment Start: 08/24/18 11:25 Freq: Status: Active Protocol: Document 08/24/18 11:26 SAK (Rec: 08/25/18 09:58 SAK [id number]) Manual Assessments Soft Tissue Assessment Soft Tissue Mobility Assessment tightness bilateral UT right greater than left Joint Mobility Assessment Joint Mobility Assessment Decreased inferior glide and posterior glide right PT-OP-J Posture/Palpation/Skin Start: 08/24/18 11:25 Freq: Status: Active Protocol: Document 08/24/18 11:26 SAK (Rec: 08/25/18 09:58 SAK [id number]) Posture Evaluation Position Sitting Head/C-Spine Posture Forward Head T-Spine Posture Increased Kyphosis Shoulder Posture (L) Rounded (R) Rounded Shoulder Subluxation Position (R) Anterior Arm Posture (L) Internally Rotated (R) Internally Rotated Palpation Assessment Location anterior shoulder Palpation Findings Tenderness Palpation Details GH joint line PT-OP-K Range of Motion Start: 08/24/18 11:25 Freq: Status: Active Protocol: Document 08/24/18 11:26 [facility] (Rec: 08/25/18 09:58 [facility] [id number]) Cervical Spine Range of Motion Cervical Spine Active ROM Limitations Soft Tissue Tightness Bony Restriction Comments due to arthritis Shoulder Goniometric Range of Motion Shoulder Right Active Shoulder ROM WFL No Flexion 165 Extension 15 Abduction 145 External Rotation at 45 degrees 55 Abduction Internal Rotation 40 Left Shoulder ROM WFL Yes Shoulder ROM Limitations Shoulder ROM Limitations Pain Comments most painful with ER right Elbow/Forearm Range of Motion Elbow/Forearm jennyfer Elbow/Forearm ROM WFL Yes PT-OP-L Special Tests Start: 08/24/18 11:25 Freq: Status: Active Protocol: Document 08/24/18 11:26 [facility] (Rec: 08/25/18 09:58 [facility] [id number]) Special Tests Shoulder Special Tests Elevation Impingement Test Results negative Biceps Load II Test Test Results negative Belly Press Test Results negative Apprehension Test Test Results negative Drop Arm Rotator Cuff Test Results negative jennyfer PT-OP-M Strength Start: 08/24/18 11:25 Freq: Status: Active Protocol: Document 08/24/18 11:26 [facility] (Rec: 08/25/18 09:58 [facility] [id number]) Shoulder Strength Shoulder Manual Muscle Testing Right Flexion 4 Good Extension 4 Good Abduction (C5) 4 Good External Rotation 4- Good- Internal Rotation 4 Good Comments painful all resisted motions, worst with ER Left Flexion 5 Normal Extension 4+ Good+ Abduction (C5) 5 Normal External Rotation 4 Good Internal Rotation 4+ Good+ Elbow/Forearm Strength Elbow and Forearm Manual Muscle Testing Right Flexion (C6) 4+ Good+ Extension (C7) 4+ Good+ Left Flexion (C6) 5 Normal Extension (C7) 5 Normal PT-OP-O Vestibular Start: 08/24/18 11:25 Freq: Status: Active Protocol: Document 08/30/18 12:00 DCW (Rec: 08/30/18 15:30 DCW [id number]) Vestibular Assessment Screening Tests Vestibular Artery Screen Negative Auditory Tests Ortiz Test Negative Rinne Test Negative Air Conduction Results Equal Visual Testing Smooth Pursuits Horizontal WNL Smooth Pursuits Vertical WNL Saccades Horizontal WNL Gaze Evoked Nystagmus With Fixation Negative Gaze Evoked Nystagmus Without Fixation Negative Heave Test Unclear Thrust Head Unclear DVA (Line Degradation) 4 Head Shake Negative Spontaneous Nystagmus Negative Positional Testing [place]-Hallpike Negative Left Negative Right Rolling Test Negative Left Negative Right Comments Vestibular Comments Thrust and heave tests inconclusive due to pt closing his eyes and jerking his head in shock with every single attempt PT-OP-Q Treatments Start: 08/24/18 11:25 Freq: Status: Active Protocol: Document 09/20/18 15:17 SAK (Rec: 09/20/18 16:14 SAK [id number]) Therapeutic Exercises Sitting Exercises pulleys for shoulder flex Reps/Minutes 10x Standing Exercises shoulder flex Standing Exercise Name with isometric abd Resistance L1 TB Reps/Minutes 10x shoulder add Resistance L1 TB Reps/Minutes 10x UT stretch Reps/Minutes 2x Comments due to increased muscle tension and guarding row, shld ext, ER Equipment Used L1 TB Reps/Minutes 10x Comments verbal and manual cues Manual Therapy Treatment Soft Tissue Mobilization rhomboids, Teres min and dino Mobilization Type Rolling Strumming Intensity/Depth mod Body Position Sidelying pec dino, biceps Mobilization Type Myofascial Release Rolling Strumming Comments with manual pec stretch Taping right shoulder Comments 3 Y strips PT-OP-R Modalities Start: 08/24/18 11:25 Freq: Status: Active Protocol: Document 09/20/18 15:17 SAK (Rec: 09/20/18 16:14 SAK [id number]) Electric Stimulation Electric Stimulation Interferential Current (IFC) Body Location right shoulder Duration (Minutes) 12 Target/Sweep Sweep High/Low High Patient Position Hooklying Combined With Heat/Cold Cold Pack Ultrasound Therapy Treatment anterior GH joint line Patient Position Supine Coupling Medium Ultrasound Gel Frequency Setting (mHz) 1 Mode Setting Pulsed Duty Cycle 50% Intensity Setting (w/cm2) 1.2 PT-OP-S Aquatic Treatment Start: 08/24/18 11:25 Freq: Status: Active Protocol: Document 10/11/18 12:25 [facility]ION (Rec: 10/11/18 15:17 LJ [id number]) Aquatics Treatment Pool Entry/Exit Pool Entry/Exit Method Stairs Assistance Independent Water Walking march with shoulder flex/ext Water Level Chest Level Level of Assistance Verbal Cues Comments keeping shoulders adducted sideways with shoulder ab/ad Water Level Chest Level Level of Assistance Verbal Cues backward with reverse breastroke UE's Water Level Chest Level Level of Assistance Verbal Cues forward with breastroke UE's Water Level Chest Level Level of Assistance Verbal Cues [place] Activities [place] Activities Bicycle [place] Running Equipment flotation belt L Duration 10 min Manual Techniques Aquatic Manual Traction 6 min #2.5 ankle wts PT-OP-T Assessment and Plan Start: 08/24/18 11:25 Freq: Status: Active Protocol: Document 10/11/18 12:25 [facility] (Rec: 10/11/18 15:17 [facility] [id number]) Physical Therapy Assessment Goals dizziness with history of falls Impairment dizziness Senior Living Goal (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 Evaluated by vestibular specialist who did not feel he would benefit from PT, no BPPV. LTG Duration MET functional activity Impairment Quickdash UE disability score 23% Short Term Goal (STG) Decrease Quickdash score to no greater than 15% 09/27/18: good goal progress STG Duration 09/23/18 School Year Nanny Goal (LTG) Decrease Quickdash score to no greater than 5% LTG Duration 11/24/18 Strength Impairment decreased strength right shoulder Short Term Goal (STG) Patient to be independent with HEP for right shoulder strengthening 09/27/18 goal met for land- based though ongoing progression for land-based and aquatic. Not yet met for aquatic STG Duration 09/23/18 Senior Living Goal (LTG) right shoulder strength 5/5 09/27/18: good goal progress, not fully achieved LTG Duration 11/24/18 ROM Impairment decreased right shoulder ROM Short Term Goal (STG) Patient to be independent with HEP for purposes of right shoulder ROM 09/27/18: goal MET for land- based HEP, not aquatic STG Duration 09/23/18 Senior Living Goal (LTG) Patient to demonstrate full AROM right shoulder without pain LTG Duration 11/24/18 pain Impairment right shoulder pain Short Term Goal (STG) Decrease resting pain level to no greater than 3/10 09/27/18: good goal progress STG Duration 09/23/18 Senior Living Goal (LTG) Decrease pain at rest and with usual activity to no greater than 1/10 LTG Duration 11/24/18 Progress Towards Goals Progress Towards Goals Progressing Toward Goals Assessment Summary Assessment Pt progressing with tx. No pain with exercises. Still has difficulty with balance Physical Therapy Plan Frequency and Duration Frequency of Treatment 2x/Week Duration of Treatment 12 wks Plan of Care Start Date 08/30/18 Plan of Care End Date 11/30/18 Therapeutic Interventions Therapeutic Interventions Aquatic Therapy Home Exercise Program Joint Mobilizations Manual Therapy Neuromuscular Re-education Patient/Caregiver Education Self-Care/Home Management Soft Tissue Mobilization Taping Therapeutic Activities Therapeutic Exercises Modalities Cold Pack/Ice Massage Electric Stimulation Hot Packs Iontophoresis Ultrasound Next Visit Focus/Plan Next Note Type Treatment Note Next Visit Plan Progress pt with balance and strengthening activities to return to former LOF
--- NOTE | 2018-10-15 16:12 | PT.OTN ---
Current Diagnoses Pain in right shoulder (10/15/18) Lumbago with sciatica, right side (10/15/18) Unsteadiness on feet (10/15/18) Dizziness and giddiness (10/15/18) Weakness (10/15/18) History of falling (10/15/18) Physical Therapy Treatment Note PT-OP-A Visit Information Start: 08/24/18 11:25 Freq: Status: Active Protocol: Document 10/15/18 15:56 SAK (Rec: 10/15/18 16:10 SAK [id number]) Out-Patient Physical Therapy Visit Information Visit Information Visit Type Aquatic Treatment Note Visit Start Time 13:00 Visit Stop Time 13:45 Total Visit Minutes 45 Visit Number 14 Number of HOT IRON WORKER Visits 3 Precautions Precautions PMH: HTN dizziness falls BIG SANDY LUIS PT-OP-B Current Condition Start: 08/24/18 11:25 Freq: Status: Active Protocol: Document 08/30/18 12:00 DCW (Rec: 08/30/18 15:30 DCW [id number]) Current Condition History of Current Condition Onset Date 07/17/18 Current Complaints right shoulder pain and dysfunction. History of Current Condition primary c/o right shoulder s/p fall onto right UE (elbow) jamming right shoulder. 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 Ice and heat helpful sometimes. States Tramedol and Meloxicam not really effective. Cannibas balm helpful. Pain seems to be worse after activity and then reports he experiences it at rest. Fall possibly related to severe dizziness. Improvement in hydration level has helped but some persistent dizziness. Since last seen in PT has had gut problems and has been to road equipment operator as well; having treadmill test end of month. ADDENDUM 08/30/18: Pt underwent vestibular assessment today for ongoing complaints of imbalance. Pt reports he was having symptoms of dizziness, like my head was expanded, or like I had a stuffy head cold for a number of months, until he was instructed by a road equipment operator to drink more water. This helped his eliminate the main complaints of dizziness, but since that time (~1 year), he has just had a chronic sensation of dizziness/poor balance. Pt notes that his symptoms mainly occur after standing up and starting to walk, but is still present at a low-level occasionall when sitting still . Prior Treatments and Tests No imaging PT-OP-C Subjective Start: 08/24/18 11:25 Freq: Status: Active Protocol: Document 10/15/18 15:56 SAK (Rec: 10/15/18 16:10 SAK [id number]) OP-PT Subjective Patient Comments Patient Comments Reports he continues to have sciatic symptoms and LBP after lifting awkward object 2 wks ago. Saw his physician who wrote order for PT to address LBP. PT-OP-D Balance Start: 08/24/18 11:25 Freq: Status: Active Protocol: Document 08/30/18 12:00 DCW (Rec: 08/30/18 15:30 DCW [id number]) Balance Tests CTSIB CTSIB Position 1 Mild Sway CTSIB Position 2 Moderate Sway CTSIB Position 3 Severe Sway CTSIB Position 4 Moderate Sway CTSIB Position 5 Fall Reaction CTSIB Position 6 Fall Reaction PT-OP-E Functional Tests Start: 08/24/18 11:25 Freq: Status: Active Protocol: Document 08/24/18 11:26 SAK (Rec: 08/25/18 09:58 [facility] [id number]) Functional Tests Apley's Scratch Test Action 1- Left posterior shoulder Action 1- Right top of shoulder Action 2- Left T2 Action 2- Right back of head Action 3- Left T7 Action 3- Right T12 PT-OP-F Manual Assessment Start: 08/24/18 11:25 Freq: Status: Active Protocol: Document 08/24/18 11:26 SAK (Rec: 08/25/18 09:58 [facility] [id number]) Manual Assessments Soft Tissue Assessment Soft Tissue Mobility Assessment tightness bilateral UT right greater than left Joint Mobility Assessment Joint Mobility Assessment Decreased inferior glide and posterior glide right PT-OP-J Posture/Palpation/Skin Start: 08/24/18 11:25 Freq: Status: Active Protocol: Document 08/24/18 11:26 SAK (Rec: 08/25/18 09:58 [facility] [id number]) Posture Evaluation Position Sitting Head/C-Spine Posture Forward Head T-Spine Posture Increased Kyphosis Shoulder Posture (L) Rounded (R) Rounded Shoulder Subluxation Position (R) Anterior Arm Posture (L) Internally Rotated (R) Internally Rotated Palpation Assessment Location anterior shoulder Palpation Findings Tenderness Palpation Details GH joint line PT-OP-K Range of Motion Start: 08/24/18 11:25 Freq: Status: Active Protocol: Document 08/24/18 11:26 SAK (Rec: 08/25/18 09:58 [facility] [id number]) Cervical Spine Range of Motion Cervical Spine Active ROM Limitations Soft Tissue Tightness Bony Restriction Comments due to arthritis Shoulder Goniometric Range of Motion Shoulder Right Active Shoulder ROM WFL No Flexion 165 Extension 15 Abduction 145 External Rotation at 45 degrees 55 Abduction Internal Rotation 40 Left Shoulder ROM WFL Yes Shoulder ROM Limitations Shoulder ROM Limitations Pain Comments most painful with ER right Elbow/Forearm Range of Motion Elbow/Forearm jennyfer Elbow/Forearm ROM WFL Yes PT-OP-L Special Tests Start: 08/24/18 11:25 Freq: Status: Active Protocol: Document 08/24/18 11:26 SAK (Rec: 08/25/18 09:58 [facility] [id number]) Special Tests Shoulder Special Tests Elevation Impingement Test Results negative Biceps Load II Test Test Results negative Belly Press Test Results negative Apprehension Test Test Results negative Drop Arm Rotator Cuff Test Results negative jennyfer PT-OP-M Strength Start: 08/24/18 11:25 Freq: Status: Active Protocol: Document 08/24/18 11:26 [facility] (Rec: 08/25/18 09:58 [facility] [id number]) Shoulder Strength Shoulder Manual Muscle Testing Right Flexion 4 Good Extension 4 Good Abduction (C5) 4 Good External Rotation 4- Good- Internal Rotation 4 Good Comments painful all resisted motions, worst with ER Left Flexion 5 Normal Extension 4+ Good+ Abduction (C5) 5 Normal External Rotation 4 Good Internal Rotation 4+ Good+ Elbow/Forearm Strength Elbow and Forearm Manual Muscle Testing Right Flexion (C6) 4+ Good+ Extension (C7) 4+ Good+ Left Flexion (C6) 5 Normal Extension (C7) 5 Normal PT-OP-O Vestibular Start: 08/24/18 11:25 Freq: Status: Active Protocol: Document 08/30/18 12:00 DCW (Rec: 08/30/18 15:30 DCW [id number]) Vestibular Assessment Screening Tests Vestibular Artery Screen Negative Auditory Tests Ortiz Test Negative Rinne Test Negative Air Conduction Results Equal Visual Testing Smooth Pursuits Horizontal WNL Smooth Pursuits Vertical WNL Saccades Horizontal WNL Gaze Evoked Nystagmus With Fixation Negative Gaze Evoked Nystagmus Without Fixation Negative Heave Test Unclear Thrust Head Unclear DVA (Line Degradation) 4 Head Shake Negative Spontaneous Nystagmus Negative Positional Testing [place]-Hallpike Negative Left Negative Right Rolling Test Negative Left Negative Right Comments Vestibular Comments Thrust and heave tests inconclusive due to pt closing his eyes and jerking his head in shock with every single attempt PT-OP-Q Treatments Start: 08/24/18 11:25 Freq: Status: Active Protocol: Document 09/20/18 15:17 [facility] (Rec: 09/20/18 16:14 [facility] [id number]) Therapeutic Exercises Sitting Exercises pulleys for shoulder flex Reps/Minutes 10x Standing Exercises shoulder flex Standing Exercise Name with isometric abd Resistance L1 TB Reps/Minutes 10x shoulder add Resistance L1 TB Reps/Minutes 10x UT stretch Reps/Minutes 2x Comments due to increased muscle tension and guarding row, shld ext, ER Equipment Used L1 TB Reps/Minutes 10x Comments verbal and manual cues Manual Therapy Treatment Soft Tissue Mobilization rhomboids, Teres min and dino Mobilization Type Rolling Strumming Intensity/Depth mod Body Position Sidelying pec dino, biceps Mobilization Type Myofascial Release Rolling Strumming Comments with manual pec stretch Taping right shoulder Comments 3 Y strips PT-OP-R Modalities Start: 08/24/18 11:25 Freq: Status: Active Protocol: Document 09/20/18 15:17 [facility] (Rec: 09/20/18 16:14 [facility] [id number]) Electric Stimulation Electric Stimulation Interferential Current (IFC) Body Location right shoulder Duration (Minutes) 12 Target/Sweep Sweep High/Low High Patient Position Hooklying Combined With Heat/Cold Cold Pack Ultrasound Therapy Treatment anterior GH joint line Patient Position Supine Coupling Medium Ultrasound Gel Frequency Setting (mHz) 1 Mode Setting Pulsed Duty Cycle 50% Intensity Setting (w/cm2) 1.2 PT-OP-S Aquatic Treatment Start: 08/24/18 11:25 Freq: Status: Active Protocol: Document 10/15/18 15:56 [facility] (Rec: 10/15/18 16:10 [facility] [id number]) Aquatics Treatment Pool Entry/Exit Pool Entry/Exit Method Stairs Assistance Independent Water Walking march with shoulder flex/ext Water Level Chest Level Level of Assistance Verbal Cues Comments keeping shoulders adducted sideways with shoulder ab/ad Water Level Chest Level Level of Assistance Verbal Cues backward with reverse breastroke UE's Water Level Chest Level Level of Assistance Verbal Cues forward with breastroke UE's Water Level Chest Level Level of Assistance Verbal Cues Lower Extremity Stretches SKTC Reps/Duration 2x piriformis Reps/Duration 2x Upper Extremity Exercises shoulder flex/ex Body Position Standing Water Level Chest Level Equipment cords Reps/Duration 12x2 Comments alternating also shoulder hor ab/ad Body Position Standing Water Level Chest Level Equipment UE paddles Reps/Duration 12x2 Comments alternating also [place] Activities [place] Activities Bicycle [place] Running Swim Strokes modified front crawl Other Equipment Used mask snorkel fins Laps/Duration 5 Comments slow, gentle Manual Techniques Aquatic Manual Traction lumbar: neckfloat and LE floats Aquatic Massage lumbar paraspinals and piriformis right PT-OP-T Assessment and Plan Start: 08/24/18 11:25 Freq: Status: Active Protocol: Document 10/15/18 15:56 SAK (Rec: 10/15/18 16:10 [facility] [id number]) Physical Therapy Assessment Goals Five Impairment low back pain [facility] Goal (LTG) Decrease pain to no greater than 2/10 with all usual activities LTG Duration 11/24/18 dizziness with history of falls Impairment dizziness [facility] Goal (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 Evaluated by vestibular specialist who did not feel he would benefit from PT, no BPPV. LTG Duration MET functional activity Impairment Quickdash UE disability score 23% Short Term Goal (STG) Decrease Quickdash score to no greater than 15% 09/27/18: good goal progress STG Duration 09/23/18 [facility] Goal (LTG) Decrease Quickdash score to no greater than 5% LTG Duration 11/24/18 Strength Impairment decreased strength right shoulder Short Term Goal (STG) Patient to be independent with HEP for right shoulder strengthening 09/27/18 goal met for land- based though ongoing progression for land-based and aquatic. Not yet met for aquatic STG Duration 09/23/18 Transportation Agent Goal (LTG) right shoulder strength 07/1109/27/18: good goal progress, not fully achieved LTG Duration 11/24/18 ROM Impairment decreased right shoulder ROM Short Term Goal (STG) Patient to be independent with HEP for purposes of right shoulder ROM 09/27/18: goal MET for land- based HEP, not aquatic STG Duration 09/23/18 [facility] Goal (LTG) Patient to demonstrate full AROM right shoulder without pain LTG Duration 11/24/18 pain Impairment right shoulder pain Short Term Goal (STG) Decrease resting pain level to no greater than 3/10 09/27/18: good goal progress STG Duration 09/23/18 Transportation Agent Goal (LTG) Decrease pain at rest and with usual activity to no greater than 1/10 LTG Duration 11/24/18 Assessment Summary Assessment Reported no back pain during aquatic PT session and after getting out of pool today after session. Demonstrated good understanding of precautions for back protection, HEP for core, use of ice and heat as instructed. Physical Therapy Plan Frequency and Duration Frequency of Treatment 2x/Week Duration of Treatment 12 wks Plan of Care Start Date 08/30/18 Plan of Care End Date 11/30/18 Therapeutic Interventions Therapeutic Interventions Aquatic Therapy Home Exercise Program Joint Mobilizations Manual Therapy Neuromuscular Re-education Patient/Caregiver Education Self-Care/Home Management Soft Tissue Mobilization Taping Therapeutic Activities Therapeutic Exercises Modalities Cold Pack/Ice Massage Electric Stimulation Hot Packs Iontophoresis Ultrasound Next Visit Focus/Plan Next Note Type Treatment Note Next Visit Plan Continue PT to decrease shoulder and back pain, improve strength and balance and return to more active and pain-free lifestyle.
--- NOTE | 2018-10-27 14:58 | PT.OTN ---
Current Diagnoses Pain in right shoulder (10/15/18) Lumbago with sciatica, right side (10/15/18) Unsteadiness on feet (10/15/18) Dizziness and giddiness (10/15/18) Weakness (10/15/18) History of falling (10/15/18) Physical Therapy Treatment Note PT-OP-A Visit Information Start: 08/24/18 11:25 Freq: Status: Active Protocol: Document 10/27/18 13:00 LJ (Rec: 10/27/18 14:58 LJ [id number]) Out-Patient Physical Therapy Visit Information Visit Information Visit Type Aquatic Treatment Note Visit Start Time 13:00 Visit Stop Time 13:45 Total Visit Minutes 45 Visit Number 15 Number of OPERA SINGER Visits 1 Precautions Precautions PMH: HTN dizziness falls [facility] PT-OP-B Current Condition Start: 08/24/18 11:25 Freq: Status: Active Protocol: Document 08/30/18 12:00 DCW (Rec: 08/30/18 15:30 DCW [id number]) Current Condition History of Current Condition Onset Date 07/17/18 Current Complaints right shoulder pain and dysfunction. History of Current Condition primary c/o right shoulder s/p fall onto right UE (elbow) jamming right shoulder. 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 Ice and heat helpful sometimes. States Tramedol and Meloxicam not really effective. Cannibas balm helpful. Pain seems to be worse after activity and then reports he experiences it at rest. Fall possibly related to severe dizziness. Improvement in hydration level has helped but some persistent dizziness. Since last seen in PT has had gut problems and has been to telecommunications network engineer as well; having treadmill test end of month. ADDENDUM 08/30/18: Pt underwent vestibular assessment today for ongoing complaints of imbalance. Pt reports he was having symptoms of dizziness, like my head was expanded, or like I had a stuffy head cold for a number of months, until he was instructed by a telecommunications network engineer to drink more water. This helped his eliminate the main complaints of dizziness, but since that time (~1 year), he has just had a chronic sensation of dizziness/poor balance. Pt notes that his symptoms mainly occur after standing up and starting to walk, but is still present at a low-level occasionall when sitting still . Prior Treatments and Tests No imaging PT-OP-C Subjective Start: 08/24/18 11:25 Freq: Status: Active Protocol: Document 10/27/18 13:00 LJ (Rec: 10/27/18 14:58 LJ [id number]) OP-PT Subjective Patient Comments Patient Comments Reports he continues to have sciatic symptoms and LBP. Takes him a while to get moving in the morning and cannot stand for long periods of time. PT-OP-D Balance Start: 08/24/18 11:25 Freq: Status: Active Protocol: Document 08/30/18 12:00 DCW (Rec: 08/30/18 15:30 DCW [id number]) Balance Tests CTSIB CTSIB Position 1 Mild Sway CTSIB Position 2 Moderate Sway CTSIB Position 3 Severe Sway CTSIB Position 4 Moderate Sway CTSIB Position 5 Fall Reaction CTSIB Position 6 Fall Reaction PT-OP-E Functional Tests Start: 08/24/18 11:25 Freq: Status: Active Protocol: Document 08/24/18 11:26 SAK (Rec: 08/25/18 09:58 SAK [id number]) Functional Tests Apley's Scratch Test Action 1- Left posterior shoulder Action 1- Right top of shoulder Action 2- Left T2 Action 2- Right back of head Action 3- Left T7 Action 3- Right T12 PT-OP-F Manual Assessment Start: 08/24/18 11:25 Freq: Status: Active Protocol: Document 08/24/18 11:26 SAK (Rec: 08/25/18 09:58 SAK [id number]) Manual Assessments Soft Tissue Assessment Soft Tissue Mobility Assessment tightness bilateral UT right greater than left Joint Mobility Assessment Joint Mobility Assessment Decreased inferior glide and posterior glide right PT-OP-J Posture/Palpation/Skin Start: 08/24/18 11:25 Freq: Status: Active Protocol: Document 08/24/18 11:26 SAK (Rec: 08/25/18 09:58 SAK [id number]) Posture Evaluation Position Sitting Head/C-Spine Posture Forward Head T-Spine Posture Increased Kyphosis Shoulder Posture (L) Rounded (R) Rounded Shoulder Subluxation Position (R) Anterior Arm Posture (L) Internally Rotated (R) Internally Rotated Palpation Assessment Location anterior shoulder Palpation Findings Tenderness Palpation Details GH joint line PT-OP-K Range of Motion Start: 08/24/18 11:25 Freq: Status: Active Protocol: Document 08/24/18 11:26 [facility] (Rec: 08/25/18 09:58 [facility] [id number]) Cervical Spine Range of Motion Cervical Spine Active ROM Limitations Soft Tissue Tightness Bony Restriction Comments due to arthritis Shoulder Goniometric Range of Motion Shoulder Right Active Shoulder ROM WFL No Flexion 165 Extension 15 Abduction 145 External Rotation at 45 degrees 55 Abduction Internal Rotation 40 Left Shoulder ROM WFL Yes Shoulder ROM Limitations Shoulder ROM Limitations Pain Comments most painful with ER right Elbow/Forearm Range of Motion Elbow/Forearm jennyfer Elbow/Forearm ROM WFL Yes PT-OP-L Special Tests Start: 08/24/18 11:25 Freq: Status: Active Protocol: Document 08/24/18 11:26 [facility] (Rec: 08/25/18 09:58 [facility] [id number]) Special Tests Shoulder Special Tests Elevation Impingement Test Results negative Biceps Load II Test Test Results negative Belly Press Test Results negative Apprehension Test Test Results negative Drop Arm Rotator Cuff Test Results negative jennyfer PT-OP-M Strength Start: 08/24/18 11:25 Freq: Status: Active Protocol: Document 08/24/18 11:26 [facility] (Rec: 08/25/18 09:58 [facility] [id number]) Shoulder Strength Shoulder Manual Muscle Testing Right Flexion 4 Good Extension 4 Good Abduction (C5) 4 Good External Rotation 4- Good- Internal Rotation 4 Good Comments painful all resisted motions, worst with ER Left Flexion 5 Normal Extension 4+ Good+ Abduction (C5) 5 Normal External Rotation 4 Good Internal Rotation 4+ Good+ Elbow/Forearm Strength Elbow and Forearm Manual Muscle Testing Right Flexion (C6) 4+ Good+ Extension (C7) 4+ Good+ Left Flexion (C6) 5 Normal Extension (C7) 5 Normal PT-OP-O Vestibular Start: 08/24/18 11:25 Freq: Status: Active Protocol: Document 08/30/18 12:00 DCW (Rec: 08/30/18 15:30 DCW [id number]) Vestibular Assessment Screening Tests Vestibular Artery Screen Negative Auditory Tests Ortiz Test Negative Rinne Test Negative Air Conduction Results Equal Visual Testing Smooth Pursuits Horizontal WNL Smooth Pursuits Vertical WNL Saccades Horizontal WNL Gaze Evoked Nystagmus With Fixation Negative Gaze Evoked Nystagmus Without Fixation Negative Heave Test Unclear Thrust Head Unclear DVA (Line Degradation) 4 Head Shake Negative Spontaneous Nystagmus Negative Positional Testing La-Hallpike Negative Left Negative Right Rolling Test Negative Left Negative Right Comments Vestibular Comments Thrust and heave tests inconclusive due to pt closing his eyes and jerking his head in shock with every single attempt PT-OP-Q Treatments Start: 08/24/18 11:25 Freq: Status: Active Protocol: Document 09/20/18 15:17 SAK (Rec: 09/20/18 16:14 SAK [id number]) Therapeutic Exercises Sitting Exercises pulleys for shoulder flex Reps/Minutes 10x Standing Exercises shoulder flex Standing Exercise Name with isometric abd Resistance L1 TB Reps/Minutes 10x shoulder add Resistance L1 TB Reps/Minutes 10x UT stretch Reps/Minutes 2x Comments due to increased muscle tension and guarding row, shld ext, ER Equipment Used L1 TB Reps/Minutes 10x Comments verbal and manual cues Manual Therapy Treatment Soft Tissue Mobilization rhomboids, Teres min and dino Mobilization Type Rolling Strumming Intensity/Depth mod Body Position Sidelying pec dino, biceps Mobilization Type Myofascial Release Rolling Strumming Comments with manual pec stretch Taping right shoulder Comments 3 Y strips PT-OP-R Modalities Start: 08/24/18 11:25 Freq: Status: Active Protocol: Document 09/20/18 15:17 SAK (Rec: 09/20/18 16:14 [facility] [id number]) Electric Stimulation Electric Stimulation Interferential Current (IFC) Body Location right shoulder Duration (Minutes) 12 Target/Sweep Sweep High/Low High Patient Position Hooklying Combined With Heat/Cold Cold Pack Ultrasound Therapy Treatment anterior GH joint line Patient Position Supine Coupling Medium Ultrasound Gel Frequency Setting (mHz) 1 Mode Setting Pulsed Duty Cycle 50% Intensity Setting (w/cm2) 1.2 PT-OP-S Aquatic Treatment Start: 08/24/18 11:25 Freq: Status: Active Protocol: Document 10/27/18 13:00 DEION (Rec: 10/27/18 14:58 LJ [email or web address]) Aquatics Treatment Pool Entry/Exit Pool Entry/Exit Method Stairs Assistance Independent Water Walking quick directional changes Water Level Chest Level Level of Assistance Verbal Cues Comments pt with difficulty stabilizing Marching Water Level Chest Level Comments recrip hand to knee; forward and backward march with shoulder flex/ext Water Level Chest Level Level of Assistance Verbal Cues Comments keeping shoulders adducted sideways with shoulder ab/ad Water Level Chest Level Level of Assistance Verbal Cues backward with reverse breastroke UE's Water Level Chest Level Level of Assistance Verbal Cues forward with breastroke UE's Water Level Chest Level Level of Assistance Verbal Cues Lower Extremity Exercises figure eights Details standing at wall Water Level Chest Level Reps/Duration 15 x 2 bilat Comments cues for internal rotation of RLE Lower Extremity Stretches HS Body Position Standing Water Level Waist Level Reps/Duration 1 min bilat Comments foot on stairs SKTC Reps/Duration 2x piriformis Details at wall crossed over midline Reps/Duration x2 for 1 min Comments power roller while stretching Upper Extremity Exercises pec stretch Details walk Water Level Chest Level Equipment UE paddles [place] Activities [place] Activities Bicycle [place] Running Equipment flotation belt L Duration 20 min PT-OP-T Assessment and Plan Start: 08/24/18 11:25 Freq: Status: Active Protocol: Document 10/27/18 13:00 DEION (Rec: 10/27/18 14:58 DEION [id number]) Physical Therapy Assessment Goals Five Impairment low back pain Wheel Worker Goal (LTG) Decrease pain to no greater than 2/10 with all usual activities LTG Duration 11/24/18 dizziness with history of falls Impairment dizziness Wheel Worker Goal (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 Evaluated by vestibular specialist who did not feel he would benefit from PT, no BPPV. LTG Duration MET functional activity Impairment Quickdash UE disability score 23% Short Term Goal (STG) Decrease Quickdash score to no greater than 15% 09/27/18: good goal progress STG Duration 09/23/18 Fpc Goal (LTG) Decrease Quickdash score to no greater than 5% LTG Duration 11/24/18 Strength Impairment decreased strength right shoulder Short Term Goal (STG) Patient to be independent with HEP for right shoulder strengthening 09/27/18 goal met for land- based though ongoing progression for land-based and aquatic. Not yet met for aquatic STG Duration 09/23/18 Fpc Goal (LTG) right shoulder strength 07/1109/27/18: good goal progress, not fully achieved LTG Duration 11/24/18 ROM Impairment decreased right shoulder ROM Short Term Goal (STG) Patient to be independent with HEP for purposes of right shoulder ROM 09/27/18: goal MET for land- based HEP, not aquatic STG Duration 09/23/18 Wheel Worker Goal (LTG) Patient to demonstrate full AROM right shoulder without pain LTG Duration 11/24/18 pain Impairment right shoulder pain Short Term Goal (STG) Decrease resting pain level to no greater than 3/10 09/27/18: good goal progress STG Duration 09/23/18 Fpc Goal (LTG) Decrease pain at rest and with usual activity to no greater than 1/10 LTG Duration 11/24/18 Assessment Summary Assessment Pt found figure eight movement of RLE to create deep stretch during internal rotation portion. Tolerated exercise session well felling better afterwards. Physical Therapy Plan Frequency and Duration Frequency of Treatment 2x/Week Duration of Treatment 12 wks Plan of Care Start Date 08/30/18 Plan of Care End Date 11/30/18 Therapeutic Interventions Therapeutic Interventions Aquatic Therapy Home Exercise Program Joint Mobilizations Manual Therapy Neuromuscular Re-education Patient/Caregiver Education Self-Care/Home Management Soft Tissue Mobilization Taping Therapeutic Activities Therapeutic Exercises Modalities Cold Pack/Ice Massage Electric Stimulation Hot Packs Iontophoresis Ultrasound Next Visit Focus/Plan Next Note Type Treatment Note Next Visit Plan Continue PT to decrease shoulder and back pain, improve strength and balance and return to more active and pain-free lifestyle.
--- NOTE | 2018-11-01 15:20 | PT.OTN ---
Current Diagnoses Pain in right shoulder (11/01/18) Lumbago with sciatica, right side (11/01/18) Unsteadiness on feet (11/01/18) Dizziness and giddiness (11/01/18) Weakness (11/01/18) History of falling (11/01/18) Physical Therapy Treatment Note PT-OP-A Visit Information Start: 08/24/18 11:25 Freq: Status: Active Protocol: Document 11/01/18 12:15 LJ (Rec: 11/01/18 15:20 LJ [email or web address]) Out-Patient Physical Therapy Visit Information Visit Information Visit Type Aquatic Treatment Note Visit Start Time 12:15 Visit Stop Time 13:00 Total Visit Minutes 45 Visit Number 16 Number of QA TESTER Visits 2 Precautions Precautions PMH: HTN dizziness falls STILLAGUAMISH LUIS PT-OP-B Current Condition Start: 08/24/18 11:25 Freq: Status: Active Protocol: Document 08/30/18 12:00 DCW (Rec: 08/30/18 15:30 DCW [id number]) Current Condition History of Current Condition Onset Date 07/17/18 Current Complaints right shoulder pain and dysfunction. History of Current Condition primary c/o right shoulder s/p fall onto right UE (elbow) jamming right shoulder. 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 Ice and heat helpful sometimes. States Tramedol and Meloxicam not really effective. Cannibas balm helpful. Pain seems to be worse after activity and then reports he experiences it at rest. Fall possibly related to severe dizziness. Improvement in hydration level has helped but some persistent dizziness. Since last seen in PT has had gut problems and has been to membership administrator as well; having treadmill test end of month. ADDENDUM 08/30/18: Pt underwent vestibular assessment today for ongoing complaints of imbalance. Pt reports he was having symptoms of dizziness, like my head was expanded, or like I had a stuffy head cold for a number of months, until he was instructed by a membership administrator to drink more water. This helped his eliminate the main complaints of dizziness, but since that time (~1 year), he has just had a chronic sensation of dizziness/poor balance. Pt notes that his symptoms mainly occur after standing up and starting to walk, but is still present at a low-level occasionall when sitting still . Prior Treatments and Tests No imaging PT-OP-C Subjective Start: 08/24/18 11:25 Freq: Status: Active Protocol: Document 11/01/18 12:15 LJ (Rec: 11/01/18 15:20 LJ [email or web address]) OP-PT Subjective Patient Comments Patient Comments Pt says he feels he is improving. Experiences less pain in the morning and sciatic pain is less PT-OP-D Balance Start: 08/24/18 11:25 Freq: Status: Active Protocol: Document 08/30/18 12:00 DCW (Rec: 08/30/18 15:30 DCW [id number]) Balance Tests CTSIB CTSIB Position 1 Mild Sway CTSIB Position 2 Moderate Sway CTSIB Position 3 Severe Sway CTSIB Position 4 Moderate Sway CTSIB Position 5 Fall Reaction CTSIB Position 6 Fall Reaction PT-OP-E Functional Tests Start: 08/24/18 11:25 Freq: Status: Active Protocol: Document 08/24/18 11:26 SAK (Rec: 08/25/18 09:58 SAK [id number]) Functional Tests Apley's Scratch Test Action 1- Left posterior shoulder Action 1- Right top of shoulder Action 2- Left T2 Action 2- Right back of head Action 3- Left T7 Action 3- Right T12 PT-OP-F Manual Assessment Start: 08/24/18 11:25 Freq: Status: Active Protocol: Document 08/24/18 11:26 SAK (Rec: 08/25/18 09:58 SAK [id number]) Manual Assessments Soft Tissue Assessment Soft Tissue Mobility Assessment tightness bilateral UT right greater than left Joint Mobility Assessment Joint Mobility Assessment Decreased inferior glide and posterior glide right PT-OP-J Posture/Palpation/Skin Start: 08/24/18 11:25 Freq: Status: Active Protocol: Document 08/24/18 11:26 SAK (Rec: 08/25/18 09:58 SAK [id number]) Posture Evaluation Position Sitting Head/C-Spine Posture Forward Head T-Spine Posture Increased Kyphosis Shoulder Posture (L) Rounded (R) Rounded Shoulder Subluxation Position (R) Anterior Arm Posture (L) Internally Rotated (R) Internally Rotated Palpation Assessment Location anterior shoulder Palpation Findings Tenderness Palpation Details GH joint line PT-OP-K Range of Motion Start: 08/24/18 11:25 Freq: Status: Active Protocol: Document 08/24/18 11:26 [facility] (Rec: 08/25/18 09:58 [facility] [id number]) Cervical Spine Range of Motion Cervical Spine Active ROM Limitations Soft Tissue Tightness Bony Restriction Comments due to arthritis Shoulder Goniometric Range of Motion Shoulder Right Active Shoulder ROM WFL No Flexion 165 Extension 15 Abduction 145 External Rotation at 45 degrees 55 Abduction Internal Rotation 40 Left Shoulder ROM WFL Yes Shoulder ROM Limitations Shoulder ROM Limitations Pain Comments most painful with ER right Elbow/Forearm Range of Motion Elbow/Forearm jennyfer Elbow/Forearm ROM WFL Yes PT-OP-L Special Tests Start: 08/24/18 11:25 Freq: Status: Active Protocol: Document 08/24/18 11:26 [facility] (Rec: 08/25/18 09:58 [facility] [id number]) Special Tests Shoulder Special Tests Elevation Impingement Test Results negative Biceps Load II Test Test Results negative Belly Press Test Results negative Apprehension Test Test Results negative Drop Arm Rotator Cuff Test Results negative jennyfer PT-OP-M Strength Start: 08/24/18 11:25 Freq: Status: Active Protocol: Document 08/24/18 11:26 [facility] (Rec: 08/25/18 09:58 [facility] [id number]) Shoulder Strength Shoulder Manual Muscle Testing Right Flexion 4 Good Extension 4 Good Abduction (C5) 4 Good External Rotation 4- Good- Internal Rotation 4 Good Comments painful all resisted motions, worst with ER Left Flexion 5 Normal Extension 4+ Good+ Abduction (C5) 5 Normal External Rotation 4 Good Internal Rotation 4+ Good+ Elbow/Forearm Strength Elbow and Forearm Manual Muscle Testing Right Flexion (C6) 4+ Good+ Extension (C7) 4+ Good+ Left Flexion (C6) 5 Normal Extension (C7) 5 Normal PT-OP-O Vestibular Start: 08/24/18 11:25 Freq: Status: Active Protocol: Document 08/30/18 12:00 DCW (Rec: 08/30/18 15:30 DCW [id number]) Vestibular Assessment Screening Tests Vestibular Artery Screen Negative Auditory Tests Ortiz Test Negative Rinne Test Negative Air Conduction Results Equal Visual Testing Smooth Pursuits Horizontal WNL Smooth Pursuits Vertical WNL Saccades Horizontal WNL Gaze Evoked Nystagmus With Fixation Negative Gaze Evoked Nystagmus Without Fixation Negative Heave Test Unclear Thrust Head Unclear DVA (Line Degradation) 4 Head Shake Negative Spontaneous Nystagmus Negative Positional Testing [place]-Hallpike Negative Left Negative Right Rolling Test Negative Left Negative Right Comments Vestibular Comments Thrust and heave tests inconclusive due to pt closing his eyes and jerking his head in shock with every single attempt PT-OP-Q Treatments Start: 08/24/18 11:25 Freq: Status: Active Protocol: Document 09/20/18 15:17 SAK (Rec: 09/20/18 16:14 SAK [id number]) Therapeutic Exercises Sitting Exercises pulleys for shoulder flex Reps/Minutes 10x Standing Exercises shoulder flex Standing Exercise Name with isometric abd Resistance L1 TB Reps/Minutes 10x shoulder add Resistance L1 TB Reps/Minutes 10x UT stretch Reps/Minutes 2x Comments due to increased muscle tension and guarding row, shld ext, ER Equipment Used L1 TB Reps/Minutes 10x Comments verbal and manual cues Manual Therapy Treatment Soft Tissue Mobilization rhomboids, Teres min and dino Mobilization Type Rolling Strumming Intensity/Depth mod Body Position Sidelying pec dino, biceps Mobilization Type Myofascial Release Rolling Strumming Comments with manual pec stretch Taping right shoulder Comments 3 Y strips PT-OP-R Modalities Start: 08/24/18 11:25 Freq: Status: Active Protocol: Document 09/20/18 15:17 SAK (Rec: 09/20/18 16:14 SAK [id number]) Electric Stimulation Electric Stimulation Interferential Current (IFC) Body Location right shoulder Duration (Minutes) 12 Target/Sweep Sweep High/Low High Patient Position Hooklying Combined With Heat/Cold Cold Pack Ultrasound Therapy Treatment anterior GH joint line Patient Position Supine Coupling Medium Ultrasound Gel Frequency Setting (mHz) 1 Mode Setting Pulsed Duty Cycle 50% Intensity Setting (w/cm2) 1.2 PT-OP-S Aquatic Treatment Start: 08/24/18 11:25 Freq: Status: Active Protocol: Document 11/01/18 12:15 LJ (Rec: 11/01/18 15:20 LJ [email or web address]) Aquatics Treatment Pool Entry/Exit Pool Entry/Exit Method Stairs Assistance Independent Water Walking quick directional changes Water Level Chest Level Level of Assistance Verbal Cues Comments pt with difficulty stabilizing Marching Water Level Chest Level Comments recrip hand to knee; forward and backward march with shoulder flex/ext Water Level Chest Level Level of Assistance Verbal Cues Comments keeping shoulders adducted sideways with shoulder ab/ad Water Level Chest Level Level of Assistance Verbal Cues backward with reverse breastroke UE's Water Level Chest Level Level of Assistance Verbal Cues forward with breastroke UE's Water Level Chest Level Level of Assistance Verbal Cues Lower Extremity Exercises figure eights Details standing at wall Water Level Chest Level Reps/Duration 15 x 2 bilat Comments cues for internal rotation of RLE Lower Extremity Stretches quad Body Position Standing Water Level Waist Level Equipment Large Noodle Reps/Duration 45 sec x2 HS Body Position Standing Water Level Waist Level Reps/Duration 1 min bilat Comments foot on stairs SKTC Reps/Duration 2x piriformis Details at wall crossed over midline Reps/Duration x2 for 1 min Upper Extremity Exercises lat pull downs Body Position Standing Water Level Chest Level Equipment stretch cords Reps/Duration 12x Comments M BB pec stretch Details walk Water Level Chest Level Equipment UE paddles shoulder flex/ex Body Position Standing Water Level Chest Level Equipment cords Reps/Duration 12x2 Comments alternating also shoulder hor ab/ad Body Position Standing Water Level Chest Level Equipment UE paddles Reps/Duration 12x2 Comments alternating also Spinal Exercises rotation Body Position Standing Water Level Chest Level Equipment stretch cords Reps/Duration 12x2 Balance static stabilization Body Position Standing Water Level Chest Level Reps/Duration 5 min Comments various foot positions inc SLS [place] Activities [place] Activities Bicycle [place] Hip Abduction/Adduction Other Activities 30/30 x 6 rounds each exercise -moderate effort Equipment flotation belt L Comments 10 min PT-OP-T Assessment and Plan Start: 08/24/18 11:25 Freq: Status: Active Protocol: Document 11/01/18 12:15 DEION (Rec: 11/01/18 15:20 DEION [id number]) Physical Therapy Assessment Goals Five Impairment low back pain Good Humor Vendor Goal (LTG) Decrease pain to no greater than 2/10 with all usual activities LTG Duration 11/24/18 dizziness with history of falls Impairment dizziness Usp Goal (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 Evaluated by vestibular specialist who did not feel he would benefit from PT, no BPPV. LTG Duration MET functional activity Impairment Quickdash UE disability score 23% Short Term Goal (STG) Decrease Quickdash score to no greater than 15% 09/27/18: good goal progress STG Duration 09/23/18 Good Humor Vendor Goal (LTG) Decrease Quickdash score to no greater than 5% LTG Duration 11/24/18 Strength Impairment decreased strength right shoulder Short Term Goal (STG) Patient to be independent with HEP for right shoulder strengthening 09/27/18 goal met for land- based though ongoing progression for land-based and aquatic. Not yet met for aquatic STG Duration 09/23/18 Usp Goal (LTG) right shoulder strength 5/5 09/27/18: good goal progress, not fully achieved LTG Duration 11/24/18 ROM Impairment decreased right shoulder ROM Short Term Goal (STG) Patient to be independent with HEP for purposes of right shoulder ROM 09/27/18: goal MET for land- based HEP, not aquatic STG Duration 09/23/18 Usp Goal (LTG) Patient to demonstrate full AROM right shoulder without pain LTG Duration 11/24/18 pain Impairment right shoulder pain Short Term Goal (STG) Decrease resting pain level to no greater than 3/10 09/27/18: good goal progress STG Duration 09/23/18 Good Humor Vendor Goal (LTG) Decrease pain at rest and with usual activity to no greater than 1/10 LTG Duration 11/24/18 Assessment Summary Assessment Pt tolerated exercise well. Is able to maintain balance somewhat better with LSL. Physical Therapy Plan Frequency and Duration Frequency of Treatment 2x/Week Duration of Treatment 12 wks Plan of Care Start Date 08/30/18 Plan of Care End Date 11/30/18 Therapeutic Interventions Therapeutic Interventions Aquatic Therapy Home Exercise Program Joint Mobilizations Manual Therapy Neuromuscular Re-education Patient/Caregiver Education Self-Care/Home Management Soft Tissue Mobilization Taping Therapeutic Activities Therapeutic Exercises Modalities Cold Pack/Ice Massage Electric Stimulation Hot Packs Iontophoresis Ultrasound Next Visit Focus/Plan Next Note Type Treatment Note Next Visit Plan Continue PT to decrease shoulder and back pain, improve strength and balance and return to more active and pain-free lifestyle.
--- NOTE | 2018-11-03 14:57 | PT.OTN ---
Current Diagnoses Pain in right shoulder (11/03/18) Lumbago with sciatica, right side (11/03/18) Unsteadiness on feet (11/03/18) Dizziness and giddiness (11/03/18) Weakness (11/03/18) History of falling (11/03/18) Physical Therapy Treatment Note PT-OP-A Visit Information Start: 08/24/18 11:25 Freq: Status: Active Protocol: Document 11/03/18 11:30 LJ (Rec: 11/03/18 14:57 LJ [id number]) Out-Patient Physical Therapy Visit Information Visit Information Visit Type Aquatic Treatment Note Visit Start Time 11:00 Visit Stop Time 12:15 Total Visit Minutes 45 Visit Number 17 Number of ELECTRONIC GLUER Visits 3 Precautions Precautions PMH: HTN dizziness falls KOI LUIS PT-OP-B Current Condition Start: 08/24/18 11:25 Freq: Status: Active Protocol: Document 08/30/18 12:00 DCW (Rec: 08/30/18 15:30 DCW [id number]) Current Condition History of Current Condition Onset Date 07/17/18 Current Complaints right shoulder pain and dysfunction. History of Current Condition primary c/o right shoulder s/p fall onto right UE (elbow) jamming right shoulder. 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 Ice and heat helpful sometimes. States Tramedol and Meloxicam not really effective. Cannibas balm helpful. Pain seems to be worse after activity and then reports he experiences it at rest. Fall possibly related to severe dizziness. Improvement in hydration level has helped but some persistent dizziness. Since last seen in PT has had gut problems and has been to surgical services director as well; having treadmill test end of month. ADDENDUM 08/30/18: Pt underwent vestibular assessment today for ongoing complaints of imbalance. Pt reports he was having symptoms of dizziness, like my head was expanded, or like I had a stuffy head cold for a number of months, until he was instructed by a surgical services director to drink more water. This helped his eliminate the main complaints of dizziness, but since that time (~1 year), he has just had a chronic sensation of dizziness/poor balance. Pt notes that his symptoms mainly occur after standing up and starting to walk, but is still present at a low-level occasionall when sitting still . Prior Treatments and Tests No imaging PT-OP-C Subjective Start: 08/24/18 11:25 Freq: Status: Active Protocol: Document 11/03/18 11:30 LJ (Rec: 11/03/18 14:57 LJ [id number]) OP-PT Subjective Patient Comments Patient Comments [facility] [email or web address] and stated he was barely able to make it home due to pain. 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 while weight bearing PT-OP-D Balance Start: 08/24/18 11:25 Freq: Status: Active Protocol: Document 08/30/18 12:00 DCW (Rec: 08/30/18 15:30 DCW [id number]) Balance Tests CTSIB CTSIB Position 1 Mild Sway CTSIB Position 2 Moderate Sway CTSIB Position 3 Severe Sway CTSIB Position 4 Moderate Sway CTSIB Position 5 Fall Reaction CTSIB Position 6 Fall Reaction PT-OP-E Functional Tests Start: 08/24/18 11:25 Freq: Status: Active Protocol: Document 08/24/18 11:26 SAK (Rec: 08/25/18 09:58 SAK [id number]) Functional Tests Apley's Scratch Test Action 1- Left posterior shoulder Action 1- Right top of shoulder Action 2- Left T2 Action 2- Right back of head Action 3- Left T7 Action 3- Right T12 PT-OP-F Manual Assessment Start: 08/24/18 11:25 Freq: Status: Active Protocol: Document 08/24/18 11:26 SAK (Rec: 08/25/18 09:58 SAK [id number]) Manual Assessments Soft Tissue Assessment Soft Tissue Mobility Assessment tightness bilateral UT right greater than left Joint Mobility Assessment Joint Mobility Assessment Decreased inferior glide and posterior glide right PT-OP-J Posture/Palpation/Skin Start: 08/24/18 11:25 Freq: Status: Active Protocol: Document 08/24/18 11:26 SAK (Rec: 08/25/18 09:58 SAK [id number]) Posture Evaluation Position Sitting Head/C-Spine Posture Forward Head T-Spine Posture Increased Kyphosis Shoulder Posture (L) Rounded,(R) Rounded Shoulder Subluxation Position (R) Anterior Arm Posture (L) Internally Rotated,(R) Internally Rotated Palpation Assessment Location anterior shoulder Palpation Findings Tenderness Palpation Details GH joint line PT-OP-K Range of Motion Start: 08/24/18 11:25 Freq: Status: Active Protocol: Document 08/24/18 11:26 [facility] (Rec: 08/25/18 09:58 [facility] [id number]) Cervical Spine Range of Motion Cervical Spine Active ROM Limitations Soft Tissue Tightness,Bony Restriction Comments due to arthritis Shoulder Goniometric Range of Motion Shoulder Right Active Shoulder ROM WFL No Flexion 165 Extension 15 Abduction 145 External Rotation at 45 degrees 55 Abduction Internal Rotation 40 Left Shoulder ROM WFL Yes Shoulder ROM Limitations Shoulder ROM Limitations Pain Comments most painful with ER right Elbow/Forearm Range of Motion Elbow/Forearm jennyfer Elbow/Forearm ROM WFL Yes PT-OP-L Special Tests Start: 08/24/18 11:25 Freq: Status: Active Protocol: Document 08/24/18 11:26 [facility] (Rec: 08/25/18 09:58 [facility] [id number]) Special Tests Shoulder Special Tests Elevation Impingement Test Results negative Biceps Load II Test Test Results negative Belly Press Test Results negative Apprehension Test Test Results negative Drop Arm Rotator Cuff Test Results negative jennyfer PT-OP-M Strength Start: 08/24/18 11:25 Freq: Status: Active Protocol: Document 08/24/18 11:26 [facility] (Rec: 08/25/18 09:58 [facility] [id number]) Shoulder Strength Shoulder Manual Muscle Testing Right Flexion 4 Good Extension 4 Good Abduction (C5) 4 Good External Rotation 4- Good- Internal Rotation 4 Good Comments painful all resisted motions, worst with ER Left Flexion 5 Normal Extension 4+ Good+ Abduction (C5) 5 Normal External Rotation 4 Good Internal Rotation 4+ Good+ Elbow/Forearm Strength Elbow and Forearm Manual Muscle Testing Right Flexion (C6) 4+ Good+ Extension (C7) 4+ Good+ Left Flexion (C6) 5 Normal Extension (C7) 5 Normal PT-OP-O Vestibular Start: 08/24/18 11:25 Freq: Status: Active Protocol: Document 08/30/18 12:00 DCW (Rec: 08/30/18 15:30 DCW [id number]) Vestibular Assessment Screening Tests Vestibular Artery Screen Negative Auditory Tests Ortiz Test Negative Rinne Test Negative Air Conduction Results Equal Visual Testing Smooth Pursuits Horizontal WNL Smooth Pursuits Vertical WNL Saccades Horizontal WNL Gaze Evoked Nystagmus With Fixation Negative Gaze Evoked Nystagmus Without Fixation Negative Heave Test Unclear Thrust Head Unclear DVA (Line Degradation) 4 Head Shake Negative Spontaneous Nystagmus Negative Positional Testing La-Hallpike Negative Left,Negative Right Rolling Test Negative Left,Negative Right Comments Vestibular Comments Thrust and heave tests inconclusive due to pt closing his eyes and jerking his head in shock with every single attempt PT-OP-Q Treatments Start: 08/24/18 11:25 Freq: Status: Active Protocol: Document 09/20/18 15:17 [facility] (Rec: 09/20/18 16:14 [facility] [id number]) Therapeutic Exercises Sitting Exercises pulleys for shoulder flex Reps/Minutes 10x Standing Exercises shoulder flex Standing Exercise Name with isometric abd Resistance L1 TB Reps/Minutes 10x shoulder add Resistance L1 TB Reps/Minutes 10x UT stretch Reps/Minutes 2x Comments due to increased muscle tension and guarding row, shld ext, ER Equipment Used L1 TB Reps/Minutes 10x Comments verbal and manual cues Manual Therapy Treatment Soft Tissue Mobilization rhomboids, Teres min and dino Mobilization Type Rolling,Strumming Intensity/Depth mod Body Position Sidelying pec dino, biceps Mobilization Type Myofascial Release,Rolling, Strumming Comments with manual pec stretch Taping right shoulder Comments 3 Y strips PT-OP-R Modalities Start: 08/24/18 11:25 Freq: Status: Active Protocol: Document 09/20/18 15:17 [facility] (Rec: 09/20/18 16:14 [facility] [id number]) Electric Stimulation Electric Stimulation Interferential Current (IFC) Body Location right shoulder Duration (Minutes) 12 Target/Sweep Sweep High/Low High Patient Position Hooklying Combined With Heat/Cold Cold Pack Ultrasound Therapy Treatment anterior GH joint line Patient Position Supine Coupling Medium Ultrasound Gel Frequency Setting (mHz) 1 Mode Setting Pulsed Duty Cycle 50% Intensity Setting (w/cm2) 1.2 PT-OP-S Aquatic Treatment Start: 08/24/18 11:25 Freq: Status: Active Protocol: Document 11/03/18 11:30 DEION (Rec: 11/03/18 14:57 LJ [id number]) Aquatics Treatment Pool Entry/Exit Pool Entry/Exit Method Stairs Assistance Independent Water Walking Marching Water Level Chest Level Walking Equipment Ankle Weight- 2.5# Comments recrip hand to knee; forward and backward march with shoulder flex/ext Water Level Chest Level Walking Equipment Ankle Weight- 2.5# Level of Assistance Verbal Cues Comments keeping shoulders adducted sideways with shoulder ab/ad Water Level Chest Level Walking Equipment Ankle Weight- 2.5# Level of Assistance Verbal Cues backward with reverse breastroke UE's Water Level Chest Level Walking Equipment Ankle Weight- 2.5# Level of Assistance Verbal Cues forward with breastroke UE's Water Level Chest Level Walking Equipment Ankle Weight- 2.5# Level of Assistance Verbal Cues Balance staggard stance balance Details on boxes Water Level Waist Level Comments pt better but moved more toward squat position SLS Water Level Chest Level Comments pt had difficulty not using UEs step up on boxes Details slow ascent to static position befor continuing step thru pattern Water Level Waist Level Comments pt had difficulty PT-OP-T Assessment and Plan Start: 08/24/18 11:25 Freq: Status: Active Protocol: Document 11/03/18 11:30 DEION (Rec: 11/03/18 14:57 DEION [id number]) Physical Therapy Assessment Goals Five Impairment low back pain Club Attendant Goal (LTG) Decrease pain to no greater than 2/10 with all usual activities LTG Duration 11/24/18 dizziness with history of falls Impairment dizziness Detention Goal (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 Evaluated by vestibular specialist who did not feel he would benefit from PT, no BPPV. LTG Duration MET functional activity Impairment Quickdash UE disability score 23% Short Term Goal (STG) Decrease Quickdash score to no greater than 15% 09/27/18: good goal progress STG Duration 09/23/18 Detention Goal (LTG) Decrease Quickdash score to no greater than 5% LTG Duration 11/24/18 Strength Impairment decreased strength right shoulder Short Term Goal (STG) Patient to be independent with HEP for right shoulder strengthening 09/27/18 goal met for land- based though ongoing progression for land-based and aquatic. Not yet met for aquatic STG Duration 09/23/18 Club Attendant Goal (LTG) right shoulder strength 07/1109/27/18: good goal progress, not fully achieved LTG Duration 11/24/18 ROM Impairment decreased right shoulder ROM Short Term Goal (STG) Patient to be independent with HEP for purposes of right shoulder ROM 09/27/18: goal MET for land- based HEP, not aquatic STG Duration 09/23/18 Club Attendant Goal (LTG) Patient to demonstrate full AROM right shoulder without pain LTG Duration 11/24/18 pain Impairment right shoulder pain Short Term Goal (STG) Decrease resting pain level to no greater than 3/10 09/27/18: good goal progress STG Duration 09/23/18 Detention Goal (LTG) Decrease pain at rest and with usual activity to no greater than 1/10 LTG Duration 11/24/18 Assessment Summary Assessment Pt had no pain during session. Tolerated ankle wts. Spent most of treatment session working on balance using steps at waist level. Pt got better as time went on but his balance is still challenging particularly on SLS. Lacks strategies for balance recovery. Physical Therapy Plan Frequency and Duration Frequency of Treatment 2x/Week Duration of Treatment 12 wks Plan of Care Start Date 08/30/18 Plan of Care End Date 11/30/18 Therapeutic Interventions Therapeutic Interventions Aquatic Therapy,Home Exercise Program,Joint Mobilizations, Manual Therapy,Neuromuscular Re-education,Patient/Caregiver Education,Self-Care/Home Management,Soft Tissue Mobilization,Taping, Therapeutic Activities, Therapeutic Exercises Modalities Cold Pack/Ice Massage,Electric Stimulation,Hot Packs, Iontophoresis,Ultrasound Next Visit Focus/Plan Next Note Type Treatment Note Next Visit Plan Pt is willing to go to pool to work on exercises and would like to continue working on balance activities.
--- NOTE | 2018-11-10 16:44 | PT.OTN ---
Current Diagnoses Pain in right shoulder (11/10/18) Lumbago with sciatica, right side (11/10/18) Unsteadiness on feet (11/10/18) Dizziness and giddiness (11/10/18) Weakness (11/10/18) History of falling (11/10/18) Physical Therapy Treatment Note PT-OP-A Visit Information Start: 08/24/18 11:25 Freq: Status: Active Protocol: Document 11/10/18 16:39 SAK (Rec: 11/10/18 16:43 SAK [id number]) Out-Patient Physical Therapy Visit Information Visit Information Visit Type Aquatic Treatment Note Visit Start Time 11:00 Visit Stop Time 12:15 Total Visit Minutes 45 Visit Number 18 Number of PERSONAL BANKING ADVISOR Visits 4 Precautions Precautions PMH: HTN dizziness falls HOOPA LUIS PT-OP-B Current Condition Start: 08/24/18 11:25 Freq: Status: Active Protocol: Document 08/30/18 12:00 DCW (Rec: 08/30/18 15:30 DCW [id number]) Current Condition History of Current Condition Onset Date 07/17/18 Current Complaints right shoulder pain and dysfunction. History of Current Condition primary c/o right shoulder s/p fall onto right UE (elbow) jamming right shoulder. 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 Ice and heat helpful sometimes. States Tramedol and Meloxicam not really effective. Cannibas balm helpful. Pain seems to be worse after activity and then reports he experiences it at rest. Fall possibly related to severe dizziness. Improvement in hydration level has helped but some persistent dizziness. Since last seen in PT has had gut problems and has been to agent producer as well; having treadmill test end of month. ADDENDUM 08/30/18: Pt underwent vestibular assessment today for ongoing complaints of imbalance. Pt reports he was having symptoms of dizziness, like my head was expanded, or like I had a stuffy head cold for a number of months, until he was instructed by a agent producer to drink more water. This helped his eliminate the main complaints of dizziness, but since that time (~1 year), he has just had a chronic sensation of dizziness/poor balance. Pt notes that his symptoms mainly occur after standing up and starting to walk, but is still present at a low-level occasionall when sitting still . Prior Treatments and Tests No imaging PT-OP-C Subjective Start: 08/24/18 11:25 Freq: Status: Active Protocol: Document 11/10/18 16:39 SAK (Rec: 11/10/18 16:43 SAK [id number]) OP-PT Subjective Patient Comments Patient Comments Patient reports improved pain, doing HEP, came to pool 1x on his own. Would like to continue aquatic exercise on his own and return to land- based PT; this PT in agreement . PT-OP-D Balance Start: 08/24/18 11:25 Freq: Status: Active Protocol: Document 08/30/18 12:00 DCW (Rec: 08/30/18 15:30 DCW [id number]) Balance Tests CTSIB CTSIB Position 1 Mild Sway CTSIB Position 2 Moderate Sway CTSIB Position 3 Severe Sway CTSIB Position 4 Moderate Sway CTSIB Position 5 Fall Reaction CTSIB Position 6 Fall Reaction PT-OP-E Functional Tests Start: 08/24/18 11:25 Freq: Status: Active Protocol: Document 08/24/18 11:26 SAK (Rec: 08/25/18 09:58 [facility] [id number]) Functional Tests Apley's Scratch Test Action 1- Left posterior shoulder Action 1- Right top of shoulder Action 2- Left T2 Action 2- Right back of head Action 3- Left T7 Action 3- Right T12 PT-OP-F Manual Assessment Start: 08/24/18 11:25 Freq: Status: Active Protocol: Document 08/24/18 11:26 SAK (Rec: 08/25/18 09:58 [facility] [id number]) Manual Assessments Soft Tissue Assessment Soft Tissue Mobility Assessment tightness bilateral UT right greater than left Joint Mobility Assessment Joint Mobility Assessment Decreased inferior glide and posterior glide right PT-OP-J Posture/Palpation/Skin Start: 08/24/18 11:25 Freq: Status: Active Protocol: Document 08/24/18 11:26 SAK (Rec: 08/25/18 09:58 [facility] [id number]) Posture Evaluation Position Sitting Head/C-Spine Posture Forward Head T-Spine Posture Increased Kyphosis Shoulder Posture (L) Rounded,(R) Rounded Shoulder Subluxation Position (R) Anterior Arm Posture (L) Internally Rotated,(R) Internally Rotated Palpation Assessment Location anterior shoulder Palpation Findings Tenderness Palpation Details GH joint line PT-OP-K Range of Motion Start: 08/24/18 11:25 Freq: Status: Active Protocol: Document 08/24/18 11:26 [facility] (Rec: 08/25/18 09:58 [facility] [id number]) Cervical Spine Range of Motion Cervical Spine Active ROM Limitations Soft Tissue Tightness,Bony Restriction Comments due to arthritis Shoulder Goniometric Range of Motion Shoulder Right Active Shoulder ROM WFL No Flexion 165 Extension 15 Abduction 145 External Rotation at 45 degrees 55 Abduction Internal Rotation 40 Left Shoulder ROM WFL Yes Shoulder ROM Limitations Shoulder ROM Limitations Pain Comments most painful with ER right Elbow/Forearm Range of Motion Elbow/Forearm jennyfer Elbow/Forearm ROM WFL Yes PT-OP-L Special Tests Start: 08/24/18 11:25 Freq: Status: Active Protocol: Document 08/24/18 11:26 [facility] (Rec: 08/25/18 09:58 [facility] [id number]) Special Tests Shoulder Special Tests Elevation Impingement Test Results negative Biceps Load II Test Test Results negative Belly Press Test Results negative Apprehension Test Test Results negative Drop Arm Rotator Cuff Test Results negative jennyfer PT-OP-M Strength Start: 08/24/18 11:25 Freq: Status: Active Protocol: Document 08/24/18 11:26 [facility] (Rec: 08/25/18 09:58 [facility] [id number]) Shoulder Strength Shoulder Manual Muscle Testing Right Flexion 4 Good Extension 4 Good Abduction (C5) 4 Good External Rotation 4- Good- Internal Rotation 4 Good Comments painful all resisted motions, worst with ER Left Flexion 5 Normal Extension 4+ Good+ Abduction (C5) 5 Normal External Rotation 4 Good Internal Rotation 4+ Good+ Elbow/Forearm Strength Elbow and Forearm Manual Muscle Testing Right Flexion (C6) 4+ Good+ Extension (C7) 4+ Good+ Left Flexion (C6) 5 Normal Extension (C7) 5 Normal PT-OP-O Vestibular Start: 08/24/18 11:25 Freq: Status: Active Protocol: Document 08/30/18 12:00 DCW (Rec: 08/30/18 15:30 DCW [id number]) Vestibular Assessment Screening Tests Vestibular Artery Screen Negative Auditory Tests Ortiz Test Negative Rinne Test Negative Air Conduction Results Equal Visual Testing Smooth Pursuits Horizontal WNL Smooth Pursuits Vertical WNL Saccades Horizontal WNL Gaze Evoked Nystagmus With Fixation Negative Gaze Evoked Nystagmus Without Fixation Negative Heave Test Unclear Thrust Head Unclear DVA (Line Degradation) 4 Head Shake Negative Spontaneous Nystagmus Negative Positional Testing La-Hallpike Negative Left,Negative Right Rolling Test Negative Left,Negative Right Comments Vestibular Comments Thrust and heave tests inconclusive due to pt closing his eyes and jerking his head in shock with every single attempt PT-OP-Q Treatments Start: 08/24/18 11:25 Freq: Status: Active Protocol: Document 09/20/18 15:17 [facility] (Rec: 09/20/18 16:14 [facility] [id number]) Therapeutic Exercises Sitting Exercises pulleys for shoulder flex Reps/Minutes 10x Standing Exercises shoulder flex Standing Exercise Name with isometric abd Resistance L1 TB Reps/Minutes 10x shoulder add Resistance L1 TB Reps/Minutes 10x UT stretch Reps/Minutes 2x Comments due to increased muscle tension and guarding row, shld ext, ER Equipment Used L1 TB Reps/Minutes 10x Comments verbal and manual cues Manual Therapy Treatment Soft Tissue Mobilization rhomboids, Teres min and dino Mobilization Type Rolling,Strumming Intensity/Depth mod Body Position Sidelying pec dino, biceps Mobilization Type Myofascial Release,Rolling, Strumming Comments with manual pec stretch Taping right shoulder Comments 3 Y strips PT-OP-R Modalities Start: 08/24/18 11:25 Freq: Status: Active Protocol: Document 09/20/18 15:17 [facility] (Rec: 09/20/18 16:14 [facility] [id number]) Electric Stimulation Electric Stimulation Interferential Current (IFC) Body Location right shoulder Duration (Minutes) 12 Target/Sweep Sweep High/Low High Patient Position Hooklying Combined With Heat/Cold Cold Pack Ultrasound Therapy Treatment anterior GH joint line Patient Position Supine Coupling Medium Ultrasound Gel Frequency Setting (mHz) 1 Mode Setting Pulsed Duty Cycle 50% Intensity Setting (w/cm2) 1.2 PT-OP-S Aquatic Treatment Start: 08/24/18 11:25 Freq: Status: Active Protocol: Document 11/10/18 16:39 [facility] (Rec: 11/10/18 16:43 [facility] [id number]) Aquatics Treatment Water Walking Marching Water Level Chest Level Walking Equipment Ankle Weight- 2.5# Comments recrip hand to knee; forward and backward march with shoulder flex/ext Water Level Chest Level Walking Equipment Ankle Weight- 2.5# Level of Assistance Verbal Cues Comments keeping shoulders adducted sideways with shoulder ab/ad Water Level Chest Level Walking Equipment Ankle Weight- 2.5# Level of Assistance Verbal Cues backward with reverse breastroke UE's Water Level Chest Level Walking Equipment Ankle Weight- 2.5# Level of Assistance Verbal Cues forward with breastroke UE's Water Level Chest Level Walking Equipment Ankle Weight- 2.5# Level of Assistance Verbal Cues Lower Extremity Stretches ITB Water Level [place] Reps/Duration 2x quad Body Position Standing Water Level Waist Level Equipment Large Noodle Reps/Duration 45 sec x2 HS Body Position Standing Water Level Waist Level Reps/Duration 1 min bilat Comments foot on stairs SKTC Reps/Duration 2x piriformis Details at wall crossed over midline Reps/Duration x2 for 1 min Balance staggard stance balance Details on boxes Water Level Waist Level Comments pt better but moved more toward squat position SLS Water Level Chest Level Comments pt had difficulty not using UEs step up on boxes Details slow ascent to static position befor continuing step thru pattern Water Level Waist Level Comments pt had difficulty [place] Activities [place] Activities Bicycle,Cross Country,Hip Abduction/Adduction Other Activities 30/30 x 6 rounds each exercise -moderate effort Equipment flotation belt L Comments 10 min PT-OP-T Assessment and Plan Start: 08/24/18 11:25 Freq: Status: Active Protocol: Document 11/10/18 16:39 [facility] (Rec: 11/10/18 16:43 [facility] [id number]) Physical Therapy Assessment Goals Five Impairment low back pain Mcfp Goal (LTG) Decrease pain to no greater than 2/10 with all usual activities LTG Duration 11/24/18 dizziness with history of falls Impairment dizziness Mcfp Goal (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 Evaluated by vestibular specialist who did not feel he would benefit from PT, no BPPV. LTG Duration MET functional activity Impairment Quickdash UE disability score 23% Short Term Goal (STG) Decrease Quickdash score to no greater than 15% 09/27/18: good goal progress STG Duration 09/23/18 [employer] Goal (LTG) Decrease Quickdash score to no greater than 5% LTG Duration 11/24/18 Strength Impairment decreased strength right shoulder Short Term Goal (STG) Patient to be independent with HEP for right shoulder strengthening 09/27/18 goal met for land- based though ongoing progression for land-based and aquatic. Not yet met for aquatic STG Duration 09/23/18 Mcfp Goal (LTG) right shoulder strength 5/5 09/27/18: good goal progress, not fully achieved LTG Duration 11/24/18 ROM Impairment decreased right shoulder ROM Short Term Goal (STG) Patient to be independent with HEP for purposes of right shoulder ROM 09/27/18: goal MET for land- based HEP, not aquatic STG Duration 09/23/18 [employer] Goal (LTG) Patient to demonstrate full AROM right shoulder without pain LTG Duration 11/24/18 pain Impairment right shoulder pain Short Term Goal (STG) Decrease resting pain level to no greater than 3/10 09/27/18: good goal progress STG Duration 09/23/18 Mcfp Goal (LTG) Decrease pain at rest and with usual activity to no greater than 1/10 LTG Duration 11/24/18 Assessment Summary Assessment Patient denied pain with aquatic PT, overall tolerating increased activity on land though reports he has has difficulty with prolonged standing. Agree that he would benefit from return to land- based PT for core stabilization and balance training, modalities and manual therapy as indicated. Physical Therapy Plan Frequency and Duration Frequency of Treatment 2x/Week Duration of Treatment 12 wks Plan of Care Start Date 08/30/18 Plan of Care End Date 11/30/18 Therapeutic Interventions Therapeutic Interventions Aquatic Therapy,Home Exercise Program,Joint Mobilizations, Manual Therapy,Neuromuscular Re-education,Patient/Caregiver Education,Self-Care/Home Management,Soft Tissue Mobilization,Taping, Therapeutic Activities, Therapeutic Exercises Modalities Cold Pack/Ice Massage,Electric Stimulation,Hot Packs, Iontophoresis,Ultrasound Next Visit Focus/Plan Next Note Type Treatment Note Next Visit Plan Transition to land-based PT
--- NOTE | 2018-11-16 15:17 | PT.OTN ---
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 History of Current Condition primary c/o right shoulder s/p fall onto right UE (elbow) jamming right shoulder. 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 Ice and heat helpful sometimes. States Tramedol and Meloxicam not really effective. Cannibas balm helpful. Pain seems to be worse after activity and then reports he experiences it at rest. Fall possibly related to severe dizziness. Improvement in hydration level has helped but some persistent dizziness. Since last seen in PT has had gut problems and has been to health education teacher as well; having treadmill test end of month. ADDENDUM 08/30/18: Pt underwent vestibular assessment today for ongoing complaints of imbalance. Pt reports he was having symptoms of dizziness, like my head was expanded, or like I had a stuffy head cold for a number of months, until he was instructed by a health education teacher to drink more water. This helped his eliminate the main complaints of dizziness, but since that time (~1 year), he has just had a chronic sensation of dizziness/poor balance. Pt notes that his symptoms mainly occur after standing up and starting to walk, but is still present at a low-level occasionall when sitting still . Prior Treatments and Tests No imaging PT-OP-C Subjective Start: 08/24/18 11:25 Freq: Status: Active Protocol: Document 11/16/18 15:17 SAK (Rec: 11/16/18 15:56 SAK [id number]) OP-PT Subjective Patient Comments Patient Comments LBP some better but persists. Has started trying to do IT band stretch as he did years ago and felt it was a little helpful. PT-OP-D Balance Start: 08/24/18 11:25 Freq: Status: Active Protocol: Document 08/30/18 12:00 DCW (Rec: 08/30/18 15:30 DCW [id number]) Balance Tests CTSIB CTSIB Position 1 Mild Sway CTSIB Position 2 Moderate Sway CTSIB Position 3 Severe Sway CTSIB Position 4 Moderate Sway CTSIB Position 5 Fall Reaction CTSIB Position 6 Fall Reaction PT-OP-E Functional Tests Start: 08/24/18 11:25 Freq: Status: Active Protocol: Document 08/24/18 11:26 SAK (Rec: 08/25/18 09:58 [facility] [id number]) Functional Tests Apley's Scratch Test Action 1- Left posterior shoulder Action 1- Right top of shoulder Action 2- Left T2 Action 2- Right back of head Action 3- Left T7 Action 3- Right T12 PT-OP-F Manual Assessment Start: 08/24/18 11:25 Freq: Status: Active Protocol: Document 08/24/18 11:26 SAK (Rec: 08/25/18 09:58 [facility] [id number]) Manual Assessments Soft Tissue Assessment Soft Tissue Mobility Assessment tightness bilateral UT right greater than left Joint Mobility Assessment Joint Mobility Assessment Decreased inferior glide and posterior glide right PT-OP-J Posture/Palpation/Skin Start: 08/24/18 11:25 Freq: Status: Active Protocol: Document 08/24/18 11:26 SAK (Rec: 08/25/18 09:58 [facility] [id number]) Posture Evaluation Position Sitting Head/C-Spine Posture Forward Head T-Spine Posture Increased Kyphosis Shoulder Posture (L) Rounded,(R) Rounded Shoulder Subluxation Position (R) Anterior Arm Posture (L) Internally Rotated,(R) Internally Rotated Palpation Assessment Location anterior shoulder Palpation Findings Tenderness Palpation Details GH joint line PT-OP-K Range of Motion Start: 08/24/18 11:25 Freq: Status: Active Protocol: Document 08/24/18 11:26 [facility] (Rec: 08/25/18 09:58 [facility] [id number]) Cervical Spine Range of Motion Cervical Spine Active ROM Limitations Soft Tissue Tightness,Bony Restriction Comments due to arthritis Shoulder Goniometric Range of Motion Shoulder Right Active Shoulder ROM WFL No Flexion 165 Extension 15 Abduction 145 External Rotation at 45 degrees 55 Abduction Internal Rotation 40 Left Shoulder ROM WFL Yes Shoulder ROM Limitations Shoulder ROM Limitations Pain Comments most painful with ER right Elbow/Forearm Range of Motion Elbow/Forearm jennyfer Elbow/Forearm ROM WFL Yes PT-OP-L Special Tests Start: 08/24/18 11:25 Freq: Status: Active Protocol: Document 08/24/18 11:26 [facility] (Rec: 08/25/18 09:58 [facility] [id number]) Special Tests Shoulder Special Tests Elevation Impingement Test Results negative Biceps Load II Test Test Results negative Belly Press Test Results negative Apprehension Test Test Results negative Drop Arm Rotator Cuff Test Results negative jennyfer PT-OP-M Strength Start: 08/24/18 11:25 Freq: Status: Active Protocol: Document 08/24/18 11:26 [facility] (Rec: 08/25/18 09:58 [facility] [id number]) Shoulder Strength Shoulder Manual Muscle Testing Right Flexion 4 Good Extension 4 Good Abduction (C5) 4 Good External Rotation 4- Good- Internal Rotation 4 Good Comments painful all resisted motions, worst with ER Left Flexion 5 Normal Extension 4+ Good+ Abduction (C5) 5 Normal External Rotation 4 Good Internal Rotation 4+ Good+ Elbow/Forearm Strength Elbow and Forearm Manual Muscle Testing Right Flexion (C6) 4+ Good+ Extension (C7) 4+ Good+ Left Flexion (C6) 5 Normal Extension (C7) 5 Normal PT-OP-O Vestibular Start: 08/24/18 11:25 Freq: Status: Active Protocol: Document 08/30/18 12:00 DCW (Rec: 08/30/18 15:30 DCW [id number]) Vestibular Assessment Screening Tests Vestibular Artery Screen Negative Auditory Tests Ortiz Test Negative Rinne Test Negative Air Conduction Results Equal Visual Testing Smooth Pursuits Horizontal WNL Smooth Pursuits Vertical WNL Saccades Horizontal WNL Gaze Evoked Nystagmus With Fixation Negative Gaze Evoked Nystagmus Without Fixation Negative Heave Test Unclear Thrust Head Unclear DVA (Line Degradation) 4 Head Shake Negative Spontaneous Nystagmus Negative Positional Testing [place]-Hallpike Negative Left,Negative Right Rolling Test Negative Left,Negative Right Comments Vestibular Comments Thrust and heave tests inconclusive due to pt closing his eyes and jerking his head in shock with every single attempt PT-OP-Q Treatments Start: 08/24/18 11:25 Freq: Status: Active Protocol: Document 11/16/18 15:17 [facility] (Rec: 11/16/18 15:56 [facility] [id number]) Cardio Equipment Recumbent Stepper (Sci-Fit) Duration (Minutes) 7 Resistance 2 Seat Position 11 Therapeutic Exercises Supine Exercises IT band stretch Reps/Minutes 2x30 figure 4 stretch Reps/Minutes 2x30 SKTC Reps/Minutes 2x30 segmental bridge Reps/Minutes 10x Sidelying Exercises clamshell Reps/Minutes 10x Standing Exercises squats Comments start next session HS stretch Equipment Used stair Reps/Minutes 2x IT band stretch Reps/Minutes 2x wall posture Reps/Minutes 5x Manual Therapy Treatment Soft Tissue Mobilization left IT band Mobilization Type Instrument Assisted,Rolling, Strumming Intensity/Depth Moderate Body Position Sidelying Self-Care/Home Management Treatment Education Patient Education Body Mechanics,Home Exercise Program Other Education sleeping position education including pillow between LE's for neutral position in sidelying PT-OP-R Modalities Start: 08/24/18 11:25 Freq: Status: Active Protocol: Document 11/16/18 15:17 [facility] (Rec: 11/17/18 17:33 [facility] [id number]) Electric Stimulation Electric Stimulation Interferential Current (IFC) Body Location left l/s and buttock Duration (Minutes) 15 Target/Sweep Sweep High/Low High Patient Position Sidelying Combined With Heat/Cold Hot Pack PT-OP-S Aquatic Treatment Start: 08/24/18 11:25 Freq: Status: Active Protocol: Document 11/10/18 16:39 [facility] (Rec: 11/10/18 16:43 [facility] [id number]) Aquatics Treatment Water Walking Marching Water Level Chest Level Walking Equipment Ankle Weight- 2.5# Comments recrip hand to knee; forward and backward march with shoulder flex/ext Water Level Chest Level Walking Equipment Ankle Weight- 2.5# Level of Assistance Verbal Cues Comments keeping shoulders adducted sideways with shoulder ab/ad Water Level Chest Level Walking Equipment Ankle Weight- 2.5# Level of Assistance Verbal Cues backward with reverse breastroke UE's Water Level Chest Level Walking Equipment Ankle Weight- 2.5# Level of Assistance Verbal Cues forward with breastroke UE's Water Level Chest Level Walking Equipment Ankle Weight- 2.5# Level of Assistance Verbal Cues Lower Extremity Stretches ITB Water Level [place] Reps/Duration 2x quad Body Position Standing Water Level Waist Level Equipment Large Noodle Reps/Duration 45 sec x2 HS Body Position Standing Water Level Waist Level Reps/Duration 1 min bilat Comments foot on stairs SKTC Reps/Duration 2x piriformis Details at wall crossed over midline Reps/Duration x2 for 1 min Balance staggard stance balance Details on boxes Water Level Waist Level Comments pt better but moved more toward squat position SLS Water Level Chest Level Comments pt had difficulty not using UEs step up on boxes Details slow ascent to static position befor continuing step thru pattern Water Level Waist Level Comments pt had difficulty [place] Activities [place] Activities Bicycle,Cross Country,Hip Abduction/Adduction Other Activities 30/30 x 6 rounds each exercise -moderate effort Equipment flotation belt L Comments 10 min PT-OP-T Assessment and Plan Start: 08/24/18 11:25 Freq: Status: Active Protocol: Document 11/16/18 15:17 [facility] (Rec: 11/16/18 15:56 [facility] [id number]) Physical Therapy Assessment Goals Five Impairment low back pain Police Lieutenant Goal (LTG) Decrease pain to no greater than 2/10 with all usual activities LTG Duration 11/24/18 dizziness with history of falls Impairment dizziness [facility]iary Goal (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 Evaluated by vestibular specialist who did not feel he would benefit from PT, no BPPV. LTG Duration MET functional activity Impairment Quickdash UE disability score 23% Short Term Goal (STG) Decrease Quickdash score to no greater than 15% 09/27/18: good goal progress STG Duration 09/23/18 [facility]iary Goal (LTG) Decrease Quickdash score to no greater than 5% LTG Duration 11/24/18 Strength Impairment decreased strength right shoulder Short Term Goal (STG) Patient to be independent with HEP for right shoulder strengthening 09/27/18 goal met for land- based though ongoing progression for land-based and aquatic. Not yet met for aquatic STG Duration 09/23/18 [facility]entiary Goal (LTG) right shoulder strength 5/5 09/27/18: good goal progress, not fully achieved LTG Duration 11/24/18 ROM Impairment decreased right shoulder ROM Short Term Goal (STG) Patient to be independent with HEP for purposes of right shoulder ROM 09/27/18: goal MET for land- based HEP, not aquatic STG Duration 09/23/18 Police Lieutenant Goal (LTG) Patient to demonstrate full AROM right shoulder without pain LTG Duration 11/24/18 pain Impairment right shoulder pain Short Term Goal (STG) Decrease resting pain level to no greater than 3/10 09/27/18: good goal progress STG Duration 09/23/18 Police Lieutenant Goal (LTG) Decrease pain at rest and with usual activity to no greater than 1/10 LTG Duration 11/24/18 Physical Therapy Plan Frequency and Duration Frequency of Treatment 2x/Week Duration of Treatment 12 wks Plan of Care Start Date 08/30/18 Plan of Care End Date 11/30/18 Therapeutic Interventions Therapeutic Interventions Aquatic Therapy,Home Exercise Program,Joint Mobilizations, Manual Therapy,Neuromuscular Re-education,Patient/Caregiver Education,Self-Care/Home Management,Soft Tissue Mobilization,Taping, Therapeutic Activities, Therapeutic Exercises Modalities Cold Pack/Ice Massage,Electric Stimulation,Hot Packs, Iontophoresis,Ultrasound Next Visit Focus/Plan Next Note Type Treatment Note Next Visit Plan Add squats, further education regarding posture and body mechanics especially related to art activities. Cue for proper muscle sequencing with gait. Progress core stabilization and flexibility exercises as tolerated.
--- NOTE | 2018-11-19 16:15 | PT.OTN ---
Current Diagnoses Pain in right shoulder (11/19/18) Lumbago with sciatica, right side (11/19/18) Unsteadiness on feet (11/19/18) Dizziness and giddiness (11/19/18) Weakness (11/19/18) History of falling (11/19/18) Physical Therapy Treatment Note PT-OP-A Visit Information Start: 08/24/18 11:25 Freq: Status: Active Protocol: Document 11/19/18 14:30 LJ (Rec: 11/19/18 15:58 LJ [id number]) Out-Patient Physical Therapy Visit Information Visit Information Visit Type Treatment Note Visit Start Time 14:30 Visit Stop Time 15:17 Total Visit Minutes 56 Visit Number 20 Number of VIBRATING SCREED OPERATOR Visits 1 Precautions Precautions PMH: HTN dizziness falls [place] PT-OP-B Current Condition Start: 08/24/18 11:25 Freq: Status: Active Protocol: Document 08/30/18 12:00 DCW (Rec: 08/30/18 15:30 DCW [id number]) Current Condition History of Current Condition Onset Date 07/17/18 Current Complaints right shoulder pain and dysfunction. History of Current Condition primary c/o right shoulder s/p fall onto right UE (elbow) jamming right shoulder. 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 Ice and heat helpful sometimes. States Tramedol and Meloxicam not really effective. Cannibas balm helpful. Pain seems to be worse after activity and then reports he experiences it at rest. Fall possibly related to severe dizziness. Improvement in hydration level has helped but some persistent dizziness. Since last seen in PT has had gut problems and has been to legal entity controller as well; having treadmill test end of month. ADDENDUM 08/30/18: Pt underwent vestibular assessment today for ongoing complaints of imbalance. Pt reports he was having symptoms of dizziness, like my head was expanded, or like I had a stuffy head cold for a number of months, until he was instructed by a legal entity controller to drink more water. This helped his eliminate the main complaints of dizziness, but since that time (~1 year), he has just had a chronic sensation of dizziness/poor balance. Pt notes that his symptoms mainly occur after standing up and starting to walk, but is still present at a low-level occasionall when sitting still . Prior Treatments and Tests No imaging PT-OP-C Subjective Start: 08/24/18 11:25 Freq: Status: Active Protocol: Document 11/19/18 14:30 LJ (Rec: 11/19/18 15:58 LJ [id number]) OP-PT Subjective Patient Comments Patient Comments Pt still c/o not being able to walk as far as he'd like. Pain causes him to need to sit and rest for a while. PT-OP-D Balance Start: 08/24/18 11:25 Freq: Status: Active Protocol: Document 08/30/18 12:00 DCW (Rec: 08/30/18 15:30 DCW [id number]) Balance Tests CTSIB CTSIB Position 1 Mild Sway CTSIB Position 2 Moderate Sway CTSIB Position 3 Severe Sway CTSIB Position 4 Moderate Sway CTSIB Position 5 Fall Reaction CTSIB Position 6 Fall Reaction PT-OP-E Functional Tests Start: 08/24/18 11:25 Freq: Status: Active Protocol: Document 08/24/18 11:26 SAK (Rec: 08/25/18 09:58 SAK [id number]) Functional Tests Apley's Scratch Test Action 1- Left posterior shoulder Action 1- Right top of shoulder Action 2- Left T2 Action 2- Right back of head Action 3- Left T7 Action 3- Right T12 PT-OP-F Manual Assessment Start: 08/24/18 11:25 Freq: Status: Active Protocol: Document 08/24/18 11:26 SAK (Rec: 08/25/18 09:58 SAK [id number]) Manual Assessments Soft Tissue Assessment Soft Tissue Mobility Assessment tightness bilateral UT right greater than left Joint Mobility Assessment Joint Mobility Assessment Decreased inferior glide and posterior glide right PT-OP-J Posture/Palpation/Skin Start: 08/24/18 11:25 Freq: Status: Active Protocol: Document 08/24/18 11:26 SAK (Rec: 08/25/18 09:58 SAK [id number]) Posture Evaluation Position Sitting Head/C-Spine Posture Forward Head T-Spine Posture Increased Kyphosis Shoulder Posture (L) Rounded,(R) Rounded Shoulder Subluxation Position (R) Anterior Arm Posture (L) Internally Rotated,(R) Internally Rotated Palpation Assessment Location anterior shoulder Palpation Findings Tenderness Palpation Details GH joint line PT-OP-K Range of Motion Start: 08/24/18 11:25 Freq: Status: Active Protocol: Document 08/24/18 11:26 SAK (Rec: 08/25/18 09:58 [facility] [id number]) Cervical Spine Range of Motion Cervical Spine Active ROM Limitations Soft Tissue Tightness,Bony Restriction Comments due to arthritis Shoulder Goniometric Range of Motion Shoulder Right Active Shoulder ROM WFL No Flexion 165 Extension 15 Abduction 145 External Rotation at 45 degrees 55 Abduction Internal Rotation 40 Left Shoulder ROM WFL Yes Shoulder ROM Limitations Shoulder ROM Limitations Pain Comments most painful with ER right Elbow/Forearm Range of Motion Elbow/Forearm jennyfer Elbow/Forearm ROM WFL Yes PT-OP-L Special Tests Start: 08/24/18 11:25 Freq: Status: Active Protocol: Document 08/24/18 11:26 [facility] (Rec: 08/25/18 09:58 [facility] [id number]) Special Tests Shoulder Special Tests Elevation Impingement Test Results negative Biceps Load II Test Test Results negative Belly Press Test Results negative Apprehension Test Test Results negative Drop Arm Rotator Cuff Test Results negative jennyfer PT-OP-M Strength Start: 08/24/18 11:25 Freq: Status: Active Protocol: Document 08/24/18 11:26 [facility] (Rec: 08/25/18 09:58 [facility] [id number]) Shoulder Strength Shoulder Manual Muscle Testing Right Flexion 4 Good Extension 4 Good Abduction (C5) 4 Good External Rotation 4- Good- Internal Rotation 4 Good Comments painful all resisted motions, worst with ER Left Flexion 5 Normal Extension 4+ Good+ Abduction (C5) 5 Normal External Rotation 4 Good Internal Rotation 4+ Good+ Elbow/Forearm Strength Elbow and Forearm Manual Muscle Testing Right Flexion (C6) 4+ Good+ Extension (C7) 4+ Good+ Left Flexion (C6) 5 Normal Extension (C7) 5 Normal PT-OP-O Vestibular Start: 08/24/18 11:25 Freq: Status: Active Protocol: Document 08/30/18 12:00 DCW (Rec: 08/30/18 15:30 DCW [id number]) Vestibular Assessment Screening Tests Vestibular Artery Screen Negative Auditory Tests Ortiz Test Negative Rinne Test Negative Air Conduction Results Equal Visual Testing Smooth Pursuits Horizontal WNL Smooth Pursuits Vertical WNL Saccades Horizontal WNL Gaze Evoked Nystagmus With Fixation Negative Gaze Evoked Nystagmus Without Fixation Negative Heave Test Unclear Thrust Head Unclear DVA (Line Degradation) 4 Head Shake Negative Spontaneous Nystagmus Negative Positional Testing [place]-Hallpike Negative Left,Negative Right Rolling Test Negative Left,Negative Right Comments Vestibular Comments Thrust and heave tests inconclusive due to pt closing his eyes and jerking his head in shock with every single attempt PT-OP-Q Treatments Start: 08/24/18 11:25 Freq: Status: Active Protocol: Document 11/19/18 15:59 LJ (Rec: 11/19/18 16:15 LJ [email or web address]) Cardio Equipment Recumbent Stepper (Sci-Fit) Duration (Minutes) 7 Resistance 2 Seat Position 11 Gym Equipment Shuttle Balance blue Reps/Duration 8 min Comments WBOS, NBOS, staggard, head turns, EO,EC Therapeutic Exercises Supine Exercises IT band stretch Reps/Minutes 2x30 figure 4 stretch Reps/Minutes 2x30 SKTC Reps/Minutes 2x30 segmental bridge Reps/Minutes 10x Sidelying Exercises clamshell Reps/Minutes 10x Comments cueing for position Standing Exercises squats Equipment Used mirror Reps/Minutes x15 Comments cane in front of toe for alignment HS stretch Equipment Used table-supine Reps/Minutes 2x Comments manual wall posture Reps/Minutes 5x Manual Therapy Treatment Soft Tissue Mobilization left IT band Mobilization Type Instrument Assisted,Rolling, Strumming Intensity/Depth Moderate Body Position Sidelying Comments pin and stretch-glute attachment Self-Care/Home Management Treatment Education Patient Education Body Mechanics,Home Exercise Program Other Education sleeping position education including pillow between LE's for neutral position in sidelying PT-OP-R Modalities Start: 08/24/18 11:25 Freq: Status: Active Protocol: Document 11/16/18 15:17 [facility] (Rec: 11/17/18 17:33 [facility] [id number]) Electric Stimulation Electric Stimulation Interferential Current (IFC) Body Location left l/s and buttock Duration (Minutes) 15 Target/Sweep Sweep High/Low High Patient Position Sidelying Combined With Heat/Cold Hot Pack PT-OP-S Aquatic Treatment Start: 08/24/18 11:25 Freq: Status: Active Protocol: Document 11/10/18 16:39 SAK (Rec: 11/10/18 16:43 SAK [id number]) Aquatics Treatment Water Walking Marching Water Level Chest Level Walking Equipment Ankle Weight- 2.5# Comments recrip hand to knee; forward and backward march with shoulder flex/ext Water Level Chest Level Walking Equipment Ankle Weight- 2.5# Level of Assistance Verbal Cues Comments keeping shoulders adducted sideways with shoulder ab/ad Water Level Chest Level Walking Equipment Ankle Weight- 2.5# Level of Assistance Verbal Cues backward with reverse breastroke UE's Water Level Chest Level Walking Equipment Ankle Weight- 2.5# Level of Assistance Verbal Cues forward with breastroke UE's Water Level Chest Level Walking Equipment Ankle Weight- 2.5# Level of Assistance Verbal Cues Lower Extremity Stretches ITB Water Level [place] Reps/Duration 2x quad Body Position Standing Water Level Waist Level Equipment Large Noodle Reps/Duration 45 sec x2 HS Body Position Standing Water Level Waist Level Reps/Duration 1 min bilat Comments foot on stairs SKTC Reps/Duration 2x piriformis Details at wall crossed over midline Reps/Duration x2 for 1 min Balance staggard stance balance Details on boxes Water Level Waist Level Comments pt better but moved more toward squat position SLS Water Level Chest Level Comments pt had difficulty not using UEs step up on boxes Details slow ascent to static position befor continuing step thru pattern Water Level Waist Level Comments pt had difficulty [place] Activities [place] Activities Bicycle,Cross Country,Hip Abduction/Adduction Other Activities 30/30 x 6 rounds each exercise -moderate effort Equipment flotation belt L Comments 10 min PT-OP-T Assessment and Plan Start: 08/24/18 11:25 Freq: Status: Active Protocol: Document 11/19/18 15:59 DEION (Rec: 11/19/18 16:15 DEION [id number]) Physical Therapy Assessment Goals Five Impairment low back pain Senior Care Goal (LTG) Decrease pain to no greater than 2/10 with all usual activities LTG Duration 11/24/18 dizziness with history of falls Impairment dizziness Medical Records Supervisor Goal (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 Evaluated by vestibular specialist who did not feel he would benefit from PT, no BPPV. LTG Duration MET functional activity Impairment Quickdash UE disability score 23% Short Term Goal (STG) Decrease Quickdash score to no greater than 15% 09/27/18: good goal progress STG Duration 09/23/18 Senior Care Goal (LTG) Decrease Quickdash score to no greater than 5% LTG Duration 11/24/18 Strength Impairment decreased strength right shoulder Short Term Goal (STG) Patient to be independent with HEP for right shoulder strengthening 09/27/18 goal met for land- based though ongoing progression for land-based and aquatic. Not yet met for aquatic STG Duration 09/23/18 Medical Records Supervisor Goal (LTG) right shoulder strength 5/5 09/27/18: good goal progress, not fully achieved LTG Duration 11/24/18 ROM Impairment decreased right shoulder ROM Short Term Goal (STG) Patient to be independent with HEP for purposes of right shoulder ROM 09/27/18: goal MET for land- based HEP, not aquatic STG Duration 09/23/18 Senior Care Goal (LTG) Patient to demonstrate full AROM right shoulder without pain LTG Duration 11/24/18 pain Impairment right shoulder pain Short Term Goal (STG) Decrease resting pain level to no greater than 3/10 09/27/18: good goal progress STG Duration 09/23/18 Senior Care Goal (LTG) Decrease pain at rest and with usual activity to no greater than 1/10 LTG Duration 11/24/18 Assessment Summary Assessment Pt tolerated exercises well. Pin and stretch provided relief of trigger points at lateral attachment site of left glute. Pt will require more education on proper squat form but is making progress. Physical Therapy Plan Frequency and Duration Frequency of Treatment 2x/Week Duration of Treatment 12 wks Plan of Care Start Date 08/30/18 Plan of Care End Date 11/30/18 Therapeutic Interventions Therapeutic Interventions Aquatic Therapy,Home Exercise Program,Joint Mobilizations, Manual Therapy,Neuromuscular Re-education,Patient/Caregiver Education,Self-Care/Home Management,Soft Tissue Mobilization,Taping, Therapeutic Activities, Therapeutic Exercises Modalities Cold Pack/Ice Massage,Electric Stimulation,Hot Packs, Iontophoresis,Ultrasound Next Visit Focus/Plan Next Note Type Treatment Note Next Visit Plan Continue further education regarding squats, posture and body mechanics especially related to walking greater distances. Cue for proper muscle sequencing with gait. Progress core stabilization and flexibility exercises as tolerated.
--- NOTE | 2018-11-22 16:07 | PT.OTN ---
Current Diagnoses Pain in right shoulder (11/22/18) Lumbago with sciatica, right side (11/22/18) Unsteadiness on feet (11/22/18) Dizziness and giddiness (11/22/18) Weakness (11/22/18) History of falling (11/22/18) Physical Therapy Treatment Note PT-OP-A Visit Information Start: 08/24/18 11:25 Freq: Status: Active Protocol: Document 11/22/18 15:11 SAK (Rec: 11/22/18 16:07 SAK [id number]) Out-Patient Physical Therapy Visit Information Visit Information Visit Type Treatment Note Visit Start Time 13:15 Visit Stop Time 14:30 Total Visit Minutes 50 Visit Number 21 Number of SOCK MENDER Visits 0 Precautions Precautions PMH: HTN dizziness falls EKWOK LUIS PT-OP-B Current Condition Start: 08/24/18 11:25 Freq: Status: Active Protocol: Document 08/30/18 12:00 DCW (Rec: 08/30/18 15:30 DCW [id number]) Current Condition History of Current Condition Onset Date 07/17/18 Current Complaints right shoulder pain and dysfunction. History of Current Condition primary c/o right shoulder s/p fall onto right UE (elbow) jamming right shoulder. 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 Ice and heat helpful sometimes. States Tramedol and Meloxicam not really effective. Cannibas balm helpful. Pain seems to be worse after activity and then reports he experiences it at rest. Fall possibly related to severe dizziness. Improvement in hydration level has helped but some persistent dizziness. Since last seen in PT has had gut problems and has been to tool salvage worker as well; having treadmill test end of month. ADDENDUM 08/30/18: Pt underwent vestibular assessment today for ongoing complaints of imbalance. Pt reports he was having symptoms of dizziness, like my head was expanded, or like I had a stuffy head cold for a number of months, until he was instructed by a tool salvage worker to drink more water. This helped his eliminate the main complaints of dizziness, but since that time (~1 year), he has just had a chronic sensation of dizziness/poor balance. Pt notes that his symptoms mainly occur after standing up and starting to walk, but is still present at a low-level occasionall when sitting still . Prior Treatments and Tests No imaging PT-OP-C Subjective Start: 08/24/18 11:25 Freq: Status: Active Protocol: Document 11/22/18 15:11 SAK (Rec: 11/22/18 16:07 SAK [id number]) OP-PT Subjective Patient Comments Patient Comments States his walking and standing better, feels he may be ready to be discharged PT-OP-D Balance Start: 08/24/18 11:25 Freq: Status: Active Protocol: Document 08/30/18 12:00 DCW (Rec: 08/30/18 15:30 DCW [id number]) Balance Tests CTSIB CTSIB Position 1 Mild Sway CTSIB Position 2 Moderate Sway CTSIB Position 3 Severe Sway CTSIB Position 4 Moderate Sway CTSIB Position 5 Fall Reaction CTSIB Position 6 Fall Reaction PT-OP-E Functional Tests Start: 08/24/18 11:25 Freq: Status: Active Protocol: Document 08/24/18 11:26 SAK (Rec: 08/25/18 09:58 [facility] [id number]) Functional Tests Apley's Scratch Test Action 1- Left posterior shoulder Action 1- Right top of shoulder Action 2- Left T2 Action 2- Right back of head Action 3- Left T7 Action 3- Right T12 PT-OP-F Manual Assessment Start: 08/24/18 11:25 Freq: Status: Active Protocol: Document 08/24/18 11:26 SAK (Rec: 08/25/18 09:58 [facility] [id number]) Manual Assessments Soft Tissue Assessment Soft Tissue Mobility Assessment tightness bilateral UT right greater than left Joint Mobility Assessment Joint Mobility Assessment Decreased inferior glide and posterior glide right PT-OP-J Posture/Palpation/Skin Start: 08/24/18 11:25 Freq: Status: Active Protocol: Document 08/24/18 11:26 SAK (Rec: 08/25/18 09:58 [facility] [id number]) Posture Evaluation Position Sitting Head/C-Spine Posture Forward Head T-Spine Posture Increased Kyphosis Shoulder Posture (L) Rounded,(R) Rounded Shoulder Subluxation Position (R) Anterior Arm Posture (L) Internally Rotated,(R) Internally Rotated Palpation Assessment Location anterior shoulder Palpation Findings Tenderness Palpation Details GH joint line PT-OP-K Range of Motion Start: 08/24/18 11:25 Freq: Status: Active Protocol: Document 08/24/18 11:26 [facility] (Rec: 08/25/18 09:58 [facility] [id number]) Cervical Spine Range of Motion Cervical Spine Active ROM Limitations Soft Tissue Tightness,Bony Restriction Comments due to arthritis Shoulder Goniometric Range of Motion Shoulder Right Active Shoulder ROM WFL No Flexion 165 Extension 15 Abduction 145 External Rotation at 45 degrees 55 Abduction Internal Rotation 40 Left Shoulder ROM WFL Yes Shoulder ROM Limitations Shoulder ROM Limitations Pain Comments most painful with ER right Elbow/Forearm Range of Motion Elbow/Forearm jennyfer Elbow/Forearm ROM WFL Yes PT-OP-L Special Tests Start: 08/24/18 11:25 Freq: Status: Active Protocol: Document 08/24/18 11:26 [facility] (Rec: 08/25/18 09:58 [facility] [id number]) Special Tests Shoulder Special Tests Elevation Impingement Test Results negative Biceps Load II Test Test Results negative Belly Press Test Results negative Apprehension Test Test Results negative Drop Arm Rotator Cuff Test Results negative jennyfer PT-OP-M Strength Start: 08/24/18 11:25 Freq: Status: Active Protocol: Document 08/24/18 11:26 [facility] (Rec: 08/25/18 09:58 [facility] [id number]) Shoulder Strength Shoulder Manual Muscle Testing Right Flexion 4 Good Extension 4 Good Abduction (C5) 4 Good External Rotation 4- Good- Internal Rotation 4 Good Comments painful all resisted motions, worst with ER Left Flexion 5 Normal Extension 4+ Good+ Abduction (C5) 5 Normal External Rotation 4 Good Internal Rotation 4+ Good+ Elbow/Forearm Strength Elbow and Forearm Manual Muscle Testing Right Flexion (C6) 4+ Good+ Extension (C7) 4+ Good+ Left Flexion (C6) 5 Normal Extension (C7) 5 Normal PT-OP-O Vestibular Start: 08/24/18 11:25 Freq: Status: Active Protocol: Document 08/30/18 12:00 DCW (Rec: 08/30/18 15:30 DCW [id number]) Vestibular Assessment Screening Tests Vestibular Artery Screen Negative Auditory Tests Ortiz Test Negative Rinne Test Negative Air Conduction Results Equal Visual Testing Smooth Pursuits Horizontal WNL Smooth Pursuits Vertical WNL Saccades Horizontal WNL Gaze Evoked Nystagmus With Fixation Negative Gaze Evoked Nystagmus Without Fixation Negative Heave Test Unclear Thrust Head Unclear DVA (Line Degradation) 4 Head Shake Negative Spontaneous Nystagmus Negative Positional Testing Kendall-Hallpike Negative Left,Negative Right Rolling Test Negative Left,Negative Right Comments Vestibular Comments Thrust and heave tests inconclusive due to pt closing his eyes and jerking his head in shock with every single attempt PT-OP-Q Treatments Start: 08/24/18 11:25 Freq: Status: Active Protocol: Document 11/22/18 15:11 [facility] (Rec: 11/22/18 16:07 [facility] [id number]) Cardio Equipment Recumbent Stepper (Sci-Fit) Duration (Minutes) 7 Resistance 2 Seat Position 11 Gym Equipment Shuttle Balance blue Reps/Duration 8 min Comments WBOS, NBOS, staggard, head turns, EO,EC Therapeutic Exercises Supine Exercises IT band stretch Reps/Minutes 2x30 figure 4 stretch Reps/Minutes 2x30 SKTC Reps/Minutes 2x30 segmental bridge Reps/Minutes 10x shoulder IR/ER Reps/Minutes 10x Comments AAROM at 45 shoulder flex 90 to 180 Equipment Used wand, 1# Reps/Minutes 10x chest press Equipment Used wand, 1# Reps/Minutes 10x Sidelying Exercises clamshell Reps/Minutes 10x Comments cueing for position Standing Exercises squats Equipment Used mirror Reps/Minutes x15 Comments cane in front of toe for alignment HS stretch Equipment Used table-supine Reps/Minutes 2x Comments manual wall posture Reps/Minutes 5x Manual Therapy Treatment Soft Tissue Mobilization left IT band Mobilization Type Instrument Assisted,Rolling, Strumming Intensity/Depth Moderate Body Position Sidelying Comments pin and stretch-glute attachment PT-OP-R Modalities Start: 08/24/18 11:25 Freq: Status: Active Protocol: Document 11/16/18 15:17 [facility] (Rec: 11/17/18 17:33 [facility] [id number]) Electric Stimulation Electric Stimulation Interferential Current (IFC) Body Location left l/s and buttock Duration (Minutes) 15 Target/Sweep Sweep High/Low High Patient Position Sidelying Combined With Heat/Cold Hot Pack PT-OP-S Aquatic Treatment Start: 08/24/18 11:25 Freq: Status: Active Protocol: Document 11/10/18 16:39 [facility] (Rec: 11/10/18 16:43 [facility] [id number]) Aquatics Treatment Water Walking Marching Water Level Chest Level Walking Equipment Ankle Weight- 2.5# Comments recrip hand to knee; forward and backward march with shoulder flex/ext Water Level Chest Level Walking Equipment Ankle Weight- 2.5# Level of Assistance Verbal Cues Comments keeping shoulders adducted sideways with shoulder ab/ad Water Level Chest Level Walking Equipment Ankle Weight- 2.5# Level of Assistance Verbal Cues backward with reverse breastroke UE's Water Level Chest Level Walking Equipment Ankle Weight- 2.5# Level of Assistance Verbal Cues forward with breastroke UE's Water Level Chest Level Walking Equipment Ankle Weight- 2.5# Level of Assistance Verbal Cues Lower Extremity Stretches ITB Water Level [place] Reps/Duration 2x quad Body Position Standing Water Level Waist Level Equipment Large Noodle Reps/Duration 45 sec x2 HS Body Position Standing Water Level Waist Level Reps/Duration 1 min bilat Comments foot on stairs SKTC Reps/Duration 2x piriformis Details at wall crossed over midline Reps/Duration x2 for 1 min Balance staggard stance balance Details on boxes Water Level Waist Level Comments pt better but moved more toward squat position SLS Water Level Chest Level Comments pt had difficulty not using UEs step up on boxes Details slow ascent to static position befor continuing step thru pattern Water Level Waist Level Comments pt had difficulty [place] Activities [place] Activities Bicycle,Cross Country,Hip Abduction/Adduction Other Activities 30/30 x 6 rounds each exercise -moderate effort Equipment flotation belt L Comments 10 min PT-OP-T Assessment and Plan Start: 08/24/18 11:25 Freq: Status: Active Protocol: Document 11/22/18 15:11 [facility] (Rec: 11/22/18 16:07 [facility] [id number]) Physical Therapy Assessment Goals Five Impairment low back pain Veterinary Bacteriologist Goal (LTG) Decrease pain to no greater than 2/10 with all usual activities LTG Duration achieved dizziness with history of falls Impairment dizziness Longterm Goal (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 Evaluated by vestibular specialist who did not feel he would benefit from PT, no BPPV. LTG Duration MET functional activity Impairment Quickdash UE disability score 23% Short Term Goal (STG) Decrease Quickdash score to no greater than 15% 09/27/18: good goal progress STG Duration 09/23/18 Veterinary Bacteriologist Goal (LTG) Decrease Quickdash score to no greater than 5% LTG Duration achieved Strength Impairment decreased strength right shoulder Short Term Goal (STG) Patient to be independent with HEP for right shoulder strengthening 09/27/18 goal met for land- based though ongoing progression for land-based and aquatic. Not yet met for aquatic STG Duration 09/23/18 Longterm Goal (LTG) right shoulder strength 07/1109/27/18: good goal progress, not fully achieved LTG Duration achieved ROM Impairment decreased right shoulder ROM Short Term Goal (STG) Patient to be independent with HEP for purposes of right shoulder ROM 09/27/18: goal MET for land- based HEP, not aquatic STG Duration 09/23/18 Veterinary Bacteriologist Goal (LTG) Patient to demonstrate full AROM right shoulder without pain LTG Duration achieved pain Impairment right shoulder pain Short Term Goal (STG) Decrease resting pain level to no greater than 3/10 09/27/18: good goal progress STG Duration 09/23/18 Longterm Goal (LTG) Decrease pain at rest and with usual activity to no greater than 1/10 LTG Duration achieved Assessment Summary Assessment PT goals met. Patient independent with HEP and aquatic exercise program. Physical Therapy Plan Discharge Physical Therapy Discharge Reasons Goals Met
== END 2018-11-24 17:09 | disposition home or self-care (01) ==
LOC: PHYS 15:15
PROVIDERS: PCP Student in an Organized Health Care Education/Training Program; Visit Provider Student in an Organized Health Care Education/Training Program
DX: M25.511 Pain in right shoulder (principal); R26.81 Unsteadiness on feet; R53.1 Weakness; Z91.81 History of falling; R42 Dizziness and giddiness; M54.41 Lumbago with sciatica, right side
CPT/HCPCS: 97014; 97035; 97110; 97112; 97113; 97140; 97162; 97164; G0283

== ENCOUNTER 2019-02-07 07:17 | Emergency (ER) | payer MEDICARE, OTHER, SELFPAY ==
[2019-02-07 07:20] VITALS: BP 141/85; PULSE 70; RESP 16; TEMP 36.3; O2SAT 98
--- NOTE | 2019-02-07 07:45 | ED_ITS ---
HPI - Back Pain/Injury General Chief Complaint: Back Pain/Injury Stated Complaint: LEFT LOWER BACK PAIN DOWN HIP AND KNEE Time Seen by Provider: 02/07/19 07:36 Source: patient Mode of arrival: Ambulatory Limitations: no limitations History of Present Illness HPI Narrative: 73-year-old male with a prior history of lumbar stenosis. Has had lumbar fusion in the past. Also has cervical stenosis of the prior cervical fusion. Has also had a left hip arthroplasty. Here for evaluation of 2-3 days of lower back pain. He states that the pain is radiating to his left side of his buttock down on his hamstring. No bowel or bladder issues. No fevers. No specific trauma. Has tried stretching and ibuprofen without much improvement. Related Data Home Medications Medication Instructions Recorded Confirmed ASPIRIN (Aspir-Low) 81 mg PO QDAY #0 10/17/10 06/17/18 omeprazole 20 mg PO QDAY #0 10/17/10 06/17/18 ACETAMINOPHEN 650 mg PO Q6HP #0 09/19/11 06/17/18 amlodipine [Norvasc] 7.5 mg PO DAILY #0 09/19/11 06/17/18 fluticasone propionate 2 spray INTRANASAL QDAY #0 09/19/11 06/17/18 fluticasone propionate [Flovent 1 puff INH BID #12 gm 09/19/11 06/17/18 HFA] Resmed Airsense 10 CPAP #1 ea 06/17/18 06/17/18 gabapentin 300 mg capsule 600 mg PO BID #30 cap 12/05/18 Previous Rx's Medication Instructions Recorded polymyxin B sulf-trimethoprim 0 TOPICAL SEE INSTRUCTIONS #1 bot 10/06/15 [Polytrim] cyclobenzaprine 10 mg PO TID PRN #20 tab 02/07/19 Allergies Allergy/AdvReac Type Severity Reaction Status Date / Time oyster extract Allergy Unknown HIVES Verified 02/07/19 07:52 [OYSTER EXTRACT] Review of Systems Constitutional Constitutional: Denies fever(s) ENT Ears, Nose, Mouth, and Throat: Denies disequilibrium Cardiovascular Cardiovascular: Denies chest pain Gastrointestinal Gastrointestinal: Denies abdominal pain Musculoskeletal Comments: Lower back pain, radiating to left hip Integumentary/Breasts Skin/Breast: Denies rash Neurologic Neurologic: Reports paresthesias (Left leg) and Denies disequilibrium Hematologic/Lymphatic Hematologic/Lymphatic: Denies easy bleeding and Denies easy bruising Patient History Medical History Acute diverticulitis (Acute) [id number] (Acute) Lumbar stenosis with neurogenic claudication (Acute) Obstructive sleep apnea of adult (Chronic) Shoulder sprain (Acute) Sprain of shoulder, left (Acute) Social History Smoking Status: Never smoker alcohol intake frequency: 0-2 drinks per day Substance Use Type: marijuana Exam Initial Vital Signs Initial Vital Signs: Vital Signs Temperature 97.4 F L 02/07/19 07:20 Pulse Rate 70 02/07/19 07:20 Respiratory Rate 16 02/07/19 07:20 Blood Pressure 141/85 H 02/07/19 07:20 Pulse Oximetry 98 02/07/19 07:20 Const General: cooperative and comfortable Orientation: alert, awake and oriented x3 Resp Effort & Inspection: normal respiratory effort Cardio Rate: regular rate Skin Lesions: no lesions Rashes: no rashes Other: Well-healed surgical scar lower back Neuro General: alert, awake and oriented x3 Cognition: normal cognition Speech: speech normal Sensory Exam: no sensory deficits noted Extrem Other: Minimal tenderness to palpation lower back, left SI, left buttocks. Patient states that massaging and actually makes it feel somewhat better. Unable to reproduce the pain. He does feel better with his hip in flexion. Psych Appearance: grossly normal and well kempt Course Orders Ordered: ED Orders 02/07/19 07:45 XR lumbar spine 2-3V Stat Discontinued Medications Ketorolac Tromethamine (Toradol) 30 mg IM NOW ONE Stop: 02/07/19 08:44 Last Admin: 02/07/19 09:00 Dose: 30 mg Documented by: CHARLES Vital Signs Vital signs: Vital Signs - 8 hr 02/07/19 07:20 Temperature 97.4 F L Pulse Rate 70 Respiratory Rate 16 Blood Pressure 141/85 H Pulse Oximetry 98 MDM - Back Pain/Injury Imaging Data XR lumbar spine: Radiologist's impression: [address] [address] XRay Report Signed Patient: Elgin Styles EMR#: [id number] : 5Acct:[id number] Age/Sex: 73 / MDate of Service: 02/07/19 Loc: ED Accession Number: [id number] Procedure: XR lumbar spine 2-3V Ordering Provider: Jerome Kim D.O. PROCEDURE: XR LUMBAR SPINE 2-3V INDICATIONS: pain prior hx of surgery TECHNIQUE: 3 views of the lumbar spine were acquired. COMPARISON: [facility], CR, SPINE LUMB 2 OR 3VW, 03/20/2014, 11:04. [facility], CR, L-SPINE 2-3 VIEWS, 01/12/2014, 13:35. FINDINGS: Bones: No fracture or focal osseous destruction. Dextroscoliosis centered at L3 as before. Multilevel degenerative endplate sclerosis and spurring. Diffuse facet arthropathy. Straightening of the normal lordotic curvature. Severe narrowing of the L2-L3 and L3-L4 disc space. Moderate L5-S1 disc space narrowing. This has progressed since prior study. Grade 1 retrolisthesis of L2 on L3 and L5 on S1. Soft tissues: Overlying bowel gas pattern is normal. No suspicious soft tissue calcifications. Scattered vascular calcifications seen in the aorta. IMPRESSION: Dextroscoliosis and multilevel lumbar spondylosis and facet disease, with interval progression since 03/20/14 Multilevel spondylolisthesis as above. Dictated by: Slava Grande M.D. on 02/07/2019 at 8:12 Approved by: Slava Grande M.D. on 02/07/2019 at 8:18 MDM Narrative Medical decision making narrative: Patient has known lumbar spine issues with a prior surgical history. No specific trauma noted. Does have proximal radiculopathy left lower extremity. Low suspicion for cauda equina. X-ray shows no new findings. I will send the patient home with symptom treatment. He states he has never had any problems with anti-inflammatories in the past and he takes Mobic on a daily basis. He thinks that maybe Motrin works better for him. Informed him that he should only take 1 or the other. Stated that he should follow up with his primary provider. Will send home with muscle relaxers N/C this helps his symptoms. He is given return precautions. He expressed understanding and agreement plan. Discharge Plan Departure Patient Disposition: Home Clinical Impression: Low back pain radiating to left lower extremity Instructions: Low Back Pain (Alternative Therapy), Low Back Pain Activity Restrictions/Additional Instructions: Recommend that you take either Motrin/ibuprofen or Mobic/meloxicam. These are both anti-inflammatories it should not be taken together. Either of them should be taken with some food to avoid stomach issues. Use the muscle relaxers like we discussed. You have no restrictions on your activities. Contact your primary provider for follow-up. Return to the emergency department for any new symptoms. You can take Motrin/ibuprofen up to 800 mg 3 times a day as needed. Prescriptions: New cyclobenzaprine 10 mg tablet 10 mg PO TID PRN (Reason: muscle spasm) Qty: 20 RF: 0 No Action omeprazole 20 MG capsule,delayed release(DR/EC) 20 mg PO QDAY Qty: 0 RF: 0 ASPIRIN (Aspir-Low) 81 mg PO QDAY Qty: 0 RF: 0 fluticasone propionate 16 GM spray,suspension 2 spray Intranasal QDAY Qty: 0 RF: 0 ACETAMINOPHEN 650 mg PO Q6HP Qty: 0 RF: 0 fluticasone propionate [Flovent HFA] 12 GM HFA aerosol inhaler 1 puff INH BID Qty: 12 RF: 0 amlodipine [Norvasc] 5 MG tablet 7.5 mg PO DAILY Qty: 0 RF: 0 polymyxin B sulf-trimethoprim [Polytrim] 10 ML drops 0 Topical SEE INSTRUCTIONS Qty: 1 RF: 0 gabapentin [Neurontin] 300 mg capsule 600 mg PO BID Qty: 30 RF: 0 (DME) Resmed Airsense 10 CPAP Qty: 1 RF: 0 Referrals: Georgia Raymond PA-C [Primary Care Provider] -
[2019-02-07] MEDS: KETOROLAC 60 MG/2 ML VIAL 30 MG IM (09:00)
[2019-02-07 09:23] VITALS: BP 145/91; PULSE 64; RESP 16; O2SAT 99
== END 2019-02-07 09:46 | disposition home or self-care (01) ==
PROVIDERS: Emergency Provider Emergency Medicine; PCP Student in an Organized Health Care Education/Training Program
DX: M54.5 Low back pain (principal)
CPT/HCPCS: 72100; 96372; 99282; 99283; J1885

== ENCOUNTER → 2019-07-14 12:47 | Outpatient (CLI) | payer MEDICARE, OTHER, SELFPAY ==
[2019-07-15 02:38] LABS: HSV 2 IGG AB < 0.91 index (0.00-0.90); HSV1IGG > 62.20 index (0.00-0.90)
== END ==
PROVIDERS: PCP Student in an Organized Health Care Education/Training Program; Referring Provider Student in an Organized Health Care Education/Training Program; Visit Provider Student in an Organized Health Care Education/Training Program
DX: Z20.2 Contact with and (suspected) exposure to infections with a predominantly sexual mode of transmission (principal)
CPT/HCPCS: 36415; 86695; 86696

== ENCOUNTER 2019-09-21 12:30 | Outpatient (RCR) | payer MEDICARE, OTHER, SELFPAY ==
--- NOTE | 2019-03-24 15:58 | PT.OIE ---
Current Diagnoses Lumbago with sciatica, left side (03/24/19) Weakness (03/24/19) Past Medical History (Last Reviewed 02/07/19 @ 07:46 by Jerome Kim DO) Acute diverticulitis (Acute) [id number] (Acute) Lumbar stenosis with neurogenic claudication (Acute) Obstructive sleep apnea of adult (Chronic) Shoulder sprain (Acute) Sprain of shoulder, left (Acute) Visit Care Team Role Provider Type Georgia Raymond PA-C Attending Provider Physician Primary Care Provider Specialty: Internal Medicine Address: [address] [place] [address] Email: [email or web address] Physical Therapy Initial Evaluation PT-OP-A Visit Information Start: 03/24/19 11:13 Freq: Status: Active Protocol: Document 03/24/19 11:13 SAK (Rec: 03/24/19 13:40 SAK [id number]) Out-Patient Physical Therapy Visit Information Visit Information Visit Type Initial Evaluation Visit Start Time 11:15 Visit Stop Time 12:10 Total Visit Minutes 55 Visit Number 1 Number of MUD JACK NOZZLEMAN Visits 0 Evaluation Information Evaluation Date 03/24/19 Precautions Precautions history of lumbar fusion, cervical fusion PT-OP-B Current Condition Start: 03/24/19 11:13 Freq: Status: Active Protocol: Document 03/24/19 11:13 SAK (Rec: 03/24/19 13:40 SAK [id number]) Current Condition History of Current Condition Onset Date 02/09/20 Current Complaints severe pain left hip History of Current Condition Went to ER due to severe pain down left LE from buttock around to front of thigh to knee with no known cause. Went to ER, had a couple shots . Some better now. States since onset of the pain he has had some weakness left LE and some numbness left medial knee both of which persist; fell x 1 down stairs due to left leg giving way. States he feels he is walking awkwardly, and continues to have some pain but improved. No known cause of pain, states he hadn't done anything unusual except more sedentary due to some worsened depression which he feels is now improving. 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 Current Functional Impairments (Reported) Functional Limitations- ADL's painful Functional Limitations- Mobility/Gait using cane Functional Limitations- Work/School difficulty performing art due to pain Personal Factors Other Personal Factors That May Effect PMH: Therapy/Recovery Acute diverticulitis (Acute) [id number] (Acute) Lumbar stenosis with neurogenic claudication (Acute ) Obstructive sleep apnea of adult (Chronic) Shoulder sprain (Acute) Sprain of shoulder, left depression PT-OP-C Subjective Start: 03/24/19 11:13 Freq: Status: Active Protocol: Document 03/24/19 11:21 [facility] (Rec: 03/24/19 15:53 [facility] [id number]) Patient Questionnaires Oswestry Low Back Index Oswestry Score 16% OP-PT Pain Assessment Pain Assessment Grid Paper Pain Assessment Grid Completed Yes Location lumbar spine Pain Location Details bilateral lumbar spine Intensity 3 Description Aching,With Movement Frequency Frequent Pain Aggravating Factors Position,ADL's,Activity Pain Alleviating Factors Cold,Heat,Inactivity Home Pain Medication Use Pain Medications Used Yes Pain Behaviors Pain Behaviors Guarding,Wincing PT-OP-F Manual Assessment Start: 03/24/19 11:13 Freq: Status: Active Protocol: Document 03/24/19 11:21 [facility] (Rec: 03/24/19 15:53 [facility] [id number]) Manual Assessments Soft Tissue Assessment Soft Tissue Mobility Assessment tender to palpation bilateral lumbar paraspinals PT-OP-H Neuro Start: 03/24/19 11:13 Freq: Status: Active Protocol: Document 03/24/19 11:21 [facility] (Rec: 03/24/19 15:53 [facility] [id number]) Sensation Evaluation Gross Sensation Gross Sensation Left LE Impaired Sensation Description Numbness Dermatome Impairments L4 Deep Tendon Reflex & Clonus Assessment Deep Tendon Reflex Left Patellar Deep Tendon Reflex 1+ Diminished Right Patellar Deep Tendon Reflex 2+ Normal PT-OP-J Posture/Palpation/Skin Start: 03/24/19 11:13 Freq: Status: Active Protocol: Document 03/24/19 11:21 [facility] (Rec: 03/24/19 15:53 [facility] [id number]) Posture Evaluation Position Sitting Head/C-Spine Posture Forward Head T-Spine Posture Increased Kyphosis L-Spine Posture Flattened Scapula Posture (L) Protracted,(R) Protracted Hip Posture (L) Externally Rotated,(R) Externally Rotated Palpation Assessment Location lumbar paraspinals Palpation Findings Soft Tissue Tightness, Tenderness PT-OP-K Range of Motion Start: 03/24/19 11:13 Freq: Status: Active Protocol: Document 03/24/19 11:21 [facility] (Rec: 03/24/19 15:53 [facility] [id number]) Lumbar Spine Range of Motion Lumbar Spine Active Testing Position Standing ROM Limitations Soft Tissue Tightness,Pain Comments moderate decrease due to pain in flexion, some relief of pain with extension. Hip Goniometric Range of Motion Hip Left Hip ROM WFL No Flexion w/Knee Flexed 105 Straight Leg Raise 75 Extension 5 Abduction 40 Internal Rotation 20 External Rotation 55 right Hip ROM WFL No Flexion w/Knee Flexed 110 Straight Leg Raise 70 Extension 0 Abduction 40 Internal Rotation 25 External Rotation 55 Hip ROM Limitations Hip ROM Limitations Soft Tissue Tightness Knee Goniometric Range of Motion Knee jennyfer Knee ROM WFL Yes Ankle and Foot Goniometric Range of Motion Ankle and Foot jennyfer Ankle/Foot ROM WFL Yes PT-OP-L Special Tests Start: 03/24/19 11:13 Freq: Status: Active Protocol: Document 03/24/19 11:21 [facility] (Rec: 03/24/19 15:53 [facility] [id number]) Special Tests Lumbar Spine Special Tests Manual Traction Test Results decrease in pain, symptoms Compression Test Results increase in pain Neural Special Tests- Lower Body Sciatic Nerve Tension Test Results negative jennyfer PT-OP-Q Treatments Start: 03/24/19 11:13 Freq: Status: Active Protocol: Document 03/24/19 11:21 [facility] (Rec: 03/24/19 15:53 [facility] [id number]) Self-Care/Home Management Treatment Education Patient Education Body Mechanics,Home Exercise Program,Pain Management, Posture Other Education written handout for prone press-up. Review of clamshell , modification of bridge exercise to sequential. Activities Self-Care/Home Management Activities ice, heat PT-OP-R Modalities Start: 03/24/19 11:13 Freq: Status: Active Protocol: Document 03/24/19 11:21 [facility] (Rec: 03/24/19 15:53 [facility] [id number]) Hot Pack/Cold Pack Treatment Cold Pack Location lumbar spine jennyfer Patient Position Hooklying Treatment Duration (minutes) 10 Patient Tolerance Good PT-OP-T Assessment and Plan Start: 03/24/19 11:13 Freq: Status: Active Protocol: Document 03/24/19 11:21 [facility] (Rec: 03/24/19 15:53 [facility] [id number]) Physical Therapy Assessment Rehab Potential Rehabilitation Potential Good Evaluation Complexity Number of Personal Factors/Comorbidities 1-2 Number of Body Systems Impaired 3 Clinical Presentation at Evaluation Evolving Impairments Impairments Functional Activities, Sensation,Strength Goals Three Impairment Oswestry disability index score 32% Short Term Goal (STG) Decrease Oswestry disability index score to no greater than 20%. STG Duration 6 wks Cashier Wrapper Goal (LTG) Decrease Oswestry disability index score to no greater than 10% with patient able to resume all usual activities LTG Duration 12 wks Two Impairment neurological signs in left LE Short Term Goal (STG) decrease neurological signs left LE STG Duration 6 wks Cashier Wrapper Goal (LTG) eliminate neurological signs left LE with patient reporting return of normal sensation and no giving way of his leg One Impairment weakness Short Term Goal (STG) Instruct in HEP for purposes of core and LE strengthening and stabilization STG Duration 6 wks Cashier Wrapper Goal (LTG) Patient to demonstrate strength at least 4+/5 in LE and core muscle strength and be independent in HEP and aquatic exercise program LTG Duration 12 wks Assessment Summary Assessment Patient presents with function -limiting lumbar and left LE pain with radicular signs and symptoms of numbness and weakness L4 dermatome and myotome. Symptoms some relieved with manual traction today as well as with prone press-up. Have recommended patient return to aquatic exercise as previously done for gravity lessened environment for exercise; we may consider aquatic therapy visits as have done previously with this patient. Additionally feel he will benefit from patient education and therapeutic exercise plus manual traction and other manual techniques and modalities for symptom relief and to help this patient resume his previously active lifestyle . Physical Therapy Plan Frequency and Duration Frequency of Treatment 2x/Week Duration of Treatment 12 wks Plan of Care Start Date 03/24/19 Plan of Care End Date 06/22/19 Therapeutic Interventions Therapeutic Interventions Aquatic Therapy,Home Exercise Program,Manual Therapy, Neuromuscular Re-education, Patient/Caregiver Education, Self-Care/Home Management,Soft Tissue Mobilization,Taping, Therapeutic Activities, Therapeutic Exercises Modalities Cold Pack/Ice Massage,Electric Stimulation,Hot Packs, Ultrasound Next Visit Focus/Plan Next Note Type Treatment Note Next Visit Plan Review HEP, therapeutic exercises emphasising neutral postural alignment, core stabilization, flexibility, symptom reduction. Manual traction for decompression of spine. End with modalities as indicated.
--- NOTE | 2019-03-24 15:59 | PT.OPPOC ---
Physical, Occupational & Speech Therapy At [facility] Current Diagnoses Lumbago with sciatica, left side (03/24/19) Weakness (03/24/19) Visit Care Team Role Provider Type Georgia Raymond PA-C Attending Provider Physician Primary Care Provider Specialty: Internal Medicine Address: [address] [place] [address], [facility] Email: [email or web address] Plan Of Care PT-OP-T Assessment and Plan Start: 03/24/19 11:13 Freq: Status: Active Protocol: Document 03/24/19 11:21 SAK (Rec: 03/24/19 15:53 SAK [id number]) Physical Therapy Assessment Rehab Potential Rehabilitation Potential Good Evaluation Complexity Number of Personal Factors/Comorbidities 1-2 Number of Body Systems Impaired 3 Clinical Presentation at Evaluation Evolving Impairments Impairments Functional Activities, Sensation,Strength Goals Three Impairment Oswestry disability index score 32% Short Term Goal (STG) Decrease Oswestry disability index score to no greater than 20%. STG Duration 6 wks Rug Clipper Goal (LTG) Decrease Oswestry disability index score to no greater than 10% with patient able to resume all usual activities LTG Duration 12 wks Two Impairment neurological signs in left LE Short Term Goal (STG) decrease neurological signs left LE STG Duration 6 wks [facility] Goal (LTG) eliminate neurological signs left LE with patient reporting return of normal sensation and no giving way of his leg One Impairment weakness Short Term Goal (STG) Instruct in HEP for purposes of core and LE strengthening and stabilization STG Duration 6 wks Rug Clipper Goal (LTG) Patient to demonstrate strength at least 4+/5 in LE and core muscle strength and be independent in HEP and aquatic exercise program LTG Duration 12 wks Assessment Summary Assessment Patient presents with function -limiting lumbar and left LE pain with radicular signs and symptoms of numbness and weakness L4 dermatome and myotome. Symptoms some relieved with manual traction today as well as with prone press-up. Have recommended patient return to aquatic exercise as previously done for gravity lessened environment for exercise; we may consider aquatic therapy visits as have done previously with this patient. Additionally feel he will benefit from patient education and therapeutic exercise plus manual traction and other manual techniques and modalities for symptom relief and to help this patient resume his previously active lifestyle . Physical Therapy Plan Frequency and Duration Frequency of Treatment 2x/Week Duration of Treatment 12 wks Plan of Care Start Date 03/24/19 Plan of Care End Date 06/22/19 Therapeutic Interventions Therapeutic Interventions Aquatic Therapy,Home Exercise Program,Manual Therapy, Neuromuscular Re-education, Patient/Caregiver Education, Self-Care/Home Management,Soft Tissue Mobilization,Taping, Therapeutic Activities, Therapeutic Exercises Modalities Cold Pack/Ice Massage,Electric Stimulation,Hot Packs, Ultrasound Next Visit Focus/Plan Next Note Type Treatment Note Next Visit Plan Review HEP, therapeutic exercises emphasising neutral postural alignment, core stabilization, flexibility, symptom reduction. Manual traction for decompression of spine. End with modalities as indicated. Plan of Care Dates Plan of Care Start Date 03/24/19 Plan of Care End Date 06/22/19 Electronically Signed by: Gema Mascorro, PT 03/24/19 [id number] Please Sign and Return: I have reviewed this Plan of Care and certify that the skilled therapy services above are required to meet the patient?s needs. Physician Signature Date Printed Name and Credentials Clinical Instructor Signature Printed Name and Credentials
--- NOTE | 2019-04-05 10:11 | PT.OTN ---
Current Diagnoses Lumbago with sciatica, left side (04/05/19) Weakness (04/05/19) Physical Therapy Treatment Note PT-OP-A Visit Information Start: 03/24/19 11:13 Freq: Status: Active Protocol: Document 04/05/19 09:04 SAK (Rec: 04/05/19 10:10 [facility] [id number]) Out-Patient Physical Therapy Visit Information Visit Information Visit Type Treatment Note Visit Start Time 09:05 Visit Stop Time 10:00 Total Visit Minutes 55 Visit Number 2 Number of STAKING PRESS OPERATOR Visits 0 Evaluation Information Evaluation Date 03/24/19 Precautions Precautions history of lumbar fusion, cervical fusion PT-OP-B Current Condition Start: 03/24/19 11:13 Freq: Status: Active Protocol: Document 04/05/19 09:04 SAK (Rec: 04/05/19 10:10 SAK [id number]) Current Condition Treatment Goals Patient/Caregiver Goals decrease pain, improve tolerance for activity PT-OP-C Subjective Start: 03/24/19 11:13 Freq: Status: Active Protocol: Document 04/05/19 09:04 SAK (Rec: 04/05/19 10:10 [facility] [id number]) OP-PT Subjective Patient Comments Patient Comments Patient reports he has resumed aquatic exercise with overall good tolerance though occasional increase in davies , back pain is variable overall. Reports when pain gets bad he has found that bridging exercise decreases the pain. Continues to use cane due to the weakness left LE with knee either hyperextending or feeling like it is going to collapse. PT-OP-F Manual Assessment Start: 03/24/19 11:13 Freq: Status: Active Protocol: Document 03/24/19 11:21 SAK (Rec: 03/24/19 15:53 [facility] [id number]) Manual Assessments Soft Tissue Assessment Soft Tissue Mobility Assessment tender to palpation bilateral lumbar paraspinals PT-OP-H Neuro Start: 03/24/19 11:13 Freq: Status: Active Protocol: Document 03/24/19 11:21 SAK (Rec: 03/24/19 15:53 [facility] [id number]) Sensation Evaluation Gross Sensation Gross Sensation Left LE Impaired Sensation Description Numbness Dermatome Impairments L4 Deep Tendon Reflex & Clonus Assessment Deep Tendon Reflex Left Patellar Deep Tendon Reflex 1+ Diminished Right Patellar Deep Tendon Reflex 2+ Normal PT-OP-J Posture/Palpation/Skin Start: 03/24/19 11:13 Freq: Status: Active Protocol: Document 03/24/19 11:21 [facility] (Rec: 03/24/19 15:53 [facility] [id number]) Posture Evaluation Position Sitting Head/C-Spine Posture Forward Head T-Spine Posture Increased Kyphosis L-Spine Posture Flattened Scapula Posture (L) Protracted,(R) Protracted Hip Posture (L) Externally Rotated,(R) Externally Rotated Palpation Assessment Location lumbar paraspinals Palpation Findings Soft Tissue Tightness, Tenderness PT-OP-K Range of Motion Start: 03/24/19 11:13 Freq: Status: Active Protocol: Document 03/24/19 11:21 [facility] (Rec: 03/24/19 15:53 [facility] [id number]) Lumbar Spine Range of Motion Lumbar Spine Active Testing Position Standing ROM Limitations Soft Tissue Tightness,Pain Comments moderate decrease due to pain in flexion, some relief of pain with extension. Hip Goniometric Range of Motion Hip Left Hip ROM WFL No Flexion w/Knee Flexed 105 Straight Leg Raise 75 Extension 5 Abduction 40 Internal Rotation 20 External Rotation 55 right Hip ROM WFL No Flexion w/Knee Flexed 110 Straight Leg Raise 70 Extension 0 Abduction 40 Internal Rotation 25 External Rotation 55 Hip ROM Limitations Hip ROM Limitations Soft Tissue Tightness Knee Goniometric Range of Motion Knee jennyfer Knee ROM WFL Yes Ankle and Foot Goniometric Range of Motion Ankle and Foot jennyfer Ankle/Foot ROM WFL Yes PT-OP-L Special Tests Start: 03/24/19 11:13 Freq: Status: Active Protocol: Document 03/24/19 11:21 [facility] (Rec: 03/24/19 15:53 [facility] [id number]) Special Tests Lumbar Spine Special Tests Manual Traction Test Results decrease in pain, symptoms Compression Test Results increase in pain Neural Special Tests- Lower Body Sciatic Nerve Tension Test Results negative jennyfer PT-OP-Q Treatments Start: 03/24/19 11:13 Freq: Status: Active Protocol: Document 04/05/19 09:04 [facility] (Rec: 04/05/19 10:10 [facility] [id number]) Cardio Equipment Treadmill Duration (Minutes) 5 Speed 2.0 Incline 0 Other emphasis on neutral alignment, gluteal activation Therapeutic Exercises Supine Exercises full body stretch Comments neutral and to side march Side bilateral Reps/Minutes 10 Comments with TrA activation, push into opposite LE IT band stretch Reps/Minutes 2x30 SKTC Reps/Minutes 2x30 segmental bridge Reps/Minutes 10x iliopsoas stretch Reps/Minutes 2 Comments Mg hamstring stretch Reps/Minutes 2 Gait Training Gait Activity 1 Description with mirror for visual feedback Treatment Focus mechanics, decrease lateral sway Manual Therapy Treatment Manual Traction Lumbar Body Position Hooklying Reps/Duration 10 min Comments strap Self-Care/Home Management Treatment Education Patient Education Body Mechanics,Home Exercise Program,Pain Management, Posture PT-OP-R Modalities Start: 03/24/19 11:13 Freq: Status: Active Protocol: Document 04/05/19 09:04 SAK (Rec: 04/05/19 10:10 [facility] [id number]) Hot Pack/Cold Pack Treatment Cold Pack Location lumbar spine jennyfer Patient Position Hooklying Treatment Duration (minutes) 10 Patient Tolerance Good PT-OP-T Assessment and Plan Start: 03/24/19 11:13 Freq: Status: Active Protocol: Document 04/05/19 09:04 SAK (Rec: 04/05/19 10:10 [facility] [id number]) Physical Therapy Assessment Rehab Potential Rehabilitation Potential Good Impairments Impairments Functional Activities, Sensation,Strength Goals Three Impairment Oswestry disability index score 32% Short Term Goal (STG) Decrease Oswestry disability index score to no greater than 20%. STG Duration 6 wks Biology Laboratory Assistant Goal (LTG) Decrease Oswestry disability index score to no greater than 10% with patient able to resume all usual activities LTG Duration 12 wks Two Impairment neurological signs in left LE Short Term Goal (STG) decrease neurological signs left LE STG Duration 6 wks Usp Goal (LTG) eliminate neurological signs left LE with patient reporting return of normal sensation and no giving way of his leg One Impairment weakness Short Term Goal (STG) Instruct in HEP for purposes of core and LE strengthening and stabilization STG Duration 6 wks Biology Laboratory Assistant Goal (LTG) Patient to demonstrate strength at least 4+/5 in LE and core muscle strength and be independent in HEP and aquatic exercise program LTG Duration 12 wks Assessment Summary Assessment Requires moderate cues for gait mechanics due to lateral sway, decreased pain reported with manual traction. Instructed to decrease LE excursion with deep water running ex due to possible contribution to back pain after aquatic theraply Physical Therapy Plan Frequency and Duration Frequency of Treatment 2x/Week Duration of Treatment 12 wks Plan of Care Start Date 03/24/19 Plan of Care End Date 06/22/19 Therapeutic Interventions Therapeutic Interventions Aquatic Therapy,Home Exercise Program,Manual Therapy, Neuromuscular Re-education, Patient/Caregiver Education, Self-Care/Home Management,Soft Tissue Mobilization,Taping, Therapeutic Activities, Therapeutic Exercises Modalities Cold Pack/Ice Massage,Electric Stimulation,Hot Packs, Ultrasound Next Visit Focus/Plan Next Note Type Treatment Note Next Visit Plan Evaluate response to today's treatment. Add leg press double and single. Continue functional core stabilization ex and education and training for gait mechanics
--- NOTE | 2019-04-07 17:04 | PT.OTN ---
Current Diagnoses Lumbago with sciatica, left side (04/07/19) Weakness (04/07/19) Physical Therapy Treatment Note PT-OP-A Visit Information Start: 03/24/19 11:13 Freq: Status: Active Protocol: Document 04/07/19 09:00 SAK (Rec: 04/07/19 12:53 SAK [id number]) Out-Patient Physical Therapy Visit Information Visit Information Visit Type Treatment Note Visit Start Time 09:00 Visit Stop Time 10:00 Total Visit Minutes 60 Visit Number 3 Number of YOUTH ASSOCIATE Visits 0 Evaluation Information Evaluation Date 03/24/19 Precautions Precautions history of lumbar fusion, cervical fusion PT-OP-B Current Condition Start: 03/24/19 11:13 Freq: Status: Active Protocol: Document 04/07/19 09:00 SAK (Rec: 04/07/19 12:53 SAK [id number]) Current Condition History of Current Condition Onset Date 02/09/20 Current Complaints severe pain left hip History of Current Condition Went to ER due to severe pain down left LE from buttock around to front of thigh to knee with no known cause. Went to ER, had a couple shots . Some better now. States since onset of the pain he has had some weakness left LE and some numbness left medial knee both of which persist; fell x 1 down stairs due to left leg giving way. States he feels he is walking awkwardly, and continues to have some pain but improved. No known cause of pain, states he hadn't done anything unusual except more sedentary due to some worsened depression which he feels is now improving. 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, with interval progression since 03/20/14 Treatment Goals Patient/Caregiver Goals decrease pain, improve tolerance for activity PT-OP-C Subjective Start: 03/24/19 11:13 Freq: Status: Active Protocol: Document 04/05/19 09:04 SAK (Rec: 04/05/19 10:10 SAK [id number]) OP-PT Subjective Patient Comments Patient Comments Patient reports he has resumed aquatic exercise with overall good tolerance though occasional increase in davies , back pain is variable overall. Reports when pain gets bad he has found that bridging exercise decreases the pain. Continues to use cane due to the weakness left LE with knee either hyperextending or feeling like it is going to collapse. PT-OP-F Manual Assessment Start: 03/24/19 11:13 Freq: Status: Active Protocol: Document 03/24/19 11:21 [facility] (Rec: 03/24/19 15:53 [facility] [id number]) Manual Assessments Soft Tissue Assessment Soft Tissue Mobility Assessment tender to palpation bilateral lumbar paraspinals PT-OP-H Neuro Start: 03/24/19 11:13 Freq: Status: Active Protocol: Document 03/24/19 11:21 [facility] (Rec: 03/24/19 15:53 [facility] [id number]) Sensation Evaluation Gross Sensation Gross Sensation Left LE Impaired Sensation Description Numbness Dermatome Impairments L4 Deep Tendon Reflex & Clonus Assessment Deep Tendon Reflex Left Patellar Deep Tendon Reflex 1+ Diminished Right Patellar Deep Tendon Reflex 2+ Normal PT-OP-J Posture/Palpation/Skin Start: 03/24/19 11:13 Freq: Status: Active Protocol: Document 03/24/19 11:21 [facility] (Rec: 03/24/19 15:53 [facility] [id number]) Posture Evaluation Position Sitting Head/C-Spine Posture Forward Head T-Spine Posture Increased Kyphosis L-Spine Posture Flattened Scapula Posture (L) Protracted,(R) Protracted Hip Posture (L) Externally Rotated,(R) Externally Rotated Palpation Assessment Location lumbar paraspinals Palpation Findings Soft Tissue Tightness, Tenderness PT-OP-K Range of Motion Start: 03/24/19 11:13 Freq: Status: Active Protocol: Document 03/24/19 11:21 [facility] (Rec: 03/24/19 15:53 [facility] [id number]) Lumbar Spine Range of Motion Lumbar Spine Active Testing Position Standing ROM Limitations Soft Tissue Tightness,Pain Comments moderate decrease due to pain in flexion, some relief of pain with extension. Hip Goniometric Range of Motion Hip Left Hip ROM WFL No Flexion w/Knee Flexed 105 Straight Leg Raise 75 Extension 5 Abduction 40 Internal Rotation 20 External Rotation 55 right Hip ROM WFL No Flexion w/Knee Flexed 110 Straight Leg Raise 70 Extension 0 Abduction 40 Internal Rotation 25 External Rotation 55 Hip ROM Limitations Hip ROM Limitations Soft Tissue Tightness Knee Goniometric Range of Motion Knee jennyfer Knee ROM WFL Yes Ankle and Foot Goniometric Range of Motion Ankle and Foot jennyfer Ankle/Foot ROM WFL Yes PT-OP-L Special Tests Start: 03/24/19 11:13 Freq: Status: Active Protocol: Document 03/24/19 11:21 [facility] (Rec: 03/24/19 15:53 [facility] [id number]) Special Tests Lumbar Spine Special Tests Manual Traction Test Results decrease in pain, symptoms Compression Test Results increase in pain Neural Special Tests- Lower Body Sciatic Nerve Tension Test Results negative jennyfer PT-OP-Q Treatments Start: 03/24/19 11:13 Freq: Status: Active Protocol: Document 04/07/19 09:00 [facility] (Rec: 04/07/19 12:53 [facility] [id number]) Cardio Equipment Treadmill Duration (Minutes) 5 Speed 2.0 Incline 0 Other emphasis on neutral alignment, gluteal activation Gym Equipment Shuttle Balance red Details balance and wt shift Comments fwd/bck, side emphasis on core stab Therapeutic Exercises Supine Exercises full body stretch Comments neutral and to side IT band stretch Reps/Minutes 2x30 Comments manual hamstring stretch Reps/Minutes 2 bridge (segmental) Reps/Minutes 10x Self-Care/Home Management Treatment Education Patient Education Body Mechanics,Home Exercise Program,Pain Management, Posture PT-OP-R Modalities Start: 03/24/19 11:13 Freq: Status: Active Protocol: Document 04/07/19 09:00 [facility] (Rec: 04/07/19 12:53 [facility] [id number]) Hot Pack/Cold Pack Treatment Cold Pack Location lumbar spine jennyfer Patient Position Hooklying Treatment Duration (minutes) 10 Patient Tolerance Good Comments After PTx Spinal Traction Traction Treatment Lumbar Method Mechanical,Intermittent Patient Position Hooklying Force Applied (Pounds) 50 Intermittent Time On (Seconds) 30 Intermittent Time Off (Seconds) 10 Duration of Treatment (Minutes) 10 Heating Pad Applied Yes Traction Treatment Comment ice pack after treatmenet x 10 min PT-OP-T Assessment and Plan Start: 03/24/19 11:13 Freq: Status: Active Protocol: Document 04/07/19 09:00 [facility] (Rec: 04/07/19 12:53 [facility] [id number]) Physical Therapy Assessment Goals Three Impairment Oswestry disability index score 32% Short Term Goal (STG) Decrease Oswestry disability index score to no greater than 20%. STG Duration 6 wks Nursing Home Goal (LTG) Decrease Oswestry disability index score to no greater than 10% with patient able to resume all usual activities LTG Duration 12 wks Two Impairment neurological signs in left LE Short Term Goal (STG) decrease neurological signs left LE STG Duration 6 wks Nursing Home Goal (LTG) eliminate neurological signs left LE with patient reporting return of normal sensation and no giving way of his leg One Impairment weakness Short Term Goal (STG) Instruct in HEP for purposes of core and LE strengthening and stabilization STG Duration 6 wks Community Product Specialist Goal (LTG) Patient to demonstrate strength at least 4+/5 in LE and core muscle strength and be independent in HEP and aquatic exercise program LTG Duration 12 wks Assessment Summary Assessment Patient reports not falling anymore, maybe a little stronger though his knee still gives out. Trial mechanical traction today with low weight due to positive results with manual traction. Physical Therapy Plan Frequency and Duration Frequency of Treatment 2x/Week Duration of Treatment 12 wks Plan of Care Start Date 03/24/19 Plan of Care End Date 06/22/19 Therapeutic Interventions Therapeutic Interventions Aquatic Therapy,Home Exercise Program,Manual Therapy, Neuromuscular Re-education, Patient/Caregiver Education, Self-Care/Home Management,Soft Tissue Mobilization,Taping, Therapeutic Activities, Therapeutic Exercises Modalities Cold Pack/Ice Massage,Electric Stimulation,Hot Packs, Ultrasound
--- NOTE | 2019-04-19 16:30 | PT.OTN ---
Current Diagnoses Lumbago with sciatica, left side (04/19/19) Weakness (04/19/19) Physical Therapy Treatment Note PT-OP-A Visit Information Start: 03/24/19 11:13 Freq: Status: Active Protocol: Document 04/19/19 09:45 SAK (Rec: 04/19/19 10:27 SAK [id number]) Out-Patient Physical Therapy Visit Information Visit Information Visit Type Treatment Note Visit Start Time 09:45 Visit Stop Time 10:40 Total Visit Minutes 55 Visit Number 4 Number of WOMENS VOLLEYBALL COACH Visits 0 Evaluation Information Evaluation Date 03/24/19 Precautions Precautions history of lumbar laminectomy (patient brought op report to clarify), cervical fusion PT-OP-B Current Condition Start: 03/24/19 11:13 Freq: Status: Active Protocol: Document 04/07/19 09:00 SAK (Rec: 04/07/19 12:53 SAK [id number]) Current Condition History of Current Condition Onset Date 02/09/20 Current Complaints severe pain left hip History of Current Condition Went to ER due to severe pain down left LE from buttock around to front of thigh to knee with no known cause. Went to ER, had a couple shots . Some better now. States since onset of the pain he has had some weakness left LE and some numbness left medial knee both of which persist; fell x 1 down stairs due to left leg giving way. States he feels he is walking awkwardly, and continues to have some pain but improved. No known cause of pain, states he hadn't done anything unusual except more sedentary due to some worsened depression which he feels is now improving. 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, with interval progression since 03/20/14 Treatment Goals Patient/Caregiver Goals decrease pain, improve tolerance for activity PT-OP-C Subjective Start: 03/24/19 11:13 Freq: Status: Active Protocol: Document 04/19/19 09:45 SAK (Rec: 04/19/19 10:27 SAK [id number]) OP-PT Subjective Patient Comments Patient Comments Reports he feels like he has been doing better since last seen, improving exercise tolerance, feels like he is walking better. PT-OP-F Manual Assessment Start: 03/24/19 11:13 Freq: Status: Active Protocol: Document 03/24/19 11:21 [facility] (Rec: 03/24/19 15:53 [facility] [id number]) Manual Assessments Soft Tissue Assessment Soft Tissue Mobility Assessment tender to palpation bilateral lumbar paraspinals PT-OP-H Neuro Start: 03/24/19 11:13 Freq: Status: Active Protocol: Document 03/24/19 11:21 SAK (Rec: 03/24/19 15:53 SAK [id number]) Sensation Evaluation Gross Sensation Gross Sensation Left LE Impaired Sensation Description Numbness Dermatome Impairments L4 Deep Tendon Reflex & Clonus Assessment Deep Tendon Reflex Left Patellar Deep Tendon Reflex 1+ Diminished Right Patellar Deep Tendon Reflex 2+ Normal PT-OP-J Posture/Palpation/Skin Start: 03/24/19 11:13 Freq: Status: Active Protocol: Document 03/24/19 11:21 SAK (Rec: 03/24/19 15:53 [facility] [id number]) Posture Evaluation Position Sitting Head/C-Spine Posture Forward Head T-Spine Posture Increased Kyphosis L-Spine Posture Flattened Scapula Posture (L) Protracted,(R) Protracted Hip Posture (L) Externally Rotated,(R) Externally Rotated Palpation Assessment Location lumbar paraspinals Palpation Findings Soft Tissue Tightness, Tenderness PT-OP-K Range of Motion Start: 03/24/19 11:13 Freq: Status: Active Protocol: Document 03/24/19 11:21 [facility] (Rec: 03/24/19 15:53 [facility] [id number]) Lumbar Spine Range of Motion Lumbar Spine Active Testing Position Standing ROM Limitations Soft Tissue Tightness,Pain Comments moderate decrease due to pain in flexion, some relief of pain with extension. Hip Goniometric Range of Motion Hip Left Hip ROM WFL No Flexion w/Knee Flexed 105 Straight Leg Raise 75 Extension 5 Abduction 40 Internal Rotation 20 External Rotation 55 right Hip ROM WFL No Flexion w/Knee Flexed 110 Straight Leg Raise 70 Extension 0 Abduction 40 Internal Rotation 25 External Rotation 55 Hip ROM Limitations Hip ROM Limitations Soft Tissue Tightness Knee Goniometric Range of Motion Knee jennyfer Knee ROM WFL Yes Ankle and Foot Goniometric Range of Motion Ankle and Foot jennyfer Ankle/Foot ROM WFL Yes PT-OP-L Special Tests Start: 03/24/19 11:13 Freq: Status: Active Protocol: Document 03/24/19 11:21 [facility] (Rec: 03/24/19 15:53 [facility] [id number]) Special Tests Lumbar Spine Special Tests Manual Traction Test Results decrease in pain, symptoms Compression Test Results increase in pain Neural Special Tests- Lower Body Sciatic Nerve Tension Test Results negative jennyfer PT-OP-Q Treatments Start: 03/24/19 11:13 Freq: Status: Active Protocol: Document 04/19/19 09:45 [facility] (Rec: 04/19/19 10:27 [facility] [id number]) Cardio Equipment Recumbent Stepper (Sci-Fit) Duration (Minutes) 5 Resistance 2.5 Seat Position 11 Treadmill Duration (Minutes) 5 Speed 2.0 Incline 0 Other emphasis on neutral alignment, gluteal activation Gym Equipment Shuttle Balance red Details balance and wt shift Comments fwd/bck, side emphasis on core stab Therapeutic Exercises Supine Exercises hamstring stretch Reps/Minutes 2 DKTC, SKTC Reps/Minutes 10x Gait Training Gait Activity 1 Description with mirror for visual feedback Treatment Focus mechanics, decrease lateral sway, gluteal activation Self-Care/Home Management Treatment Education Patient Education Body Mechanics,Home Exercise Program PT-OP-R Modalities Start: 03/24/19 11:13 Freq: Status: Active Protocol: Document 04/19/19 09:45 [facility] (Rec: 04/19/19 10:27 [facility] [id number]) Hot Pack/Cold Pack Treatment Cold Pack Location lumbar spine jennyfer Patient Position Hooklying Treatment Duration (minutes) 10 Patient Tolerance Good Comments After PTx Spinal Traction Traction Treatment Lumbar Method Mechanical,Intermittent Patient Position Hooklying Force Applied (Pounds) 70 Intermittent Time On (Seconds) 30 Intermittent Time Off (Seconds) 10 Duration of Treatment (Minutes) 10 Heating Pad Applied Yes Traction Treatment Comment ice pack after treatmenet x 10 min PT-OP-T Assessment and Plan Start: 03/24/19 11:13 Freq: Status: Active Protocol: Document 04/19/19 09:45 [facility] (Rec: 04/19/19 10:27 [facility] [id number]) Physical Therapy Assessment Impairments Impairments Functional Activities, Sensation,Strength Goals Three Impairment Oswestry disability index score 32% Short Term Goal (STG) Decrease Oswestry disability index score to no greater than 20%. STG Duration 6 wks Nursing Home Goal (LTG) Decrease Oswestry disability index score to no greater than 10% with patient able to resume all usual activities LTG Duration 12 wks Two Impairment neurological signs in left LE Short Term Goal (STG) decrease neurological signs left LE STG Duration 6 wks Plate Setter Goal (LTG) eliminate neurological signs left LE with patient reporting return of normal sensation and no giving way of his leg One Impairment weakness Short Term Goal (STG) Instruct in HEP for purposes of core and LE strengthening and stabilization STG Duration 6 wks Nursing Home Goal (LTG) Patient to demonstrate strength at least 4+/5 in LE and core muscle strength and be independent in HEP and aquatic exercise program LTG Duration 12 wks Physical Therapy Plan Frequency and Duration Frequency of Treatment 2x/Week Duration of Treatment 12 wks Plan of Care Start Date 03/24/19 Plan of Care End Date 06/22/19 Therapeutic Interventions Therapeutic Interventions Aquatic Therapy,Home Exercise Program,Manual Therapy, Neuromuscular Re-education, Patient/Caregiver Education, Self-Care/Home Management,Soft Tissue Mobilization,Taping, Therapeutic Activities, Therapeutic Exercises Modalities Cold Pack/Ice Massage,Electric Stimulation,Hot Packs, Ultrasound Next Visit Focus/Plan Next Note Type Treatment Note Next Visit Plan Evaluate response to increase force with PTx. Continue to progress with strengthening, core stabilization, pain and ymptom managment.
--- NOTE | 2019-04-21 17:05 | PT.OTN ---
Current Diagnoses Lumbago with sciatica, left side (04/21/19) Weakness (04/21/19) Physical Therapy Treatment Note PT-OP-A Visit Information Start: 03/24/19 11:13 Freq: Status: Active Protocol: Document 04/21/19 10:36 SAK (Rec: 04/21/19 11:13 SAK [id number]) Out-Patient Physical Therapy Visit Information Visit Information Visit Type Treatment Note Visit Start Time 10:30 Visit Stop Time 11:25 Total Visit Minutes 55 Visit Number 5 Number of JUDGE'S CLERK Visits 0 Evaluation Information Evaluation Date 03/24/19 Precautions Precautions history of lumbar laminectomy (patient brought op report to clarify), cervical fusion PT-OP-B Current Condition Start: 03/24/19 11:13 Freq: Status: Active Protocol: Document 04/07/19 09:00 SAK (Rec: 04/07/19 12:53 SAK [id number]) Current Condition History of Current Condition Onset Date 02/09/20 Current Complaints severe pain left hip History of Current Condition Went to ER due to severe pain down left LE from buttock around to front of thigh to knee with no known cause. Went to ER, had a couple shots . Some better now. States since onset of the pain he has had some weakness left LE and some numbness left medial knee both of which persist; fell x 1 down stairs due to left leg giving way. States he feels he is walking awkwardly, and continues to have some pain but improved. No known cause of pain, states he hadn't done anything unusual except more sedentary due to some worsened depression which he feels is now improving. 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, with interval progression since 03/20/14 Treatment Goals Patient/Caregiver Goals decrease pain, improve tolerance for activity PT-OP-C Subjective Start: 03/24/19 11:13 Freq: Status: Active Protocol: Document 04/21/19 10:36 SAK (Rec: 04/21/19 11:13 SAK [id number]) OP-PT Subjective Patient Comments Patient Comments Minimal back pain in the am the past couple days. PT-OP-F Manual Assessment Start: 03/24/19 11:13 Freq: Status: Active Protocol: Document 03/24/19 11:21 SAK (Rec: 03/24/19 15:53 [facility] [id number]) Manual Assessments Soft Tissue Assessment Soft Tissue Mobility Assessment tender to palpation bilateral lumbar paraspinals PT-OP-H Neuro Start: 03/24/19 11:13 Freq: Status: Active Protocol: Document 03/24/19 11:21 [facility] (Rec: 03/24/19 15:53 [facility] [id number]) Sensation Evaluation Gross Sensation Gross Sensation Left LE Impaired Sensation Description Numbness Dermatome Impairments L4 Deep Tendon Reflex & Clonus Assessment Deep Tendon Reflex Left Patellar Deep Tendon Reflex 1+ Diminished Right Patellar Deep Tendon Reflex 2+ Normal PT-OP-J Posture/Palpation/Skin Start: 03/24/19 11:13 Freq: Status: Active Protocol: Document 03/24/19 11:21 [facility] (Rec: 03/24/19 15:53 [facility] [id number]) Posture Evaluation Position Sitting Head/C-Spine Posture Forward Head T-Spine Posture Increased Kyphosis L-Spine Posture Flattened Scapula Posture (L) Protracted,(R) Protracted Hip Posture (L) Externally Rotated,(R) Externally Rotated Palpation Assessment Location lumbar paraspinals Palpation Findings Soft Tissue Tightness, Tenderness PT-OP-K Range of Motion Start: 03/24/19 11:13 Freq: Status: Active Protocol: Document 03/24/19 11:21 [facility] (Rec: 03/24/19 15:53 [facility] [id number]) Lumbar Spine Range of Motion Lumbar Spine Active Testing Position Standing ROM Limitations Soft Tissue Tightness,Pain Comments moderate decrease due to pain in flexion, some relief of pain with extension. Hip Goniometric Range of Motion Hip Left Hip ROM WFL No Flexion w/Knee Flexed 105 Straight Leg Raise 75 Extension 5 Abduction 40 Internal Rotation 20 External Rotation 55 right Hip ROM WFL No Flexion w/Knee Flexed 110 Straight Leg Raise 70 Extension 0 Abduction 40 Internal Rotation 25 External Rotation 55 Hip ROM Limitations Hip ROM Limitations Soft Tissue Tightness Knee Goniometric Range of Motion Knee jennyfer Knee ROM WFL Yes Ankle and Foot Goniometric Range of Motion Ankle and Foot jennyfer Ankle/Foot ROM WFL Yes PT-OP-L Special Tests Start: 03/24/19 11:13 Freq: Status: Active Protocol: Document 03/24/19 11:21 [facility] (Rec: 03/24/19 15:53 [facility] [id number]) Special Tests Lumbar Spine Special Tests Manual Traction Test Results decrease in pain, symptoms Compression Test Results increase in pain Neural Special Tests- Lower Body Sciatic Nerve Tension Test Results negative jennyfer PT-OP-Q Treatments Start: 03/24/19 11:13 Freq: Status: Active Protocol: Document 04/21/19 10:36 [facility] (Rec: 04/21/19 11:13 [facility] [id number]) Cardio Equipment Treadmill Duration (Minutes) 5 Speed 2.0 Incline 0 Other emphasis on neutral alignment, gluteal activation Gym Equipment Shuttle Recovery Unilateral Squats Resistance 62 Shuttle Recovery Platform Stable Reps/Time 10x2 Bilateral Squats Resistance 87 Shuttle Recovery Platform Stable Reps/Time 10x2 Shuttle Balance red Details balance and wt shift Comments fwd/bck, side emphasis on core stab Therapeutic Exercises Standing Exercises HC stretch Equipment Used JOSE Reps/Minutes 2x stride stand bal Side bilateral Reps/Minutes 3x ea SLS Side bilateral Reps/Minutes 3x ea HS stretch Equipment Used table-supine Reps/Minutes 2x Comments manual Self-Care/Home Management Treatment Education Patient Education Body Mechanics,Home Exercise Program PT-OP-R Modalities Start: 03/24/19 11:13 Freq: Status: Active Protocol: Document 04/21/19 10:36 [facility] (Rec: 04/21/19 11:13 [facility] [id number]) Hot Pack/Cold Pack Treatment Cold Pack Location lumbar spine jennyfer Patient Position Hooklying Treatment Duration (minutes) 10 Patient Tolerance Good Comments After PTx Spinal Traction Traction Treatment Lumbar Method Mechanical,Intermittent Patient Position Hooklying Force Applied (Pounds) 70 Intermittent Time On (Seconds) 30 Intermittent Time Off (Seconds) 10 Duration of Treatment (Minutes) 10 Heating Pad Applied Yes Traction Treatment Comment ice pack after treatmenet x 10 min PT-OP-T Assessment and Plan Start: 03/24/19 11:13 Freq: Status: Active Protocol: Document 04/21/19 10:36 [facility] (Rec: 04/21/19 11:13 [facility] [id number]) Physical Therapy Assessment Impairments Impairments Functional Activities, Sensation,Strength Goals Three Impairment Oswestry disability index score 32% Short Term Goal (STG) Decrease Oswestry disability index score to no greater than 20%. STG Duration 6 wks Halfway Goal (LTG) Decrease Oswestry disability index score to no greater than 10% with patient able to resume all usual activities LTG Duration 12 wks Two Impairment neurological signs in left LE Short Term Goal (STG) decrease neurological signs left LE STG Duration 6 wks Car Supervisor Goal (LTG) eliminate neurological signs left LE with patient reporting return of normal sensation and no giving way of his leg One Impairment weakness Short Term Goal (STG) Instruct in HEP for purposes of core and LE strengthening and stabilization STG Duration 6 wks Car Supervisor Goal (LTG) Patient to demonstrate strength at least 4+/5 in LE and core muscle strength and be independent in HEP and aquatic exercise program LTG Duration 12 wks Physical Therapy Plan Frequency and Duration Frequency of Treatment 2x/Week Duration of Treatment 12 wks Plan of Care Start Date 03/24/19 Plan of Care End Date 06/22/19 Therapeutic Interventions Therapeutic Interventions Aquatic Therapy,Home Exercise Program,Manual Therapy, Neuromuscular Re-education, Patient/Caregiver Education, Self-Care/Home Management,Soft Tissue Mobilization,Taping, Therapeutic Activities, Therapeutic Exercises Modalities Cold Pack/Ice Massage,Electric Stimulation,Hot Packs, Ultrasound Next Visit Focus/Plan Next Note Type Treatment Note
--- NOTE | 2019-04-27 10:27 | PT.OTN ---
Current Diagnoses Lumbago with sciatica, left side (04/26/19) Weakness (04/26/19) Physical Therapy Treatment Note PT-OP-A Visit Information Start: 03/24/19 11:13 Freq: Status: Active Protocol: Document 04/26/19 10:29 SAK (Rec: 04/26/19 11:12 SAK [id number]) Out-Patient Physical Therapy Visit Information Visit Information Visit Type Treatment Note Visit Start Time 10:30 Visit Stop Time 11:25 Total Visit Minutes 55 Visit Number 6 Number of CERTIFIED ORTHOPTIST Visits 0 Precautions Precautions history of lumbar laminectomy (patient brought op report to clarify), cervical fusion PT-OP-B Current Condition Start: 03/24/19 11:13 Freq: Status: Active Protocol: Document 04/07/19 09:00 SAK (Rec: 04/07/19 12:53 SAK [id number]) Current Condition History of Current Condition Onset Date 02/09/20 Current Complaints severe pain left hip History of Current Condition Went to ER due to severe pain down left LE from buttock around to front of thigh to knee with no known cause. Went to ER, had a couple shots . Some better now. States since onset of the pain he has had some weakness left LE and some numbness left medial knee both of which persist; fell x 1 down stairs due to left leg giving way. States he feels he is walking awkwardly, and continues to have some pain but improved. No known cause of pain, states he hadn't done anything unusual except more sedentary due to some worsened depression which he feels is now improving. 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, with interval progression since 03/20/14 Treatment Goals Patient/Caregiver Goals decrease pain, improve tolerance for activity PT-OP-C Subjective Start: 03/24/19 11:13 Freq: Status: Active Protocol: Document 04/26/19 10:29 SAK (Rec: 04/26/19 11:12 SAK [id number]) OP-PT Subjective Patient Comments Patient Comments Report feeling stronger, concerned about full body strength including arms, wants to be able to lift his kayak this summer. PT-OP-F Manual Assessment Start: 03/24/19 11:13 Freq: Status: Active Protocol: Document 03/24/19 11:21 SAK (Rec: 03/24/19 15:53 [facility] [id number]) Manual Assessments Soft Tissue Assessment Soft Tissue Mobility Assessment tender to palpation bilateral lumbar paraspinals PT-OP-H Neuro Start: 03/24/19 11:13 Freq: Status: Active Protocol: Document 03/24/19 11:21 [facility] (Rec: 03/24/19 15:53 [facility] [id number]) Sensation Evaluation Gross Sensation Gross Sensation Left LE Impaired Sensation Description Numbness Dermatome Impairments L4 Deep Tendon Reflex & Clonus Assessment Deep Tendon Reflex Left Patellar Deep Tendon Reflex 1+ Diminished Right Patellar Deep Tendon Reflex 2+ Normal PT-OP-J Posture/Palpation/Skin Start: 03/24/19 11:13 Freq: Status: Active Protocol: Document 03/24/19 11:21 [facility] (Rec: 03/24/19 15:53 [facility] [id number]) Posture Evaluation Position Sitting Head/C-Spine Posture Forward Head T-Spine Posture Increased Kyphosis L-Spine Posture Flattened Scapula Posture (L) Protracted,(R) Protracted Hip Posture (L) Externally Rotated,(R) Externally Rotated Palpation Assessment Location lumbar paraspinals Palpation Findings Soft Tissue Tightness, Tenderness PT-OP-K Range of Motion Start: 03/24/19 11:13 Freq: Status: Active Protocol: Document 03/24/19 11:21 [facility] (Rec: 03/24/19 15:53 [facility] [id number]) Lumbar Spine Range of Motion Lumbar Spine Active Testing Position Standing ROM Limitations Soft Tissue Tightness,Pain Comments moderate decrease due to pain in flexion, some relief of pain with extension. Hip Goniometric Range of Motion Hip Left Hip ROM WFL No Flexion w/Knee Flexed 105 Straight Leg Raise 75 Extension 5 Abduction 40 Internal Rotation 20 External Rotation 55 right Hip ROM WFL No Flexion w/Knee Flexed 110 Straight Leg Raise 70 Extension 0 Abduction 40 Internal Rotation 25 External Rotation 55 Hip ROM Limitations Hip ROM Limitations Soft Tissue Tightness Knee Goniometric Range of Motion Knee jennyfer Knee ROM WFL Yes Ankle and Foot Goniometric Range of Motion Ankle and Foot jennyfer Ankle/Foot ROM WFL Yes PT-OP-L Special Tests Start: 03/24/19 11:13 Freq: Status: Active Protocol: Document 03/24/19 11:21 [facility] (Rec: 03/24/19 15:53 [facility] [id number]) Special Tests Lumbar Spine Special Tests Manual Traction Test Results decrease in pain, symptoms Compression Test Results increase in pain Neural Special Tests- Lower Body Sciatic Nerve Tension Test Results negative jennyfer PT-OP-Q Treatments Start: 03/24/19 11:13 Freq: Status: Active Protocol: Document 04/26/19 10:29 [facility] (Rec: 04/26/19 11:12 [facility] [id number]) Cardio Equipment Treadmill Duration (Minutes) 5 Speed 2.0 Incline 0 Other emphasis on neutral alignment, gluteal activation Gym Equipment Shuttle Recovery Unilateral Squats Resistance 62 Shuttle Recovery Platform Stable Reps/Time 10x2 Bilateral Squats Details stable and unstable Resistance 87 Shuttle Recovery Platform Stable Reps/Time 10x3 Shuttle Balance red Details balance and wt shift Comments fwd/bck, side emphasis on core stab Therapeutic Exercises Supine Exercises figure 4 stretch Reps/Minutes 2x30 hamstring stretch Reps/Minutes 2 Comments manual Standing Exercises HC stretch Equipment Used JOSE Reps/Minutes 2x SLS Side bilateral Reps/Minutes 3x ea PT-OP-R Modalities Start: 03/24/19 11:13 Freq: Status: Active Protocol: Document 04/26/19 10:29 [facility] (Rec: 04/26/19 11:12 [facility] [id number]) Hot Pack/Cold Pack Treatment Cold Pack Location lumbar spine jennyfer Patient Position Hooklying Treatment Duration (minutes) 10 Patient Tolerance Good Comments After PTx Spinal Traction Traction Treatment Lumbar Method Mechanical,Intermittent Patient Position Hooklying Force Applied (Pounds) 70 Intermittent Time On (Seconds) 30 Intermittent Time Off (Seconds) 10 Duration of Treatment (Minutes) 10 Heating Pad Applied Yes Traction Treatment Comment ice pack after treatmenet x 10 min PT-OP-T Assessment and Plan Start: 03/24/19 11:13 Freq: Status: Active Protocol: Document 04/26/19 10:29 [facility] (Rec: 04/26/19 11:12 [facility] [id number]) Physical Therapy Assessment Impairments Impairments Functional Activities, Sensation,Strength Goals Three Impairment Oswestry disability index score 32% Short Term Goal (STG) Decrease Oswestry disability index score to no greater than 20%. STG Duration 6 wks [facility] Goal (LTG) Decrease Oswestry disability index score to no greater than 10% with patient able to resume all usual activities LTG Duration 12 wks Two Impairment neurological signs in left LE Short Term Goal (STG) decrease neurological signs left LE STG Duration 6 wks Physician/Internist Goal (LTG) eliminate neurological signs left LE with patient reporting return of normal sensation and no giving way of his leg One Impairment weakness Short Term Goal (STG) Instruct in HEP for purposes of core and LE strengthening and stabilization STG Duration 6 wks [facility] Goal (LTG) Patient to demonstrate strength at least 4+/5 in LE and core muscle strength and be independent in HEP and aquatic exercise program LTG Duration 12 wks Assessment Summary Assessment balance improved with practice , patient not hyperextending his knee as much with gait and function, but still fearful of his knee collapsing. Physical Therapy Plan Frequency and Duration Frequency of Treatment 2x/Week Duration of Treatment 12 wks Plan of Care Start Date 03/24/19 Plan of Care End Date 06/22/19 Therapeutic Interventions Therapeutic Interventions Aquatic Therapy,Home Exercise Program,Manual Therapy, Neuromuscular Re-education, Patient/Caregiver Education, Self-Care/Home Management,Soft Tissue Mobilization,Taping, Therapeutic Activities, Therapeutic Exercises Modalities Cold Pack/Ice Massage,Electric Stimulation,Hot Packs, Ultrasound Next Visit Focus/Plan Next Note Type Treatment Note Next Visit Plan Progress with ther ex, core strengthening, balance.
--- NOTE | 2019-04-28 16:38 | PT.OTN ---
Current Diagnoses Lumbago with sciatica, left side (04/28/19) Weakness (04/28/19) Physical Therapy Treatment Note PT-OP-A Visit Information Start: 03/24/19 11:13 Freq: Status: Active Protocol: Document 04/28/19 13:45 SAK (Rec: 04/28/19 14:29 SAK [id number]) Out-Patient Physical Therapy Visit Information Visit Information Visit Type Treatment Note Visit Start Time 13:45 Visit Stop Time 14:25 Total Visit Minutes 55 Visit Number 7 Number of TOLL TRANSMISSION WORKER Visits 0 Precautions Precautions history of lumbar laminectomy (patient brought op report to clarify), cervical fusion PT-OP-B Current Condition Start: 03/24/19 11:13 Freq: Status: Active Protocol: Document 04/07/19 09:00 SAK (Rec: 04/07/19 12:53 SAK [id number]) Current Condition History of Current Condition Onset Date 02/09/20 Current Complaints severe pain left hip History of Current Condition Went to ER due to severe pain down left LE from buttock around to front of thigh to knee with no known cause. Went to ER, had a couple shots . Some better now. States since onset of the pain he has had some weakness left LE and some numbness left medial knee both of which persist; fell x 1 down stairs due to left leg giving way. States he feels he is walking awkwardly, and continues to have some pain but improved. No known cause of pain, states he hadn't done anything unusual except more sedentary due to some worsened depression which he feels is now improving. 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, with interval progression since 03/20/14 Treatment Goals Patient/Caregiver Goals decrease pain, improve tolerance for activity PT-OP-C Subjective Start: 03/24/19 11:13 Freq: Status: Active Protocol: Document 04/28/19 13:45 SAK (Rec: 04/28/19 14:29 SAK [id number]) OP-PT Subjective Patient Comments Patient Comments Shakiness left leg variable, increases toward end of the day. Went to fitness center yesterday. Wants to work on fitness plan for long-term after PT. PT-OP-F Manual Assessment Start: 03/24/19 11:13 Freq: Status: Active Protocol: Document 03/24/19 11:21 SAK (Rec: 03/24/19 15:53 [facility] [id number]) Manual Assessments Soft Tissue Assessment Soft Tissue Mobility Assessment tender to palpation bilateral lumbar paraspinals PT-OP-H Neuro Start: 03/24/19 11:13 Freq: Status: Active Protocol: Document 03/24/19 11:21 SAK (Rec: 03/24/19 15:53 [facility] [id number]) Sensation Evaluation Gross Sensation Gross Sensation Left LE Impaired Sensation Description Numbness Dermatome Impairments L4 Deep Tendon Reflex & Clonus Assessment Deep Tendon Reflex Left Patellar Deep Tendon Reflex 1+ Diminished Right Patellar Deep Tendon Reflex 2+ Normal PT-OP-J Posture/Palpation/Skin Start: 03/24/19 11:13 Freq: Status: Active Protocol: Document 03/24/19 11:21 SAK (Rec: 03/24/19 15:53 [facility] [id number]) Posture Evaluation Position Sitting Head/C-Spine Posture Forward Head T-Spine Posture Increased Kyphosis L-Spine Posture Flattened Scapula Posture (L) Protracted,(R) Protracted Hip Posture (L) Externally Rotated,(R) Externally Rotated Palpation Assessment Location lumbar paraspinals Palpation Findings Soft Tissue Tightness, Tenderness PT-OP-K Range of Motion Start: 03/24/19 11:13 Freq: Status: Active Protocol: Document 03/24/19 11:21 [facility] (Rec: 03/24/19 15:53 [facility] [id number]) Lumbar Spine Range of Motion Lumbar Spine Active Testing Position Standing ROM Limitations Soft Tissue Tightness,Pain Comments moderate decrease due to pain in flexion, some relief of pain with extension. Hip Goniometric Range of Motion Hip Left Hip ROM WFL No Flexion w/Knee Flexed 105 Straight Leg Raise 75 Extension 5 Abduction 40 Internal Rotation 20 External Rotation 55 right Hip ROM WFL No Flexion w/Knee Flexed 110 Straight Leg Raise 70 Extension 0 Abduction 40 Internal Rotation 25 External Rotation 55 Hip ROM Limitations Hip ROM Limitations Soft Tissue Tightness Knee Goniometric Range of Motion Knee jennyfer Knee ROM WFL Yes Ankle and Foot Goniometric Range of Motion Ankle and Foot jennyfer Ankle/Foot ROM WFL Yes PT-OP-L Special Tests Start: 03/24/19 11:13 Freq: Status: Active Protocol: Document 03/24/19 11:21 [facility] (Rec: 03/24/19 15:53 SAK [id number]) Special Tests Lumbar Spine Special Tests Manual Traction Test Results decrease in pain, symptoms Compression Test Results increase in pain Neural Special Tests- Lower Body Sciatic Nerve Tension Test Results negative jennyfer PT-OP-Q Treatments Start: 03/24/19 11:13 Freq: Status: Active Protocol: Document 04/28/19 13:45 [facility] (Rec: 04/28/19 14:29 [facility] [id number]) Cardio Equipment Treadmill Duration (Minutes) 5 Speed 2.0 Incline 0 Other emphasis on neutral alignment, gluteal activation Gym Equipment Cable Column (Body Solid) hamstring curl Details 40 jennyfer, 30 unil Reps/Time 2x10 knee extension Details 30 jennyfer, 20 right x , 20 left Reps/Time 2x10 Shuttle Recovery Unilateral Squats Details done at fitness center yesterday Bilateral Squats Details done at fitness center yesterday Shuttle Balance red Details balance and wt shift Comments fwd/bck, side emphasis on core stab Therapeutic Exercises Supine Exercises hamstring stretch Reps/Minutes 2 Comments manual Prone Exercises prone press-up\ Reps/Minutes 1 min Standing Exercises HC stretch Equipment Used JOSE Reps/Minutes 2x SLS Side bilateral Reps/Minutes 3x ea PT-OP-R Modalities Start: 03/24/19 11:13 Freq: Status: Active Protocol: Document 04/28/19 13:45 [facility] (Rec: 04/28/19 14:29 [facility] [id number]) Hot Pack/Cold Pack Treatment Cold Pack Location lumbar spine jennyfer Patient Position Hooklying Treatment Duration (minutes) 10 Patient Tolerance Good Comments After PTx Spinal Traction Traction Treatment Lumbar Method Mechanical,Intermittent Patient Position Hooklying Force Applied (Pounds) 70 Intermittent Time On (Seconds) 30 Intermittent Time Off (Seconds) 10 Duration of Treatment (Minutes) 10 Heating Pad Applied Yes Traction Treatment Comment ice pack after treatmenet x 10 min PT-OP-T Assessment and Plan Start: 03/24/19 11:13 Freq: Status: Active Protocol: Document 04/28/19 13:45 [facility] (Rec: 04/28/19 14:29 [facility] [id number]) Physical Therapy Assessment Impairments Impairments Functional Activities, Sensation,Strength Goals Three Impairment Oswestry disability index score 32% Short Term Goal (STG) Decrease Oswestry disability index score to no greater than 20%. STG Duration 6 wks [facility] Goal (LTG) Decrease Oswestry disability index score to no greater than 10% with patient able to resume all usual activities LTG Duration 12 wks Two Impairment neurological signs in left LE Short Term Goal (STG) decrease neurological signs left LE STG Duration 6 wks Typing Element Machine Operator Goal (LTG) eliminate neurological signs left LE with patient reporting return of normal sensation and no giving way of his leg One Impairment weakness Short Term Goal (STG) Instruct in HEP for purposes of core and LE strengthening and stabilization STG Duration 6 wks Typing Element Machine Operator Goal (LTG) Patient to demonstrate strength at least 4+/5 in LE and core muscle strength and be independent in HEP and aquatic exercise program LTG Duration 12 wks Assessment Summary Assessment left quad weakness affects patient gait and bal, though patient reporting less giving way recently. Improving postural awareness. Mechanical traction appears helpful in decreasing neurological symptoms. Physical Therapy Plan Frequency and Duration Frequency of Treatment 2x/Week Duration of Treatment 12 wks Plan of Care Start Date 03/24/19 Plan of Care End Date 06/22/19 Therapeutic Interventions Therapeutic Interventions Aquatic Therapy,Home Exercise Program,Manual Therapy, Neuromuscular Re-education, Patient/Caregiver Education, Self-Care/Home Management,Soft Tissue Mobilization,Taping, Therapeutic Activities, Therapeutic Exercises Modalities Cold Pack/Ice Massage,Electric Stimulation,Hot Packs, Ultrasound Discharge Physical Therapy Discharge Reasons Goals Met Next Visit Focus/Plan Next Note Type Treatment Note Next Visit Plan Discuss fitness plan and schedule for workouts per patient request.
--- NOTE | 2019-05-03 10:07 | PT.OTN ---
Current Diagnoses Lumbago with sciatica, left side (05/03/19) Weakness (05/03/19) Physical Therapy Treatment Note PT-OP-A Visit Information Start: 03/24/19 11:13 Freq: Status: Active Protocol: Document 05/03/19 08:39 SAK (Rec: 05/03/19 09:00 SAK [id number]) Out-Patient Physical Therapy Visit Information Visit Information Visit Type Treatment Note Visit Start Time 08:15 Visit Stop Time 09:11 Total Visit Minutes 58 Visit Number 8 Number of TEMPERATURE INSPECTOR Visits 0 Precautions Precautions history of lumbar laminectomy (patient brought op report to clarify), cervical fusion PT-OP-B Current Condition Start: 03/24/19 11:13 Freq: Status: Active Protocol: Document 04/07/19 09:00 SAK (Rec: 04/07/19 12:53 SAK [id number]) Current Condition History of Current Condition Onset Date 02/09/20 Current Complaints severe pain left hip History of Current Condition Went to ER due to severe pain down left LE from buttock around to front of thigh to knee with no known cause. Went to ER, had a couple shots . Some better now. States since onset of the pain he has had some weakness left LE and some numbness left medial knee both of which persist; fell x 1 down stairs due to left leg giving way. States he feels he is walking awkwardly, and continues to have some pain but improved. No known cause of pain, states he hadn't done anything unusual except more sedentary due to some worsened depression which he feels is now improving. 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, with interval progression since 03/20/14 Treatment Goals Patient/Caregiver Goals decrease pain, improve tolerance for activity PT-OP-C Subjective Start: 03/24/19 11:13 Freq: Status: Active Protocol: Document 05/03/19 08:39 SAK (Rec: 05/03/19 09:00 SAK [id number]) OP-PT Subjective Patient Comments Patient Comments Reports a lot less pain in am. Left LE still feels weak. Went to pool and fitness center yesterday, developing consistent worwkout, wants to discuss. PT-OP-F Manual Assessment Start: 03/24/19 11:13 Freq: Status: Active Protocol: Document 03/24/19 11:21 [facility] (Rec: 03/24/19 15:53 [facility] [id number]) Manual Assessments Soft Tissue Assessment Soft Tissue Mobility Assessment tender to palpation bilateral lumbar paraspinals PT-OP-H Neuro Start: 03/24/19 11:13 Freq: Status: Active Protocol: Document 03/24/19 11:21 SAK (Rec: 03/24/19 15:53 [facility] [id number]) Sensation Evaluation Gross Sensation Gross Sensation Left LE Impaired Sensation Description Numbness Dermatome Impairments L4 Deep Tendon Reflex & Clonus Assessment Deep Tendon Reflex Left Patellar Deep Tendon Reflex 1+ Diminished Right Patellar Deep Tendon Reflex 2+ Normal PT-OP-J Posture/Palpation/Skin Start: 03/24/19 11:13 Freq: Status: Active Protocol: Document 03/24/19 11:21 [facility] (Rec: 03/24/19 15:53 [facility] [id number]) Posture Evaluation Position Sitting Head/C-Spine Posture Forward Head T-Spine Posture Increased Kyphosis L-Spine Posture Flattened Scapula Posture (L) Protracted,(R) Protracted Hip Posture (L) Externally Rotated,(R) Externally Rotated Palpation Assessment Location lumbar paraspinals Palpation Findings Soft Tissue Tightness, Tenderness PT-OP-K Range of Motion Start: 03/24/19 11:13 Freq: Status: Active Protocol: Document 03/24/19 11:21 [facility] (Rec: 03/24/19 15:53 [facility] [id number]) Lumbar Spine Range of Motion Lumbar Spine Active Testing Position Standing ROM Limitations Soft Tissue Tightness,Pain Comments moderate decrease due to pain in flexion, some relief of pain with extension. Hip Goniometric Range of Motion Hip Left Hip ROM WFL No Flexion w/Knee Flexed 105 Straight Leg Raise 75 Extension 5 Abduction 40 Internal Rotation 20 External Rotation 55 right Hip ROM WFL No Flexion w/Knee Flexed 110 Straight Leg Raise 70 Extension 0 Abduction 40 Internal Rotation 25 External Rotation 55 Hip ROM Limitations Hip ROM Limitations Soft Tissue Tightness Knee Goniometric Range of Motion Knee jennyfer Knee ROM WFL Yes Ankle and Foot Goniometric Range of Motion Ankle and Foot jennyfer Ankle/Foot ROM WFL Yes PT-OP-L Special Tests Start: 03/24/19 11:13 Freq: Status: Active Protocol: Document 03/24/19 11:21 [facility] (Rec: 03/24/19 15:53 [facility] [id number]) Special Tests Lumbar Spine Special Tests Manual Traction Test Results decrease in pain, symptoms Compression Test Results increase in pain Neural Special Tests- Lower Body Sciatic Nerve Tension Test Results negative jennyfer PT-OP-Q Treatments Start: 03/24/19 11:13 Freq: Status: Active Protocol: Document 05/03/19 08:39 [facility] (Rec: 05/03/19 09:00 [facility] [id number]) Gym Equipment Shuttle Balance red Details balance and wt shift Comments fwd/bck, side emphasis on core stab Therapeutic Ball 1 Exercise Details seated balance and weight shift, LAQ Ball Size/Color 65 cm Body Position seated Therapeutic Exercises Standing Exercises 4 way hip Resistance yellow band Reps/Minutes 10x ea lunge Reps/Minutes 10x ea SLS Side bilateral Reps/Minutes 5x ea Other Exercises opp UE/LE lift Reps/Minutes 10x Comments quadriped Therapeutic Activity Therapeutic Activity floor transfer Reps/Minutes 1x Comments SBA, cues, UE support on chair Gait Training Gait Activity 1 Description with mirror for visual feedback Treatment Focus mechanics, decrease lateral sway, gluteal activation Self-Care/Home Management Treatment Education Patient Education Fall Risk,Home Exercise Program PT-OP-R Modalities Start: 03/24/19 11:13 Freq: Status: Active Protocol: Document 05/03/19 08:39 [facility] (Rec: 05/03/19 09:00 [facility] [id number]) Hot Pack/Cold Pack Treatment Cold Pack Location lumbar spine jennyfer Patient Position Hooklying Treatment Duration (minutes) 10 Patient Tolerance Good Comments After PTx Spinal Traction Traction Treatment Lumbar Method Mechanical,Intermittent Patient Position Hooklying Force Applied (Pounds) 70 Intermittent Time On (Seconds) 30 Intermittent Time Off (Seconds) 10 Duration of Treatment (Minutes) 10 Heating Pad Applied Yes Traction Treatment Comment ice pack after treatmenet x 10 min PT-OP-T Assessment and Plan Start: 03/24/19 11:13 Freq: Status: Active Protocol: Document 05/03/19 08:39 [facility] (Rec: 05/03/19 09:00 [facility] [id number]) Physical Therapy Assessment Impairments Impairments Functional Activities, Sensation,Strength Goals Three Impairment Oswestry disability index score 32% Short Term Goal (STG) Decrease Oswestry disability index score to no greater than 20%. STG Duration 6 wks Intermediate Goal (LTG) Decrease Oswestry disability index score to no greater than 10% with patient able to resume all usual activities LTG Duration 12 wks Two Impairment neurological signs in left LE Short Term Goal (STG) decrease neurological signs left LE STG Duration 6 wks Intermediate Goal (LTG) eliminate neurological signs left LE with patient reporting return of normal sensation and no giving way of his leg One Impairment weakness Short Term Goal (STG) Instruct in HEP for purposes of core and LE strengthening and stabilization STG Duration 6 wks Intermediate Goal (LTG) Patient to demonstrate strength at least 4+/5 in LE and core muscle strength and be independent in HEP and aquatic exercise program LTG Duration 12 wks Assessment Summary Assessment Patient pain decreasing with use of traction, patient also doing deep water traction at end of aquatic workout. Able to progress land-based exercises today for core strengthening and stabilization, balnce, gait. Physical Therapy Plan Frequency and Duration Frequency of Treatment 2x/Week Duration of Treatment 12 wks Plan of Care Start Date 03/24/19 Plan of Care End Date 06/22/19 Therapeutic Interventions Therapeutic Interventions Aquatic Therapy,Home Exercise Program,Manual Therapy, Neuromuscular Re-education, Patient/Caregiver Education, Self-Care/Home Management,Soft Tissue Mobilization,Taping, Therapeutic Activities, Therapeutic Exercises Modalities Cold Pack/Ice Massage,Electric Stimulation,Hot Packs, Ultrasound Next Visit Focus/Plan Next Note Type Treatment Note Next Visit Plan Continue to progress with core strengthening, balance, simulate getting in/out of kayak.
--- NOTE | 2019-05-05 09:25 | PT.OTN ---
Current Diagnoses Lumbago with sciatica, left side (05/05/19) Weakness (05/05/19) Physical Therapy Treatment Note PT-OP-A Visit Information Start: 03/24/19 11:13 Freq: Status: Active Protocol: Document 05/05/19 08:11 SAK (Rec: 05/05/19 09:17 SAK [id number]) Out-Patient Physical Therapy Visit Information Visit Information Visit Type Treatment Note Visit Start Time 08:15 Visit Stop Time 09:11 Total Visit Minutes 58 Visit Number 9 Number of DIE CAST TECHNICIAN Visits 0 Precautions Precautions history of lumbar laminectomy (patient brought op report to clarify), cervical fusion PT-OP-B Current Condition Start: 03/24/19 11:13 Freq: Status: Active Protocol: Document 04/07/19 09:00 SAK (Rec: 04/07/19 12:53 SAK [id number]) Current Condition History of Current Condition Onset Date 02/09/20 Current Complaints severe pain left hip History of Current Condition Went to ER due to severe pain down left LE from buttock around to front of thigh to knee with no known cause. Went to ER, had a couple shots . Some better now. States since onset of the pain he has had some weakness left LE and some numbness left medial knee both of which persist; fell x 1 down stairs due to left leg giving way. States he feels he is walking awkwardly, and continues to have some pain but improved. No known cause of pain, states he hadn't done anything unusual except more sedentary due to some worsened depression which he feels is now improving. 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, with interval progression since 03/20/14 Treatment Goals Patient/Caregiver Goals decrease pain, improve tolerance for activity PT-OP-C Subjective Start: 03/24/19 11:13 Freq: Status: Active Protocol: Document 05/05/19 08:11 [facility]AK (Rec: 05/05/19 09:23 SAK [id number]) OP-PT Subjective Patient Comments Patient Comments Patient continues to express interest in sea kayaking. Admits last time he was in a kayak was around 2004. Willing to work on simulation in PT to identify any physical obstacles to being able to kayak safely. PT-OP-F Manual Assessment Start: 03/24/19 11:13 Freq: Status: Active Protocol: Document 03/24/19 11:21 [facility] (Rec: 03/24/19 15:53 [facility] [id number]) Manual Assessments Soft Tissue Assessment Soft Tissue Mobility Assessment tender to palpation bilateral lumbar paraspinals PT-OP-H Neuro Start: 03/24/19 11:13 Freq: Status: Active Protocol: Document 03/24/19 11:21 [facility]AK (Rec: 03/24/19 15:[address] [facility] [id number]) Sensation Evaluation Gross Sensation Gross Sensation Left LE Impaired Sensation Description Numbness Dermatome Impairments L4 Deep Tendon Reflex & Clonus Assessment Deep Tendon Reflex Left Patellar Deep Tendon Reflex 1+ Diminished Right Patellar Deep Tendon Reflex 2+ Normal PT-OP-J Posture/Palpation/Skin Start: 03/24/19 11:13 Freq: Status: Active Protocol: Document 03/24/19 11:21 [facility] (Rec: 03/24/19 15:[address] [facility] [id number]) Posture Evaluation Position Sitting Head/C-Spine Posture Forward Head T-Spine Posture Increased Kyphosis L-Spine Posture Flattened Scapula Posture (L) Protracted,(R) Protracted Hip Posture (L) Externally Rotated,(R) Externally Rotated Palpation Assessment Location lumbar paraspinals Palpation Findings Soft Tissue Tightness, Tenderness PT-OP-K Range of Motion Start: 03/24/19 11:13 Freq: Status: Active Protocol: Document 03/24/19 11:21 [facility] (Rec: 03/24/19 15:[address] [facility] [id number]) Lumbar Spine Range of Motion Lumbar Spine Active Testing Position Standing ROM Limitations Soft Tissue Tightness,Pain Comments moderate decrease due to pain in flexion, some relief of pain with extension. Hip Goniometric Range of Motion Hip Left Hip ROM WFL No Flexion w/Knee Flexed 105 Straight Leg Raise 75 Extension 5 Abduction 40 Internal Rotation 20 External Rotation 55 right Hip ROM WFL No Flexion w/Knee Flexed 110 Straight Leg Raise 70 Extension 0 Abduction 40 Internal Rotation 25 External Rotation 55 Hip ROM Limitations Hip ROM Limitations Soft Tissue Tightness Knee Goniometric Range of Motion Knee jennyfer Knee ROM WFL Yes Ankle and Foot Goniometric Range of Motion Ankle and Foot jennyfer Ankle/Foot ROM WFL Yes PT-OP-L Special Tests Start: 03/24/19 11:13 Freq: Status: Active Protocol: Document 03/24/19 11:21 [facility] (Rec: 03/24/19 15:[address] [facility] [id number]) Special Tests Lumbar Spine Special Tests Manual Traction Test Results decrease in pain, symptoms Compression Test Results increase in pain Neural Special Tests- Lower Body Sciatic Nerve Tension Test Results negative jennyfer PT-OP-Q Treatments Start: 03/24/19 11:13 Freq: Status: Active Protocol: Document 05/05/19 08:11 [facility] (Rec: 05/05/19 09:17 [facility] [id number]) Cardio Equipment Recumbent Stepper (Sci-Fit) Duration (Minutes) 5 Resistance 2.5 Seat Position 11 Treadmill Duration (Minutes) 5 Speed 2.8 Incline 3 Other emphasis on neutral alignment, gluteal activation Gym Equipment Shuttle Balance yellow Details seated, standing Comments seated bal, lifting LE's off surface for bal and core strengthening standing throwing soccer ball into rebounder, walking across with min UE use (min to mod assist with gait belt) Therapeutic Exercises Supine Exercises hamstring stretch Reps/Minutes 2 Comments manual DKTC, SKTC Reps/Minutes 10x Standing Exercises lunges Reps/Minutes 10x2 HC stretch Equipment Used JOSE Reps/Minutes 2x Therapeutic Activity Therapeutic Activity simulated transfer in/out kayak Comments use of BOSU , chair, foam pads Self-Care/Home Management Treatment Education Other Education challenges of getting into and out of a kayak, safety, need to break task down, practice on land PT-OP-R Modalities Start: 03/24/19 11:13 Freq: Status: Active Protocol: Document 05/05/19 08:11 [facility] (Rec: 05/05/19 09:17 [facility] [id number]) Hot Pack/Cold Pack Treatment Cold Pack Location lumbar spine jennyfer Patient Position Hooklying Treatment Duration (minutes) 10 Patient Tolerance Good Comments After PTx Spinal Traction Traction Treatment Lumbar Method Mechanical,Intermittent Patient Position Hooklying Force Applied (Pounds) 80 Intermittent Time On (Seconds) 30 Intermittent Time Off (Seconds) 10 Duration of Treatment (Minutes) 10 Heating Pad Applied Yes Traction Treatment Comment ice pack after treatmenet x 10 min PT-OP-T Assessment and Plan Start: 03/24/19 11:13 Freq: Status: Active Protocol: Document 05/05/19 08:11 [facility] (Rec: 05/05/19 09:17 [facility] [id number]) Physical Therapy Assessment Impairments Impairments Functional Activities, Sensation,Strength Goals Three Impairment Oswestry disability index score 32% Short Term Goal (STG) Decrease Oswestry disability index score to no greater than 20%. STG Duration 6 wks Fdc Goal (LTG) Decrease Oswestry disability index score to no greater than 10% with patient able to resume all usual activities LTG Duration 12 wks Two Impairment neurological signs in left LE Short Term Goal (STG) decrease neurological signs left LE STG Duration 6 wks Fdc Goal (LTG) eliminate neurological signs left LE with patient reporting return of normal sensation and no giving way of his leg One Impairment weakness Short Term Goal (STG) Instruct in HEP for purposes of core and LE strengthening and stabilization STG Duration 6 wks Fdc Goal (LTG) Patient to demonstrate strength at least 4+/5 in LE and core muscle strength and be independent in HEP and aquatic exercise program LTG Duration 12 wks Assessment Summary Assessment Much difficulty with simulated in/out of kayak, on off BOSU on shuttle balance; patient expressing realistic concerns over his current ability to get in/out of a kayak due to strength, flexibility, and balance issues. Receptive to discussion about steps to take to move toward that goal. Denied increase in pain with practice. Physical Therapy Plan Frequency and Duration Frequency of Treatment 2x/Week Duration of Treatment 12 wks Plan of Care Start Date 03/24/19 Plan of Care End Date 06/22/19 Therapeutic Interventions Therapeutic Interventions Aquatic Therapy,Home Exercise Program,Manual Therapy, Neuromuscular Re-education, Patient/Caregiver Education, Self-Care/Home Management,Soft Tissue Mobilization,Taping, Therapeutic Activities, Therapeutic Exercises Modalities Cold Pack/Ice Massage,Electric Stimulation,Hot Packs, Ultrasound Next Visit Focus/Plan Next Note Type Treatment Note Next Visit Plan Continue to progress with core strengthening, balance, simulate getting in/out of kayak.
--- NOTE | 2019-05-11 17:22 | PT.OTN ---
Current Diagnoses Lumbago with sciatica, left side (05/11/19) Weakness (05/11/19) Physical Therapy Treatment Note PT-OP-A Visit Information Start: 03/24/19 11:13 Freq: Status: Active Protocol: Document 05/11/19 08:16 [facility] (Rec: 05/11/19 09:01 [facility] [id number]) Out-Patient Physical Therapy Visit Information Visit Information Visit Type Treatment Note Visit Start Time 08:15 Visit Stop Time 09:11 Total Visit Minutes 60 Visit Number 10 Number of CIVIL CLERK Visits 0 Precautions Precautions history of lumbar laminectomy (patient brought op report to clarify), cervical fusion PT-OP-B Current Condition Start: 03/24/19 11:13 Freq: Status: Active Protocol: Document 04/07/19 09:00 [facility] (Rec: 04/07/19 12:53 [facility] [id number]) Current Condition History of Current Condition Onset Date 02/09/20 Current Complaints severe pain left hip History of Current Condition Went to ER due to severe pain down left LE from buttock around to front of thigh to knee with no known cause. Went to ER, had a couple shots . Some better now. States since onset of the pain he has had some weakness left LE and some numbness left medial knee both of which persist; fell x 1 down stairs due to left leg giving way. States he feels he is walking awkwardly, and continues to have some pain but improved. No known cause of pain, states he hadn't done anything unusual except more sedentary due to some worsened depression which he feels is now improving. 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, with interval progression since 03/20/14 Treatment Goals Patient/Caregiver Goals decrease pain, improve tolerance for activity PT-OP-C Subjective Start: 03/24/19 11:13 Freq: Status: Active Protocol: Document 05/11/19 08:16 [facility] (Rec: 05/11/19 09:01 [facility] [id number]) OP-PT Subjective Patient Comments Patient Comments Thinks gait a little better, less giving way of left LE. Thinks he walks better most of the time without his cane due relying on cane. Sore from workout at gym. PT-OP-F Manual Assessment Start: 03/24/19 11:13 Freq: Status: Active Protocol: Document 03/24/19 11:21 [facility] (Rec: 03/24/19 15:53 [facility] [id number]) Manual Assessments Soft Tissue Assessment Soft Tissue Mobility Assessment tender to palpation bilateral lumbar paraspinals PT-OP-H Neuro Start: 03/24/19 11:13 Freq: Status: Active Protocol: Document 03/24/19 11:21 [facility] (Rec: 03/24/19 15:53 [facility] [id number]) Sensation Evaluation Gross Sensation Gross Sensation Left LE Impaired Sensation Description Numbness Dermatome Impairments L4 Deep Tendon Reflex & Clonus Assessment Deep Tendon Reflex Left Patellar Deep Tendon Reflex 1+ Diminished Right Patellar Deep Tendon Reflex 2+ Normal PT-OP-J Posture/Palpation/Skin Start: 03/24/19 11:13 Freq: Status: Active Protocol: Document 03/24/19 11:21 [facility] (Rec: 03/24/19 15:53 [facility] [id number]) Posture Evaluation Position Sitting Head/C-Spine Posture Forward Head T-Spine Posture Increased Kyphosis L-Spine Posture Flattened Scapula Posture (L) Protracted,(R) Protracted Hip Posture (L) Externally Rotated,(R) Externally Rotated Palpation Assessment Location lumbar paraspinals Palpation Findings Soft Tissue Tightness, Tenderness PT-OP-K Range of Motion Start: 03/24/19 11:13 Freq: Status: Active Protocol: Document 03/24/19 11:21 [facility] (Rec: 03/24/19 15:53 [facility] [id number]) Lumbar Spine Range of Motion Lumbar Spine Active Testing Position Standing ROM Limitations Soft Tissue Tightness,Pain Comments moderate decrease due to pain in flexion, some relief of pain with extension. Hip Goniometric Range of Motion Hip Left Hip ROM WFL No Flexion w/Knee Flexed 105 Straight Leg Raise 75 Extension 5 Abduction 40 Internal Rotation 20 External Rotation 55 right Hip ROM WFL No Flexion w/Knee Flexed 110 Straight Leg Raise 70 Extension 0 Abduction 40 Internal Rotation 25 External Rotation 55 Hip ROM Limitations Hip ROM Limitations Soft Tissue Tightness Knee Goniometric Range of Motion Knee jennyfer Knee ROM WFL Yes Ankle and Foot Goniometric Range of Motion Ankle and Foot jennyfer Ankle/Foot ROM WFL Yes PT-OP-L Special Tests Start: 03/24/19 11:13 Freq: Status: Active Protocol: Document 03/24/19 11:21 [facility] (Rec: 03/24/19 15:53 [facility] [id number]) Special Tests Lumbar Spine Special Tests Manual Traction Test Results decrease in pain, symptoms Compression Test Results increase in pain Neural Special Tests- Lower Body Sciatic Nerve Tension Test Results negative jennyfer PT-OP-Q Treatments Start: 03/24/19 11:13 Freq: Status: Active Protocol: Document 05/11/19 08:16 [facility] (Rec: 05/11/19 09:01 [facility] [id number]) Cardio Equipment Recumbent Stepper (Sci-Fit) Duration (Minutes) 10 Resistance 2.5 Seat Position 11 Therapeutic Exercises Supine Exercises hamstring stretch Reps/Minutes 2 Comments manual DKTC, SKTC Reps/Minutes 10x Standing Exercises lunges Reps/Minutes 10x2 [address] way hip Resistance yellow band Reps/Minutes 10x ea HC stretch Equipment Used JOSE Reps/Minutes 2x Therapeutic Activity Therapeutic Activity simulated transfer in/out kayak Comments BOSU (flat side down) on shuttle balance chains green; seated, lifting LE's for balance/core work Gait Training Gait Activity 1 Description with mirror for visual feedback Treatment Focus mechanics, decrease lateral sway, gluteal activation PT-OP-R Modalities Start: 03/24/19 11:13 Freq: Status: Active Protocol: Document 05/11/19 08:16 [facility] (Rec: 05/11/19 09:01 [facility] [id number]) Hot Pack/Cold Pack Treatment Cold Pack Location lumbar spine jennyfer Patient Position Hooklying Treatment Duration (minutes) 10 Patient Tolerance Good Comments After PTx Spinal Traction Traction Treatment Lumbar Method Mechanical,Intermittent Patient Position Hooklying Force Applied (Pounds) 80 Intermittent Time On (Seconds) 30 Intermittent Time Off (Seconds) 10 Duration of Treatment (Minutes) 10 Heating Pad Applied Yes Traction Treatment Comment ice pack after treatmenet x 10 min PT-OP-T Assessment and Plan Start: 03/24/19 11:13 Freq: Status: Active Protocol: Document 05/11/19 08:16 [facility] (Rec: 05/11/19 09:01 [facility] [id number]) Physical Therapy Assessment Goals Three Impairment Oswestry disability index score 32% Short Term Goal (STG) Decrease Oswestry disability index score to no greater than 20%. 05/11/19: goal met- 14% STG Duration goal met Bank Note Designer Goal (LTG) Decrease Oswestry disability index score to no greater than 10% with patient able to resume all usual activities 05/11/19: 14%, good goal progress LTG Duration 12 wks Two Impairment neurological signs in left LE Short Term Goal (STG) decrease neurological signs left LE 05/11/19: good goal progress STG Duration 6 wks Correction Goal (LTG) eliminate neurological signs left LE with patient reporting return of normal sensation and no giving way of his leg 05/11/19: decreased frequency of leg giving way though parethesia continues LTG Duration 12 wks One Impairment weakness Short Term Goal (STG) Instruct in HEP for purposes of core and LE strengthening and stabilization 05/11/19: goal met STG Duration goal met Bank Note Designer Goal (LTG) Patient to demonstrate strength at least 4+/5 in LE and core muscle strength and be independent in HEP and aquatic exercise program 05/11/19: good goal progress; achieved at knee, progress with hip and ankle LTG Duration 12 wks Assessment Summary Assessment Patient demonstrating good improvement with decreased frequency of LE giving way, improved LE strength, improving compliance to HEP. Has potential for further improvements with continued PT . Physical Therapy Plan Frequency and Duration Frequency of Treatment 2x/Week Duration of Treatment 12 wks Plan of Care Start Date 03/24/19 Plan of Care End Date 06/22/19 Therapeutic Interventions Therapeutic Interventions Aquatic Therapy,Home Exercise Program,Manual Therapy, Neuromuscular Re-education, Patient/Caregiver Education, Self-Care/Home Management,Soft Tissue Mobilization,Taping, Therapeutic Activities, Therapeutic Exercises Modalities Cold Pack/Ice Massage,Electric Stimulation,Hot Packs, Ultrasound Next Visit Focus/Plan Next Note Type Treatment Note Next Visit Plan Patient to continue with HEP and aquatic ex program independnetly for approximately 3 weeks, then return for reassessment, further progression and modification of HEP as indicated, progress therapeutic activities.
--- NOTE | 2019-09-21 16:46 | PT.OTRE ---
Current Diagnoses Lumbago with sciatica, left side (09/21/19) Weakness (09/21/19) Past Medical History (Last Reviewed 07/07/19 @ 09:42 by Surjit Mcdaniel MD) Acute diverticulitis (Acute) [id number] (Acute) Lumbar stenosis with neurogenic claudication (Acute) Obstructive sleep apnea of adult (Chronic) Shoulder sprain (Acute) Sprain of shoulder, left (Acute) Visit Care Team Role Provider Type Georgia Raymond PA-C Attending Provider Physician Primary Care Provider Specialty: Internal Medicine Address: [address] [place] [address] Email: [email or web address] Physical Therapy Re-Evaluation PT-OP-A Visit Information Start: 03/24/19 11:13 Freq: Status: Active Protocol: Document 09/21/19 12:10 [facility] (Rec: 09/21/19 13:00 [facility] [id number]) Out-Patient Physical Therapy Visit Information Visit Information Visit Type Re-Evaluation Visit Start Time 08:15 Visit Stop Time 09:11 Total Visit Minutes 60 Visit Number 10 Number of HEALTH AIDE Visits 0 Precautions Precautions history of lumbar laminectomy (patient brought op report to clarify), cervical fusion PT-OP-B Current Condition Start: 03/24/19 11:13 Freq: Status: Active Protocol: Document 04/07/19 09:00 [facility] (Rec: 04/07/19 12:53 [facility] [id number]) Current Condition History of Current Condition Onset Date 02/09/20 Current Complaints severe pain left hip History of Current Condition Went to ER due to severe pain down left LE from buttock around to front of thigh to knee with no known cause. Went to ER, had a couple shots . Some better now. States since onset of the pain he has had some weakness left LE and some numbness left medial knee both of which persist; fell x 1 down stairs due to left leg giving way. States he feels he is walking awkwardly, and continues to have some pain but improved. No known cause of pain, states he hadn't done anything unusual except more sedentary due to some worsened depression which he feels is now improving. 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, with interval progression since 03/20/14 Treatment Goals Patient/Caregiver Goals decrease pain, improve tolerance for activity PT-OP-C Subjective Start: 03/24/19 11:13 Freq: Status: Active Protocol: Document 09/21/19 12:10 [facility] (Rec: 09/21/19 13:00 [facility] [id number]) OP-PT Subjective Patient Comments Patient Comments LBP and shoulder pain mostly manageable. C/o numbness left LE and also weakness since last back surgery 2015 , affects walking and other activities because left LE will give way at times. Has been back to the pool for aquatic exercise which he finds helpful. Can't ride bicycle safely. Uses a cane at the pool. States he did feel like it was strengthening before shut down due to Covid . Feels traction very helpful , would feel stronger the next day. Agreeable to return to doctor for consult. PT-OP-F Manual Assessment Start: 03/24/19 11:13 Freq: Status: Active Protocol: Document 03/24/19 11:21 [facility] (Rec: 03/24/19 15:53 [facility] [id number]) Manual Assessments Soft Tissue Assessment Soft Tissue Mobility Assessment tender to palpation bilateral lumbar paraspinals PT-OP-H Neuro Start: 03/24/19 11:13 Freq: Status: Active Protocol: Document 03/24/19 11:21 [facility] (Rec: 03/24/19 15:53 [facility] [id number]) Sensation Evaluation Gross Sensation Gross Sensation Left LE Impaired Sensation Description Numbness Dermatome Impairments L4 Deep Tendon Reflex & Clonus Assessment Deep Tendon Reflex Left Patellar Deep Tendon Reflex 1+ Diminished Right Patellar Deep Tendon Reflex 2+ Normal PT-OP-J Posture/Palpation/Skin Start: 03/24/19 11:13 Freq: Status: Active Protocol: Document 03/24/19 11:21 [facility] (Rec: 03/24/19 15:53 [facility] [id number]) Posture Evaluation Position Sitting Head/C-Spine Posture Forward Head T-Spine Posture Increased Kyphosis L-Spine Posture Flattened Scapula Posture (L) Protracted,(R) Protracted Hip Posture (L) Externally Rotated,(R) Externally Rotated Palpation Assessment Location lumbar paraspinals Palpation Findings Soft Tissue Tightness, Tenderness PT-OP-K Range of Motion Start: 01/16/20 11:13 Freq: Status: Active Protocol: Document 03/24/19 11:21 [facility] (Rec: 03/24/19 15:53 [facility] [id number]) Lumbar Spine Range of Motion Lumbar Spine Active Testing Position Standing ROM Limitations Soft Tissue Tightness,Pain Comments moderate decrease due to pain in flexion, some relief of pain with extension. Hip Goniometric Range of Motion Hip Measured in Degrees Left Hip ROM WFL No Flexion w/Knee Flexed 105 Straight Leg Raise 75 Extension 5 Abduction 40 Internal Rotation 20 External Rotation 55 right Hip ROM WFL No Flexion w/Knee Flexed 110 Straight Leg Raise 70 Extension 0 Abduction 40 Internal Rotation 25 External Rotation 55 Hip ROM Limitations Hip ROM Limitations Soft Tissue Tightness Knee Goniometric Range of Motion Knee Measured in Degrees jennyfer Knee ROM WFL Yes Ankle and Foot Goniometric Range of Motion Ankle and Foot Measured in Degrees jennyfer Ankle/Foot ROM WFL Yes PT-OP-L Special Tests Start: 03/24/19 11:13 Freq: Status: Active Protocol: Document 03/24/19 11:21 [facility] (Rec: 03/24/19 15:53 [facility] [id number]) Special Tests Lumbar Spine Special Tests Manual Traction Test Results decrease in pain, symptoms Compression Test Results increase in pain Neural Special Tests- Lower Body Sciatic Nerve Tension Test Results negative jennyfer PT-OP-Q Treatments Start: 03/24/19 11:13 Freq: Status: Active Protocol: Document 09/21/19 12:10 [facility] (Rec: 09/21/19 13:00 [facility] [id number]) Therapeutic Exercises Supine Exercises figure 4 stretch Reps/Minutes 2x30 hamstring stretch Reps/Minutes 2 Comments strap Self-Care/Home Management Treatment Education Patient Education Home Exercise Program,Posture PT-OP-R Modalities Start: 03/24/19 11:13 Freq: Status: Active Protocol: Document 05/11/19 08:16 [facility] (Rec: 05/11/19 09:01 [facility] [id number]) Hot Pack/Cold Pack Treatment Cold Pack Location lumbar spine jennyfer Patient Position Hooklying Treatment Duration (minutes) 10 Patient Tolerance Good Comments After PTx Spinal Traction Traction Treatment Lumbar Method Mechanical,Intermittent Patient Position Hooklying Force Applied (Pounds) 80 Intermittent Time On (Seconds) 30 Intermittent Time Off (Seconds) 10 Duration of Treatment (Minutes) 10 Heating Pad Applied Yes Traction Treatment Comment ice pack after treatmenet x 10 min PT-OP-T Assessment and Plan Start: 03/24/19 11:13 Freq: Status: Active Protocol: Document 09/21/19 12:10 [facility] (Rec: 09/21/19 13:00 [facility] [id number]) Physical Therapy Assessment Goals Four Impairment posture Short Term Goal (STG) Patient will improve his postural awareness and be able to self-correct 75% STG Duration goal met Costing Analyst Goal (LTG) Patient will demonstrate improved postural alignment statically and dynamically with usual activities, especially artwork 09/21/19: good progress LTG Duration 11/20/19 Three Impairment Oswestry disability index score 32% Short Term Goal (STG) Decrease Oswestry disability index score to no greater than 20%. 05/11/19: goal met- 14% STG Duration goal met Costing Analyst Goal (LTG) Decrease Oswestry disability index score to no greater than 10% with patient able to resume all usual activities 05/11/19: 14%, good goal progress 09/21/19: 15% minimal change LTG Duration 11/20/19 Two Impairment neurological signs in left LE Short Term Goal (STG) decrease neurological signs left LE 05/11/19: good goal progress 09/21/19: persists STG Duration 10/22/19 Halfway Goal (LTG) eliminate neurological signs left LE with patient reporting return of normal sensation and no giving way of his leg 05/11/19: decreased frequency of leg giving way though parethesia 09/21/19: neurological signs have persisted and increased since last seen in PT LTG Duration 11/20/19 One Impairment weakness Short Term Goal (STG) Instruct in HEP for purposes of core and LE strengthening and stabilization 05/11/19: goal met STG Duration goal met Costing Analyst Goal (LTG) Patient to demonstrate strength at least 4+/5 in LE and core muscle strength and be independent in HEP and aquatic exercise program 05/11/19: good goal progress; achieved at knee, progress with hip and ankle 09/21/19: weakness noted in left hip ex, abd, ER, and great toe ext. LTG Duration 11/20/19 Assessment Summary Assessment Patient reports since last seen in PT (prior to Covid19 closure) has had increased incidence of his left leg giving way, feels increased atrophy of his leg. Circumferential measurements reveal increase in atrophy, sensory changes persist in left LE and decreased strength in left hip and great toe extension present. Recommend he consult with his physician, continue with PT, and as lumbar traction previously helpful, may want to consider home traction unit. Patient has resumed aquatic exercise on his own which has previously been beneficial. Physical Therapy Plan Frequency and Duration Frequency of Treatment 2x/Week Duration of Treatment 8 wks Plan of Care Start Date 09/21/19 Plan of Care End Date 11/20/19 Therapeutic Interventions Therapeutic Interventions Aquatic Therapy,Home Exercise Program,Manual Therapy, Neuromuscular Re-education, Patient/Caregiver Education, Self-Care/Home Management,Soft Tissue Mobilization,Taping, Therapeutic Activities, Therapeutic Exercises Modalities Cold Pack/Ice Massage,Electric Stimulation,Hot Packs, Ultrasound Next Visit Focus/Plan Next Note Type Treatment Note Next Visit Plan Due to Covid19 closure and patient decline in functional status recommend he return to PT as well as consult with his physician and possibly surgeon regarding the 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
--- NOTE | 2019-09-21 16:46 | PT.OPPOC ---
Physical, Occupational & Speech Therapy At [facility] Current Diagnoses Lumbago with sciatica, left side (09/21/19) Weakness (09/21/19) Visit Care Team Role Provider Type Georgia Raymond PA-C Attending Provider Physician Primary Care Provider Specialty: Internal Medicine Address: [address] [place] [address], [facility] Email: [email or web address] Plan Of Care PT-OP-T Assessment and Plan Start: 03/24/19 11:13 Freq: Status: Active Protocol: Document 09/21/19 12:10 [facility] (Rec: 09/21/19 13:00 [facility] [id number]) Physical Therapy Assessment Goals Four Impairment posture Short Term Goal (STG) Patient will improve his postural awareness and be able to self-correct 75% STG Duration goal met Mcfp Goal (LTG) Patient will demonstrate improved postural alignment statically and dynamically with usual activities, especially artwork 09/21/19: good progress LTG Duration 11/20/19 Three Impairment Oswestry disability index score 32% Short Term Goal (STG) Decrease Oswestry disability index score to no greater than 20%. 05/11/19: goal met- 14% STG Duration goal met Configuration Management Specialist Goal (LTG) Decrease Oswestry disability index score to no greater than 10% with patient able to resume all usual activities 05/11/19: 14%, good goal progress 09/21/19: 15% minimal change LTG Duration 11/20/19 Two Impairment neurological signs in left LE Short Term Goal (STG) decrease neurological signs left LE 05/11/19: good goal progress 09/21/19: persists STG Duration 10/22/19 Mcfp Goal (LTG) eliminate neurological signs left LE with patient reporting return of normal sensation and no giving way of his leg 05/11/19: decreased frequency of leg giving way though parethesia 09/21/19: neurological signs have persisted and increased since last seen in PT LTG Duration 11/20/19 One Impairment weakness Short Term Goal (STG) Instruct in HEP for purposes of core and LE strengthening and stabilization 05/11/19: goal met STG Duration goal met Mcfp Goal (LTG) Patient to demonstrate strength at least 4+/5 in LE and core muscle strength and be independent in HEP and aquatic exercise program 05/11/19: good goal progress; achieved at knee, progress with hip and ankle 09/21/19: weakness noted in left hip ex, abd, ER, and great toe ext. LTG Duration 11/20/19 Assessment Summary Assessment Patient reports since last seen in PT (prior to Covid19 closure) has had increased incidence of his left leg giving way, feels increased atrophy of his leg. Circumferential measurements reveal increase in atrophy, sensory changes persist in left LE and decreased strength in left hip and great toe extension present. Recommend he consult with his physician, continue with PT, and as lumbar traction previously helpful, may want to consider home traction unit. Patient has resumed aquatic exercise on his own which has previously been beneficial. Physical Therapy Plan Frequency and Duration Frequency of Treatment 2x/Week Duration of Treatment 8 wks Plan of Care Start Date 09/21/19 Plan of Care End Date 11/20/19 Therapeutic Interventions Therapeutic Interventions Aquatic Therapy,Home Exercise Program,Manual Therapy, Neuromuscular Re-education, Patient/Caregiver Education, Self-Care/Home Management,Soft Tissue Mobilization,Taping, Therapeutic Activities, Therapeutic Exercises Modalities Cold Pack/Ice Massage,Electric Stimulation,Hot Packs, Ultrasound Next Visit Focus/Plan Next Note Type Treatment Note Next Visit Plan Due to Covid19 closure and patient decline in functional status recommend he return to PT as well as consult with his physician and possibly surgeon regarding the 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 Plan of Care Dates Plan of Care Start Date 09/21/19 Plan of Care End Date 11/20/19 Electronically Signed by: Gema Mascorro, PT 09/21/19 [id number] Please Sign and Return: I have reviewed this Plan of Care and certify that the skilled therapy services above are required to meet the patient?s needs. Physician Signature Date Printed Name and Credentials Clinical Instructor Signature Printed Name and Credentials
--- NOTE | 2019-10-06 08:04 | PT-OP ANOTE ---
Cancelled PT appointment due to not critical and wanting to decrease potential exposure to Covid19.
--- NOTE | 2019-11-09 10:16 | PT.OPDS ---
Current Diagnoses Lumbago with sciatica, left side (09/21/19) Weakness (09/21/19) Visit Care Team Role Provider Type Georgia Raymond PA-C Attending Provider Physician Primary Care Provider Specialty: Internal Medicine Address: [address] [place] [address], [id number] Email: [email or web address], [email or web address] hospital[facility] Visit Number Visit Number 10 Discharge Summary PT-OP-B Current Condition Start: 03/24/19 11:13 Freq: Status: Active Protocol: Document 04/07/19 09:00 SAK (Rec: 04/07/19 12:53 SAK [id number]) Current Condition History of Current Condition Onset Date 02/09/20 Current Complaints severe pain left hip History of Current Condition Went to ER due to severe pain down left LE from buttock around to front of thigh to knee with no known cause. Went to ER, had a couple shots . Some better now. States since onset of the pain he has had some weakness left LE and some numbness left medial knee both of which persist; fell x 1 down stairs due to left leg giving way. States he feels he is walking awkwardly, and continues to have some pain but improved. No known cause of pain, states he hadn't done anything unusual except more sedentary due to some worsened depression which he feels is now improving. 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 C/o numbness left LE and also weakness since last back surgery 2015 , affects walking and other activities because left LE will give way at times. Has been back to the pool for aquatic exercise which he finds helpful. Can't ride bicycle safely. Uses a cane at the pool. States he did feel like it was strengthening before shut down due to Covid . Feels traction very helpful , would feel stronger the next day. Agreeable to return to doctor for consult. PT-OP-F Manual Assessment Start: 03/24/19 11:13 Freq: Status: Active Protocol: Document 03/24/19 11:21 [facility] (Rec: 03/24/19 15:53 [facility] [id number]) Manual Assessments Soft Tissue Assessment Soft Tissue Mobility Assessment tender to palpation bilateral lumbar paraspinals PT-OP-H Neuro Start: 03/24/19 11:13 Freq: Status: Active Protocol: Document 03/24/19 11:21 SAK (Rec: 03/24/19 15:53 [facility] [id number]) Sensation Evaluation Gross Sensation Gross Sensation Left LE Impaired Sensation Description Numbness Dermatome Impairments L4 Deep Tendon Reflex & Clonus Assessment Deep Tendon Reflex Left Patellar Deep Tendon Reflex 1+ Diminished Right Patellar Deep Tendon Reflex 2+ Normal PT-OP-J Posture/Palpation/Skin Start: 03/24/19 11:13 Freq: Status: Active Protocol: Document 03/24/19 11:21 [facility] (Rec: 03/24/19 15:53 [facility] [id number]) Posture Evaluation Position Sitting Head/C-Spine Posture Forward Head T-Spine Posture Increased Kyphosis L-Spine Posture Flattened Scapula Posture (L) Protracted,(R) Protracted Hip Posture (L) Externally Rotated,(R) Externally Rotated Palpation Assessment Location lumbar paraspinals Palpation Findings Soft Tissue Tightness, Tenderness PT-OP-K Range of Motion Start: 03/24/19 11:13 Freq: Status: Active Protocol: Document 03/24/19 11:21 [facility] (Rec: 03/24/19 15:53 [facility] [id number]) Lumbar Spine Range of Motion Lumbar Spine Active Testing Position Standing ROM Limitations Soft Tissue Tightness,Pain Comments moderate decrease due to pain in flexion, some relief of pain with extension. Hip Goniometric Range of Motion Hip Left Hip ROM WFL No Flexion w/Knee Flexed 105 Straight Leg Raise 75 Extension 5 Abduction 40 Internal Rotation 20 External Rotation 55 right Hip ROM WFL No Flexion w/Knee Flexed 110 Straight Leg Raise 70 Extension 0 Abduction 40 Internal Rotation 25 External Rotation 55 Hip ROM Limitations Hip ROM Limitations Soft Tissue Tightness Knee Goniometric Range of Motion Knee jennyfer Knee ROM WFL Yes Ankle and Foot Goniometric Range of Motion Ankle and Foot jennyfer Ankle/Foot ROM WFL Yes PT-OP-L Special Tests Start: 03/24/19 11:13 Freq: Status: Active Protocol: Document 03/24/19 11:21 [facility] (Rec: 03/24/19 15:53 [facility] [id number]) Special Tests Lumbar Spine Special Tests Manual Traction Test Results decrease in pain, symptoms Compression Test Results increase in pain Neural Special Tests- Lower Body Sciatic Nerve Tension Test Results negative jennyfer PT-OP-T Assessment and Plan Start: 03/24/19 11:13 Freq: Status: Active Protocol: Document 11/09/19 10:16 [facility] (Rec: 11/09/19 10:16 [facility] [id number]) Physical Therapy Plan Discharge Physical Therapy Discharge Reasons Patient Request
== END 2019-11-10 11:54 ==
LOC: PHYS 12:30
PROVIDERS: PCP Student in an Organized Health Care Education/Training Program; Visit Provider Student in an Organized Health Care Education/Training Program
DX: M54.42 Lumbago with sciatica, left side (principal); R53.1 Weakness
CPT/HCPCS: 97010; 97012; 97110; 97112; 97162; 97164; 97530; 97535

== ENCOUNTER → 2019-12-28 10:29 | Outpatient (CLI) | payer MEDICARE, OTHER, SELFPAY ==
[2019-12-28 11:55] LABS: Add Manual Diff / Slide Review NO; Basophils Absolute Auto 0 /uL (0-100); Basophils Percent Auto 0.6 % (0-2); Eosinophils Absolute Auto 100 /uL (0-450); Eosinophils Percent Auto 2.1 % (2-4); Hematocrit 44.8 % (41-53); Hemoglobin 15.2 g/dL (13.5-17.5); Lymphocytes Absolute Auto 1700 /uL (1100-4500); Lymphocytes Percent Auto 28.7 % (25-40); Mean Corpuscular HGB Conc 33.9 % (30-36); Mean Corpuscular Hemoglobin 32.4 PG (26-34); Mean Corpuscular Volume 95.7 fL (80-100); Monocytes Absolute Auto 700 /uL (0-900); Monocytes Percent Auto 12.1 % (3-14); Neutrophils Absolute Auto 3300 /uL (1500-7000); Neutrophils Percent Auto 56.5 % (50-75); Platelet Count 200 X10^3/uL (150-400); Red Blood Cell Count 4.68 X10^6/uL (4.5-5.9); Red Cell Distribution Width 12.7 % (11.6-14.8); White Blood Cell Count 5.9 X10^3/uL (4.5-11.0)
[2019-12-28 12:19] LABS: Alanine Aminotransferase 41 IU/L (<50); Albumin 4.5 g/dL (3.5-5.0); Albumin Globulin Ratio 1.6 (1.0-2.8); Alkaline Phosphatase 73 U/L (38-126); Aspartate Aminotransferase 38 IU/L (17-59); BUN Creatinine Ratio 18.1 (6-22); Bilirubin Total 0.9 mg/dL (0.2-1.3); Blood Urea Nitrogen 17 mg/dL (9-20); Carbon Dioxide 30 mmol/L (22-32); Chloride 102 mmol/L (98-107); Cholesterol 130 mg/dL (140-199); Estimated Glomerular Filt Rate > 60.0 mL/min (>60); Globulin 2.8 g/dL (1.7-4.1); Glucose 84 mg/dL (80-110); HDL Cholesterol 54 mg/dL (40-60); HEMOLYSIS < 15 (0-50); LDL Cholesterol Calculated 60 mg/dL (<100); Potassium 4.6 mmol/L (3.4-5.1); Sodium 140 mmol/L (137-145); Total Protein 7.3 g/dL (6.3-8.2); Triglycerides 78 mg/dL (35-150)
== END ==
PROVIDERS: PCP Student in an Organized Health Care Education/Training Program; Referring Provider Student in an Organized Health Care Education/Training Program; Visit Provider Student in an Organized Health Care Education/Training Program
DX: I10 Essential (primary) hypertension (principal); N40.1 Benign prostatic hyperplasia with lower urinary tract symptoms; K21.9 Gastro-esophageal reflux disease without esophagitis; E78.00 Pure hypercholesterolemia, unspecified; F34.1 Dysthymic disorder
CPT/HCPCS: 36415; 80053; 80061; 85025

== ENCOUNTER 2020-10-01 15:44 | Emergency (ER) | payer MEDICARE, OTHER, SELFPAY ==
[2020-10-01 15:53] VITALS: BP 155/84; PULSE 76; RESP 12; TEMP 36.9; O2SAT 96; BMI 29.2
--- NOTE | 2020-10-01 16:02 | DI.CT.S_ITS ---
PROCEDURE: CT HEAD/BRAIN WO CON INDICATIONS: fall, lac, possible + LOC TECHNIQUE: Noncontrast 4.5 mm thick angled axial sections acquired from the foramen magnum to the vertex, with coronal and sagittal reformats. For radiation dose reduction, the following was used: automated exposure control, adjustment of mA and/or kV according to patient size. COMPARISON: None. FINDINGS: Image quality: Excellent. CSF spaces: Basal cisterns are patent. No extra-axial fluid collections. The ventricles are symmetric in size and shape. Brain: No intracranial bleeds or masses. There is cerebral volume loss for age, with resultant ventricular and sulcal prominence. There are periventricular and deep white matter chronic small vessel ischemic changes. There is intracranial internal carotid artery atherosclerosis. Skull and face: Right posterior high parietal scalp hematoma and swelling is seen. Calvarium and visualized facial bones appear intact, without suspicious lesions. Sinuses: Mucosal thickening in bilateral maxillary sinuses, ethmoid sinuses, sphenoid sinuses and frontal sinuses are seen. Bilateral mastoids are well aerated. IMPRESSION: 1. No CT evidence of acute intracranial pathology. 2. Right posterior high parietal/occipital scalp hematoma and swelling. No gross acute skull fracture. Pansinusitis as above. Dictated by: Ricky Obando M.D. on 10/01/2020 at 16:23 Approved by: Ricky Obando M.D. on 10/01/2020 at 16:25
--- NOTE | 2020-10-01 18:52 | PC.NURSE ---
Pt states he was getting his dogs out of the back of his car and they jumped out and he fell backwards and hit the back of his head. states he may have had LOC for split second, i think i was just in shock no blood thinner. received head CT in triage. AOx3, NAD.
--- NOTE | 2020-10-01 19:02 | ED.WOUNDLAC ---
HPI - Wound/Laceration General Chief Complaint: Wound/Laceration Stated Complaint: FALL BAD BUMP BACK OF HEAD Time Seen by Provider: 10/01/20 18:58 Mode of arrival: Ambulatory History of Present Illness HPI narrative: 74-year-old male not on anticoagulation here for evaluation of injuries that he sustained when he was knocked over by 2 of his dogs. He states that his dogs were on a tandem leash when he tried to get them out of the back of the car. He states that 1 dog 1 on his right in the other dog went on his left and he was knocked over onto the ground. He did hit his head. There was no loss of consciousness. Did sustain an abrasion/laceration to the back of his head that did have some bleeding. Reports no other injuries from the event. Related Data Home Medications Medication Instructions Recorded Confirmed ASPIRIN (Aspir-Low) 81 mg PO QDAY #0 10/17/10 03/15/20 omeprazole 20 mg capsule,delayed 20 mg PO QDAY #0 10/17/10 03/15/20 release ACETAMINOPHEN 650 mg PO Q6HP #0 09/19/11 03/15/20 amlodipine 5 mg tablet (Norvasc) 7.5 mg PO DAILY #0 09/19/11 03/15/20 fluticasone propionate 220 1 puff INH BID #12 gm 09/19/11 03/15/20 mcg/actuation HFA aerosol inhaler (Flovent HFA) fluticasone propionate 50 2 spray INTRANASAL QDAY #0 09/19/11 03/15/20 mcg/actuation nasal spray,suspension Resmed Airsense 10 CPAP #1 ea 06/17/18 03/15/20 gabapentin 300 mg capsule 600 mg PO BID #30 cap 12/05/18 03/15/20 (Neurontin) Previous Rx's Medication Instructions Recorded polymyxin B sulfate 10,000 0 TOPICAL SEE INSTRUCTIONS #1 bot 10/06/15 unit-trimethoprim 1 mg/mL eye drops (Polytrim) cyclobenzaprine 10 mg tablet 10 mg PO TID PRN #20 tab 02/07/19 Allergies Allergy/AdvReac Type Severity Reaction Status Date / Time oyster extract Allergy Unknown HIVES Verified 10/01/20 15:59 [OYSTER EXTRACT] Review of Systems Constitutional Constitutional: Reports system reviewed and no additional complaints, except as documented Eyes Eyes: Reports system reviewed and no additional complaints, except as documented ENT Ears, Nose, Mouth, and Throat: Reports system reviewed and no additional complaints, except as documented Cardiovascular Cardiovascular: Reports system reviewed and no additional complaints, except as documented Respiratory Respiratory: Reports system reviewed and no additional complaints, except as documented Musculoskeletal Musculoskeletal: Reports system reviewed and no additional complaints, except as documented Integumentary/Breasts Skin/Breast: Reports as per HPI Neurologic Neurologic: Reports system reviewed and no additional complaints, except as documented Hematologic/Lymphatic On Anticoagulants: No Patient History Medical History Acute diverticulitis Despqky-ns-yow Lumbar stenosis with neurogenic claudication Obstructive sleep apnea of adult Sprain of shoulder, left Social History pets and animals: Yes (Anticipating getting a couple rescue dogs to foster for a period of time) Smoking Status: Never smoker alcohol intake: former (quit in 2019) substance use type: does not use Smoking Status: Never smoker alcohol intake frequency: 3 or more drinks per day Substance Use Type: marijuana Exam Initial Vital Signs Initial Vital Signs: Vital Signs Temperature 98.4 F 10/01/20 15:53 Pulse Rate 76 10/01/20 15:53 Respiratory Rate 12 10/01/20 15:53 Blood Pressure 155/84 H 10/01/20 15:53 Pulse Oximetry 96 10/01/20 15:53 Const General: cooperative, comfortable, well developed and well groomed [facility] Head: abrasion, contusion and laceration Eyes General: appearance normal, both eyes and all related structures Resp Effort & Inspection: normal respiratory effort Cardio Rate: regular rate Skin Other: He does have a stellate laceration of the vertex of his head. No active bleeding. Neuro General: patient alert, patient awake, patient oriented x3 and moves all extremities Extrem General: normal to inspection and capillary refill normal Other: No abnormal findings upper lower extremities Psych Appearance: grossly normal and well kempt Procedures Laceration Repair Laceration 1: Site: scalp Description: stellate (4 cm total with will each branch of the star shaped laceration 1 cm) Depth: simple, single layer Local Anesthetic: lidocaine 1% and with bicarb Amount of anesthesia used (mL): 4 Pre-repair: wound explored, irrigated extensively and deep structures intact Skin layer closed with: vern Scores GCS Timotyh coma scale eye opening: Spontaneous Nipton coma scale verbal response: Orientated Nipton coma scale motor response: Obey commands Nipton coma scale total score: 15 Nexus Score for C-Spine Focal Neurologic deficit present: No Midline spinal tenderness present: No Altered level of conciousness present: No Intoxication present: No Distracting Injury Present: No Nexus Criteria for C-spine: 0 Course Orders Ordered: Discontinued Medications Diphtheria/Tetanus/Acell Pertussis (Tet,Diph,Pertuss(Acell),Vac/Pf 0.5 Ml Syringe) 0.5 ml IM .ONCE ONE Stop: 10/01/20 18:57 Last Admin: 10/01/20 19:03 Dose: 0.5 ml Documented by: SALVADOR Lidocaine/Sodium Bicarbonate (Lido 1%/Sod Bicarb 8.4% (10ml) 10 Ml Syringe) 10 ml INJ NOW ONE Stop: 10/01/20 19:04 Last Admin: 10/01/20 19:06 Dose: 10 ml Documented by: SALVADOR Vital Signs Vital signs: Vital Signs - 8 hr 10/01/20 19:27 Pulse Rate 72 Respiratory Rate 15 Blood Pressure 172/82 H Pulse Oximetry 99 MDM - Wound/Laceration Imaging Data CT scan - head: Radiologist's Impression: [address] [id number] Scan ReportSigned Patient: Elgin Styles EMR#: [id number]: 5Acct:[id number]/Sex: 74 / MDate of Service: 10/01/20Loc: EDAccession Number: [id number] Procedure: CT head/brain wo con Ordering Provider: Brendan Lamas D.O. PROCEDURE: CT HEAD/BRAIN WO CON INDICATIONS: fall, lac, possible + LOC TECHNIQUE: Noncontrast 4.5 mm thick angled axial sections acquired from the foramen magnum to the vertex, with coronal and sagittal reformats. For radiation dose reduction, the following was used: automated exposure control, adjustment of mA and/or kV according to patient size. COMPARISON: None. FINDINGS: Image quality: Excellent. CSF spaces: Basal cisterns are patent. No extra-axial fluid collections. The ventricles are symmetric in size and shape. Brain: No intracranial bleeds or masses. There is cerebral volume loss for age, with resultant ventricular and sulcal prominence. There are periventricular and deep white matter chronic small vessel ischemic changes. There is intracranial internal carotid artery atherosclerosis. Skull and face: Right posterior high parietal scalp hematoma and swelling is seen. Calvarium and visualized facial bones appear intact, without suspicious lesions. Sinuses: Mucosal thickening in bilateral maxillary sinuses, ethmoid sinuses, sphenoid sinuses and frontal sinuses are seen. Bilateral mastoids are well aerated. IMPRESSION: 1. No CT evidence of acute intracranial pathology. 2. Right posterior high parietal/occipital scalp hematoma and swelling. No gross acute skull fracture. Pansinusitis as above. Dictated by: Ricky Obando M.D. on 10/01/2020 at 16:23 Approved by: Ricky Obando M.D. on 10/01/2020 at 16:25 [facility] Narrative Medical decision making narrative: Head CT was unremarkable. Has no neck discomfort. The laceration on the vertex of his head is in a star position with 4 different lacerations. Each 1 cm in length. Each requiring 1 staple for closure. No other injuries reported from the event nor found on the exam. Patient was given care instructions return precautions. He expressed understanding and agreement. Discharge Plan Departure Patient Disposition: Home Clinical Impression: Closed head injury, Laceration of scalp Instructions: DI for Laceration Repair -- [place] Activity Restrictions/Additional Instructions: The vern do need to be removed in 7-10 days. You can contact your primary doctor for this. Until then you can shower like normal. You can put antibiotic ointment over the area. Return to the emergency department for any new or worsening symptoms Prescriptions: No Action omeprazole 20 MG capsule,delayed release(DR/EC) 20 mg PO QDAY Qty: 0 RF: 0 ASPIRIN (Aspir-Low) 81 mg PO QDAY Qty: 0 RF: 0 fluticasone propionate 16 GM spray,suspension 2 spray Intranasal QDAY Qty: 0 RF: 0 ACETAMINOPHEN 650 mg PO Q6HP Qty: 0 RF: 0 fluticasone propionate [Flovent HFA] 12 GM HFA aerosol inhaler 1 puff INH BID Qty: 12 RF: 0 amlodipine [Norvasc] 5 MG tablet 7.5 mg PO DAILY Qty: 0 RF: 0 polymyxin B sulf-trimethoprim [Polytrim] 10 ML drops 0 Topical SEE INSTRUCTIONS Qty: 1 RF: 0 gabapentin [Neurontin] 300 mg capsule 600 mg PO BID Qty: 30 RF: 0 cyclobenzaprine 10 mg tablet 10 mg PO TID PRN (Reason: muscle spasm) Qty: 20 RF: 0 (DME) Resmed Airsense 10 CPAP Qty: 1 RF: 0 Referrals: Georgia Raymond PA-C [Primary Care Provider] -
[2020-10-01] MEDS: TET,DIPH,PERTUSS(ACELL),VAC/PF 0.5 ML SYRINGE IM (19:03)
[2020-10-01] MEDS: LIDO 1%/SOD BICARB 8.4% (10ML) 10 ML SYRINGE INJ (19:06)
[2020-10-01 19:27] VITALS: BP 172/82; PULSE 72; RESP 15; O2SAT 99
== END 2020-10-01 19:27 | disposition home or self-care (01) ==
PROVIDERS: Emergency Provider Emergency Medicine; PCP Student in an Organized Health Care Education/Training Program
DX: S01.01XA Laceration without foreign body of scalp, initial encounter (principal); W19.XXXA Unspecified fall, initial encounter; Z23 Encounter for immunization
CPT/HCPCS: 12002; 70450; 90471; 99284; 90715

== ENCOUNTER 2021-04-08 10:35 | Emergency (ER) | payer MEDICARE, OTHER, SELFPAY ==
[2021-04-08] VITALS (15 sets, daily range): BP systolic 137–181; BP diastolic 70–102; PULSE 55–69; RESP 17–28; TEMP 36.2–37.1; O2SAT 94–98; BMI 27.6
--- NOTE | 2021-04-08 10:56 | DI.RAD.S_ITS ---
PROCEDURE: XR CHEST 1V INDICATIONS: chest pain TECHNIQUE: One view of the chest was acquired. COMPARISON: [facility], , CHEST 2 VIEW, 01/20/2011, 7:30. FINDINGS: Surgical changes and devices: None. Lungs and pleura: Lungs are clear. No pleural effusions or pneumothorax. Mediastinum: Mediastinal contours appear normal. Heart size is normal. Bones and chest wall: No suspicious bony lesions. Overlying soft tissues appear unremarkable. IMPRESSION: No acute cardiopulmonary abnormality. Dictated by: Jp Rodriguez M.D. on 04/08/2021 at 11:29 Approved by: Jp Rodriguez M.D. on 04/08/2021 at 11:31
[2021-04-08 11:40] LABS: Add Manual Diff / Slide Review NO; Basophils Absolute Auto 0 /uL (0-100); Basophils Percent Auto 0.8 % (0-2); Eosinophils Absolute Auto 300 /uL (0-450); Eosinophils Percent Auto 5.6 % (2-4); Hematocrit 42.8 % (41-53); Hemoglobin 14.6 g/dL (13.5-17.5); Lymphocytes Absolute Auto 1200 /uL (1100-4500); Lymphocytes Percent Auto 25.1 % (25-40); Mean Corpuscular Hemoglobin 32.5 PG (26-34); Mean Corpuscular Volume 95.6 fL (80-100); Monocytes Absolute Auto 500 /uL (0-900); Monocytes Percent Auto 10.9 % (3-14); Neutrophils Absolute Auto 2700 /uL (1500-7000); Neutrophils Percent Auto 57.6 % (50-75); Platelet Count 182 X10^3/uL (150-400); Red Blood Cell Count 4.48 X10^6/uL (4.5-5.9); Red Cell Distribution Width 12.9 % (11.6-14.8); White Blood Cell Count 4.6 X10^3/uL (4.5-11.0)
[2021-04-08 11:53] LABS: Alanine Aminotransferase 41 IU/L (<50); Albumin 4.3 g/dL (3.5-5.0); Albumin Globulin Ratio 1.5 (1.0-2.8); Alkaline Phosphatase 71 U/L (38-126); Aspartate Aminotransferase 46 IU/L (17-59); Bilirubin Total 0.6 mg/dL (0.2-1.3); Blood Urea Nitrogen 17 mg/dL (9-20); Calcium 9.2 mg/dL (8.4-10.2); Carbon Dioxide 28 mmol/L (22-32); Chloride 105 mmol/L (98-107); Creatine Kinase 193 U/L (55-170); Estimated Glomerular Filt Rate > 60.0 mL/min (>60); Globulin 2.9 g/dL (1.7-4.1); Glucose 95 mg/dL (80-110); Lipase 96 U/L (23-300); Magnesium 2.1 mg/dL (1.6-2.3); Potassium 4.3 mmol/L (3.4-5.1); Sodium 136 mmol/L (137-145); Total Protein 7.2 g/dL (6.3-8.2)
[2021-04-08] MEDS: ASPIRIN 81 MG CHEW TAB 324 MG PO (12:00)
[2021-04-08 12:04] LABS: Troponin I < 0.012 ng/mL (0.01-0.034)
[2021-04-08 12:07] LABS: CKMB % Relative Index 3.2 % (1.5-5.0); Creatine Kinase MB 6.25 ng/mL (<2.37)
[2021-04-08 12:10] LABS: HEMOLYSIS 22 (0-50)
--- NOTE | 2021-04-08 12:50 | ED.CHESTPAIN ---
HPI - Chest Pain <Petra Jain PA-C - Last Filed: 04/08/21 15:51> General Chief Complaint: Chest Pain Stated Complaint: CHEST PAIN Time Seen by Provider: 04/08/21 12:00 Source: patient Mode of arrival: Ambulatory Limitations: no limitations History of Present Illness HPI narrative: 75-year-old male with past medical history obstructive sleep apnea, hypertension, BPH, hypercholesterolemia presents to the ED with 3 days of chest pain. Patient states he had an episode of chest pain 3 days ago in the morning that spontaneously resolved. Patient endorses experiencing a similar episode this morning which lasted 2-3 hours and spontaneously resolved. Patient states that he has been having mild chest discomfort over the last 2 months, every episode of which occurs upon awakening in the morning. Patient also states that he feels somewhat anxious when these episodes occur. Patient denies fever, chills, shortness of breath, vomiting, abdominal pain, dysuria, back pain, lightheadedness, dizziness, syncope. Patient endorses a history of GERD, suspects that his chest pain symptoms might be a result of a GERD exacerbation. Patient states he had ribs with a very rich sauce both last night and 3 days ago when he had the prior episode of chest pain. Patient states he had a past history of skipping heartbeat, has had a stress test for it 2 years ago which he says was normal. Related Data Home Medications Medication Instructions Recorded Confirmed ASPIRIN (Aspir-Low) 81 mg PO QDAY #0 10/17/10 03/15/20 omeprazole 20 mg capsule,delayed 20 mg PO QDAY #0 10/17/10 03/15/20 release ACETAMINOPHEN 650 mg PO Q6HP #0 09/19/11 03/15/20 amlodipine 5 mg tablet (Norvasc) 7.5 mg PO DAILY #0 09/19/11 03/15/20 fluticasone propionate 220 1 puff INH BID #12 gm 09/19/11 03/15/20 mcg/actuation HFA aerosol inhaler (Flovent HFA) fluticasone propionate 50 2 spray INTRANASAL QDAY #0 09/19/11 03/15/20 mcg/actuation nasal spray,suspension Resmed Airsense 10 CPAP #1 ea 06/17/18 03/15/20 gabapentin 300 mg capsule 600 mg PO BID #30 cap 12/05/18 03/15/20 (Neurontin) Previous Rx's Medication Instructions Recorded polymyxin B sulfate 10,000 0 TOPICAL SEE INSTRUCTIONS #1 bot 10/06/15 unit-trimethoprim 1 mg/mL eye drops (Polytrim) cyclobenzaprine 10 mg tablet 10 mg PO TID PRN #20 tab 02/07/19 Allergies Allergy/AdvReac Type Severity Reaction Status Date / Time oyster extract Allergy Unknown HIVES Verified 10/01/20 15:59 [OYSTER EXTRACT] Review of Systems <Petra Jain PA-C - Last Filed: 04/08/21 15:51> Review of Systems ROS Unobtainable: All systems reviewed & are unremarkable except as noted in HPI and below Constitutional Constitutional: Denies chills, Denies fatigue, Denies fever(s), Denies frequent falls, Denies lethargy and Denies weakness Eyes Eyes: Denies change in vision, Denies eye discharge, Denies irritation and Denies loss of vision ENT Ears, Nose, Mouth, and Throat: Denies change in voice, Denies dizziness, Denies neck pain, Denies sore throat and Denies throat swelling Cardiovascular Cardiovascular: Reports chest pain, Denies irregular heart rhythm, Denies lightheadedness, Denies palpitations, Denies dyspnea, Denies dyspnea on exertion and Denies orthopnea Respiratory Respiratory: Denies cough, Denies dyspnea, Denies dyspnea on exertion and Denies wheezing Gastrointestinal Gastrointestinal: Denies abdominal pain, Denies change in bowel habits, Denies diarrhea, Reports nausea and Denies vomiting Genitourinary Genitourinary: Denies hematuria, Denies flank pain, Denies urinary incontinence and Denies urinary urgency Musculoskeletal Musculoskeletal: Denies back pain, Denies muscle weakness, Denies neck pain, Denies numbness and Denies tingling Integumentary/Breasts Skin/Breast: Denies pruritus, Denies erythema, Denies rash and Denies wounds Neurologic Neurologic: Denies behavioral changes, Denies confusion, Denies dizziness, Denies frequent falls, Denies loss of vision, Denies numbness, Denies tingling and Denies weakness Psychiatric Psychiatric: Denies anxiety, Denies behavioral changes, Denies confusion, Denies depression, Denies homicidal ideation and Denies suicidal ideation Endocrine Endocrine: Denies fatigue, Denies flushing and Denies palpitations Hematologic/Lymphatic Hematologic/Lymphatic: Denies easy bruising Allergic/Immunologic Allergic/Immunologic: Denies urticaria, Denies throat swelling and Denies wheezing Patient History <Petra Jain PA-C - Last Filed: 04/08/21 15:51> Medical History Acute diverticulitis [id number] Lumbar stenosis with neurogenic claudication Obstructive sleep apnea of adult Sprain of shoulder, left Social History pets and animals: Yes (Anticipating getting a couple rescue dogs to foster for a period of time) Smoking Status: Never smoker alcohol intake: former (quit in 2019) substance use type: does not use Smoking Status: Never smoker alcohol intake frequency: 0-2 drinks per day Substance Use Type: marijuana Exam <Ptera Jain PA-C - Last Filed: 04/08/21 15:51> Initial Vital Signs Initial Vital Signs: Vital Signs Temperature 97.2 F L 04/08/21 10:40 Pulse Rate 55 L 04/08/21 10:40 Respiratory Rate 18 04/08/21 10:40 Blood Pressure 181/86 H 04/08/21 10:40 Pulse Oximetry 98 04/08/21 10:40 Const General: cooperative, healthy appearing and comfortable HENOR Head: normal to inspection Eyes General: appearance normal, both eyes and all related structures Neck Neck: normal visual inspection Resp Effort & Inspection: normal respiratory effort Auscultation: clear to auscultation bilaterally Cardio Rate: regular rate Rhythm: regular rhythm GI Other: Abdomen is soft, nondistended, nontender to palpation. No CVA tenderness. General: No CVA tenderness Back/Spine/Pelvis Back: normal to inspection Skin General: no rashes or lesions noted Neuro General: patient alert, patient awake and patient oriented x3 Extrem General: normal to inspection Psych Appearance: grossly normal <Rosa Walker MD - Last Filed: 04/08/21 18:31> Initial Vital Signs Initial Vital Signs: Vital Signs Temperature 97.2 F L 04/08/21 10:40 Pulse Rate 55 L 04/08/21 10:40 Respiratory Rate 18 04/08/21 10:40 Blood Pressure 181/86 H 04/08/21 10:40 Pulse Oximetry 98 04/08/21 10:40 Course <Petra Jain PA-C - Last Filed: 04/08/21 15:51> Orders Ordered: ED Orders 04/08/21 10:45 EKG-12 Lead Stat 04/08/21 10:56 XR chest 1V Stat 04/08/21 11:30 Complete Blood Count AUTO DIFF Stat Comprehensive Metabolic Panel Stat D Dimer Stat Lipase Stat Magnesium Stat NT-proBNP (BNP-Adult 18+) Stat Troponin & CK Cardiac Panel Stat 04/08/21 13:31 EKG-12 Lead Stat 04/08/21 15:00 Troponin I Stat Discontinued Medications Aspirin (Aspirin 81 Mg Chew Tab) 324 mg PO NOW ONE Stop: 04/08/21 10:57 Last Admin: 04/08/21 12:00 Dose: 324 mg Documented by: ATAYLDEEPAK Al Hydrox/Mg Hydrox/Simethicone 20 ml/ Lidocaine HCl 15 ml 0 ml PO NOW ONE Stop: 04/08/21 13:11 Last Admin: 04/08/21 13:21 Dose: 35 ml Documented by: ELTON Famotidine (Famotidine 20 Mg/2 Ml Vial) 20 mg IV NOW JOESPH Last Admin: 04/08/21 13:20 Dose: 20 mg Documented by: ELTON Nitroglycerin (Nitroglycerin 0.4 Mg Sl Tab) 0.4 mg SL [id number] PRN PRN Reason: Chest Pain Vital Signs Vital signs: Vital Signs - 8 hr 04/08/21 10:40 04/08/21 10:44 04/08/21 10:45 Temperature 97.2 F L Pulse Rate 55 L 57 L Respiratory Rate 18 20 Blood Pressure 181/86 H 181/86 H Pulse Oximetry 98 98 04/08/21 11:00 04/08/21 11:30 04/08/21 11:31 Temperature Pulse Rate 57 L 59 L 59 L Respiratory Rate 17 17 17 Blood Pressure 144/72 H 148/77 H Pulse Oximetry 96 94 96 04/08/21 12:00 04/08/21 12:01 04/08/21 13:00 Temperature Pulse Rate 69 68 69 Respiratory Rate 17 28 H 23 Blood Pressure 137/70 159/102 H Pulse Oximetry 94 95 94 04/08/21 13:30 04/08/21 13:31 04/08/21 14:00 Temperature Pulse Rate 59 L 61 68 Respiratory Rate 18 19 23 Blood Pressure 144/77 H Pulse Oximetry 95 95 96 04/08/21 14:01 04/08/21 14:30 04/08/21 15:59 Temperature 98.7 F Pulse Rate 63 61 58 L Respiratory Rate 21 25 H 20 Blood Pressure 151/84 H 156/78 H Pulse Oximetry 96 96 95 <Rosa Walker MD - Last Filed: 04/08/21 18:31> Orders Ordered: ED Orders 04/08/21 10:45 EKG-12 Lead Stat 04/08/21 10:56 XR chest 1V Stat 04/08/21 11:30 Complete Blood Count AUTO DIFF Stat Comprehensive Metabolic Panel Stat D Dimer Stat Lipase Stat Magnesium Stat NT-proBNP (BNP-Adult 18+) Stat Troponin & CK Cardiac Panel Stat 04/08/21 13:31 EKG-12 Lead Stat 04/08/21 15:00 Troponin I Stat Discontinued Medications Aspirin (Aspirin 81 Mg Chew Tab) 324 mg PO NOW ONE Stop: 04/08/21 10:57 Last Admin: 04/08/21 12:00 Dose: 324 mg Documented by: ATAYLDEEPAK Al Hydrox/Mg Hydrox/Simethicone 20 ml/ Lidocaine HCl 15 ml 0 ml PO NOW ONE Stop: 04/08/21 13:11 Last Admin: 04/08/21 13:21 Dose: 35 ml Documented by: ELTON Famotidine (Famotidine 20 Mg/2 Ml Vial) 20 mg IV NOW JOESPH Last Admin: 04/08/21 13:20 Dose: 20 mg Documented by: ATAYLDEEPAK Nitroglycerin (Nitroglycerin 0.4 Mg Sl Tab) 0.4 mg SL [id number] PRN PRN Reason: Chest Pain Vital Signs Vital signs: Vital Signs - 8 hr 04/08/21 10:40 04/08/21 10:44 04/08/21 10:45 Temperature 97.2 F L Pulse Rate 55 L 57 L Respiratory Rate 18 20 Blood Pressure 181/86 H 181/86 H Pulse Oximetry 98 98 04/08/21 11:00 04/08/21 11:30 04/08/21 11:31 Temperature Pulse Rate 57 L 59 L 59 L Respiratory Rate 17 17 17 Blood Pressure 144/72 H 148/77 H Pulse Oximetry 96 94 96 04/08/21 12:00 04/08/21 12:01 04/08/21 13:00 Temperature Pulse Rate 69 68 69 Respiratory Rate 17 28 H 23 Blood Pressure 137/70 159/102 H Pulse Oximetry 94 95 94 04/08/21 13:30 04/08/21 13:31 04/08/21 14:00 Temperature Pulse Rate 59 L 61 68 Respiratory Rate 18 19 23 Blood Pressure 144/77 H Pulse Oximetry 95 95 96 04/08/21 14:01 04/08/21 14:30 04/08/21 15:59 Temperature 98.7 F Pulse Rate 63 61 58 L Respiratory Rate 21 25 H 20 Blood Pressure 151/84 H 156/78 H Pulse Oximetry 96 96 95 MDM - Chest Pain <Petra Jain PA-C - Last Filed: 04/08/21 15:51> Lab Data Lab results narrative: Labs within normal limits, troponin x2 normal Result diagrams: 04/08/21 11:30 04/08/21 11:30 Labs: Lab Results 04/08/21 04/08/21 04/08/21 Range/Units 11:30 11:30 11:30 WBC 4.6 (4.5-11.0) X10^3/uL RBC 4.48 L (4.5-5.9) X10^6/uL Hgb 14.6 (13.5-17.5) g/dL Hct 42.8 (41-53) % MCV 95.6 (80-100) fL MCH 32.5 (26-34) PG MCHC 34.0 (30-36) % RDW 12.9 (11.6-14.8) % Plt Count 182 (150-400) X10^3/uL Neut % (Auto) 57.6 (50-75) % Lymph % (Auto) 25.1 (25-40) % [place] % (Auto) 10.9 (3-14) % Eos % (Auto) 5.6 H (2-4) % Baso % (Auto) 0.8 (0-2) % Neut # (Auto) 2700 (8776-4586) /uL Lymph # (Auto) 1200 (2264-1847) /uL [place] # (Auto) 500 (0-900) /uL Eos # (Auto) 300 (0-450) /uL Baso # (Auto) 0 (0-100) /uL D-Dimer (<230) ng/mL Sodium 136 L (137-145) mmol/L Potassium 4.3 (3.4-5.1) mmol/L Chloride 105 (98-107) mmol/L Carbon Dioxide 28 (22-32) mmol/L BUN 17 (9-20) mg/dL Creatinine 0.74 (0.66-1.25) mg/dL Estimated GFR > 60.0 (>60) mL/min BUN/Creatinine Ratio 23.0 H (6-22) Glucose 95 (80-110) mg/dL Calcium 9.2 (8.4-10.2) mg/dL Magnesium 2.1 (1.6-2.3) mg/dL Total Bilirubin 0.6 (0.2-1.3) mg/dL AST 46 (17-59) IU/L ALT 41 (<50) IU/L Alkaline Phosphatase 71 (38-126) U/L Total Creatine Kinase 193 H (55-170) U/L CK-MB (CK-2) 6.25 H (<2.37) ng/mL CK-MB (CK-2) Rel Index 3.2 (1.5-5.0) % Troponin I < 0.012 (0.01-0.034) ng/mL NT-Pro-B Natriuret Pep 42 (<450) pg/mL Total Protein 7.2 (6.3-8.2) g/dL Albumin 4.3 (3.5-5.0) g/dL Globulin 2.9 (1.7-4.1) g/dL Albumin/Globulin Ratio 1.5 (1.0-2.8) Lipase 96 (23-300) U/L 04/08/21 04/08/21 Range/Units 11:30 15:00 WBC (4.5-11.0) X10^3/uL RBC (4.5-5.9) X10^6/uL Hgb (13.5-17.5) g/dL Hct (41-53) % MCV (80-100) fL MCH (26-34) PG MCHC (30-36) % RDW (11.6-14.8) % Plt Count (150-400) X10^3/uL Neut % (Auto) (50-75) % Lymph % (Auto) (25-40) % [place] % (Auto) (3-14) % Eos % (Auto) (2-4) % Baso % (Auto) (0-2) % Neut # (Auto) (1426-0812) /uL Lymph # (Auto) (0271-8424) /uL [place] # (Auto) (0-900) /uL Eos # (Auto) (0-450) /uL Baso # (Auto) (0-100) /uL D-Dimer 293 H (<230) ng/mL Sodium (137-145) mmol/L Potassium (3.4-5.1) mmol/L Chloride (98-107) mmol/L Carbon Dioxide (22-32) mmol/L BUN (9-20) mg/dL Creatinine (0.66-1.25) mg/dL Estimated GFR (>60) mL/min BUN/Creatinine Ratio (6-22) Glucose (80-110) mg/dL Calcium (8.4-10.2) mg/dL Magnesium (1.6-2.3) mg/dL Total Bilirubin (0.2-1.3) mg/dL AST (17-59) IU/L ALT (<50) IU/L Alkaline Phosphatase (38-126) U/L Total Creatine Kinase (55-170) U/L CK-MB (CK-2) (<2.37) ng/mL CK-MB (CK-2) Rel Index (1.5-5.0) % Troponin I < 0.012 (0.01-0.034) ng/mL NT-Pro-B Natriuret Pep (<450) pg/mL Total Protein (6.3-8.2) g/dL Albumin (3.5-5.0) g/dL Globulin (1.7-4.1) g/dL Albumin/Globulin Ratio (1.0-2.8) Lipase (23-300) U/L Imaging Data Chest x-ray: Radiologist's Impression: PROCEDURE:? XR CHEST 1V ? INDICATIONS:? chest pain ? TECHNIQUE:? One view of the chest was acquired.? ? COMPARISON:? [facility], , CHEST 2 VIEW, 01/20/2011, 7:30. ? FINDINGS:? ? Surgical changes and devices:? None.? ? Lungs and pleura:? Lungs are clear.? No pleural effusions or pneumothorax.? ? Mediastinum:? Mediastinal contours appear normal.? Heart size is normal.? ? Bones and chest wall:? No suspicious bony lesions.? Overlying soft tissues appear unremarkable.? ? IMPRESSION:? No acute cardiopulmonary abnormality. ? ? Dictated by: Jp Rodriguez M.D. on 04/08/2021 at 11:29 ? ? Approved by: Jp Rodriguez M.D. on 04/08/2021 at 11:31 ? ECG Data Interpretation: Normal sinus rhythm, no acute ST-T changes. SC intervals normal. No QT prolongation. MDM Narrative Medical decision making narrative: 75-year-old male with past medical history obstructive sleep apnea, hypertension, BPH, hypercholesterolemia presents to the ED with 3 days of chest pain. Concern for ACS versus acute heart failure versus arrhythmia versus GERD exacerbation. Will order EKG, chest x-ray, labs, troponin, BNP. Will give GI cocktail, Pepcid AC for symptoms. Will reassess. Workup normal. Troponin x2 normal. Patient's symptoms improved with GI cocktail, Pepcid AC. Will discharge home with ED return precautions, cardiology and PCP follow-up. Patient verbalized understanding. <Rosa Walker MD - Last Filed: 04/08/21 18:31> Lab Data Labs: Lab Results 04/08/21 04/08/21 04/08/21 Range/Units 11:30 11:30 11:30 WBC 4.6 (4.5-11.0) X10^3/uL RBC 4.48 L (4.5-5.9) X10^6/uL Hgb 14.6 (13.5-17.5) g/dL Hct 42.8 (41-53) % MCV 95.6 (80-100) fL MCH 32.5 (26-34) PG MCHC 34.0 (30-36) % RDW 12.9 (11.6-14.8) % Plt Count 182 (150-400) X10^3/uL Neut % (Auto) 57.6 (50-75) % Lymph % (Auto) 25.1 (25-40) % [place] % (Auto) 10.9 (3-14) % Eos % (Auto) 5.6 H (2-4) % Baso % (Auto) 0.8 (0-2) % Neut # (Auto) 2700 (6818-5351) /uL Lymph # (Auto) 1200 (1364-0840) /uL [place] # (Auto) 500 (0-900) /uL Eos # (Auto) 300 (0-450) /uL Baso # (Auto) 0 (0-100) /uL D-Dimer (<230) ng/mL Sodium 136 L (137-145) mmol/L Potassium 4.3 (3.4-5.1) mmol/L Chloride 105 (98-107) mmol/L Carbon Dioxide 28 (22-32) mmol/L BUN 17 (9-20) mg/dL Creatinine 0.74 (0.66-1.25) mg/dL Estimated GFR > 60.0 (>60) mL/min BUN/Creatinine Ratio 23.0 H (6-22) Glucose 95 (80-110) mg/dL Calcium 9.2 (8.4-10.2) mg/dL Magnesium 2.1 (1.6-2.3) mg/dL Total Bilirubin 0.6 (0.2-1.3) mg/dL AST 46 (17-59) IU/L ALT 41 (<50) IU/L Alkaline Phosphatase 71 (38-126) U/L Total Creatine Kinase 193 H (55-170) U/L CK-MB (CK-2) 6.25 H (<2.37) ng/mL CK-MB (CK-2) Rel Index 3.2 (1.5-5.0) % Troponin I < 0.012 (0.01-0.034) ng/mL NT-Pro-B Natriuret Pep 42 (<450) pg/mL Total Protein 7.2 (6.3-8.2) g/dL Albumin 4.3 (3.5-5.0) g/dL Globulin 2.9 (1.7-4.1) g/dL Albumin/Globulin Ratio 1.5 (1.0-2.8) Lipase 96 (23-300) U/L 04/08/21 04/08/21 Range/Units 11:30 15:00 WBC (4.5-11.0) X10^3/uL RBC (4.5-5.9) X10^6/uL Hgb (13.5-17.5) g/dL Hct (41-53) % MCV (80-100) fL MCH (26-34) PG MCHC (30-36) % RDW (11.6-14.8) % Plt Count (150-400) X10^3/uL Neut % (Auto) (50-75) % Lymph % (Auto) (25-40) % [place] % (Auto) (3-14) % Eos % (Auto) (2-4) % Baso % (Auto) (0-2) % Neut # (Auto) (2682-4168) /uL Lymph # (Auto) (4185-6696) /uL [place] # (Auto) (0-900) /uL Eos # (Auto) (0-450) /uL Baso # (Auto) (0-100) /uL D-Dimer 293 H (<230) ng/mL Sodium (137-145) mmol/L Potassium (3.4-5.1) mmol/L Chloride (98-107) mmol/L Carbon Dioxide (22-32) mmol/L BUN (9-20) mg/dL Creatinine (0.66-1.25) mg/dL Estimated GFR (>60) mL/min BUN/Creatinine Ratio (6-22) Glucose (80-110) mg/dL Calcium (8.4-10.2) mg/dL Magnesium (1.6-2.3) mg/dL Total Bilirubin (0.2-1.3) mg/dL AST (17-59) IU/L ALT (<50) IU/L Alkaline Phosphatase (38-126) U/L Total Creatine Kinase (55-170) U/L CK-MB (CK-2) (<2.37) ng/mL CK-MB (CK-2) Rel Index (1.5-5.0) % Troponin I < 0.012 (0.01-0.034) ng/mL NT-Pro-B Natriuret Pep (<450) pg/mL Total Protein (6.3-8.2) g/dL Albumin (3.5-5.0) g/dL Globulin (1.7-4.1) g/dL Albumin/Globulin Ratio (1.0-2.8) Lipase (23-300) U/L Discharge Plan Departure Patient Disposition: Home Clinical Impression: Chest pain Instructions: DI for Chest Pain Activity Restrictions/Additional Instructions: You were evaluated in the ED today for chest pain. Your workup including chest x-ray, EKG, labs were normal. You were given some medication for acid reflux. You may continue to take Pepcid AC for heartburn twice daily for 2 weeks. Please follow-up with your remote sensing research scientist and PCP as soon as possible. Return to the ED if your chest pain worsens, you experience shortness of breath. Prescriptions: No Action omeprazole 20 MG capsule,delayed release(DR/EC) 20 mg PO QDAY Qty: 0 0RF ASPIRIN (Aspir-Low) 81 mg PO QDAY Qty: 0 0RF fluticasone propionate 16 GM spray,suspension 2 spray Intranasal QDAY Qty: 0 0RF ACETAMINOPHEN 650 mg PO Q6HP Qty: 0 0RF fluticasone propionate [Flovent HFA] 12 GM HFA aerosol inhaler 1 puff INH BID Qty: 12 0RF amlodipine [Norvasc] 5 MG tablet 7.5 mg PO DAILY Qty: 0 0RF polymyxin B sulf-trimethoprim [Polytrim] 10 ML drops 0 Topical SEE INSTRUCTIONS Qty: 1 0RF gabapentin [Neurontin] 300 mg capsule 600 mg PO BID Qty: 30 0RF cyclobenzaprine 10 mg tablet 10 mg PO TID PRN (Reason: muscle spasm) Qty: 20 0RF (DME) Resmed Airsense 10 CPAP Qty: 1 0RF Dose Instruction: As directed Label Comments: Pressure: 8-14 cmH2O DME: [facility] Rx Instructions: As directed Referrals: Georgia Raymond PA-C [Primary Care Provider] - <Rosa Walker MD - Last Filed: 04/08/21 18:31> Cosign ED Attending Cosjeromeature Attestation: I was immediately available in the department for consultation throughout this patient's visit. I agree with documentation as above. Rosa Walker MD
[2021-04-08] MEDS: FAMOTIDINE 20 MG/2 ML VIAL IV (13:20)
[2021-04-08] MEDS: MAG HYDROX/ALUMINUM/SIMETH SUS 20 ML, LIDOCAINE VISCOUS 2% 15 ML PO (13:21)
[2021-04-08 13:44] LABS: NT-proBNP (BNP-Adult 18+) 42 pg/mL (<450)
[2021-04-08 14:41] LABS: D Dimer 293 ng/mL (<230)
[2021-04-08 15:44] LABS: Troponin I < 0.012 ng/mL (0.01-0.034)
== END 2021-04-08 16:00 | disposition home or self-care (01) ==
PROVIDERS: Emergency Medicine; Emergency Provider Student in an Organized Health Care Education/Training Program; PCP Student in an Organized Health Care Education/Training Program
DX: R07.9 Chest pain, unspecified (principal)
CPT/HCPCS: 36415; 71045; 80053; 82550; 82553; 83690; 83735; 83880; 84484; 85025; 85379; 93005; 96374; 99284

== ENCOUNTER → 2021-04-24 09:35 | Outpatient (CLI) | payer MEDICARE, OTHER, SELFPAY ==
[2021-04-24 12:07] LABS: Cholesterol 135 mg/dL (140-199); HDL Cholesterol 70 mg/dL (40-60); LDL Cholesterol Calculated 56 mg/dL (<100); Triglycerides 47 mg/dL (35-150)
== END ==
PROVIDERS: PCP Student in an Organized Health Care Education/Training Program; Referring Provider Internal Medicine Cardiovascular Disease; Visit Provider Internal Medicine Cardiovascular Disease
DX: E78.5 Hyperlipidemia, unspecified (principal)
CPT/HCPCS: 36415; 80061

== ENCOUNTER → 2021-11-28 10:28 | Outpatient (CLI) | payer MEDICARE, OTHER, SELFPAY ==
--- NOTE | 2021-11-28 | DI.RAD.S_ITS ---
PROCEDURE: XR CHEST 2V INDICATIONS: Chronic obstructive pulmonary disease, unspecified TECHNIQUE: 2 views of the chest were acquired. COMPARISON: [facility], , XR CHEST 1V, 04/08/2021, 11:09. FINDINGS: Surgical changes and devices: Postsurgical changes are seen in the lower cervical spine. Lungs and pleura: Lungs are mildly hyperexpanded with flattening of the diaphragms. No acute consolidation. No pleural effusions or pneumothorax. Mediastinum: Mediastinal contours are normal. Heart size is normal. Bones and chest wall: No suspicious bony abnormalities. Soft tissues appear unremarkable. IMPRESSION: Mildly hyperexpanded lungs can be seen in the setting of COPD. No acute consolidation. Dictated by: Radhames Shine M.D. on 11/28/2021 at 15:40 Approved by: Radhames Shine M.D. on 11/28/2021 at 15:42
== END ==
PROVIDERS: PCP Physician Assistant; Referring Provider Physician Assistant; Visit Provider Physician Assistant
DX: J44.9 Chronic obstructive pulmonary disease, unspecified (principal)
CPT/HCPCS: 71046

== ENCOUNTER → 2022-01-24 16:20 | Outpatient (CLI) | payer MEDICARE, OTHER, SELFPAY ==
--- NOTE | 2022-01-24 16:24 | DI.RAD.S_ITS ---
PROCEDURE: XR CERVICAL SPINE 2V OR 3V INDICATIONS: none provided. History of Prior cervical fusion. TECHNIQUE: 3 view(s) of the cervical spine were acquired. COMPARISON: [facility], CR, XR CERVICAL SPINE 4V OR 5V, 11/18/2017, 10:46. FINDINGS: Bones: No fractures or dislocations to the C7 level. The lateral masses of C1 appear intact on the odontoid view. No suspicious bony lesions. Postsurgical changes from anterior fusion C4-C6 as before. Hardware appears intact. Multilevel degenerative changes redemonstrated. Soft tissues: No prevertebral soft tissue swelling. IMPRESSION: Prior C4-C6 fusion. Multilevel degenerative changes. Dictated by: Radhames Larsen M.D. on 01/24/2022 at 17:06 Approved by: Radhames Larsen M.D. on 01/24/2022 at 17:14
== END ==
PROVIDERS: PCP Student in an Organized Health Care Education/Training Program; Referring Provider Student in an Organized Health Care Education/Training Program; Visit Provider Student in an Organized Health Care Education/Training Program
DX: M54.2 Cervicalgia (principal); Z98.1 Arthrodesis status; M47.812 Spondylosis without myelopathy or radiculopathy, cervical region
CPT/HCPCS: 72040

== ENCOUNTER 2022-06-14 21:52 | Emergency (ER) | payer MEDICARE, OTHER, SELFPAY ==
[2022-06-14 22:01] VITALS: BP 157/100; PULSE 94; RESP 16; TEMP 36.6; O2SAT 94; BMI 27.8
--- NOTE | 2022-06-14 22:02 | DI.CT.S_ITS ---
PROCEDURE: CT HEAD/BRAIN WO CON INDICATIONS: head injury, alcohol abuse TECHNIQUE: Noncontrast 4.5 mm thick angled axial sections acquired from the foramen magnum to the vertex, with coronal and sagittal reformats. For radiation dose reduction, the following was used: automated exposure control, adjustment of mA and/or kV according to patient size. COMPARISON: [facility], CT, CT CERVICAL SPINE WO CON, 06/14/2022, 22:11. [facility], CT, CT HEAD/BRAIN WO CON, 10/01/2020, 16:06. FINDINGS: Image quality: Excellent. CSF spaces: Basal cisterns are patent. No extra-axial fluid collections. The ventricles are symmetric in size and shape. Brain: No intracranial bleeds or masses. There is cerebral volume loss for age, with resultant ventricular and sulcal prominence. There are periventricular and deep white matter chronic small vessel ischemic changes. There is intracranial internal carotid artery atherosclerosis. Skull and face: Calvarium and visualized facial bones appear intact, without suspicious lesions. Sinuses: Visualized sinuses and mastoids are free of air fluid levels and there is evidence of prior medial wall bilateral maxillary sinus resection. Asymmetric right greater than left mild mucosal thickening is present in the sinuses. IMPRESSION: No trauma found. Prior medial wall maxillary sinus surgery. No definite acute sinusitis. Dictated by: Nahum Nathan M.D. on 06/14/2022 at 23:07 Approved by: Nahum Nathan M.D. on 06/14/2022 at 23:09
--- NOTE | 2022-06-14 22:02 | DI.CT.S_ITS ---
PROCEDURE: CT CERVICAL SPINE WO CON INDICATIONS: head injury TECHNIQUE: Noncontrast 3 mm thick sections acquired from the skull base to the T4 level. Sagittal and coronal reformats were then constructed. For radiation dose reduction, the following was used: automated exposure control, adjustment of mA and/or kV according to patient size. COMPARISON: [facility], CR, XR CERVICAL SPINE 2V OR 3V, 01/24/2022, 16:33. FINDINGS: Image quality: Excellent. Bones: No fractures or dislocations. Visualized superior ribs are intact. Prior anterior cervical fusion plating spanning from C4 through C6. 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 This was previously present on plain film imaging. Soft tissues: Prevertebral soft tissues are normal in thickness. No paravertebral hematomas. No apical pneumothoraces. IMPRESSION: Postsurgical changes, no acute trauma found. Dictated by: Nahum Nathan M.D. on 06/14/2022 at 23:05 Approved by: Nahum Nathan M.D. on 06/14/2022 at 23:06
--- NOTE | 2022-06-14 22:45 | ED_ITS ---
HPI - Head Injury General Chief complaint: Head Injury Stated complaint: Fell, Hit head, Poss thinners Time Seen by Provider: 06/14/22 21:59 Source: patient Mode of arrival: Ambulatory History of Present Illness HPI Narrative: 76-year-old male who is here for evaluation of a head injury. He states that he did have some alcohol to drink last evening but states he was not intoxicated. He tripped over his sandals that he was wearing. He did fall and hit his head. No loss of consciousness. No neck pain. No extremity injuries. Stated that he looked in the mirror and noticed that he would bleeding on his face and then he noticed a cut on the back of his head. Related Data Home Medications Medication Instructions Recorded Confirmed omeprazole 20 mg capsule,delayed 20 mg PO QDAY ##0 10/17/10 10/08/21 release ACETAMINOPHEN 650 mg PO Q6HP ##0 09/19/11 10/08/21 amlodipine 5 mg tablet (Norvasc) 7.5 mg PO DAILY ##0 09/19/11 10/08/21 fluticasone propionate 220 1 puff INH BID ##12 09/19/11 10/08/21 mcg/actuation HFA aerosol inhaler (Flovent HFA) fluticasone propionate 50 2 spray intranasal QDAY ##0 09/19/11 10/08/21 mcg/actuation nasal spray,suspension Resmed Airsense 10 CPAP #1 ea 06/17/18 10/08/21 budesonide 32 mcg/actuation nasal mcg intranasal 09/12/21 10/08/21 spray,aerosol prednisone PO PRN 09/12/21 10/08/21 gabapentin 300 mg capsule 600 mg PO BID #30 caps 10/08/21 10/08/21 (Neurontin) Previous Rx's Medication Instructions Recorded polymyxin B sulfate 10,000 0 topical SEE INSTRUCTIONS ##1 10/06/15 unit-trimethoprim 1 mg/mL eye drops (Polytrim) sodium,potassium,mag sulfates 17.5 See Rx Instructions PO .COMPLEX 05/05/22 gram-3.13 gram-1.6 gram oral soln #354 mL (Suprep Bowel Prep Kit) Allergies Allergy/AdvReac Type Severity Reaction Status Date / Time oyster extract Allergy Unknown HIVES Verified 06/14/22 22:01 [OYSTER EXTRACT] Review of Systems Constitutional Constitutional: Reports system reviewed and no additional complaints, except as documented Integumentary/Breasts Skin/Breast: Reports system reviewed and no additional complaints, except as documented Neurologic Neurologic: Reports system reviewed and no additional complaints, except as documented Patient History Medical History Acute diverticulitis [id number] Lumbar stenosis with neurogenic claudication Obstructive sleep apnea of adult Sprain of shoulder, left Social History pets and animals: Yes (Anticipating getting a couple rescue dogs to foster for a period of time) Smoking Status: Never smoker alcohol intake: former (quit in 2019) substance use type: does not use Smoking Status: Never smoker alcohol intake frequency: 0-2 drinks per day Substance Use Type: marijuana Exam Initial Vital Signs Initial Vital Signs: Vital Signs Temperature 98 F 06/14/22 22:01 Pulse Rate 94 H 06/14/22 22:01 Respiratory Rate 16 06/14/22 22:01 Blood Pressure 157/100 H 06/14/22 22:01 Pulse Oximetry 94 06/14/22 22:01 Oxygen Delivery Method Room Air 06/14/22 22:01 HENWI Head: laceration Skin Other: Laceration to the left parietal/occipital area of the scalp. Some oozing but not bleeding. Extrem Other: Patient is ambulatory. No extremity complaints. Procedures Laceration Repair Laceration 1: Site: scalp Side (If applicable): left Size (cm): 5 Description: linear Depth: simple, single layer Local Anesthetic: lidocaine 1% Amount of anesthesia used (mL): 3 Pre-repair: wound explored Skin layer closed with: vern Course Orders Ordered: ED Orders 06/14/22 22:02 CT cervical spine wo con Stat CT head/brain wo con Stat Vital Signs Vital signs: Vital Signs - 8 hr 06/14/22 22:01 06/14/22 23:24 Temperature 98 F Pulse Rate 94 H 76 Respiratory Rate 16 16 Blood Pressure 157/100 H 128/72 Pulse Oximetry 94 95 Oxygen Delivery Method Room Air Room Air MDM - Head Injury Imaging Data CT - cervical spine: Radiologist's Impression: PROCEDURE:? CT CERVICAL SPINE WO CON ? INDICATIONS:? head injury ? TECHNIQUE:? Noncontrast 3 mm thick sections acquired from the skull base to the T4 level.? Sagittal and coronal reformats were then constructed.? For radiation dose reduction, the following was used:? automated exposure control, adjustment of mA and/or kV according to patient size.? ? COMPARISON:? Merged With [facility], CR, XR CERVICAL SPINE 2V OR 3V, 01/24/2022, 16:33. ? FINDINGS:? Image quality:? Excellent.? ? Bones:? No fractures or dislocations.? Visualized superior ribs are intact.? Prior anterior cervical fusion plating spanning from C4 through C6.? 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 This was previously present on plain film imaging. ? Soft tissues:? Prevertebral soft tissues are normal in thickness.? No paravertebral hematomas.? No apical pneumothoraces.? ? ? IMPRESSION:? Postsurgical changes, no acute trauma found. CT scan - head: Radiologist's Impression: PROCEDURE:? CT HEAD/BRAIN WO CON ? INDICATIONS:? head injury, alcohol abuse ? TECHNIQUE:? Noncontrast 4.5 mm thick angled axial sections acquired from the foramen magnum to the vertex, with coronal and sagittal reformats.? For radiation dose reduction, the following was used:? automated exposure control, adjustment of mA and/or kV according to patient size.? ? COMPARISON:? Merged With [facility], CT, CT CERVICAL SPINE WO CON, 06/14/2022, 22:11.? Merged With [facility], CT, CT HEAD/BRAIN WO CON, 10/01/2020, 16:06. ? FINDINGS:? Image quality:? Excellent.? ? CSF spaces:? Basal cisterns are patent.? No extra-axial fluid collections.? The ventricles are symmetric in size and shape.? ? Brain:? No intracranial bleeds or masses.? There is cerebral volume loss for age, with resultant ventricular and sulcal prominence.? There are periventricular and deep white matter chronic small vessel ischemic changes.? There is intracranial internal carotid artery atherosclerosis.? ? Skull and face:? Calvarium and visualized facial bones appear intact, without suspicious lesions.? ? Sinuses:? Visualized sinuses and mastoids are free of air fluid levels and there is evidence of prior medial wall bilateral maxillary sinus resection.? Asymmetric right greater than left mild mucosal thickening is present in the sinuses.? ? IMPRESSION:? No trauma found.? Prior medial wall maxillary sinus surgery.? No definite acute sinusitis. MDM Narrative Medical decision making narrative: Head CT and cervical spine CT are unremarkable. The laceration was closed as described above. Patient was given care instructions and return precautions. He expressed understanding and agreement. Discharge Plan Departure Patient Disposition: Home Clinical Impression: Laceration of scalp Instructions: DI for Laceration Repair -- [place] Activity Restrictions/Additional Instructions: The vern do need to be removed in approximately 10 days. He the walk-in clinic or your primary doctor can do this. Until then you can shower like normal. You can put topical antibiotic ointment over the cut. You could potentially get some continued oozing over the next 24 hours. You can clean this with soap and water if needed. Return to the emergency department for new symptoms. Prescriptions: No Action omeprazole 20 MG capsule,delayed release(DR/EC) 20 mg PO QDAY Qty: 0 fluticasone propionate 16 GM spray,suspension 2 spray Intranasal QDAY Qty: 0 ACETAMINOPHEN 650 mg PO Q6HP Qty: 0 fluticasone propionate [Flovent HFA] 12 GM HFA aerosol inhaler 1 puff INH BID Qty: 12 amlodipine [Norvasc] 5 MG tablet 7.5 mg PO DAILY Qty: 0 polymyxin B sulf-trimethoprim [Polytrim] 10 ML drops 0 Topical SEE INSTRUCTIONS Qty: 1 0RF gabapentin [Neurontin] 300 mg capsule 600 mg PO BID Qty: 30 Rx Instructions: 600mg in AM and 900mg at bedtime. sodium,potassium,mag sulfates [Suprep Bowel Prep Kit] 17.5-3.13-1.6 gram recon soln See Rx Instructions PO .COMPLEX Qty: 354 0RF Rx Instructions: Take as directed by Physician prednisone PO PRN budesonide 32 mcg/actuation aerosol intranasal (DME) Resmed Airsense 10 CPAP Qty: 1 Dose Instruction: As directed Patient Comments: Pressure: 8-14 cmH2O DME: [facility] Rx Instructions: As directed Referrals: Georgia Raymond PA-C [Primary Care Provider] - Stand Alone Forms: Patient Portal/API
[2022-06-14 23:24] VITALS: BP 128/72; PULSE 76; RESP 16; O2SAT 95
== END 2022-06-14 23:26 | disposition home or self-care (01) ==
PROVIDERS: Emergency Provider Emergency Medicine; PCP Student in an Organized Health Care Education/Training Program
DX: S01.01XA Laceration without foreign body of scalp, initial encounter (principal); W18.30XA Fall on same level, unspecified, initial encounter
CPT/HCPCS: 12002; 70450; 72125; 99283; 99284

== ENCOUNTER 2022-06-17 11:43 | Day surgery (SDC) | payer MEDICARE, OTHER, SELFPAY ==
--- NOTE | 2022-06-17 | PATH_ITS ---
[facility] Accession Number: [id number] No. of containers..01 Tissue . 01 Material submitted: . colon - CECUM POLYP . 01 Diagnosis: Cecum, Polyp, Biopsy: Tubular adenoma. MRV 06/19/2022 1457 Local . 01 Electronically signed: . Mara Schumacher MD, Pathologist NPI- [id number] . 01 Gross description: . CECUM POLYP: Received in formalin is 1 fragment(s) of briceno, soft tissue measuring 0.5 x 0.5 x 0.2 cm submitted entirely in 1 cassette(s) /CPE 06/18/2022 0654 Local . 01 Pathologist provided ICD-10: D12.0 . 01 CPT . 299048 Specimen Comment: A courtesy copy of this report has been sent to [phone] Performed at: 01 [facility] [address] [place] [address], [place], [place] [id number] MD Albert Duarte MD Phone: [phone]
[2022-06-17 12:11] VITALS: BMI 27.5
[2022-06-17] MEDS: LACTATED RINGERS 1,000 ML 200 ML IV (12:32)
--- NOTE | 2022-06-17 13:32 | PM.HP.1 ---
History of Present Illness History of Present Illness Date Patient Seen: 06/17/22 Time Patient Seen: 13:32 Chief complaint: [facility] Narrative: 76-year-old man here for a screening colonoscopy. She had a previous colonoscopy unsure as to the date and recalls that perhaps polyp was removed. No family history of colon cancer. No abdominal complaints including nausea vomiting unintentional weight loss blood per rectum. [facility] Medical History Acute diverticulitis Dqopoto-lk-[id number] Lumbar stenosis with neurogenic claudication Obstructive sleep apnea of adult Sprain of shoulder, left Social History pets and animals: Yes (Anticipating getting a couple rescue dogs to foster for a period of time) Smoking Status: Never smoker alcohol intake: former substance use type: does not use Meds Home Medications and Allergies Home Medications Medication Instructions Recorded Confirmed Type amlodipine 5 mg tablet 7.5 mg PO DAILY 06/17/22 06/17/22 History bupropion HCl 150 mg 24 hr tablet, 150 mg PO BID 06/17/22 06/17/22 History extended release calcipotriene 0.005 % topical cream 1 applic topical BID 06/17/22 06/17/22 History cetirizine 10 mg tablet 10 mg PO DAILY 06/17/22 06/17/22 History finasteride 5 mg tablet 5 mg PO DAILY 06/17/22 06/17/22 History fluticasone propionate 220 1 puff inhalation BID 06/17/22 06/17/22 History mcg/actuation HFA aerosol inhaler (Flovent HFA) gabapentin 300 mg tablet 600 mg PO BID 06/17/22 06/17/22 History meloxicam 7.5 mg tablet 7.5 mg PO BID 06/17/22 06/17/22 History montelukast 10 mg tablet 10 mg PO BEDTIME 06/17/22 06/17/22 History omeprazole 20 mg capsule,delayed 20 mg PO DAILY 06/17/22 06/17/22 History release rosuvastatin 40 mg tablet 40 mg PO DAILY 06/17/22 06/17/22 History sildenafil 100 mg tablet 100 mg PO DAILY PRN Sexual Activity 06/17/22 06/17/22 History tamsulosin 0.4 mg capsule 0.4 mg PO DAILY 06/17/22 06/17/22 History tramadol 50 mg tablet 50 mg PO BEDTIME PRN Pain (Scale 06/17/22 06/17/22 History Score 1-3) Allergies Allergy/AdvReac Type Severity Reaction Status Date / Time oyster extract Allergy Unknown HIVES Verified 06/14/22 22:01 [OYSTER EXTRACT] Exam Narrative Exam Narrative: General adult man alert oriented no acute distress Abdomen soft nontender nondistended Assessment & Plan Assessment & Plan narrative: The patient requires colorectal screening and colonoscopy is recommended. Technical details were discussed. Risks, benefits, alternatives explained. Risks including but not limited to myocardial infarction, aspiration, bleeding, pain, missed lesion, incomplete examination, need for further radiographic studies, colonic perforation, and need for major abdominal surgery were discussed. All questions were answered to their satisfaction, and they are in agreement with this plan.
--- NOTE | 2022-06-17 13:34 | PM.OP.COLON ---
Operative Date/Time/Diagnoses Date of procedure: 06/17/22 Time of procedure: 13:34 Pre-op diagnosis: Colorectal screening Post-op diagnosis: other (Colonic polyp x1) Procedure & Clinicians Study performed: Colonoscopy Same procedure as scheduled: Yes Indications: Colorectal screening Surgeon: Robbin Bella Procedure Notes Procedure in detail: The history and physical was performed/updated and the patient is ASA class is 2. The procedure was discussed in detail with the patient. Potential risks complications including infection, bleeding, missed diagnosis, perforation, need for surgery, and were explained. Their questions were answered and informed consent was obtained. Patient was brought to the procedure room and placed standard monitoring equipment. The patient's vital signs were monitored continuously throughout the entire procedure. Prior to starting time-out was performed. The patient was placed in the left lateral recumbent position. Procedural sedation was administered by anesthesia. Examination began with a thorough inspection of the perianal area there was no evidence of fissures, fistulae, external hemorrhoids or cutaneous malignancy. The colonoscopy scope was then placed into the anal canal and was advanced to the cecum, which was identified by the ileocecal valve, the appendiceal orifice and the confluence of the taenia. The scope was then slowly withdrawn examining colon thoroughly in all directions, irrigating it of any residual stool. Within the cecum there is a 5 mm polyp removed with cold snare. The remainder of the colon was normal in its appearance with the exception of diverticulosis in the sigmoid colon. The patient tolerated the procedure well. They will be discharged once criteria are met. The prep was of good/excellent quality. The withdrawl time was 6 minutes. Specimen(s): other (Cecal polyp) Impression: Colonic polyp x1 Post-procedure Recommendations: High fiber diet Plan for aftercare: Follow-up is dependent on pathology findings Disposition: same day surgery
[2022-06-17 14:01] VITALS: BP 106/68; PULSE 62; RESP 14; TEMP 36.7; O2SAT 93
[2022-06-17 14:06] VITALS: BP 116/85; PULSE 62; RESP 16; O2SAT 94
[2022-06-17 14:11] VITALS: BP 131/79; PULSE 63; RESP 15; O2SAT 95
[2022-06-17 14:16] VITALS: BP 130/81; PULSE 62; RESP 16; TEMP 36.2; O2SAT 97
== END 2022-06-17 15:05 | disposition home or self-care (01) ==
PROVIDERS: PCP Student in an Organized Health Care Education/Training Program; Referring Provider Surgery; Visit Provider Surgery
PROC: 0DJD8ZZ Inspection of Lower Intestinal Tract, Via Natural or Artificial Opening Endoscopic (ICD-10-PCS; CPT 45378; principal; 2022-06-17 12:45)
DX: Z12.11 Encounter for screening for malignant neoplasm of colon (principal); D12.0 Benign neoplasm of cecum
CPT/HCPCS: 45385; J2704; J3010

== ENCOUNTER → 2022-11-25 13:29 | Outpatient (CLI) | payer MEDICARE, OTHER, SELFPAY ==
--- NOTE | 2022-11-25 | DI.RAD.S_ITS ---
PROCEDURE: XR LUMBAR SPINE 2-3V INDICATIONS: acute right-sided low back pain with sciatica TECHNIQUE: 3 views of the lumbar spine were acquired. COMPARISON: [facility], DICK, XR LUMBAR SPINE 2-3V, 02/07/2019, 7:49. [facility], CR, L-SPINE 2-3 VIEWS, 01/12/2014, 13:35. FINDINGS: Bones: 5 [id number] vertebrae are present. There is S-shaped curvature of the lumbar spine. Grade 1 retrolisthesis is seen at the L2-3 level. No vertebral body compression fractures. No suspicious bony lesions. Multilevel disc space narrowing degenerative endplate changes and multilevel facet hypertrophy are noted. A left hip prosthesis is present. Right hip degenerative changes are noted. Soft tissues: Overlying bowel gas pattern is normal. Prominent aortic atherosclerotic calcifications. IMPRESSION: 1. No acute osseous abnormality. If the symptoms persist, consider cross sectional imaging such as MRI or CT for further assessment. 2. Multilevel moderate to severe spondylosis and scoliotic curvature. Approved by: Radhames Shine M.D. on 11/25/2022 at 15:57
== END ==
PROVIDERS: PCP Student in an Organized Health Care Education/Training Program; Referring Provider Student in an Organized Health Care Education/Training Program; Visit Provider Student in an Organized Health Care Education/Training Program
DX: M54.41 Lumbago with sciatica, right side (principal); M47.816 Spondylosis without myelopathy or radiculopathy, lumbar region
CPT/HCPCS: 72100

== ENCOUNTER → 2022-11-28 16:20 | Outpatient (CLI) | payer MEDICARE, OTHER, SELFPAY ==
--- NOTE | 2022-11-28 16:23 | DI.RAD.S_ITS ---
PROCEDURE: XR SHOULDER LT MIN 2V INDICATIONS: Left anterior shoulder pain, slight reduced ROM/injury TECHNIQUE: 3 views of the shoulder were acquired. COMPARISON: [facility], , SHOULDER MINIMUM 2 VIEW LEFT, 04/02/2017, 10:45. FINDINGS: Bones: No fractures or dislocations. No suspicious bony lesions. Visualized ribs appear intact. Soft tissues: No suspicious soft tissue calcifications. IMPRESSION: No evidence acute bony abnormality. If clinical suspicion and/or symptoms persist, further assessment with repeat plain films, or advanced imaging (e.g., CT, MRI, or bone scan) may be helpful for further assessment. Dictated by: Mario Tamayo M.D. on 11/28/2022 at 17:21 Approved by: Mario Tamayo M.D. on 11/28/2022 at 17:25
== END ==
PROVIDERS: PCP Student in an Organized Health Care Education/Training Program; Referring Provider Student in an Organized Health Care Education/Training Program; Visit Provider Student in an Organized Health Care Education/Training Program
DX: M25.512 Pain in left shoulder (principal)
CPT/HCPCS: 73030

== ENCOUNTER → 2023-05-04 12:29 | Outpatient (CLI) | payer MEDICARE, OTHER, SELFPAY ==
[2023-05-04 14:06] LABS: Cholesterol 142 mg/dL (140-199); HDL Cholesterol 65 mg/dL (40-60); LDL Cholesterol Calculated 58 mg/dL (<100); Triglycerides 94 mg/dL (35-150)
== END ==
PROVIDERS: PCP Student in an Organized Health Care Education/Training Program; Referring Provider Internal Medicine Cardiovascular Disease; Visit Provider Internal Medicine Cardiovascular Disease
DX: E78.5 Hyperlipidemia, unspecified (principal)
CPT/HCPCS: 36415; 80061

== ENCOUNTER → 2023-06-25 13:35 | Outpatient (CLI) | payer MEDICARE, OTHER, SELFPAY | PROVIDERS: Family Provider Student in an Organized Health Care Education/Training Program; PCP Student in an Organized Health Care Education/Training Program; Referring Provider Orthopaedic Surgery; Visit Provider Orthopaedic Surgery | DX: R20.0 Anesthesia of skin (principal); R20.2 Paresthesia of skin | CPT/HCPCS: 95885; 95886; 95913 ==

== ENCOUNTER 2023-09-23 02:21 | Observation (INO) | payer MEDICARE, OTHER, SELFPAY ==
[2023-09-23] VITALS (18 sets, daily range): BP systolic 108–155; BP diastolic 61–85; PULSE 50–103; RESP 14–28; TEMP 35.9–36.6; O2SAT 91–98; BMI 27.8
--- NOTE | 2023-09-23 02:46 | DI.RAD.S_ITS ---
PROCEDURE: XR CHEST 1V INDICATIONS: dyspnea TECHNIQUE: One view of the chest was acquired. COMPARISON: [facility], CR, XR CHEST 2V, 11/28/2021, 10:44. [facility], CR, XR CHEST 1V, 04/08/2021, 11:09. FINDINGS: Surgical changes and devices: None. Lungs and pleura: Mild left basilar retrocardiac opacity. No pleural effusion or pneumothorax. Mediastinum: Mediastinal contours appear normal. Heart size is normal. Bones and chest wall: No suspicious bony lesions. Overlying soft tissues appear unremarkable. IMPRESSION: Possible mild left retrocardiac opacity may represent atelectasis, aspiration, or pneumonia. There is no significant discrepancy when compared to the overnight preliminary report. Approved by: Radhames Shine M.D. on 09/23/2023 at 8:14
--- NOTE | 2023-09-23 02:46 | EKG_ITS ---
[address] [address] [address], [place] [address] Test Date: 2023-09-23 Pat Name: Elgin Styles Department: Room: Gender: Male Charge Lpn: SASHA : 1945 Requested By: Order Number: [id number] Reading MD: Robin Bernal MD Measurements Intervals [place] Rate: 64 P: 12 NH: 166 QRS: -9 QRSD: 90 T: 0 QT: 416 QTc: 429 Interpretive Statements Sinus rhythm with marked sinus arrhythmia Electronically Signed On 09-23-2023 7:50:07 PDT by Robin Bernal MD
--- NOTE | 2023-09-23 02:58 | ED.GENADULT ---
HPI - General Adult General Chief complaint: Shortness of Breath/Dyspnea Stated complaint: dfficulty breathing Time Seen by Provider: 09/23/23 02:25 Source: patient Mode of arrival: Ambulatory History of Present Illness HPI narrative: 77-year-old gentleman with a history of reflux, hypertension, asthma presents complaining of 2 weeks of dyspnea, cough that is seems like that she be productive but he is unable to actually get anything up. He complains that he has been more fatigued, mildly short of breath, no chest pain, no palpitations, no abdominal pain, nausea or vomiting. He had some loose stool yesterday but no overt diarrhea. He has been using Flovent as his primary inhaler at home however it was apparently discontinued, changed to a generic form that he found did not provide significant benefit. It has not clear whether he has been using it at all over the last week. He does have a nebulizer but does not know how to set it up and has not been using any nebulized medications. He has been trying Robitussin DM which is also not particularly helpful. He does not describe fevers Related Data Home Medications Medication Instructions Recorded Confirmed amlodipine 5 mg tablet 7.5 mg PO DAILY 06/17/22 11/28/22 bupropion HCl 150 mg 24 hr tablet, 150 mg PO BID 06/17/22 11/28/22 extended release calcipotriene 0.005 % topical cream 1 applic topical BID 06/17/22 11/28/22 cetirizine 10 mg tablet 10 mg PO DAILY 06/17/22 11/28/22 finasteride 5 mg tablet 5 mg PO DAILY 06/17/22 11/28/22 fluticasone propionate 220 1 puff inhalation BID 06/17/22 11/28/22 mcg/actuation HFA aerosol inhaler (Flovent HFA) gabapentin 300 mg tablet 600 mg PO BID 06/17/22 11/28/22 meloxicam 7.5 mg tablet 7.5 mg PO BID 06/17/22 11/28/22 montelukast 10 mg tablet 10 mg PO BEDTIME 06/17/22 11/28/22 omeprazole 20 mg capsule,delayed 20 mg PO DAILY 06/17/22 11/28/22 release rosuvastatin 40 mg tablet 40 mg PO DAILY 06/17/22 11/28/22 sildenafil 100 mg tablet 100 mg PO DAILY PRN Sexual Activity 06/17/22 11/28/22 tamsulosin 0.4 mg capsule 0.4 mg PO DAILY 06/17/22 11/28/22 tramadol 50 mg tablet 50 mg PO BEDTIME PRN Pain (Scale 06/17/22 11/28/22 Score 1-3) fluconazole 100 mg tablet 100 mg PO DAILY 11/28/22 11/28/22 Allergies Allergy/AdvReac Type Severity Reaction Status Date / Time oyster extract Allergy Unknown HIVES Verified 06/14/22 22:01 [OYSTER EXTRACT] Review of Systems Review of Systems Narrative: Pertinent positive and negative findings as per HPI Patient History Medical History Acute diverticulitis [id number] Lumbar stenosis with neurogenic claudication Obstructive sleep apnea of adult Sprain of shoulder, left Social History pets and animals: Yes (Anticipating getting a couple rescue dogs to foster for a period of time) Smoking Status: Never smoker alcohol intake: former substance use type: does not use Smoking Status: Never smoker alcohol intake frequency: 3 or more drinks per day Substance Use Type: marijuana Exam Initial Vital Signs Initial Vital Signs: Vital Signs Temperature 97.5 F L 09/23/23 02:35 Pulse Rate 75 09/23/23 02:35 Respiratory Rate 20 09/23/23 02:35 Blood Pressure 155/77 H 09/23/23 02:35 Pulse Oximetry 95 09/23/23 02:35 Oxygen Delivery Method Room Air 09/23/23 02:35 General: Healthy appearing, coughing but Able to give a complete and coherent history. HEENT: Moist mucous membranes, normal sclera with reactive pupils, Neck: No JVD, supple Respiratory: Lungs with significant wheeze in all lung ryan rhonchi in the bases right greater than left Cardiac: Regular rate and rhythm no murmurs no bruits Abdomen: Soft, nontender, good bowel tones, no flank pain Skin: Warm and dry, no rashes Neurologic: Grossly neurologically intact with no obvious asymmetries or abnormalities Extremities: No trauma, well perfused, no lower extremity edema Psych: Cooperative, appropriate insight and affect Course Orders Ordered: ED Orders 09/23/23 02:45 Respiratory Panel (Film Array) Stat 09/23/23 02:46 XR chest 1V Stat Complete Blood Count AUTO DIFF Stat Comprehensive Metabolic Panel Stat Lactate (Lactic Acid) Stat Lipase Stat Magnesium Stat NT-proBNP (BNP-Adult 18+) Stat Procalcitonin Stat Troponin I Stat Urinalysis and Microscopic Stat EKG-12 Lead Stat Sodium Chloride (Normal Saline 0.9%) 1,000 mls @ 1,000 mls/hr IV BOLUS ONE Stop: 09/23/23 03:44 Discontinued Medications Albuterol/Ipratropium (Albuterol/Ipratropium 3 Ml Ampul) 3 ml INH NOW ONE Stop: 09/23/23 02:46 Methylprednisolone (Methylprednisolone 125 Mg/2 Ml Vial) 125 mg IV NOW ONE Stop: 09/23/23 02:46 Vital Signs Vital signs: Vital Signs - 8 hr 09/23/23 02:35 09/23/23 02:36 Temperature 97.5 F L Pulse Rate 75 Respiratory Rate 20 20 Blood Pressure 155/77 H Blood Pressure [Left Arm] 155/77 H Pulse Oximetry 95 95 Oxygen Delivery Method Room Air Room Air Medical Decision Making MDM Narrative Medical decision making narrative: CC: Cough with dyspnea worsening over the last 2 weeks Complicating co-morbidities: Asthma/COPD, sleep apnea, hypertension, hyperlipidemia, spinal stenosis with neurogenic claudication Data collected from: patient Medical records reviewed: Sleep study notes as well as previous ER and primary care notes are all reviewed Differential considered: Pneumonia, congestive heart failure, COPD/asthma exacerbation, bacterial infiltrate, Exam documented above, pertinent findings include: Able to speak in full sentences deep cough that does seem like it should be productive however he isn't able to get any sputum up, wheezing with rhonchi, cardiac exam and abdomen are benign. No clinical evidence of congestive heart failure Lab Test results independently reviewed as above. Pertinent findings: CBC shows no significant leukocytosis Chemistries are reassuring with normal renal function Troponin is undetectable ProBNP is low at 55 Respiratory panel does not show acute abnormalities Independently reviewed EKG: Sinus rhythm with marked sinus arrhythmia. No acute ischemic changes. Imaging studies independently reviewed: Chest x-ray does not suggest cardiomegaly, no significant infiltrates, no pneumothorax . Radiologist interpretation suggests mild left basilar opacity atelectasis versus pneumonia. Treatments: DuoNeb, Solu-Medrol Re-evaluations: Wheezing is somewhat improved after the DuoNeb. Patient states that he is actually feeling a bit worse and complaining of increasing confusion. Saturations on room air at rest or dipping down into the 88% range. He is placed on 2 L of oxygen. Discussion: 77-year-old gentleman with 2 weeks of worsening dyspnea, cough with wheezing. No evidence of congestive heart failure, acute coronary syndrome, sepsis, bacterial pneumonia, obvious viral etiology however moderate hypoxia which is a significant change from his baseline dropping down to 88% at rest feeling better with 2 L of oxygen and place. He has been given Solu-Medrol, a L of fluid single DuoNeb does seem to be improving somewhat. We will go ahead and add magnesium to help with bronchospasm but will recommend hospitalization at this time given the worsening hypoxia, symptoms ongoing for the last 2 weeks and worsening and increasing confusion for this 77-year-old gentleman who continues to successfully live independently. Care is reviewed with the hospitalist service and patient will be admitted. Discharge Plan Departure Patient Disposition: Admitted as Observation Clinical Impression: Hypoxia, Acute confusion Acute asthma exacerbation Qualifiers: Asthma severity: moderate Asthma persistence: unspecified Qualified Code(s): J45.901 - Unspecified asthma with (acute) exacerbation
[2023-09-23] MEDS: ALBUTEROL/IPRATROPIUM 3 ML AMPUL INH ×3 (03:01→19:19)
[2023-09-23 03:11] LABS: Add Manual Diff / Slide Review NO; Basophils Absolute Auto 100 /uL (0-100); Eosinophils Absolute Auto 1000 /uL (0-450); Hematocrit 42.3 % (41-53); Hemoglobin 14.3 g/dL (13.5-17.5); Lymphocytes Absolute Auto 1800 /uL (1100-4500); Lymphocytes Percent Auto 27.4 % (25-40); Mean Corpuscular HGB Conc 33.7 % (30-36); Mean Corpuscular Hemoglobin 31.8 PG (26-34); Mean Corpuscular Volume 94.5 fL (80-100); Monocytes Absolute Auto 800 /uL (0-900); Monocytes Percent Auto 12.6 % (3-14); Neutrophils Absolute Auto 2800 /uL (1500-7000); Platelet Count 170 X10^3/uL (150-400); Red Blood Cell Count 4.48 X10^6/uL (4.5-5.9); Red Cell Distribution Width 13.3 % (11.6-14.8); White Blood Cell Count 6.5 X10^3/uL (4.5-11.0)
[2023-09-23] MEDS: methylPREDNISolone 125 MG/2 ML VIAL IV (03:15)
[2023-09-23] MEDS: SODIUM CHLORIDE 0.9% 1,000 ML 1000 ML IV (03:15)
[2023-09-23 03:23] LABS: Lactate (Lactic Acid) 1.2 mmol/L (0.7-2.1)
[2023-09-23 03:24] LABS: Alanine Aminotransferase 24 IU/L (<50); Albumin 4.1 g/dL (3.5-5.0); Albumin Globulin Ratio 1.4 (1.0-2.8); Alkaline Phosphatase 88 U/L (38-126); Aspartate Aminotransferase 32 IU/L (17-59); BUN Creatinine Ratio 19.2 (6-22); Bilirubin Total 0.6 mg/dL (0.2-1.3); Blood Urea Nitrogen 14 mg/dL (9-20); Calcium 9.2 mg/dL (8.4-10.2); Carbon Dioxide 26 mmol/L (22-32); Chloride 104 mmol/L (98-107); Estimated Glomerular Filt Rate > 60 mL/min (>60); Globulin 2.9 g/dL (1.7-4.1); Glucose 93 mg/dL (80-110); HEMOLYSIS 15 (0-50); Lipase 111 U/L (23-300); Magnesium 2.2 mg/dL (1.6-2.3); Sodium 135 mmol/L (137-145)
[2023-09-23 03:36] LABS: NT-proBNP (BNP-Adult 18+) 55 pg/mL (<450); Troponin I < 0.012 ng/mL (0.01-0.034)
[2023-09-23 03:40] LABS: Procalcitonin 0.042 ng/mL (<0.5)
[2023-09-23 04:01] LABS: Adenovirus Not Detected (Not Detect); B. parapertussis Not Detected (Not Detecte); Bordetella pertussis Not Detected (Not Detect); Chlamydophila pneumoniae Not Detected (Not Detect); Coronavirus 229E Not Detected (Not Detect); Coronavirus HKU1 Not Detected (Not Detect); Coronavirus NL 63 Not Detected (Not Detect); Coronavirus OC43 Not Detected (Not Detect); Human Metapneumovirus Not Detected (Not Detect); Human Rhinovirus/Enterovirus Not Detected (Not Detect); Influenza A Not Detected (Not Detect); Influenza B Not Detected (Not Detect); Mycoplasma pneumoniae Not Detected (Not Detect); Parainfluenza Virus 1 Not Detected (Not Detect); Parainfluenza Virus 2 Not Detected (Not Detect); Parainfluenza Virus 3 Not Detected (Not Detect); Parainfluenza Virus 4 Not Detected (Not Detect); Respiratory Syncytial Virus Not Detected (Not Detect); SARS- CoV-2 Not Detected (Not Detecte)
[2023-09-23] MEDS: MAGNESIUM SULFATE 2 GM/50 ML PIGGYBACK IV (04:40)
[2023-09-23 05:58] LABS: Appearance Urine UA CLEAR; Bilirubin Urine UA NEGATIVE (NEGATIVE); Color Urine UA YELLOW; Glucose Urine UA NEGATIVE (Negative); Ketones Urine UA NEGATIVE (NEGATIVE); Leukocyte Esterase Urine UA NEGATIVE (NEGATIVE); Nitrite Urine UA NEGATIVE (Negative); Occult Blood Urine UA NEGATIVE (Negative); Protein Urine UA NEGATIVE (Negative); Specific Gravity Urine UA <=1.005 (1.000-1.035)
[2023-09-23 06:07] LABS: Bacteria Urine None Seen; Culture Indicated Urine Cult Not Indicated; RBC Urine None Seen (0-5/HPF); Squamous Epithelial Cell Urine 0-1 /HPF (0-5/HPF); Urine Volume 10mL (spun); WBC Urine None Seen (0-5/HPF)
--- NOTE | 2023-09-23 06:49 | P.HP_ITS ---
History of Present Illness History of Present Illness Date Patient Seen: 09/23/23 Time Patient Seen: 06:30 Chief complaint: dfficulty breathing Narrative: 77 y/o with PMH of asthma, former smoker, presented to ED severely short of breath, hypoxemic, with bouts of non-producting cough, wheezy. He was unable to use nebulized albuterol at home as he is not sure how to use it. His inhailed steroid was recently changed and it seems that he was not using it either. CXR w/o infiltrates and respiratory panel non-revealing. Placed in observation for steroid, bronchodilators. [facility] Medical History Obstructive sleep apnea of adult Sprain of shoulder, left Acute diverticulitis Lumbar stenosis with neurogenic claudication [id number] Social History pets and animals: Yes (Anticipating getting a couple rescue dogs to foster for a period of time) Smoking Status: Former smoker alcohol intake: former substance use type: does not use Meds Home Medications and Allergies Home Medications Medication Instructions Recorded Confirmed Type amlodipine 5 mg tablet 7.5 mg PO DAILY 06/17/22 09/23/23 History bupropion HCl 150 mg 24 hr tablet, 150 mg PO BID 06/17/22 09/23/23 History extended release cetirizine 10 mg tablet 10 mg PO DAILY 06/17/22 09/23/23 History finasteride 5 mg tablet 5 mg PO DAILY 06/17/22 09/23/23 History gabapentin 300 mg tablet 600 mg PO BID 06/17/22 09/23/23 History meloxicam 7.5 mg tablet 7.5 mg PO BID 06/17/22 09/23/23 History montelukast 10 mg tablet 10 mg PO BEDTIME 06/17/22 09/23/23 History omeprazole 20 mg capsule,delayed 20 mg PO DAILY 06/17/22 09/23/23 History release rosuvastatin 40 mg tablet 40 mg PO DAILY 06/17/22 09/23/23 History tamsulosin 0.4 mg capsule 0.4 mg PO DAILY 06/17/22 09/23/23 History tramadol 50 mg tablet 50 mg PO BEDTIME PRN Pain (Scale 06/17/22 09/23/23 History Score 1-3) Allergies Allergy/AdvReac Type Severity Reaction Status Date / Time oyster extract Allergy Unknown HIVES Verified 06/14/22 22:01 [OYSTER EXTRACT] Review of Systems Constitutional Comments: w/o fever or chills ENT Comments: congested Cardiovascular Comments: w/o chest pain or palpitations Gastrointestinal Comments: nauseated Genitourinary Comments: w/o dysuria Exam Vital Signs (past 8 hours): - 09/23/23 02:32 09/23/23 02:35 09/23/23 02:36 Temperature 97.5 F L Pulse Rate 71 75 Respiratory Rate 20 20 Blood Pressure 155/77 H Blood Pressure [Left Arm] 155/77 H Pulse Oximetry 96 95 95 Oxygen Delivery Method Room Air Room Air Oxygen Flow Rate 09/23/23 03:00 09/23/23 03:00 09/23/23 03:02 Temperature Pulse Rate 68 Respiratory Rate 18 Blood Pressure 122/66 Blood Pressure [Left Arm] Pulse Oximetry 93 Oxygen Delivery Method Room Air Oxygen Flow Rate 09/23/23 03:30 09/23/23 03:30 09/23/23 04:00 Temperature Pulse Rate 58 L Respiratory Rate 17 Blood Pressure 127/65 142/64 H Blood Pressure [Left Arm] Pulse Oximetry 91 Oxygen Delivery Method Oxygen Flow Rate 09/23/23 04:00 09/23/23 04:28 09/23/23 04:30 Temperature Pulse Rate 50 L Respiratory Rate 14 Blood Pressure 128/61 Blood Pressure [Left Arm] Pulse Oximetry 94 Oxygen Delivery Method Room Air Oxygen Flow Rate 09/23/23 04:30 09/23/23 05:00 09/23/23 05:00 Temperature Pulse Rate 61 68 Respiratory Rate 15 19 Blood Pressure 113/75 Blood Pressure [Left Arm] Pulse Oximetry 94 94 Oxygen Delivery Method Nasal Cannula Oxygen Flow Rate 2 09/23/23 05:30 09/23/23 05:33 09/23/23 05:33 Temperature 98 F Pulse Rate 76 72 Respiratory Rate 28 H 23 Blood Pressure 141/78 H Blood Pressure [Left Arm] Pulse Oximetry 96 97 Oxygen Delivery Method Nasal Cannula Oxygen Flow Rate 2 09/23/23 06:15 09/23/23 06:29 Temperature 96.6 F L Pulse Rate 82 Respiratory Rate 16 Blood Pressure 126/73 Blood Pressure [Left Arm] Pulse Oximetry 96 Oxygen Delivery Method Nasal Cannula Oxygen Flow Rate 2 Oxygen Delivery Method Nasal Cannula Oxygen Flow Rate 2 Const Other: in no distress HENMT Other: normocephalic Resp Other: decreased airflow b/l Cardio Other: RRR Neuro Other: w/o deficits Extrem Other: w/o swelling Psych Other: lucid, appropriate mood Objective ECG Impression: NSR Labs 09/23/23 03:00 09/23/23 03:00 Labs: Laboratory Results - last 24 hr 09/23/23 09/23/23 09/23/23 02:50 03:00 05:55 WBC 6.5 RBC 4.48 L Hgb 14.3 Hct 42.3 MCV 94.5 MCH 31.8 MCHC 33.7 RDW 13.3 Plt Count 170 Neut % (Auto) 44.0 L Lymph % (Auto) 27.4 [place] % (Auto) 12.6 Eos % (Auto) 15.0 H Baso % (Auto) 1.0 Neut # (Auto) 2800 Lymph # (Auto) 1800 [place] # (Auto) 800 Eos # (Auto) 1000 H Baso # (Auto) 100 Sodium 135 L Potassium 4.0 Chloride 104 Carbon Dioxide 26 BUN 14 Creatinine 0.73 Estimated GFR > 60 BUN/Creatinine Ratio 19.2 Glucose 93 Lactate 1.2 Calcium 9.2 Magnesium 2.2 Total Bilirubin 0.6 AST 32 ALT 24 Alkaline Phosphatase 88 Troponin I < 0.012 NT-Pro-B Natriuret Pep 55 Total Protein 7.0 Albumin 4.1 Globulin 2.9 Albumin/Globulin Ratio 1.4 Lipase 111 Procalcitonin 0.042 Urine Color Yellow Urine Appearance Clear Urine pH 6.0 Ur Specific [place] <=1.005 Urine Protein Negative Urine Glucose (UA) Negative Urine Ketones Negative Urine Occult Blood Negative Urine Nitrate Negative Urine Bilirubin Negative Urine Urobilinogen 1.0 Ur Leukocyte Esterase Negative Urine RBC None seen Urine WBC None seen Ur Squamous Epith Cells 0-1 /hpf Urine Bacteria None seen Ur Culture Indicated? Cult not indicated Vol Urine Centrifuged 10ml (spun) Chlamy pneumoniae PCR Not detected Adenovirus (PCR) Not detected B.parapertussis DNA PCR Not detected Coronavirus OC43 (PCR) Not detected Coronavirus HKU1 (PCR) Not detected Coronavirus 229E (PCR) Not detected SARS-CoV-2 (PCR) Not detected Coronavirus NL63 (PCR) Not detected Human Metapneumovir PCR Not detected Influenza Type A (PCR) Not detected Influenza Type B (PCR) Not detected M. pneumoniae (PCR) Not detected Parainfluenza 1 (PCR) Not detected Parainfluenza 2 (PCR) Not detected Parainfluenza 3 (PCR) Not detected Parainfluenza 4 (PCR) Not detected RSV (PCR) Not detected Entero/Rhino (PCR) Not detected Assessment & Plan Assessment and plan (1) Acute asthma exacerbation: Qualifiers: Asthma persistence: unspecified Asthma severity: moderate Qualified Code(s): J45.901 - Unspecified asthma with (acute) exacerbation Status: Acute (2) Acute hypoxemic respiratory failure: Status: Acute (3) Lumbar stenosis with neurogenic claudication: Status: Chronic (4) BPH w urinary obs/LUTS: Status: Acute (5) GERD (gastroesophageal reflux disease): Status: Acute Assessment & Plan narrative: Acute Asthma Exacerbation with Hypoxemia - Solumedrol, DuoNeb, albuterol, Mucinex - oxygen, try to wean off - he doesn't know how to use nebulizer, is non-compliant with inhaled steroid GERD - PPI BPH - Flomax, Finasteride LS stenosis with claudication, pain - Meloxicam, Gabapentin, Tramadol Depression - Wellbutrin DVT prophylaxis - Lovenox Time-Based Coding :: [TOTAL MINUTES] spent with patient and on the chart (including review of chart, obtaining history, exam, reviewing outside data, placing orders, documenting exam and treatment plan, and counseling patient) on [DATE].
[2023-09-23 07:39] LABS: Add Manual Diff / Slide Review NO; Basophils Absolute Auto 0 /uL (0-100); Basophils Percent Auto 0.2 % (0-2); Eosinophils Absolute Auto 0 /uL (0-450); Eosinophils Percent Auto 0.4 % (2-4); Hematocrit 44.5 % (41-53); Lymphocytes Absolute Auto 400 /uL (1100-4500); Lymphocytes Percent Auto 3.8 % (25-40); Mean Corpuscular HGB Conc 33.7 % (30-36); Mean Corpuscular Hemoglobin 31.8 PG (26-34); Mean Corpuscular Volume 94.3 fL (80-100); Monocytes Absolute Auto 300 /uL (0-900); Monocytes Percent Auto 2.8 % (3-14); Neutrophils Absolute Auto 9500 /uL (1500-7000); Neutrophils Percent Auto 92.8 % (50-75); Platelet Count 166 X10^3/uL (150-400); Red Blood Cell Count 4.72 X10^6/uL (4.5-5.9); Red Cell Distribution Width 13.2 % (11.6-14.8); White Blood Cell Count 10.2 X10^3/uL (4.5-11.0)
[2023-09-23] MEDS: BUDESONIDE 0.5 MG/2 ML NEB INH ×2 (07:45→19:10)
--- NOTE | 2023-09-23 07:48 | PM.HP.1 ---
History of Present Illness History of Present Illness Date Patient Seen: 09/23/23 Chief complaint: dfficulty breathing Narrative: From night doctor: 77 y/o with PMH of asthma, former smoker, presented to ED severely short of breath, hypoxemic, with bouts of non-producting cough, wheezy. He was unable to use nebulized albuterol at home as he is not sure how to use it. His inhailed steroid was recently changed and it seems that he was not using it either. CXR w/o infiltrates and respiratory panel non-revealing. Placed in observation for steroid, bronchodilators. S: He was a somewhat vague historian but has been short of breath for at least a day. He smoked for about 6 years in his 20s. He notes that his lungs feel tight only in the upper airways. He was a chronic cough. He believes he has asthma, not COPD. He was never seeing pulmonology. The patient had a negative respiratory PCR and denies recent URI or cold symptoms. He also denies prominent dyspnea on exertion. He lives [place], with his dog. [facility] Medical History Obstructive sleep apnea of adult Sprain of shoulder, left Acute diverticulitis Lumbar stenosis with neurogenic claudication [id number] Social History pets and animals: Yes (Anticipating getting a couple rescue dogs to foster for a period of time) Smoking Status: Former smoker alcohol intake: former substance use type: does not use Meds Home Medications and Allergies Home Medications Medication Instructions Recorded Confirmed Type amlodipine 5 mg tablet 7.5 mg PO DAILY 06/17/22 09/23/23 History bupropion HCl 150 mg 24 hr tablet, 150 mg PO QAM 06/17/22 09/23/23 History extended release cetirizine 10 mg tablet 10 mg PO DAILY 06/17/22 09/23/23 History finasteride 5 mg tablet 5 mg PO DAILY 06/17/22 09/23/23 History gabapentin 300 mg tablet 600 mg PO BID 06/17/22 09/23/23 History meloxicam 7.5 mg tablet 7.5 mg PO BID 06/17/22 09/23/23 History montelukast 10 mg tablet 10 mg PO BEDTIME 06/17/22 09/23/23 History omeprazole 20 mg capsule,delayed 20 mg PO DAILY 06/17/22 09/23/23 History release rosuvastatin 40 mg tablet 40 mg PO DAILY 06/17/22 09/23/23 History tamsulosin 0.4 mg capsule 0.4 mg PO DAILY 06/17/22 09/23/23 History tramadol 50 mg tablet 50 mg PO BEDTIME PRN Pain (Scale 06/17/22 09/23/23 History Score 1-3) albuterol sulfate 90 mcg/actuation 2 puff inhalation Q6H PRN 09/23/23 09/23/23 History aerosol inhaler Shortness Of Breath fluticasone furoate 200 1 inh inhalation DAILY 09/23/23 09/23/23 History mcg/actuation blister powder for inhalation (Arnuity Ellipta) Allergies Allergy/AdvReac Type Severity Reaction Status Date / Time oyster extract Allergy Unknown HIVES Verified 06/14/22 22:01 [OYSTER EXTRACT] Review of Systems Review of Systems Narrative: All else reviewed and otherwise unremarkable except as noted in the history and physical. Exam Vital Signs (past 8 hours): - 09/23/23 02:32 09/23/23 02:35 09/23/23 02:36 Temperature 97.5 F L Pulse Rate 71 75 Respiratory Rate 20 20 Blood Pressure 155/77 H Blood Pressure [Left Arm] 155/77 H Pulse Oximetry 96 95 95 Oxygen Delivery Method Room Air Room Air Oxygen Flow Rate 09/23/23 03:00 09/23/23 03:00 09/23/23 03:02 Temperature Pulse Rate 68 Respiratory Rate 18 Blood Pressure 122/66 Blood Pressure [Left Arm] Pulse Oximetry 93 Oxygen Delivery Method Room Air Oxygen Flow Rate 09/23/23 03:30 09/23/23 03:30 09/23/23 04:00 Temperature Pulse Rate 58 L Respiratory Rate 17 Blood Pressure 127/65 142/64 H Blood Pressure [Left Arm] Pulse Oximetry 91 Oxygen Delivery Method Oxygen Flow Rate 09/23/23 04:00 09/23/23 04:28 09/23/23 04:30 Temperature Pulse Rate 50 L Respiratory Rate 14 Blood Pressure 128/61 Blood Pressure [Left Arm] Pulse Oximetry 94 Oxygen Delivery Method Room Air Oxygen Flow Rate 09/23/23 04:30 09/23/23 05:00 07/17/24 05:00 Temperature Pulse Rate 61 68 Respiratory Rate 15 19 Blood Pressure 113/75 Blood Pressure [Left Arm] Pulse Oximetry 94 94 Oxygen Delivery Method Nasal Cannula Oxygen Flow Rate 2 09/23/23 05:30 09/23/23 05:33 09/23/23 05:33 Temperature 98 F Pulse Rate 76 72 Respiratory Rate 28 H 23 Blood Pressure 141/78 H Blood Pressure [Left Arm] Pulse Oximetry 96 97 Oxygen Delivery Method Nasal Cannula Oxygen Flow Rate 2 09/23/23 06:15 09/23/23 06:29 Temperature 96.6 F L Pulse Rate 82 Respiratory Rate 16 Blood Pressure 126/73 Blood Pressure [Left Arm] Pulse Oximetry 96 Oxygen Delivery Method Nasal Cannula Oxygen Flow Rate 2 Oxygen Delivery Method Nasal Cannula Oxygen Flow Rate 2 Narrative Exam Narrative: NAD, alert and oriented, fluent speech, calm. Normocephalic skull, EOMI, anicteric sclera, symmetric pupils. Oropharynx unremarkable, no droop. Neck supple, midline trachea, no adenopathy. Lungs clear, normal rate and effort. He does have expiratory wheezing with forced expiration no as well as a very prolonged expiratory phase and then cough episode. Heart regular, no murmur gallop or rub. Abdomen is soft, non distended and non tender. Extremities are free of edema. Skin is free of rash or lesions. Joints are not swollen or deformed. Judgment appears to be normal. Objective Imaging Chest x-ray: My impression: Mostly clear to my read. Radiologist's impression: Possible mild left retrocardiac opacity may represent atelectasis, aspiration, or pneumonia. There is no significant discrepancy when compared to the overnight preliminary report.. Labs 09/23/23 07:15 09/23/23 07:15 Labs: Laboratory Results - last 24 hr 09/23/23 09/23/23 09/23/23 02:50 03:00 05:55 WBC 6.5 RBC 4.48 L Hgb 14.3 Hct 42.3 MCV 94.5 MCH 31.8 MCHC 33.7 RDW 13.3 Plt Count 170 Neut % (Auto) 44.0 L Lymph % (Auto) 27.4 [place] % (Auto) 12.6 Eos % (Auto) 15.0 H Baso % (Auto) 1.0 Neut # (Auto) 2800 Lymph # (Auto) 1800 [place] # (Auto) 800 Eos # (Auto) 1000 H Baso # (Auto) 100 Sodium 135 L Potassium 4.0 Chloride 104 Carbon Dioxide 26 BUN 14 Creatinine 0.73 Estimated GFR > 60 BUN/Creatinine Ratio 19.2 Glucose 93 Lactate 1.2 Calcium 9.2 Magnesium 2.2 Total Bilirubin 0.6 AST 32 ALT 24 Alkaline Phosphatase 88 Troponin I < 0.012 NT-Pro-B Natriuret Pep 55 Total Protein 7.0 Albumin 4.1 Globulin 2.9 Albumin/Globulin Ratio 1.4 Lipase 111 Procalcitonin 0.042 Urine Color Yellow Urine Appearance Clear Urine pH 6.0 Ur Specific [place] <=1.005 Urine Protein Negative Urine Glucose (UA) Negative Urine Ketones Negative Urine Occult Blood Negative Urine Nitrate Negative Urine Bilirubin Negative Urine Urobilinogen 1.0 Ur Leukocyte Esterase Negative Urine RBC None seen Urine WBC None seen Ur Squamous Epith Cells 0-1 /hpf Urine Bacteria None seen Ur Culture Indicated? Cult not indicated Vol Urine Centrifuged 10ml (spun) Chlamy pneumoniae PCR Not detected Adenovirus (PCR) Not detected B.parapertussis DNA PCR Not detected Coronavirus OC43 (PCR) Not detected Coronavirus HKU1 (PCR) Not detected Coronavirus 229E (PCR) Not detected SARS-CoV-2 (PCR) Not detected Coronavirus NL63 (PCR) Not detected Human Metapneumovir PCR Not detected Influenza Type A (PCR) Not detected Influenza Type B (PCR) Not detected M. pneumoniae (PCR) Not detected Parainfluenza 1 (PCR) Not detected Parainfluenza 2 (PCR) Not detected Parainfluenza 3 (PCR) Not detected Parainfluenza 4 (PCR) Not detected RSV (PCR) Not detected Entero/Rhino (PCR) Not detected 09/23/23 07:15 WBC 10.2 D RBC 4.72 Hgb 15.0 Hct 44.5 MCV 94.3 MCH 31.8 MCHC 33.7 RDW 13.2 Plt Count 166 Neut % (Auto) 92.8 H D Lymph % (Auto) 3.8 L D [place] % (Auto) 2.8 L Eos % (Auto) 0.4 L Baso % (Auto) 0.2 Neut # (Auto) 9500 H Lymph # (Auto) 400 L [place] # (Auto) 300 Eos # (Auto) 0 Baso # (Auto) 0 Sodium Potassium Chloride Carbon Dioxide BUN Creatinine Estimated GFR BUN/Creatinine Ratio Glucose Lactate Calcium Magnesium Total Bilirubin AST ALT Alkaline Phosphatase Troponin I NT-Pro-B Natriuret Pep Total Protein Albumin Globulin Albumin/Globulin Ratio Lipase Procalcitonin Urine Color Urine Appearance Urine pH Ur Specific [place] Urine Protein Urine Glucose (UA) Urine Ketones Urine Occult Blood Urine Nitrate Urine Bilirubin Urine Urobilinogen Ur Leukocyte Esterase Urine RBC Urine WBC Ur Squamous Epith Cells Urine Bacteria Ur Culture Indicated? Vol Urine Centrifuged Chlamy pneumoniae PCR Adenovirus (PCR) B.parapertussis DNA PCR Coronavirus OC43 (PCR) Coronavirus HKU1 (PCR) Coronavirus 229E (PCR) SARS-CoV-2 (PCR) Coronavirus NL63 (PCR) Human Metapneumovir PCR Influenza Type A (PCR) Influenza Type B (PCR) M. pneumoniae (PCR) Parainfluenza 1 (PCR) Parainfluenza 2 (PCR) Parainfluenza 3 (PCR) Parainfluenza 4 (PCR) RSV (PCR) Entero/Rhino (PCR) Assessment & Plan Assessment & Plan narrative: Acute asthma exacerbation, present on admission and active. - Solumedrol, DuoNeb, albuterol, Mucinex Acute hypoxic respiratory failure, present on admission and active. GERD, present on admission and active. - PPI BPH, present on admission and active. - Flomax, Finasteride LS stenosis with claudication, present on admission and active. - Meloxicam, Gabapentin, Tramadol Depression, present on admission and active. - Wellbutrin PLAN: -continue steroids, and nebs. -OOB -Wean O2. TANNER: 09/23 AM if breathing has improved and he was able to wean off from oxygen. Time-Based Coding :: 35 Min spent with patient and on the chart (including review of chart, obtaining history, exam, reviewing outside data, placing orders, documenting exam and treatment plan, and counseling patient) on 09/22.
[2023-09-23 07:49] LABS: BUN Creatinine Ratio 19.1 (6-22); Blood Urea Nitrogen 13 mg/dL (9-20); Calcium 8.6 mg/dL (8.4-10.2); Carbon Dioxide 24 mmol/L (22-32); Chloride 107 mmol/L (98-107); Estimated Glomerular Filt Rate > 60 mL/min (>60); Glucose 123 mg/dL (80-110); HEMOLYSIS < 15 (0-50); Potassium 3.9 mmol/L (3.4-5.1); Sodium 136 mmol/L (137-145)
[2023-09-23] MEDS: PANTOPRAZOLE DR 20 MG TABLET PO ×2 (09:17→20:32)
[2023-09-23] MEDS: MELOXICAM 7.5 MG TABLET PO ×2 (09:17→20:33)
[2023-09-23] MEDS: GABAPENTIN 300 MG CAPSULE 600 MG PO ×2 (09:19→20:32)
[2023-09-23] MEDS: buPROPion XL 150 MG TAB PO (09:19)
[2023-09-23] MEDS: ACETAMINOPHEN 325 MG TABLET 650 MG PO ×2 (09:30→20:34)
[2023-09-23] MEDS: methylPREDNISolone 125 MG/2 ML VIAL 60 MG IV (14:20)
--- NOTE | 2023-09-23 14:38 | CM.DANOTE ---
Initial DCP Assessment Visit Reviewed EMR and team rounds for status updates. Met with pt at bedside to introduce self and role, pt was found to be alert/oriented, able to discuss his concerns and plan to d/c back home once he's medically stable for home discharge, anticipated for 09/23. Pt resides independently in his own home here in [place], he does have a dtr that is his primary support person. Payor: Medicare PCP: Meggan Raymond Pt is a 77 year-old M with a hx of asthma who presented to the ED on early this am complaining of 2-weeks SOB, cough, fatigue, and wheezing. In the ED, he was started on 2LO2, nebulizers, and steroids. He was then placed in OBS for worsening hypoxia. DCP will continue to monitor for any further evolving needs, however none are anticipated at this time. Discharge Planning/Care Management Advanced directive, confirm from FAMILY Start: 09/23/23 06:47 Freq: Q24H Status: Active Protocol: Document 09/23/23 06:47 CT (Rec: 09/23/23 06:48 CT [id number]) Advance Directive, confirm on record Time 06:48 Person contacted patient Copy received No CM Discharge Assessment Start: 09/23/23 14:34 Freq: Status: Active Protocol: Document 09/23/23 14:34 DPL (Rec: 09/23/23 14:38 DPL [id number]) Discharge Planning Assessment Assigned Trommel Tender PAUL Schneider Advance Directives? Yes: Pt thinks he has them at home Advance Directives on File No History Provided By Patient,Medical Record Has Patient been admitted in last 30 No days? Comment No identified d/c needs anticipated at this time. Household Members none Type of transporation used prior to Drives own vehicle admit Independent with ADL's Yes Is patient alert and oriented? Yes Caregiver for Another No Comment N/A DME Already Rented / Owned Nebulizer Comment No identified home d/c needs. Barriers to Discharge No Discharge Plan Home Transportation Arrangement Self, he drove himself to the ED. Referrals Initiated None needed Whiteboard Updated in Patient Room with Yes name and ext. # of Trommel Tender Review Status In Process Please Provide Date Initial DC 09/23/23 Assessment Was Performed
[2023-09-23] MEDS: LORATADINE 10 MG TABLET PO (20:32)
[2023-09-23] MEDS: MONTELUKAST 10 MG TABLET PO (20:32)
[2023-09-23] MEDS: AMLODIPINE 5 MG TABLET 7.5 MG PO (20:32)
[2023-09-23] MEDS: TAMSULOSIN 0.4 MG CAPSULE PO (20:33)
[2023-09-23] MEDS: guaiFENesin ER 600 MG TAB PO (20:43)
[2023-09-23] MEDS: TRAMADOL 50 MG TABLET PO (20:44)
[2023-09-23] MEDS: FINASTERIDE 5 MG TABLET PO (20:44)
[2023-09-24 00:03] VITALS: BP 115/69; PULSE 82; RESP 18; TEMP 36.3; O2SAT 94
[2023-09-24] MEDS: methylPREDNISolone 125 MG/2 ML VIAL 60 MG IV ×2 (03:19→15:42)
[2023-09-24 06:00] VITALS: BP 156/76; PULSE 62; RESP 16; TEMP 36; O2SAT 92
[2023-09-24 08:00] VITALS: BP 128/78; PULSE 99; RESP 19; TEMP 36.4; O2SAT 92
[2023-09-24 08:01] VITALS: PULSE 93; RESP 18; O2SAT 92
[2023-09-24] MEDS: ALBUTEROL/IPRATROPIUM 3 ML AMPUL INH ×2 (08:01→20:15)
[2023-09-24] MEDS: BUDESONIDE 0.5 MG/2 ML NEB INH ×2 (08:01→20:15)
[2023-09-24] MEDS: CODEINE/GUAIFENESIN LIQUID 5ML UDC 10 ML PO ×2 (08:20→21:54)
[2023-09-24] MEDS: BENZONATATE 100 MG CAPSULE PO ×2 (08:30→15:42)
[2023-09-24] MEDS: ACETAMINOPHEN 325 MG TABLET 650 MG PO ×2 (09:01→14:12)
[2023-09-24] MEDS: MELOXICAM 7.5 MG TABLET PO ×2 (09:01→21:49)
[2023-09-24] MEDS: buPROPion XL 150 MG TAB PO (09:01)
[2023-09-24] MEDS: GABAPENTIN 300 MG CAPSULE 600 MG PO ×2 (09:01→21:49)
[2023-09-24] MEDS: ENOXAPARIN 40 MG/0.4 ML SYRINGE SUBCUT (09:02)
--- NOTE | 2023-09-24 10:09 | PC.NURSE ---
Addendum entered by Jasmyn Chavez R.N. 09/24/23 14:47: Patient given tylenol for headache, he is sitting up in his chair and resting. Cough much improved after tessalon eulogio and cough syrup given. Original Note: Assess- Patient has a persistent cough, and wheezes upon auscultation. He is on RA and in the 90s for pulse ox reading. Up ad yasmani in room, steady on feet. Given cough syrup and tessalon pearls for cough and patient is comfortable at this time.
[2023-09-24 12:00] VITALS: BP 128/63; PULSE 77; RESP 22; TEMP 36.6; O2SAT 96
--- NOTE | 2023-09-24 13:08 | P.PN_ITS ---
Subjective Subjective Interval history: He still has a fairly severe cough with shortness of breath during these episodes. He was able to wean off from oxygen. No pain. Exam Vital Signs (past 8 hours): - 09/24/23 06:00 09/24/23 08:00 09/24/23 08:01 Temperature 96.8 F L 97.5 F L Pulse Rate 62 99 H 93 H Respiratory Rate 16 19 18 Blood Pressure 156/76 H 128/78 Pulse Oximetry 92 92 92 Oxygen Delivery Method Room Air Oxygen Flow Rate 0 0 0 Fraction of Inspired Oxygen 21 Fraction of Inspired Oxygen 21 SaO2/FiO2 Ratio 438 Oxygen Delivery Method Room Air Oxygen Flow Rate 0 Narrative Exam Narrative: NAD, alert and oriented. Fluent speech. Lungs are clear, normal rate and effort. He does have a very prolonged expiratory phase with forced expiration which then triggers a very severe coughing episode. Heart is regular, no murmur gallop or rub. Abdomen is soft, non distended. Extremities are free of edema. Objective Labs 09/23/23 07:15 09/23/23 07:15 [facility] Medical History Obstructive sleep apnea of adult Sprain of shoulder, left Acute diverticulitis Lumbar stenosis with neurogenic claudication [id number] Social History household members: none pets and animals: Yes (Anticipating getting a couple rescue dogs to foster for a period of time) Smoking Status: Former smoker alcohol intake: former substance use type: does not use Assessment & Plan Assessment & Plan narrative: Acute asthma exacerbation, present on admission and improving. - Solumedrol, DuoNeb, albuterol, Mucinex Acute hypoxic respiratory failure, present on admission and resolved. GERD, present on admission and stable. - PPI BPH, present on admission and stable. - Flomax, Finasteride LS stenosis with claudication, present on admission and stable. - Meloxicam, Gabapentin, Tramadol Depression, present on admission and stable. - Wellbutrin PLAN: -continue steroids, and nebs. -OOB -treat bronchospasm and antitussives. . TANNER: 7 AM if breathing has improved and cough is better. Time-Based Coding :: 25 min spent with patient and on the chart (including review of chart, obtaining history, exam, reviewing outside data, placing orders, documenting exam and treatment plan, and counseling patient) on 09/23.
[2023-09-24 20:15] VITALS: PULSE 91; RESP 20; O2SAT 95
[2023-09-24] MEDS: MONTELUKAST 10 MG TABLET PO (21:46)
[2023-09-24] MEDS: AMLODIPINE 5 MG TABLET 7.5 MG PO (21:46)
[2023-09-24] MEDS: PANTOPRAZOLE DR 20 MG TABLET PO (21:49)
[2023-09-24] MEDS: FINASTERIDE 5 MG TABLET PO (21:50)
[2023-09-24] MEDS: LORATADINE 10 MG TABLET PO (21:50)
[2023-09-24] MEDS: TAMSULOSIN 0.4 MG CAPSULE PO (21:50)
[2023-09-25] VITALS: BP 142/70; PULSE 110; RESP 19; TEMP 35.8; O2SAT 92
[2023-09-25] MEDS: BENZONATATE 100 MG CAPSULE PO ×2 (00:35→08:29)
[2023-09-25 02:00] VITALS: PULSE 61; RESP 20; O2SAT 96
[2023-09-25] MEDS: ALBUTEROL 2.5 MG/3 ML NEB (ADULT) INH ×2 (02:00→08:54)
[2023-09-25] MEDS: TRAMADOL 50 MG TABLET PO (02:48)
[2023-09-25] MEDS: methylPREDNISolone 125 MG/2 ML VIAL 60 MG IV (02:49)
[2023-09-25 06:00] VITALS: BP 133/74; PULSE 83; RESP 19; TEMP 35.9; O2SAT 93
[2023-09-25 08:00] VITALS: BP 149/64; PULSE 75; RESP 17; TEMP 36.4; O2SAT 92
[2023-09-25] MEDS: CODEINE/GUAIFENESIN LIQUID 5ML UDC 10 ML PO (08:28)
[2023-09-25] MEDS: MELOXICAM 7.5 MG TABLET PO (08:29)
[2023-09-25] MEDS: ACETAMINOPHEN 325 MG TABLET 650 MG PO (08:29)
[2023-09-25] MEDS: GABAPENTIN 300 MG CAPSULE 600 MG PO (08:29)
[2023-09-25] MEDS: guaiFENesin ER 600 MG TAB PO (08:29)
[2023-09-25] MEDS: buPROPion XL 150 MG TAB PO (08:29)
[2023-09-25 08:54] VITALS: PULSE 72; RESP 18; O2SAT 93
[2023-09-25] MEDS: BUDESONIDE 0.5 MG/2 ML NEB INH (08:54)
--- NOTE | 2023-09-25 10:20 | CM.DPC ---
DCP Cont Reviewed chart. Patient discussed in multidisciplinary rounds. Discharge anticipated today. Patient lives independently, Discharge home w/close outpatient follow up. CM team following closely in case any discharge needs or concerns arise. SUJIT
--- NOTE | 2023-09-25 12:31 | PM.DS.1 ---
History of Present Illness History of Present Illness Date Patient Seen: 09/25/23 Time Patient Seen: 12:32 Chief complaint: dfficulty breathing Narrative: From night doctor: 77 y/o with PMH of asthma, former smoker, presented to ED severely short of breath, hypoxemic, with bouts of non-producting cough, wheezy. He was unable to use nebulized albuterol at home as he is not sure how to use it. His inhailed steroid was recently changed and it seems that he was not using it either. CXR w/o infiltrates and respiratory panel non-revealing. Placed in observation for steroid, bronchodilators. S: He was a somewhat vague historian but has been short of breath for at least a day. He smoked for about 6 years in his 20s. He notes that his lungs feel tight only in the upper airways. He was a chronic cough. He believes he has asthma, not COPD. He was never seeing pulmonology. The patient had a negative respiratory PCR and denies recent URI or cold symptoms. He also denies prominent dyspnea on exertion. He lives [place], with his dog. Discharge Providers Provider Date of admission: 09/23/23 05:14 Discharge Date: 09/25/23 Primary care physician: Georgia Raymond PA-C Discharge provider: Scotty Kessler DO Summary Hospital Course Discharge Diagnosis: Acute asthma exacerbation, present on admission and improving. Acute hypoxic respiratory failure, present on admission and resolved. GERD, present on admission and stable. BPH, present on admission and stable. LS stenosis with claudication, present on admission and stable. Depression, present on admission and stable. Hospital Course: This is a 77 year old male admitted with acute respiratory failure due to asthma exacerbation. He had slow improvement with initiation of steroids and nebulizer therapies. He was weaned off supplemental oxygen prior to discharge (he was on 2L on presentation) and felt improved prior to going home. He was given 4 additional days of prednisone 40 mg daily on discharge and azithromycin for 5 days to assist with inflammatory response. No other changes were made to his home medications. Recommend follow up with primary care in the next 1-2 weeks for hospital follow up after asthma exacerbation and to see if any additional adjustments are needed to this [facility] medications. Time Spent with Patient Time spent: Less than 30 minutes Exam Vital Signs (past 8 hours): - 09/25/23 06:00 09/25/23 07:00 09/25/23 08:00 Temperature 96.7 F L 97.5 F L Pulse Rate 83 75 Respiratory Rate 19 17 Blood Pressure 133/74 149/64 H Pulse Oximetry 93 92 Oxygen Delivery Method Room Air Oxygen Flow Rate 0 Fraction of Inspired Oxygen 09/25/23 08:54 Temperature Pulse Rate 72 Respiratory Rate 18 Blood Pressure Pulse Oximetry 93 Oxygen Delivery Method Room Air Oxygen Flow Rate 0 Fraction of Inspired Oxygen 21 Fraction of Inspired Oxygen 21 SaO2/FiO2 Ratio 442 Oxygen Delivery Method Room Air Oxygen Flow Rate 0 Narrative Exam Narrative: NAD, alert and oriented. Fluent speech. Lungs are clear, normal rate and effort. Some cough Heart is regular, no murmur gallop or rub. Abdomen is soft, non distended. Extremities are free of edema. Objective Labs 09/23/23 07:15 09/23/23 07:15 [facility] Medical History Obstructive sleep apnea of adult Sprain of shoulder, left Acute diverticulitis Lumbar stenosis with neurogenic claudication [id number] Social History household members: none pets and animals: Yes (Anticipating getting a couple rescue dogs to foster for a period of time) Smoking Status: Former smoker alcohol intake: former substance use type: does not use Discharge Plan Discharge Plan Patient Disposition: Home Provider Discharge Comment: You were admitted to the hospital with an asthma exacerbation, no changes recommended to usual home medications after completion of steroids and antibiotics for inflammatory response. Discharge orders & Medications Prescriptions: New prednisone 20 mg tablet 40 mg PO DAILY 4 Days Qty: 8 0RF azithromycin 250 mg tablet See Rx Instructions .ROUTE .COMPLEX Qty: 6 0RF Rx Instructions: For 250 mg dose pack: take 500 mg today (day 1), then 250 mg for 4 days (days 2-5) Continued cetirizine 10 mg Tablet 10 mg PO DAILY amlodipine 5 mg Tablet 7.5 mg PO DAILY tramadol 50 mg Tablet 50 mg PO BEDTIME PRN (Reason: Pain (Scale Score 1-3)) Rx Instructions: Takes every night meloxicam 7.5 mg Tablet 7.5 mg PO BID tamsulosin 0.4 mg capsule 0.4 mg PO DAILY omeprazole 20 mg Capsule,Delayed Release(Dr/Ec) 20 mg PO DAILY montelukast 10 mg Tablet 10 mg PO BEDTIME finasteride 5 mg Tablet 5 mg PO DAILY rosuvastatin 40 mg Tablet 40 mg PO DAILY bupropion HCl 150 mg Tablet Extended Release 24 Hr 150 mg PO QAM gabapentin 300 mg Tablet 600 mg PO BID albuterol sulfate 90 mcg/actuation HFA aerosol inhaler 2 puff INHALATION Q6H PRN (Reason: Shortness Of Breath) Arnuity Ellipta 200 mcg/actuation blister with device 1 inh inhalation DAILY Follow up/Referrals: Georgia Raymond, PAKourtneyC [Primary Care Provider] - Diet/Activity/Treatments Diet: Diet as Tolerated and Regular Activity: As tolerated no restrictions. Visit Report/Discharge Packet Instructions: DI for Shortness of Breath, Prednisone, Azithromycin Stand Alone Forms: Patient Portal/API, Stroke Signs & Symptoms Discharge Data Primary Care Provider: Georgia Raymond Attending Provider: Trung Villa Admit Date/Time: 09/23/23 05:14
== END 2023-09-25 11:40 | disposition home or self-care (01) ==
LOC: ED 03:48 → AC 05:15
PROVIDERS: Admitting Provider Internal Medicine; Emergency Provider Emergency Medicine; Family Provider Student in an Organized Health Care Education/Training Program; PCP Student in an Organized Health Care Education/Training Program; Referring Provider Emergency Medicine; Visit Provider Internal Medicine
DX: J45.901 Unspecified asthma with (acute) exacerbation (principal); Z11.52 Encounter for screening for COVID-19; Z87.891 Personal history of nicotine dependence; I10 Essential (primary) hypertension; I49.9 Cardiac arrhythmia, unspecified
CPT/HCPCS: 36415; 71045; 80048; 80053; 81001; 83605; 83690; 83735; 83880; 84145; 84484; 85025; 87633; 93005; 93010; 94640; 94762; 96361; 96374; 96376; 99285; G0378; J1650; J2919; J3475; J7613

== ENCOUNTER → 2023-12-21 | Outpatient (CLI) | payer MEDICARE, OTHER, SELFPAY ==
[2023-09-23 06:15] VITALS: BMI 27.8
--- NOTE | 2023-12-21 | DI.RAD.S_ITS ---
PROCEDURE: XR ANKLE LT MIN 3V INDICATIONS: LEFT ANKLE PAIN TECHNIQUE: 3 views of the ankle were acquired. COMPARISON: None. FINDINGS: Bones: Os trigonum noted-nonfusion of the posterior talar process. There is minor spurring anterior tibial plafond. Small exostosis projects from the inferior lateral malleolus Tibiotalar and talocalcaneal joints: Normal in width and alignment without arthritic change. Soft tissues: Moderate calcification Achilles and plantar tendon insertion on the calcaneus. Diffuse soft tissue swelling noted. IMPRESSION: Diffuse soft tissue swelling. Other chronic findings as described Dictated by: Robin Mott M.D. on 12/22/2023 at 10:43 Approved by: Robin Mott M.D. on 12/22/2023 at 10:45
--- NOTE | 2023-12-21 | DI.RAD.S_ITS ---
PROCEDURE: XR FOOT LT MIN 3V INDICATIONS: LEFT FOOT PAIN TECHNIQUE: 3 views of the foot were acquired. COMPARISON: None. FINDINGS: Bones: Os trigonum noted-non unified occasion of the posterior talar process. There is minor spurring anterior tibial plafond which may predispose to anterior impingement on ankle dorsiflexion. Hammertoe deformities of the 2nd through 5th digits noted . There is also pes planus and mild metatarsus abductus. Malunified old oblique fracture 5th metatarsal diaphysis has resulted in mild deformity Joints: Mild degenerative change 1st MTP and the 2nd through 5th interphalangeal joints. Soft tissues: Mild diffuse soft tissue swelling noted. IMPRESSION: Mild diffuse soft tissue swelling. Other chronic findings as described Dictated by: Robin Mott M.D. on 12/22/2023 at 10:29 Approved by: Robin Mott M.D. on 12/22/2023 at 10:31
== END ==
PROVIDERS: Family Provider Student in an Organized Health Care Education/Training Program; PCP Family Medicine; Referring Provider Podiatrist; Visit Provider Podiatrist
DX: M20.42 Other hammer toe(s) (acquired), left foot (principal); M79.89 Other specified soft tissue disorders; M21.42 Flat foot [pes planus] (acquired), left foot; M21.6X2 Other acquired deformities of left foot; S92.352S Displaced fracture of fifth metatarsal bone, left foot, sequela; M79.672 Pain in left foot; M25.572 Pain in left ankle and joints of left foot
CPT/HCPCS: 73610; 73630

== ENCOUNTER → 2024-02-15 16:20 | Outpatient (CLI) | payer MEDICARE, OTHER, SELFPAY ==
[2023-09-23 06:15] VITALS: BMI 27.8
--- NOTE | 2024-02-15 16:25 | DI.RAD.S_ITS ---
PROCEDURE: XR SHOULDER RT MIN 2V INDICATIONS: Other chronic pain TECHNIQUE: 3 views of the shoulder were acquired. COMPARISON: [facility], CR, XR SHOULDER LT MIN 2V, 11/28/2022, 16:29. FINDINGS: Bones: No fractures or dislocations. No suspicious bony lesions. Visualized ribs appear intact. Moderate acromioclavicular and glenohumeral degenerative narrowing. No erosions. Periarticular osteophytes. Mild high-riding appearance of the humeral head. Soft tissues: No suspicious soft tissue calcifications. IMPRESSION: High riding appearance of the humeral head, which can be indicative of rotator cuff pathology. Moderate acromioclavicular and glenohumeral arthritic change. Dictated by: Lennie Kramer M.D. on 02/16/2024 at 16:09 Approved by: Lennie Kramer M.D. on 02/16/2024 at 16:10
--- NOTE | 2024-02-15 16:25 | DI.RAD.S_ITS ---
PROCEDURE: XR SHOULDER LT MIN 2V INDICATIONS: Other chronic pain TECHNIQUE: 3 views of the shoulder were acquired. COMPARISON: [facility], CR, XR SHOULDER LT MIN 2V, 11/28/2022, 16:29. FINDINGS: Bones: No fractures or dislocations. No suspicious bony lesions. Visualized ribs appear intact. Moderate to severe acromioclavicular and glenohumeral degenerative narrowing overall appearance is mildly progressive. No erosions. Periarticular osteophytes. Soft tissues: No suspicious soft tissue calcifications. IMPRESSION: Progressive appearance of acromioclavicular and glenohumeral arthritic change. Dictated by: Lennie Kramer M.D. on 02/16/2024 at 16:08 Approved by: Lennie Kramer M.D. on 02/16/2024 at 16:09
== END ==
PROVIDERS: Family Provider Student in an Organized Health Care Education/Training Program; PCP Family Medicine; Referring Provider Nurse Practitioner Family; Visit Provider Nurse Practitioner Family
DX: M25.511 Pain in right shoulder (principal); M25.512 Pain in left shoulder; G89.29 Other chronic pain
CPT/HCPCS: 73030

== ENCOUNTER → 2024-02-16 13:11 | Outpatient (CLI) | payer MEDICARE, OTHER, SELFPAY ==
[2023-09-23 06:15] VITALS: BMI 27.8
--- NOTE | 2024-02-16 13:16 | DI.RAD.S_ITS ---
PROCEDURE: XR HIP W PEL IF DONE RT 2V INDICATIONS: HIP PAIN TECHNIQUE: AP pelvis with lateral view(s) of the right hip(s). COMPARISON: None. FINDINGS: Bones: No fractures or dislocations. Pelvic ring appears intact. No suspicious bony lesions. Left hip arthroplasty. Hardware is intact without hardware fracture or periprosthetic lucency to suggest loosening. Alignment is stable. There is severe right hip arthritic change. Degenerative changes are present in the lower lumbar spine. Soft tissues: The visualized bowel gas pattern is normal. No suspicious soft tissue calcifications. IMPRESSION: Left hip arthroplasty. Moderate to severe right hip arthritic change. Dictated by: Lennie Kramer M.D. on 02/16/2024 at 20:08 Approved by: Lennie Kramer M.D. on 02/16/2024 at 20:09
== END ==
PROVIDERS: Family Provider Student in an Organized Health Care Education/Training Program; PCP Family Medicine; Referring Provider Nurse Practitioner Family; Visit Provider Nurse Practitioner Family
DX: M25.551 Pain in right hip (principal); Z96.642 Presence of left artificial hip joint; M47.816 Spondylosis without myelopathy or radiculopathy, lumbar region
CPT/HCPCS: 73502

== ENCOUNTER → 2024-04-02 13:17 | Outpatient (CLI) | payer MEDICARE, OTHER, SELFPAY ==
[2023-09-23 06:15] VITALS: BMI 27.8
--- NOTE | 2024-04-02 13:21 | DI.MRI.S_ITS ---
PROCEDURE: MR SHOULDER LT WO CON INDICATIONS: CHRONIC LEFT SHOULDER PAIN TECHNIQUE: Noncontrast oblique coronal T2 fast spin echo with fat saturation, oblique sagittal T1 spin echo and T2 fast spin echo with fat saturation, axial T1 spin echo and T2 fast spin echo with fat saturation through the shoulder. COMPARISON: [facility], CR, XR SHOULDER LT MIN 2V, 02/15/2024, 16:24. [facility], CR, XR SHOULDER LT MIN 2V, 11/28/2022, 16:29. FINDINGS: Image quality: Excellent. Bones: Mild subchondral marrow edema is present around the medial humeral head margin (6/11). The bone marrow signal is otherwise normal. There is no acute fracture or dislocation. Acromioclavicular joint: Severe osteoarthritis, with the development of 2 decompressing cysts, 1 of which measures 1.4 cm and causes inferior mass effect on the supraspinatus muscle belly (10/). There is a type 2 acromion, with discontinuous areas of spur formation (11/23-19). Glenohumeral joint: Moderate-severe osteoarthritis, including the formation of a small crescentic osteophyte along the medial-inferior humeral head margin (8/14). There is superior subluxation of the humeral head relative to the glenoid (8/15). There is a trace joint effusion with synovial proliferation. Labrum: There is diffuse tearing of the labrum. Cartilage: There is diffuse cartilage loss at the glenohumeral joint. Subacromial-subdeltoid bursa: There is a trace amount of fluid in the subacromial-subdeltoid bursa. Rotator cuff: Superimposed on multifocal partial width, partial-thickness, articular sided and bursal sided tears of the supraspinatus at the myotendinous junction and critical zone, there is a full-thickness tear at the footprint with retraction to the level of the humeral apex (8/14). There is severe supraspinatus tendinosis. Superimposed on severe tendinosis, there is a full-thickness tear of the infraspinatus tendon with retraction to the level of the glenoid rim (8/20; 10/12). Superimposed on moderate tendinosis, there are partial width, partial-thickness, bursal sided tears of the subscapularis along the critical zone and footprint (6/12). There is mild teres minor tendinosis. Long head of biceps tendon: There is a thinned and attenuated appearance of the long head of the biceps tendon; the intra-articular portion is indistinct. Musculature: There is severe atrophy of the supraspinatus, infraspinatus, and cranial subscapularis fibers. There is mild atrophy of the teres minor. Inferior glenohumeral ligaments/Axillary pouch: The axillary pouch is normal in thickness and signal. Coracoclavicular and coracoacromial ligaments: The coracoclavicular and coracoacromial ligaments are normal. IMPRESSION: 1. Full-thickness tear of the supraspinatus at the footprint with retraction to the level of the humeral apex, superimposed on additional tears, severe tendinosis, and severe muscle atrophy. 2. Full-thickness infraspinatus tear with retraction to the level of the glenoid rim, superimposed on severe tendinosis, and severe muscle atrophy. 3. Partial width, partial-thickness, bursal sided subscapularis tears, superimposed on moderate tendinosis, and severe muscle atrophy. 4. Mild teres minor tendinosis with mild muscle atrophy. 5. Likely split tearing of the intra-articular portion of the long head of the biceps tendon with extra-articular extension. 6. Severe glenohumeral osteoarthritis with associated humeral marrow edema, articular cartilage defects, and labral tearing. 7. Severe acromioclavicular osteoarthritis with decompressing cyst formation. Dictated by: Chris Weiss M.D. on 04/04/2024 at 11:47 Approved by: Chris Weiss M.D. on 04/04/2024 at 12:33
== END ==
PROVIDERS: Family Provider Student in an Organized Health Care Education/Training Program; PCP Family Medicine; Referring Provider Nurse Practitioner Family; Visit Provider Nurse Practitioner Family
DX: M25.512 Pain in left shoulder (principal); G89.29 Other chronic pain; M75.122 Complete rotator cuff tear or rupture of left shoulder, not specified as traumatic; M62.512 Muscle wasting and atrophy, not elsewhere classified, left shoulder; M19.012 Primary osteoarthritis, left shoulder; M25.812 Other specified joint disorders, left shoulder
CPT/HCPCS: 73221

== ENCOUNTER → 2024-04-12 12:28 | Outpatient (CLI) | payer MEDICARE, OTHER, SELFPAY ==
[2023-09-23 06:15] VITALS: BMI 27.8
--- NOTE | 2024-04-12 12:57 | EKG_ITS ---
[address] [address] [address] [address] Test Date: 2024-04-12 Pat Name: Elgin Styles Department: [facility] Room: Gender: Male Shipping Associate: CHALINO : 1945 Requested By: Order Number: [id number] Reading MD: Scotty Kessler Measurements Intervals [place] Rate: 61 P: 29 AR: 170 QRS: -17 QRSD: 92 T: 22 QT: 382 QTc: 384 Interpretive Statements Sinus rhythm with premature atrial complexes Electronically Signed On 04-13-2024 23:45:06 PST by Scotty Kessler
[2024-04-12 13:41] LABS: Hematocrit 42.6 % (41-53); Hemoglobin 14.4 g/dL (13.5-17.5); Mean Corpuscular HGB Conc 33.8 % (30-36); Mean Corpuscular Hemoglobin 31.3 PG (26-34); Mean Corpuscular Volume 92.4 fL (80-100); Platelet Count 245 X10^3/uL (150-400); Red Blood Cell Count 4.61 X10^6/uL (4.5-5.9); Red Cell Distribution Width 13.2 % (11.6-14.8); White Blood Cell Count 6.2 X10^3/uL (4.5-11.0)
[2024-04-12 13:42] LABS: Add Manual Diff / Slide Review YES
[2024-04-12 13:53] LABS: Neutrophils Absolute Manual 2728 /uL (3000-5900); Total Cells Counted 100
[2024-04-12 13:54] LABS: RBC Morphology Normal Morphology
[2024-04-12 14:17] LABS: BUN Creatinine Ratio 12.5 (6-22); Blood Urea Nitrogen 10 mg/dL (9-20); Calcium 9.5 mg/dL (8.4-10.2); Carbon Dioxide 24 mmol/L (22-32); Chloride 103 mmol/L (98-107); Estimated Glomerular Filt Rate > 60 mL/min (>60); Glucose 87 mg/dL (80-110); HEMOLYSIS < 15 (0-50); Potassium 3.9 mmol/L (3.4-5.1); Sodium 136 mmol/L (137-145)
[2024-04-12 14:19] LABS: Hemoglobin A1C% w Est Avg Glu 5.3 % (4.0-6.0)
[2024-04-12 14:25] LABS: Prealbumin 22.1 mg/dL (17.6-36.0)
[2024-04-12 17:07] LABS: Vitamin D 25 Hydroxy (D3) 44.2 ng/mL (30.0-100.0)
[2024-04-12 22:52] LABS: Albumin 3.9 g/dL (3.5-5.0)
== END ==
PROVIDERS: Family Provider Student in an Organized Health Care Education/Training Program; PCP Family Medicine; Referring Provider Orthopaedic Surgery Adult Reconstructive Orthopaedic Surgery; Visit Provider Orthopaedic Surgery Adult Reconstructive Orthopaedic Surgery
DX: Z01.818 Encounter for other preprocedural examination (principal); R73.9 Hyperglycemia, unspecified; E55.9 Vitamin D deficiency, unspecified; R77.0 Abnormality of albumin; Z01.812 Encounter for preprocedural laboratory examination
CPT/HCPCS: 36415; 80048; 82040; 82306; 83036; 84134; 85007; 85025; 93005

== ENCOUNTER → 2024-04-19 12:16 | Outpatient (CLI) | payer MEDICARE, OTHER, SELFPAY ==
[2023-09-23 06:15] VITALS: BMI 27.8
--- NOTE | 2024-04-19 12:20 | DI.RAD.S_ITS ---
PROCEDURE: XR CHEST 2V INDICATIONS: MILD PERSISTENT ALLERGIC ASTHMA TECHNIQUE: 2 views of the chest were acquired. COMPARISON: [facility], CR, XR CHEST 1V, 09/23/2023, 2:50. FINDINGS: Surgical changes and devices: Partially imaged cervical spine fusion hardware. Lungs and pleura: Retrocardiac strandy alveolar opacity and small left posterior pleural effusion. Curvilinear platelike atelectatic changes in the left. Mediastinum: Mediastinal contours are normal. Heart size is normal. Bones and chest wall: No suspicious bony abnormalities. Soft tissues appear unremarkable. IMPRESSION: Strandy retrocardiac opacity and probable small associated pleural effusion. There may be a component of underlying bronchitis. Dictated by: Noelle Mir M.D. on 04/19/2024 at 23:22 Approved by: Noelle Mir M.D. on 04/19/2024 at 23:23
== END ==
PROVIDERS: Family Provider Student in an Organized Health Care Education/Training Program; PCP Family Medicine; Referring Provider Family Medicine; Visit Provider Family Medicine
DX: Z01.818 Encounter for other preprocedural examination (principal); J45.30 Mild persistent asthma, uncomplicated
CPT/HCPCS: 71046

== ENCOUNTER 2024-04-22 17:20 | Inpatient (IN) | payer MEDICARE, OTHER, SELFPAY ==
[2023-09-23 06:15] VITALS: BMI 27.8
[2024-04-22 17:23] VITALS: BP 157/85; PULSE 94; RESP 22; TEMP 37.1; O2SAT 91; BMI 27.3
[2024-04-22 19:47] VITALS: BP 138/78; PULSE 63; RESP 20; O2SAT 91
--- NOTE | 2024-04-22 22:00 | DI.RAD.S_ITS ---
PROCEDURE: XR CHEST 2V INDICATIONS: persistent cough, SOB TECHNIQUE: 2 views of the chest were acquired. COMPARISON: [facility], CR, XR CHEST 2V, 04/19/2024, 12:34. [facility], CR, XR CHEST 1V, 09/23/2023, 2:50. FINDINGS: Surgical changes and devices: ACDF. Lungs and pleura: Patchy opacity, right greater than left. No significant pleural effusions or pneumothorax. Mediastinum: Mediastinal contours are unchanged. Heart size is normal. Bones and chest wall: No suspicious bony abnormalities. Prior left-sided rib fracture. Soft tissues appear unremarkable. IMPRESSION: Bilateral patchy airspace opacity. Suspect pneumonia. Recommend follow-up to resolution. Dictated by: Guido Cook M.D. on 04/22/2024 at 22:20 Approved by: Guido Cook M.D. on 04/22/2024 at 22:22
[2024-04-22] MEDS: ACETAMINOPHEN 325 MG TABLET 975 MG PO (22:05)
[2024-04-22 22:16] VITALS: PULSE 81; O2SAT 89
[2024-04-22 22:30] VITALS: BP 142/71; PULSE 78; O2SAT 90
--- NOTE | 2024-04-22 22:47 | ED.GENADULT ---
HPI - General Adult General Chief complaint: Upper Respiratory Symptoms Stated complaint: coughing, sob Time Seen by Provider: 04/22/24 22:45 Source: patient, RN notes reviewed and old records reviewed Mode of arrival: Family Vehicle Limitations: no limitations History of Present Illness HPI narrative: 78-year-old male history of hypertension, dyslipidemia, GERD, BPH, neuropathy intermittent albuterol use who states he had a bronchitis requiring oxygen and a hospitalization in September improved after a couple weeks. And then about 5 or 6 weeks ago developed cough and shortness of breath that has not improved. States he was told he had pneumonia has been treated with several rounds of antibiotics he was on a steroid inhaler as well as using albuterol but states cough has been continuing to get worse. He has never had fevers. Never had chest pain notes some shortness of breath but more associated with the when he was coughing and sometimes has significant paroxysmal cough. Denies nausea or vomiting. No diarrhea or constipation, no other urinary symptoms. Patient denies any new swelling in extremities. Patient does neck surgery in 2010, hip surgery in 2011 back surgery in 2015 and sinus surgery in 2021. States he smoked some when he was younger but not persistently. Was drinking several alcoholic drinks daily but quit in February 11 in his only had alcohol 1 since. Denies any recreational drugs other than occasional marijuana. His primary care is on [facility]. He is unsure of the name. Related Data Home Medications Medication Instructions Recorded Confirmed amlodipine 5 mg tablet 7.5 mg PO DAILY 06/17/22 04/23/24 bupropion HCl 150 mg 24 hr tablet, 150 mg PO QAM 06/17/22 04/23/24 extended release cetirizine 10 mg tablet 10 mg PO DAILY 06/17/22 04/23/24 finasteride 5 mg tablet 5 mg PO DAILY 06/17/22 04/23/24 montelukast 10 mg tablet 10 mg PO BEDTIME 06/17/22 04/23/24 rosuvastatin 40 mg tablet 40 mg PO DAILY 06/17/22 04/23/24 tamsulosin 0.4 mg capsule 0.4 mg PO DAILY 06/17/22 04/23/24 fluticasone furoate 200 1 inh inhalation DAILY 09/23/23 04/23/24 mcg/actuation blister powder for inhalation (Arnuity Ellipta) albuterol sulfate 90 mcg/actuation 2 puff inhalation Q6H PRN 04/23/24 04/23/24 aerosol inhaler Bronchospasm Previous Rx's Medication Instructions Recorded azithromycin 250 mg tablet See Rx Instructions PO .COMPLEX #6 09/25/23 tabs Allergies Allergy/AdvReac Type Severity Reaction Status Date / Time oyster extract Allergy Unknown HIVES Verified 06/14/22 22:01 [OYSTER EXTRACT] Review of Systems Review of Systems ROS Unobtainable: All systems reviewed & are unremarkable except as noted in HPI and below Patient History Medical History Obstructive sleep apnea of adult Sprain of shoulder, left Acute diverticulitis Lumbar stenosis with neurogenic claudication [id number] Social History household members: none pets and animals: Yes (Anticipating getting a couple rescue dogs to foster for a period of time) Smoking Status: Former smoker alcohol intake: former substance use type: does not use Smoking Status: Former smoker alcohol intake frequency: 3 or more drinks per day Exam Narrative Exam Narrative: GENERAL: Alert and oriented x three, male in mild distress HEENT: Head normocephalic, atraumatic, EOMI, pupils reactive, face symmetric, moist mucous membranes NECK: Supple, full range of motion CARDIOVASCULAR: Regular rate and rhythm without murmurs, rubs or gallops. No JVD, No edema bilateral lower extremity. RESPIRATORY: Breath sounds equal bilaterally, no wheezes rales or rhonchi. ABDOMEN: Soft, nontender. Normoactive bowel sounds all 4 quadrants. No guarding or rebound, rigidity, no mass : No CVA tenderness EXTREMITIES: Normal range of motion, no clubbing or edema. Neurovascularly intact NEUROLOGICAL: Cranial nerves II through XII grossly intact. Moving all extremities SKIN: Warm, dry, no petechiae, no rashes or lesions. Initial Vital Signs Initial Vital Signs: Vital Signs Temperature 98.7 F 04/22/24 17:23 Pulse Rate 94 H 04/22/24 17:23 Respiratory Rate 22 04/22/24 17:23 Blood Pressure 157/85 H 04/22/24 17:23 Pulse Oximetry 91 04/22/24 17:23 Oxygen Delivery Method Room Air 04/22/24 17:23 Course Orders Ordered: ED Orders 04/22/24 22:00 XR chest 2V Stat 04/22/24 22:45 EKG-12 Lead Stat 04/22/24 22:58 Complete Blood Count AUTO DIFF Stat Comprehensive Metabolic Panel Stat Lactate (Lactic Acid) Stat Procalcitonin Stat Troponin & CK Cardiac Panel Stat 04/22/24 23:25 Blood Culture Stat 04/23/24 00:42 Respiratory Panel (Film Array) Stat Acetaminophen (Acetaminophen 325 Mg Tablet) 650 mg PO Q6H PRN PRN Reason: Fever/Mild Pain (1-3) Bupropion HCl (Bupropion Xl 150 Mg Tab) 150 mg PO DAILY [facility] Enoxaparin Sodium (Enoxaparin 40 Mg/0.4 Ml Syringe) 40 mg SUBCUT DAILY [facility] Finasteride (Finasteride 5 Mg Tablet) 5 mg PO DAILY [facility] Gabapentin (Gabapentin 600 Mg Tablet) 600 mg PO BID [facility] Azithromycin 500 mg/ Dextrose 250 mls @ 250 mls/hr IV Q24H [facility] Last Admin: 04/23/24 04:36 Dose: 250 mls/hr Documented By: TU Methylprednisolone (Methylprednisolone 125 Mg/2 Ml Vial) 60 mg IV Q12H [facility] Montelukast Sodium (Montelukast 10 Mg Tablet) 10 mg PO BEDTIME [facility] Naloxone HCl (Naloxone 0.4 Mg/Ml Vial) 0.2 mg IV Q2MIN PRN PRN Reason: Opiate Reversal Sodium Chloride (Sodium Chloride 0.9% Flush) 10 ml IV PRN PRN PRN Reason: Flush Tamsulosin HCl (Tamsulosin 0.4 Mg Capsule) 0.4 mg PO DAILY [facility] Discontinued Medications Acetaminophen (Acetaminophen 325 Mg Tablet) 975 mg PO NOW ONE Stop: 04/22/24 22:02 Last Admin: 04/22/24 22:05 Dose: 975 mg Documented By: BHAVYA Albuterol/Ipratropium (Albuterol/Ipratropium 3 Ml Ampul) 3 ml INH NOW ONE Stop: 04/22/24 23:25 Last Admin: 04/22/24 23:31 Dose: 3 ml Documented By: BHAVYA Levofloxacin (Levaquin) 750 mg in 150 mls @ 100 mls/hr IV NOW ONE Stop: 04/23/24 00:15 Last Infusion: 04/23/24 01:08 Dose: Infused Documented By: Admin: 04/22/24 23:32 Dose: 100 mls/hr Documented By: BHAVYA Methylprednisolone (Methylprednisolone 125 Mg/2 Ml Vial) 125 mg IV NOW ONE Stop: 04/22/24 23:25 Last Admin: 04/22/24 23:31 Dose: 125 mg Documented By: BHAVYA Vital Signs Vital signs: Vital Signs - 8 hr 04/22/24 23:00 04/22/24 23:00 04/22/24 23:30 Pulse Rate 77 66 Respiratory Rate 22 Blood Pressure 140/69 Pulse Oximetry 93 93 Oxygen Delivery Method Nasal Cannula Oxygen Flow Rate 4 04/22/24 23:30 04/23/24 00:00 04/23/24 00:01 Pulse Rate 82 80 Respiratory Rate 24 23 Blood Pressure 153/83 H Pulse Oximetry 91 91 Oxygen Delivery Method Oxygen Flow Rate 04/23/24 00:01 04/23/24 00:30 04/23/24 00:30 Pulse Rate 90 Respiratory Rate 22 Blood Pressure 114/71 124/70 Pulse Oximetry 94 Oxygen Delivery Method Nasal Cannula Oxygen Flow Rate 4 Medical Decision Making Lab Data 04/22/24 22:58 04/22/24 22:58 Labs: Lab Results 04/22/24 Range/Units 22:58 WBC 8.5 (4.5-11.0) X10^3/uL RBC 4.62 (4.5-5.9) X10^6/uL Hgb 14.2 (13.5-17.5) g/dL Hct 42.2 (41-53) % MCV 91.4 (80-100) fL MCH 30.7 (26-34) PG MCHC 33.6 (30-36) % RDW 12.8 (11.6-14.8) % Plt Count 255 (150-400) X10^3/uL Neut % (Auto) 61.1 (50-75) % Lymph % (Auto) 11.2 L (25-40) % [place] % (Auto) 13.7 (3-14) % Eos % (Auto) 13.5 H (2-4) % Baso % (Auto) 0.5 (0-2) % Neut # (Auto) 5200 (0894-5507) /uL Lymph # (Auto) 1000 L (2879-0594) /uL [place] # (Auto) 1200 H (0-900) /uL Eos # (Auto) 1100 H (0-450) /uL Baso # (Auto) 0 (0-100) /uL Sodium 134 L (137-145) mmol/L Potassium 3.8 (3.4-5.1) mmol/L Chloride 104 (98-107) mmol/L Carbon Dioxide 23 (22-32) mmol/L BUN 8 L (9-20) mg/dL Creatinine 0.72 (0.66-1.25) mg/dL Estimated GFR > 60 (>60) mL/min BUN/Creatinine Ratio 11.1 (6-22) Glucose 114 H (80-110) mg/dL Lactate 1.2 (0.7-2.1) mmol/L Calcium 9.5 (8.4-10.2) mg/dL Total Bilirubin 0.8 (0.2-1.3) mg/dL AST 28 (17-59) IU/L ALT 18 (<50) IU/L Alkaline Phosphatase 110 (38-126) U/L Total Creatine Kinase 94 (55-170) U/L Troponin I < 0.012 (0.01-0.034) ng/mL Total Protein 7.3 (6.3-8.2) g/dL Albumin 3.9 (3.5-5.0) g/dL Globulin 3.4 (1.7-4.1) g/dL Albumin/Globulin Ratio 1.1 (1.0-2.8) Procalcitonin 0.044 (<0.5) ng/mL ECG Data Attestation: I personally reviewed and interpreted this ECG as follows: Interpretation: Sinus rhythm sinus arrhythmia rate of 69 MA 162 QRS of 92 QTC of 402. No acute ST changes. [facility] Narrative Medical decision making narrative: 78-year-old male complaint of persistent cough that has not been improving and been quite severe for the past 5-6 weeks he has been 3 5 around the antibiotics most recently on Augmentin and azithromycin. Patient is has required steroids and nebs in the past and had oxygen and a 3 day admission in September. Patient does not have wheeze we will give 1 dose of DuoNeb to see if there is any change. Patient's EKGs sinus rhythm with no acute changes Labs show normal CBC, predominance of eosinophils. Sodium is 134 BUN 8 otherwise electrolytes are appropriate creatinine 0.72 glucose is 114 lactate 1.2 with negative LFTs troponins less than 0.012 procalcitonin 0.044 Chest x-ray shows pneumonia Patient became hypoxic requiring O2 to maintain above 90%. He was quite a harsh cough. Has been nonproductive here. Patient was covered left Levaquin as he has had recent Augmentin and azithromycin without any improvement. Given Solu-Medrol and DuoNeb. On rechecked patient continues to require O2. [address] Mayers for pneumonia failing outpatient antibiotics requiring O2. Spoke with Dr. Nicole, he accepts for observation does ask if we can obtain a full respiratory panel. Discharge Plan Departure Patient Disposition: Admitted as Observation Clinical Impression: Pneumonia, Acute hypoxic respiratory failure Admit Date/Time: 04/23/24 00:41 Admit Provider: Trung Villa
--- NOTE | 2024-04-22 22:58 | EKG_ITS ---
[facility] [address], [place] [address] Test Date: 2024-04-22 Pat Name: Elgin Styles Department: 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
[2024-04-22 23:00] VITALS: BP 140/69; PULSE 77; O2SAT 93
[2024-04-22 23:12] LABS: Add Manual Diff / Slide Review NO; Basophils Absolute Auto 0 /uL (0-100); Basophils Percent Auto 0.5 % (0-2); Eosinophils Absolute Auto 1100 /uL (0-450); Eosinophils Percent Auto 13.5 % (2-4); Hematocrit 42.2 % (41-53); Hemoglobin 14.2 g/dL (13.5-17.5); Lymphocytes Absolute Auto 1000 /uL (1100-4500); Lymphocytes Percent Auto 11.2 % (25-40); Mean Corpuscular HGB Conc 33.6 % (30-36); Mean Corpuscular Hemoglobin 30.7 PG (26-34); Mean Corpuscular Volume 91.4 fL (80-100); Monocytes Absolute Auto 1200 /uL (0-900); Monocytes Percent Auto 13.7 % (3-14); Neutrophils Absolute Auto 5200 /uL (1500-7000); Neutrophils Percent Auto 61.1 % (50-75); Platelet Count 255 X10^3/uL (150-400); Red Blood Cell Count 4.62 X10^6/uL (4.5-5.9); Red Cell Distribution Width 12.8 % (11.6-14.8); White Blood Cell Count 8.5 X10^3/uL (4.5-11.0)
--- NOTE | 2024-04-22 23:14 | PC.NURSE ---
At 2230,Pt O2 dipping into the upper 80's at rest, placed pt on O2 via NC at 4L.
[2024-04-22 23:25] LABS: Alanine Aminotransferase 18 IU/L (<50); Albumin 3.9 g/dL (3.5-5.0); Albumin Globulin Ratio 1.1 (1.0-2.8); Alkaline Phosphatase 110 U/L (38-126); Aspartate Aminotransferase 28 IU/L (17-59); BUN Creatinine Ratio 11.1 (6-22); Bilirubin Total 0.8 mg/dL (0.2-1.3); Blood Urea Nitrogen 8 mg/dL (9-20); Calcium 9.5 mg/dL (8.4-10.2); Carbon Dioxide 23 mmol/L (22-32); Creatine Kinase 94 U/L (55-170); Estimated Glomerular Filt Rate > 60 mL/min (>60); Globulin 3.4 g/dL (1.7-4.1); Glucose 114 mg/dL (80-110); HEMOLYSIS < 15 (0-50); Lactate (Lactic Acid) 1.2 mmol/L (0.7-2.1); Total Protein 7.3 g/dL (6.3-8.2)
[2024-04-22 23:30] VITALS: BP 153/83; PULSE 66; RESP 22; O2SAT 93
[2024-04-22 23:31] LABS: Chloride 104 mmol/L (98-107); Potassium 3.8 mmol/L (3.4-5.1); Sodium 134 mmol/L (137-145)
[2024-04-22] MEDS: ALBUTEROL/IPRATROPIUM 3 ML AMPUL INH (23:31)
[2024-04-22] MEDS: methylPREDNISolone 125 MG/2 ML VIAL IV (23:31)
[2024-04-22] MEDS: levoFLOXacin 750 MG/150 ML PIGGYBACK 100 MG IV (23:32)
[2024-04-22 23:37] LABS: Troponin I < 0.012 ng/mL (0.01-0.034)
[2024-04-22 23:41] LABS: Procalcitonin 0.044 ng/mL (<0.5)
[2024-04-23] VITALS (12 sets, daily range): BP systolic 114–147; BP diastolic 68–86; PULSE 75–96; RESP 18–28; TEMP 36–36.4; O2SAT 91–95; BMI 27.3
[2024-04-23 01:49] LABS: Adenovirus Not Detected (Not Detect); B. parapertussis Not Detected (Not Detecte); Bordetella pertussis Not Detected (Not Detect); Chlamydophila pneumoniae Not Detected (Not Detect); Coronavirus 229E Not Detected (Not Detect); Coronavirus HKU1 Not Detected (Not Detect); Coronavirus NL 63 Not Detected (Not Detect); Coronavirus OC43 Not Detected (Not Detect); Human Metapneumovirus Not Detected (Not Detect); Human Rhinovirus/Enterovirus Not Detected (Not Detect); Influenza A Not Detected (Not Detect); Influenza B Not Detected (Not Detect); Mycoplasma pneumoniae Not Detected (Not Detect); Parainfluenza Virus 1 Not Detected (Not Detect); Parainfluenza Virus 2 Not Detected (Not Detect); Parainfluenza Virus 3 Not Detected (Not Detect); Parainfluenza Virus 4 Not Detected (Not Detect); Respiratory Syncytial Virus Not Detected (Not Detect); SARS- CoV-2 Not Detected (Not Detecte)
--- NOTE | 2024-04-23 02:26 | PM.HP.1 ---
History of Present Illness History of Present Illness Date Patient Seen: 04/23/24 Chief complaint: coughing, sob Narrative: 77 y/o with PMH of smoking, COPD, GERD, BPH w LUTS,, presented to ED short of breath, hypoxemic, with dry coug, wheezy. Symptoms started a month ago and he had a few courses of antibiotics and steroid. Similar visit in September 2023. CXR showing b/l infiltrates, w/o leukocytosis, fever, negative viral respiratory panel but acutely hypoxemic. Sodium is 134 BUN 8 otherwise electrolytes are appropriate creatinine 0.72 glucose is 114 lactate 1.2 with negative LFTs troponins less than 0.012 procalcitonin 0.044. Treated with empiric abx, iv steroid and bronchodilators. [facility] Medical History Obstructive sleep apnea of adult Sprain of shoulder, left Acute diverticulitis Lumbar stenosis with neurogenic claudication [id number] Social History household members: none pets and animals: Yes (Anticipating getting a couple rescue dogs to foster for a period of time) Smoking Status: Former smoker alcohol intake: former substance use type: does not use Meds Home Medications and Allergies Home Medications Medication Instructions Recorded Confirmed Type amlodipine 5 mg tablet 7.5 mg PO DAILY 06/17/22 04/23/24 History bupropion HCl 150 mg 24 hr tablet, 150 mg PO QAM 06/17/22 04/23/24 History extended release cetirizine 10 mg tablet 10 mg PO DAILY 06/17/22 04/23/24 History finasteride 5 mg tablet 5 mg PO DAILY 06/17/22 04/23/24 History montelukast 10 mg tablet 10 mg PO BEDTIME 06/17/22 04/23/24 History rosuvastatin 40 mg tablet 40 mg PO DAILY 06/17/22 04/23/24 History tamsulosin 0.4 mg capsule 0.4 mg PO DAILY 06/17/22 04/23/24 History fluticasone furoate 200 1 inh inhalation DAILY 09/23/23 04/23/24 History mcg/actuation blister powder for inhalation (Arnuity Ellipta) azithromycin 250 mg tablet See Rx Instructions PO .COMPLEX #6 09/25/23 Rx tabs albuterol sulfate 90 mcg/actuation 2 puff inhalation Q6H PRN 04/23/24 04/23/24 History aerosol inhaler Bronchospasm Allergies Allergy/AdvReac Type Severity Reaction Status Date / Time oyster extract Allergy Unknown HIVES Verified 06/14/22 22:01 [OYSTER EXTRACT] Review of Systems Review of Systems Narrative: General - weakness, w/o chills, sweats, fever RS - progressive, eaphh-py-[id number] SOB with dry, non-productive cough CVS -w/o chest pain / pressure / palpitations UG - w/o dusuria Exam Vital Signs (past 8 hours): - 04/22/24 19:47 04/22/24 22:16 04/22/24 22:30 Pulse Rate 63 81 78 Respiratory Rate 20 Blood Pressure 138/78 Pulse Oximetry 91 89 L 90 L Oxygen Delivery Method Room Air Oxygen Flow Rate 04/22/24 22:30 04/22/24 23:00 04/22/24 23:00 Pulse Rate 77 Respiratory Rate Blood Pressure 142/71 H 140/69 Pulse Oximetry 93 Oxygen Delivery Method Oxygen Flow Rate 04/22/24 23:30 04/22/24 23:30 04/23/24 00:00 Pulse Rate 66 82 Respiratory Rate 22 24 Blood Pressure 153/83 H Pulse Oximetry 93 91 Oxygen Delivery Method Nasal Cannula Oxygen Flow Rate 4 04/23/24 00:01 04/23/24 00:01 04/23/24 00:30 Pulse Rate 80 Respiratory Rate 23 Blood Pressure 114/71 124/70 Pulse Oximetry 91 Oxygen Delivery Method Oxygen Flow Rate 04/23/24 00:30 04/23/24 01:00 04/23/24 01:01 Pulse Rate 90 76 81 Respiratory Rate 22 28 H 27 H Blood Pressure Pulse Oximetry 94 92 92 Oxygen Delivery Method Nasal Cannula Oxygen Flow Rate 4 04/23/24 01:01 Pulse Rate Respiratory Rate Blood Pressure 122/68 Pulse Oximetry Oxygen Delivery Method Oxygen Flow Rate Oxygen Delivery Method Nasal Cannula Oxygen Flow Rate 4 Narrative Exam Narrative: General - in no distress HEENT - normocephalic CVS - RRR RS - decreased airflow b/l GI - w/o tenderness or distension Neuro - w/o deficits, lucid Objective ECG Impression: NSR 69 Labs 04/22/24 22:58 04/22/24 22:58 Labs: Laboratory Results - last 24 hr 04/22/24 04/23/24 22:58 00:42 WBC 8.5 RBC 4.62 Hgb 14.2 Hct 42.2 MCV 91.4 MCH 30.7 MCHC 33.6 RDW 12.8 Plt Count 255 Neut % (Auto) 61.1 Lymph % (Auto) 11.2 L [place] % (Auto) 13.7 Eos % (Auto) 13.5 H Baso % (Auto) 0.5 Neut # (Auto) 5200 Lymph # (Auto) 1000 L [place] # (Auto) 1200 H Eos # (Auto) 1100 H Baso # (Auto) 0 Sodium 134 L Potassium 3.8 Chloride 104 Carbon Dioxide 23 BUN 8 L Creatinine 0.72 Estimated GFR > 60 BUN/Creatinine Ratio 11.1 Glucose 114 H Lactate 1.2 Calcium 9.5 Total Bilirubin 0.8 AST 28 ALT 18 Alkaline Phosphatase 110 Total Creatine Kinase 94 Troponin I < 0.012 Total Protein 7.3 Albumin 3.9 Globulin 3.4 Albumin/Globulin Ratio 1.1 Procalcitonin 0.044 Chlamy pneumoniae PCR Not detected Adenovirus (PCR) Not detected B. pertussis DNA (PCR) Not detected B.parapertussis DNA PCR Not detected Coronavirus OC43 (PCR) Not detected Coronavirus HKU1 (PCR) Not detected Coronavirus 229E (PCR) Not detected SARS-CoV-2 (PCR) Not detected Coronavirus NL63 (PCR) Not detected Human Metapneumovir PCR Not detected Influenza Type A (PCR) Not detected Influenza Type B (PCR) Not detected M. pneumoniae (PCR) Not detected Parainfluenza 1 (PCR) Not detected Parainfluenza 2 (PCR) Not detected Parainfluenza 3 (PCR) Not detected Parainfluenza 4 (PCR) Not detected RSV (PCR) Not detected Entero/Rhino (PCR) Not detected Assessment & Plan Assessment and plan (1) Acute hypoxic respiratory failure: Status: Acute (2) Pneumonia: Status: Acute (3) Asthma: Status: Acute (4) Obstructive sleep apnea of adult: Status: Chronic (5) GERD (gastroesophageal reflux disease): Status: Acute (6) BPH w urinary obs/LUTS: Status: Acute Assessment & Plan narrative: Asthma / PNA / Acute Hypoxia - bronchodilators, Singulair - appears atypical, Zithromax - oxygen HÉCTOR - CPAP GERD - PPI BPH with LUTS - Flomax, finasteride Depression / Anxiety - Wellbutrin Chronic Pain - MSK / neuropathic - gabapentin DVT prophylaxis - Lovenox Time-Based Coding :: [TOTAL MINUTES] spent with patient and on the chart (including review of chart, obtaining history, exam, reviewing outside data, placing orders, documenting exam and treatment plan, and counseling patient) on [DATE].
[2024-04-23] MEDS: AZITHROMYCIN 500 MG in DEXTROSE 5% IN WATER 250 ML 250 MG IV (04:36)
--- NOTE | 2024-04-23 07:34 | P.HP_ITS ---
History of Present Illness History of Present Illness Date Patient Seen: 04/23/24 Time Patient Seen: 08:35 Chief complaint: coughing, sob Narrative: From night hospitalist: Narrative: 77 y/o with PMH of smoking, COPD, GERD, BPH w LUTS,, presented to ED short of breath, hypoxemic, with dry coug, wheezy. Symptoms started a month ago and he had a few courses of antibiotics and steroid. Similar visit in September 2023. CXR showing b/l infiltrates, w/o leukocytosis, fever, negative viral respiratory panel but acutely hypoxemic. Sodium is 134 BUN 8 otherwise electrolytes are appropriate creatinine 0.72 glucose is 114 lactate 1.2 with negative LFTs troponins less than 0.012 procalcitonin 0.044. Treated with empiric abx, iv steroid and bronchodilators. Interval history: The patient states he is feeling better but has persistent cough, mild nausea and occasional loose stools. He states 6 weeks of symptoms treated variably with antibiotics, steroids and inhalers as an outpatient. He denies recent sick exposures. He states he has had similar episodes in 2010 and 2022. [facility] Medical History Acute diverticulitis [id number] Lumbar stenosis with neurogenic claudication Obstructive sleep apnea of adult Sprain of shoulder, left Social History household members: none pets and animals: Yes (Anticipating getting a couple rescue dogs to foster for a period of time) Smoking Status: Former smoker alcohol intake: former substance use type: does not use Meds Home Medications and Allergies Home Medications Medication Instructions Recorded Confirmed Type amlodipine 5 mg tablet 7.5 mg PO DAILY 06/17/22 04/23/24 History bupropion HCl 150 mg 24 hr tablet, 150 mg PO QAM 06/17/22 04/23/24 History extended release cetirizine 10 mg tablet 10 mg PO DAILY 06/17/22 04/23/24 History finasteride 5 mg tablet 5 mg PO DAILY 06/17/22 04/23/24 History montelukast 10 mg tablet 10 mg PO BEDTIME 06/17/22 04/23/24 History rosuvastatin 40 mg tablet 40 mg PO DAILY 06/17/22 04/23/24 History tamsulosin 0.4 mg capsule 0.4 mg PO DAILY 06/17/22 04/23/24 History fluticasone furoate 200 1 inh inhalation DAILY 09/23/23 04/23/24 History mcg/actuation blister powder for inhalation (Arnuity Ellipta) azithromycin 250 mg tablet See Rx Instructions PO .COMPLEX #6 09/25/23 Rx tabs albuterol sulfate 90 mcg/actuation 2 puff inhalation Q6H PRN 04/23/24 04/23/24 History aerosol inhaler Bronchospasm Allergies Allergy/AdvReac Type Severity Reaction Status Date / Time oyster extract Allergy Unknown HIVES Verified 06/14/22 22:01 [OYSTER EXTRACT] Review of Systems Review of Systems ROS: Yes All systems reviewed with the patient and are negative except as otherwise documented Exam Vital Signs (past 8 hours): - 04/23/24 00:00 04/23/24 00:01 04/23/24 00:01 Temperature Pulse Rate 82 80 Respiratory Rate 24 23 Blood Pressure 114/71 Pulse Oximetry 91 91 Oxygen Delivery Method Oxygen Flow Rate 04/23/24 00:30 04/23/24 00:30 04/23/24 01:00 Temperature Pulse Rate 90 76 Respiratory Rate 22 28 H Blood Pressure 124/70 Pulse Oximetry 94 92 Oxygen Delivery Method Nasal Cannula Oxygen Flow Rate 4 04/23/24 01:01 04/23/24 01:01 04/23/24 01:58 Temperature Pulse Rate 81 Respiratory Rate 27 H Blood Pressure 122/68 Pulse Oximetry 92 Oxygen Delivery Method Nasal Cannula Oxygen Flow Rate 04/23/24 02:11 04/23/24 02:11 04/23/24 06:00 Temperature 97.4 F L 97.1 F L Pulse Rate 75 80 82 Respiratory Rate 18 18 20 Blood Pressure 136/86 138/78 Pulse Oximetry 94 92 92 Oxygen Delivery Method Oxygen Flow Rate 4 4 4 Oxygen Delivery Method Nasal Cannula Oxygen Flow Rate 4 Narrative Exam Narrative: GENERAL: This is a well-nourished, well-developed patient, in no apparent distress. HEAD: Atraumatic. Normocephalic. No temporal or scalp tenderness. EYES: Pupils equal round and reactive. Extraocular motions intact. No scleral icterus. No injection or drainage. ENT: Mucous membranes pink and moist. NECK: Trachea midline. No JVD, bruits or lymphadenopathy. Supple, nontender, no meningeal signs. CARDIOVASCULAR: Regular rate and rhythm without murmurs, gallops, or rubs. RESPIRATORY: Coarse bilateral rhonchi with intermittent harsh coughing, mid to end-expiratory wheeze. GASTROINTESTINAL: Abdomen soft, non-tender, nondistended. EXTREMITIES: No clubbing, cyanosis, or edema. BACK: Nontender without deformity or crepitance. No flank tenderness. NEUROLOGIC: Alert, oriented, speech fluent, full upper and lower motor strength, no focal deficits evident. DERMATOLOGIC: No rashes or skin lesions. Objective ECG Impression: Normal sinus rhythm with sinus arrhythmia at 69 beats per minute Imaging *: Radiologist's impression: Chest x-ray 04/22/2024: Bilateral patchy airspace opacity. Suspect pneumonia. Recommend follow-up to resolution. Labs 04/22/24 22:58 04/22/24 22:58 Labs: Laboratory Results - last 24 hr 04/22/24 04/23/24 22:58 00:42 WBC 8.5 RBC 4.62 Hgb 14.2 Hct 42.2 MCV 91.4 MCH 30.7 MCHC 33.6 RDW 12.8 Plt Count 255 Neut % (Auto) 61.1 Lymph % (Auto) 11.2 L [place] % (Auto) 13.7 Eos % (Auto) 13.5 H Baso % (Auto) 0.5 Neut # (Auto) 5200 Lymph # (Auto) 1000 L [place] # (Auto) 1200 H Eos # (Auto) 1100 H Baso # (Auto) 0 Sodium 134 L Potassium 3.8 Chloride 104 Carbon Dioxide 23 BUN 8 L Creatinine 0.72 Estimated GFR > 60 BUN/Creatinine Ratio 11.1 Glucose 114 H Lactate 1.2 Calcium 9.5 Total Bilirubin 0.8 AST 28 ALT 18 Alkaline Phosphatase 110 Total Creatine Kinase 94 Troponin I < 0.012 Total Protein 7.3 Albumin 3.9 Globulin 3.4 Albumin/Globulin Ratio 1.1 Procalcitonin 0.044 Chlamy pneumoniae PCR Not detected Adenovirus (PCR) Not detected B. pertussis DNA (PCR) Not detected B.parapertussis DNA PCR Not detected Coronavirus OC43 (PCR) Not detected Coronavirus HKU1 (PCR) Not detected Coronavirus 229E (PCR) Not detected SARS-CoV-2 (PCR) Not detected Coronavirus NL63 (PCR) Not detected Human Metapneumovir PCR Not detected Influenza Type A (PCR) Not detected Influenza Type B (PCR) Not detected M. pneumoniae (PCR) Not detected Parainfluenza 1 (PCR) Not detected Parainfluenza 2 (PCR) Not detected Parainfluenza 3 (PCR) Not detected Parainfluenza 4 (PCR) Not detected RSV (PCR) Not detected Entero/Rhino (PCR) Not detected Assessment & Plan Assessment & Plan narrative: 1. Asthma / community-acquired pneumonia. - bronchodilators, Singulair - appears atypical, levofloxacin and azithromycin - oxygen 2. Acute hypoxic respiratory failure due to 1. -oxygen 3. ÉHCTOR - CPAP 4. GERD - PPI 5. BPH with LUTS - Flomax, declines finasteride while in hospital ?due to cost? 6. Depression / Anxiety -declines Wellbutrin while in hospital? due to cost? 7. Chronic Pain - MSK / neuropathic - declines gabapentin while in the hospital ?due to cost? DVT prophylaxis - Lovenox Code status: Full code. His daughter is his surrogate decision maker. TANNER: 04/24 or 04/25 when hypoxemia resolved Quality MIPS - Admit I confirm the patient?s Advance Care Plan is present, Code status is documented, Surrogate decision maker is in patient?s record [If Yes, STOP here]: Yes MIPS - Meds 'Current medications' to include all prescriptions, [id number] products, herbals, cannabis/cannabidiol products, and vitamin/mineral/dietary (nutritional) supplements. I have utilized all available resources to obtain, update, or review the patient?s current medications. [If Yes, STOP here]: Yes [employer] Document charge(s): No Charge Codes Initial inpatient/observation care: [id number]
[2024-04-23] MEDS: ENOXAPARIN 40 MG/0.4 ML SYRINGE SUBCUT (09:25)
[2024-04-23] MEDS: TAMSULOSIN 0.4 MG CAPSULE PO (09:25)
[2024-04-23] MEDS: methylPREDNISolone 125 MG/2 ML VIAL 60 MG IV ×2 (11:30→23:20)
[2024-04-23] MEDS: SODIUM CHLORIDE 0.9% FLUSH 10 ML IV ×2 (11:32→21:20)
--- NOTE | 2024-04-23 11:32 | CM.DANOTE ---
Patient is a 78 yo male who was admitted INPT Status on 04/23/24 for Pneumonia/Bronchitis. Pt has MCR and PRE DIM for insurance and his PCP is Dr. Neil Funes at [facility] in [place]. EMR was reviewed. Per , pt with hx of asthma and COPD and admitted for Pneumonia and respiratory failure and currently on 4L02. Per MD, pt Not yet appropriate for PT yet today but likely will order PT tomorrow Sun. SW met bedside with pt, friend Mary and a male friend (did not catch his name) that has been friends with the patient for over 40 years and explained role and pt confirms he lives at home alone in [place] and is active and independent at baseline, uses a cane at times for longer ambulation as he has chronic hip pain, but still drives and completes his own ADLs. Pt's friends live nearby and can assist as needed and neighbor friend Mary drove pt to the hospital and currently taking care of pt's large dog and confirms she will transport pt home at discharge. Pt denies any hx of HH or SNF and preference is home with his neighbor friends to assist as needed. Pt confirms he does not have home O2 at baseline and will need to be weaned to room air otherwise new home O2. SW inquired about DPOA and pt states he has been meaning to work on this pwk and update his Will and plan is for Juan Luis Morris in [place] to be his formal POA. Pt last admitted in September 2023 for similar and was able to discharge home with no needs. Plan: SW to follow tomorrow Sun after PT eval to confirm safe d/c home and r/o HH needs via friend Mary POV. SW to follow for any further identified discharge planning needs. PAUL Sherman Discharge Planning/Care Management CM Discharge Assessment Start: 04/23/24 11:27 Freq: Status: Active Protocol: Document 04/23/24 11:28 BF (Rec: 04/23/24 11:30 BF [id number]) Discharge Planning Assessment Assigned Generation Engineer PAUL Mejía DPOA/Assigned Designee Name informally Juan Luis Morris, working on pwk Contact Information [phone] Advance Directives? No Advance Directives on File No History Provided By Patient,Friend,Medical Record Has Patient been admitted in last 30 No days? Prior Living Arrangements House Household Members none Type of transporation used prior to Drives own vehicle admit Independent with ADL's Yes Is patient alert and oriented? Yes Caregiver for Another No DME Already Rented / Owned Cane Comment PT to be ordered tomorrow, follow to r/o HH Barriers to Discharge No Discharge Plan Home Transportation Arrangement Friend Mary confirms she will transport pt home at d/c Additional Comment Pending PT eval tomorrow Sun Whiteboard Updated in Patient Room with Yes name and ext. # of Generation Engineer Review Status In Process Please Provide Date Initial DC 04/23/24 Assessment Was Performed Next Review Type Continued Stay Review
[2024-04-23] MEDS: guaiFENesin ER 600 MG TAB PO ×2 (13:20→21:20)
[2024-04-23] MEDS: ACETAMINOPHEN 325 MG TABLET 650 MG PO (14:12)
[2024-04-23 14:17] LABS: Add Manual Diff / Slide Review NO; Basophils Absolute Auto 0 /uL (0-100); Basophils Percent Auto 0.1 % (0-2); Eosinophils Absolute Auto 0 /uL (0-450); Eosinophils Percent Auto 0.1 % (2-4); Hemoglobin 14.3 g/dL (13.5-17.5); Lymphocytes Absolute Auto 400 /uL (1100-4500); Lymphocytes Percent Auto 8.6 % (25-40); Mean Corpuscular HGB Conc 33.9 % (30-36); Mean Corpuscular Hemoglobin 30.9 PG (26-34); Mean Corpuscular Volume 90.9 fL (80-100); Monocytes Absolute Auto 100 /uL (0-900); Monocytes Percent Auto 3.2 % (3-14); Neutrophils Absolute Auto 4100 /uL (1500-7000); Platelet Count 218 X10^3/uL (150-400); Red Blood Cell Count 4.62 X10^6/uL (4.5-5.9); Red Cell Distribution Width 12.5 % (11.6-14.8); White Blood Cell Count 4.7 X10^3/uL (4.5-11.0)
[2024-04-23 14:30] LABS: BUN Creatinine Ratio 20.8 (6-22); Blood Urea Nitrogen 15 mg/dL (9-20); Calcium 9.8 mg/dL (8.4-10.2); Carbon Dioxide 22 mmol/L (22-32); Chloride 103 mmol/L (98-107); Estimated Glomerular Filt Rate > 60 mL/min (>60); Glucose 165 mg/dL (80-110); HEMOLYSIS < 15 (0-50); Potassium 4.1 mmol/L (3.4-5.1); Sodium 134 mmol/L (137-145)
[2024-04-23] MEDS: ACETAMINOPHEN 325 MG TABLET PO (21:46)
[2024-04-23] MEDS: ACETAMINOPHEN 325 MG TABLET 975 MG PO (21:49)
[2024-04-24] VITALS (7 sets, daily range): BP systolic 106–152; BP diastolic 55–85; PULSE 52–73; RESP 14–24; TEMP 36.2–36.6; O2SAT 90–95
[2024-04-24] MEDS: TRAZODONE 50 MG TABLET PO (00:05)
[2024-04-24] MEDS: guaiFENesin Solution 100 MG/5 ML UDC 200 MG PO ×4 (00:30→22:43)
[2024-04-24] MEDS: AZITHROMYCIN 500 MG in DEXTROSE 5% IN WATER 250 ML 250 MG IV (03:15)
[2024-04-24] MEDS: ENOXAPARIN 40 MG/0.4 ML SYRINGE SUBCUT (08:57)
[2024-04-24] MEDS: SODIUM CHLORIDE 0.9% FLUSH 10 ML IV ×2 (08:57→20:22)
[2024-04-24] MEDS: TAMSULOSIN 0.4 MG CAPSULE PO (08:57)
[2024-04-24] MEDS: levoFLOXacin 500 MG/100 ML PIGGYBACK 100 MG IV (08:57)
[2024-04-24] MEDS: guaiFENesin ER 600 MG TAB PO ×2 (08:57→20:22)
[2024-04-24] MEDS: ACETAMINOPHEN 325 MG TABLET 975 MG PO ×2 (09:13→16:48)
--- NOTE | 2024-04-24 10:39 | PM.PN.IH.1 ---
Subjective Subjective Date Patient Seen: 04/24/24 Time Patient Seen: 08:40 Interval history: Narrative: 77 y/o with PMH of smoking, COPD, GERD, BPH w LUTS,, presented to ED short of breath, hypoxemic, with dry coug, wheezy. Symptoms started a month ago and he had a few courses of antibiotics and steroid. Similar visit in September 2023. CXR showing b/l infiltrates, w/o leukocytosis, fever, negative viral respiratory panel but acutely hypoxemic. Sodium is 134 BUN 8 otherwise electrolytes are appropriate creatinine 0.72 glucose is 114 lactate 1.2 with negative LFTs troponins less than 0.012 procalcitonin 0.044. Treated with empiric abx, iv steroid and bronchodilators. The patient states he is feeling better but has persistent cough, mild nausea and occasional loose stools. He states 6 weeks of symptoms treated variably with antibiotics, steroids and inhalers as an outpatient. He denies recent sick exposures. He states he has had similar episodes in 2010 and 2022. Subjective: Patient reports cough is significantly improved with guaifenesin and treatments. Feeling better. He is mildly unsteady, planning upcoming total hip replacement surgery in 3 weeks, recognizing that this will need to be delayed. Exam Vital Signs (past 8 hours): - 04/24/24 06:00 04/24/24 08:00 04/24/24 08:44 Temperature 97.8 F 97.1 F L Pulse Rate 64 64 Respiratory Rate 16 22 Blood Pressure 106/63 130/85 Pulse Oximetry 93 90 L 93 Oxygen Delivery Method Nasal Cannula Oxygen Flow Rate 4 4 4 Oxygen Delivery Method Nasal Cannula Oxygen Flow Rate 4 Narrative Exam Narrative: GENERAL: This is a well-nourished, well-developed patient, in no apparent distress. EYES: Pupils equal round and reactive. Extraocular motions intact. No scleral icterus. No injection or drainage. ENT: Mucous membranes pink and moist. NECK: Trachea midline. No JVD, bruits or lymphadenopathy. Supple, nontender, no meningeal signs. CARDIOVASCULAR: Regular rate and rhythm without murmurs, gallops, or rubs. RESPIRATORY: Coarse bilateral rhonchi with intermittent harsh coughing, mid to end-expiratory wheeze. GASTROINTESTINAL: Abdomen soft, non-tender, nondistended. EXTREMITIES: No clubbing, cyanosis, or edema. NEUROLOGIC: Alert, oriented, speech fluent, full upper and lower motor strength, no focal deficits evident. DERMATOLOGIC: No rashes or skin lesions. Objective Labs 04/23/24 14:10 04/23/24 14:10 Labs: Laboratory Results - last 24 hr 04/23/24 14:10 WBC 4.7 RBC 4.62 Hgb 14.3 Hct 42.0 MCV 90.9 MCH 30.9 MCHC 33.9 RDW 12.5 Plt Count 218 Neut % (Auto) 88.0 H D Lymph % (Auto) 8.6 L Rogers % (Auto) 3.2 Eos % (Auto) 0.1 L Baso % (Auto) 0.1 Neut # (Auto) 4100 Lymph # (Auto) 400 L Rogers # (Auto) 100 Eos # (Auto) 0 Baso # (Auto) 0 Sodium 134 L Potassium 4.1 Chloride 103 Carbon Dioxide 22 BUN 15 Creatinine 0.72 Estimated GFR > 60 BUN/Creatinine Ratio 20.8 Glucose 165 H Calcium 9.8 PFSH Medical History Acute diverticulitis [id number] Lumbar stenosis with neurogenic claudication Obstructive sleep apnea of adult Sprain of shoulder, left Social History household members: none pets and animals: Yes (Anticipating getting a couple rescue dogs to foster for a period of time) Smoking Status: Former smoker alcohol intake: former substance use type: does not use Assessment & Plan Assessment & Plan narrative: 1. Asthma / community-acquired pneumonia. - improving today on therapy - bronchodilators, Singulair - appears atypical, levofloxacin and azithromycin - oxygen 2. Acute hypoxic respiratory failure due to 1. -oxygen 3. HÉCTOR - CPAP 4. GERD - PPI 5. BPH with LUTS - Flomax, declines finasteride while in hospital ?due to cost? 6. Depression / Anxiety -declines Wellbutrin while in hospital? due to cost? 7. Chronic Pain - MSK / neuropathic - declines gabapentin while in the hospital ?due to cost?, but states that he would stopped taking it at home as it did not seem to help 8. Severe right hip osteoarthritis - total hip replacement planned with Dr. Aleksandar West went and resolved from current presentation - consult physical therapy DVT prophylaxis - Lovenox Code status: Full code. His daughter is his surrogate decision maker. TANNER: 04/25 or when hypoxemia resolved IH PROFEE Research Chief Engineer Document charge(s): No Charge Codes Subsequent inpatient/observation care: [id number]
[2024-04-24] MEDS: methylPREDNISolone 125 MG/2 ML VIAL 60 MG IV ×2 (12:00→22:49)
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
--- NOTE | 2024-04-24 17:44 | DI.ECHO.S_ITS ---
[facility]+ [facility] : : [address] : : [place] : : [id number] : : Phone: [phone] Echocardiogram Report + + :Name: MERCEDES ZELAYA Study Date: 04/25/2024 Height: 68 in : :Hospital ReadingLocation: Weight: 180 lb : : Gender: Male BSA: 2.0 m2 : :: 1945 Age: 78 yrs BP: 125/72 mmHg: :Reason For Study: ATRIAL FIBRILLATION : :Ordering Physician: CANDICE, : :HILARY Performed By: Irais Wagner : :Referring: HILARY HARVEY : + + Interpretation Summary The left ventricle is normal in size and wall thickness. The ejection fraction is estimated to be 55-60%. There are no focal wall motion abnormalities. Diastolic parameters suggest probable normal left ventricular diastolic function and normal filling pressures. The right ventricle is mildly dilated. The right ventricular systolic function is normal. The right ventricular systolic pressure is estimated to be at least 30 mmHg based on an estimated right atrial pressure of 3 mm Hg. The left atrial size is normal. There is mild aortic regurgitation. The ascending aorta is mildly enlarged. Procedure: A two-dimensional transthoracic echocardiogram with color flow and Doppler was performed. The study quality was technically difficult. There is no prior echocardiogram noted for this patient. The patient was in sinus bradycardia with heart rates between 43-61 bpm during the exam. Patient had coughing attacks throughout exam. Left Ventricle: The left ventricle is normal in size and wall thickness. The ejection fraction is estimated to be 55-60%. There are no focal wall motion abnormalities. Diastolic parameters suggest probable normal left ventricular diastolic function and normal filling pressures. Right Ventricle: The right ventricle is mildly dilated. The right ventricular systolic function is normal. Atria: The left atrial size is normal. Right atrial size is normal. There is no Doppler evidence for an interatrial shunt. Mitral Valve: The mitral valve leaflets appear borderline thickened, but open well. There is mild mitral annular calcification. There is mild mitral regurgitation. Aortic Valve: The aortic valve is trileaflet. The aortic valve opens well. The aortic valve is slightly calcified. There is no aortic valve stenosis. There is mild aortic regurgitation. Tricuspid Valve: The tricuspid valve leaflets are thin and pliable. There is mild tricuspid regurgitation. The right ventricular systolic pressure is estimated to be at least 30 mmHg based on an estimated right atrial pressure of 3 mm Hg. Pulmonic Valve: The pulmonic valve is not well visualized. There is no pulmonic valvular regurgitation. Great Vessels: The aortic root is normal size. The ascending aorta is mildly enlarged. The IVC is of normal diameter and collapses greater than 50% with a sniff. This suggests a low right atrial pressure of 3 mm Hg. Pericardium/ Pleura There is no pericardial effusion. There has been no significant change since the previous study. MMode/2D Measurements & Calculations LVIDd: 5.0 cm LVOT diam: 2.2 cm LVIDs: 3.7 cm Ao root diam: 3.7 cm FS: 25.4 % asc Aorta Diam: 3.9 cm IVSd: 0.89 cm LVPWd: 0.66 cm LV anderson. diameter/BSA (cm/m^2): 2.6 LV sys. diameter/BSA (cm/m^2): 1.9 LA A2 area: 17.5 cm2 RA long axis: 4.9 cm LA A4 area: 14.6 cm2 RA area: 15.1 cm2 LA length (vol): 4.7 cm RA vol: 40.2 ml LA vol: 45.9 ml RA : 20.6 ml/m2 LA vol index: 23.5 ml/m2 IVC diam: 1.7 cm RVD1 (basal): 4.2 cm RVD2 (mid): 3.9 cm TAPSE: 2.3 cm Doppler Measurements & Calculations Ao V2 max: 154.6 cm/sec LVOT Max Michael: 105.3 cm/sec Ao V2 mean: 101.3 cm/sec LV V1 max P.4 mmHg Ao max P.6 mmHg LV V1 VTI: 24.0 cm Ao mean P.6 mmHg KOFI(I,D): 2.6 cm2 Ao V2 VTI: 36.2 cm KOFI(V,D): 2.7 cm2 sev ratio: 0.66 KOFI indexed to BSA (cm^2/m^2): 1.3 MV E max michael: 69.5 cm/sec TR max michael: 261.2 cm/sec MV A max michael: 44.6 cm/sec TR max P.3 mmHg MV E/A: 1.6 Med Peak E' Michael: 8.2 cm/sec E/E' med: 8.4 Lat Peak E' Michael: 11.3 cm/sec E/E' lat: 6.2 E/e' average: 7.3 MV dec time: 0.27 sec SVLVOT): 93.7 ml Reading Physician:10:41 AM
[2024-04-24] MEDS: APIXABAN 5 MG TABLET PO (20:22)
[2024-04-24] MEDS: HYDROCODONE/ACET 5/325 TABLET 1 TAB PO (22:43)
[2024-04-25] VITALS (8 sets, daily range): BP systolic 122–154; BP diastolic 70–94; PULSE 54–90; RESP 16–20; TEMP 36.1–36.9; O2SAT 93–96
[2024-04-25] MEDS: AZITHROMYCIN 500 MG in DEXTROSE 5% IN WATER 250 ML 250 MG IV (01:32)
[2024-04-25] MEDS: TRAZODONE 50 MG TABLET PO ×2 (01:32→23:05)
[2024-04-25 07:10] LABS: BUN Creatinine Ratio 27.7 (6-22); Blood Urea Nitrogen 18 mg/dL (9-20); Calcium 9.4 mg/dL (8.4-10.2); Carbon Dioxide 22 mmol/L (22-32); Chloride 103 mmol/L (98-107); Estimated Glomerular Filt Rate > 60 mL/min (>60); Glucose 126 mg/dL (80-110); HEMOLYSIS < 15 (0-50); Potassium 4.1 mmol/L (3.4-5.1); Sodium 134 mmol/L (137-145)
[2024-04-25 07:12] LABS: Magnesium 2.2 mg/dL (1.6-2.3)
[2024-04-25 07:24] LABS: Troponin I < 0.012 ng/mL (0.01-0.034)
[2024-04-25 07:44] LABS: Thyroid Stimulating Hormone 0.374 uIU/mL (0.47-4.68)
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
[2024-04-25] MEDS: guaiFENesin ER 600 MG TAB PO ×2 (09:43→21:13)
[2024-04-25] MEDS: guaiFENesin Solution 100 MG/5 ML UDC 200 MG PO ×2 (09:43→17:22)
[2024-04-25] MEDS: ACETAMINOPHEN 325 MG TABLET 975 MG PO (09:43)
[2024-04-25] MEDS: TAMSULOSIN 0.4 MG CAPSULE PO (09:43)
[2024-04-25] MEDS: APIXABAN 5 MG TABLET PO ×2 (09:43→21:13)
[2024-04-25] MEDS: SODIUM CHLORIDE 0.9% FLUSH 10 ML IV ×2 (09:44→21:13)
--- NOTE | 2024-04-25 10:25 | CM.DPC ---
DCP Cont: Per MD, pt remains on 4LO2 with significant cough and unintentional weight loss the past couple months and to have Echo and Chest CT today to r/o any further medical conditions. Per PT yesterday, recommending home with HH. SW attempted to meet bedside with pt to discuss HH and determine if pt agreeable, but pt currently getting Echo bedside. Plan: SW to follow for further discussion with pt to determine if he will be agreeable to HH and pt quite independent at baseline with local friend support. PAUL Sherman
[2024-04-25] MEDS: methylPREDNISolone 125 MG/2 ML VIAL 60 MG IV ×2 (11:03→23:05)
[2024-04-25] MEDS: HYDROCODONE/ACET 5/325 TABLET 1 TAB PO ×3 (11:04→21:12)
--- NOTE | 2024-04-25 12:43 | PT-IP ANOTE ---
PT checks in on pt who is sleeping in recliner. He awakens to voice and states that he is trying to catch up on sleep and can try to walk later. Con't PT efforts.
--- NOTE | 2024-04-25 14:06 | DI.CT.S_ITS ---
PROCEDURE: CT CHEST HIGH RESOLUTION INDICATIONS: 6 week cough and dyspnea TECHNIQUE: Noncontrast 1.0 and 5.0 mm thick contiguous axial sections from the pulmonary apex to the posterior costophrenic angles, with 7 mm thick coronal and sagittal MIP reformats. 1 mm thick dynamic expiratory images acquired through the upper, mid, and lower lungs. 1.0 mm thick axial sections acquired from the yenny to the posterior costophrenic angles in the prone end-inspiration position. For radiation dose reduction, the following was used: automated exposure control, adjustment of mA and/or kV according to patient size. COMPARISON: [facility], CR, XR CHEST 2V, 04/22/2024, 21:57. FINDINGS: Image quality: Diagnostic. Lower Neck: No enlarged lymph nodes. Thyroid: No thyroid nodules which require sonographic follow up, per consensus guidelines. Axillae: No enlarged lymph nodes. Chest Wall: Unremarkable. Bones: Unremarkable. Lungs and Pleura: Upper lobe predominant ground-glass. Bibasilar peripheral reticulation without subpleural sparing. No honeycombing. Scattered regions of upper lobe predominant air trapping . Heart: Heart size is enlarged, with 2 vessel coronary calcifications. No pericardial effusion. Thoracic Vessels: The aorta and pulmonary arteries demonstrate normal size. Mediastinum and Debra: No enlarged lymph nodes. Esophagus: No wall thickening. Small hiatal hernia. Upper Abdomen: Visualized upper abdomen solid organs and bowel loops appear normal. IMPRESSION: Upper lobe predominant ground-glass and peripheral reticulation in the lung bases . Air trapping is present. The peripheral reticulation at the lung bases could represent early interstitial lung disease, in isolation. However, given the presence of ground-glass in the upper lobes and in interlobular band in the left upper lobe, superimposed organizing pneumonia or hypersensitivity pneumonitis are considerations. Recommend pulmonology referral if not performed in the past. Dictated by: Pk Jones M.D. on 04/25/2024 at 15:40 Approved by: Pk Jones M.D. on 04/25/2024 at 15:46
[2024-04-26] VITALS (7 sets, daily range): BP systolic 127–143; BP diastolic 75–89; PULSE 49–78; RESP 16–21; TEMP 36.2–37; O2SAT 93–97
[2024-04-26] MEDS: HYDROCODONE/ACET 5/325 TABLET 1 TAB PO ×3 (00:58→20:44)
[2024-04-26 06:33] LABS: Hematocrit 40.8 % (41-53); Hemoglobin 14.1 g/dL (13.5-17.5); Mean Corpuscular HGB Conc 34.6 % (30-36); Mean Corpuscular Hemoglobin 31.1 PG (26-34); Mean Corpuscular Volume 89.9 fL (80-100); Platelet Count 265 X10^3/uL (150-400); Red Blood Cell Count 4.54 X10^6/uL (4.5-5.9); Red Cell Distribution Width 12.9 % (11.6-14.8); White Blood Cell Count 8.2 X10^3/uL (4.5-11.0)
[2024-04-26 06:50] LABS: Neutrophils Absolute Manual 7380 /uL (3000-5900); Total Cells Counted 100
[2024-04-26 06:51] LABS: RBC Morphology Normal Morphology
--- NOTE | 2024-04-26 08:22 | P.PN_ITS ---
Subjective Subjective Interval history: Summary: Narrative: 77 y/o with PMH of smoking, COPD, GERD, BPH w LUTS,, presented to ED short of breath, hypoxemic, with dry coug, wheezy. Symptoms started a month ago and he had a few courses of antibiotics and steroid. Similar visit in September 2023. CXR showing b/l infiltrates, w/o leukocytosis, fever, negative viral respiratory panel but acutely hypoxemic. Sodium is 134 BUN 8 otherwise electrolytes are appropriate creatinine 0.72 glucose is 114 lactate 1.2 with negative LFTs troponins less than 0.012 procalcitonin 0.044. Treated with empiric abx, iv steroid and bronchodilators. The patient states he is feeling better but has persistent cough, mild nausea and occasional loose stools. He states 6 weeks of symptoms treated variably with antibiotics, steroids and inhalers as an outpatient. He denies recent sick exposures. He states he has had similar episodes in 2010 and 2022. The patient was noted to have intermittent atrial fibrillation in the 60s to 90s beat per minute range on telemetry. He notes a longstanding history of a arrhythmias but has never been told he has had atrial fibrillation. He denies chest pain or shortness of breath. Impression: Paroxysmal atrial fibrillation, rate controlled. This is explained to the patient and the rationale for treatment reviewed. Recommend chronic anticoagulation given chads 2 Vasc score of 3. Plan: Echocardiogram, TSH, Eliquis 5 mg b.i.d. 04/27: High resolution CT: Ground-glass opacities in the apices consistent with possible hypersensitivity pneumonitis. He has been on Solu-Medrol 60 q.12. S: He feels a bit more short of breath today with ongoing sporadic cough and wheezing. He notes he is allergic to dogs and cats and does have a dog at home. Exam Vital Signs (past 8 hours): - 04/26/24 04:00 04/26/24 07:13 Temperature 97.6 F Pulse Rate 64 Respiratory Rate 20 Blood Pressure 127/86 Pulse Oximetry 93 93 Oxygen Delivery Method Nasal Cannula Oxygen Flow Rate 2 2 Fraction of Inspired Oxygen 32 SaO2/FiO2 Ratio 296 Oxygen Delivery Method Nasal Cannula Oxygen Flow Rate 2 Narrative Exam Narrative: NAD, alert and oriented. Fluent speech. Lungs are wheezing diffusely, normal rate and effort. Heart is regular, no murmur gallop or rub. Abdomen is soft, non distended. Extremities are free of edema. Objective Imaging CT scan - chest: Radiologist's impression: FINDINGS: Image quality: Diagnostic. Lower Neck: No enlarged lymph nodes. Thyroid: No thyroid nodules which require sonographic follow up, per consensus guidelines. Axillae: No enlarged lymph nodes. Chest Wall: Unremarkable. Bones: Unremarkable. Lungs and Pleura: Upper lobe predominant ground-glass. Bibasilar peripheral reticulation without subpleural sparing. No honeycombing. Scattered regions of upper lobe predominant air trapping . Heart: Heart size is enlarged, with 2 vessel coronary calcifications. No pericardial effusion. Thoracic Vessels: The aorta and pulmonary arteries demonstrate normal size. Mediastinum and Debra: No enlarged lymph nodes. Esophagus: No wall thickening. Small hiatal hernia. Upper Abdomen: Visualized upper abdomen solid organs and bowel loops appear normal. IMPRESSION: Upper lobe predominant ground-glass and peripheral reticulation in the lung bases . Air trapping is present. The peripheral reticulation at the lung bases could represent early interstitial lung disease, in isolation. However, given the presence of ground- glass in the upper lobes and in interlobular band in the left upper lobe, superimposed organizing pneumonia or hypersensitivity pneumonitis are considerations. Recommend pulmonology referral if not performed in the past. Labs 04/26/24 05:40 04/25/24 05:40 Labs: Laboratory Results - last 24 hr 04/26/24 05:40 WBC 8.2 RBC 4.54 Hgb 14.1 Hct 40.8 L MCV 89.9 MCH 31.1 MCHC 34.6 RDW 12.9 Plt Count 265 Total Counted 100 Seg Neutrophils % 90.0 H Lymphocytes % (Manual) 6.0 L Monocytes % (Manual) 4.0 Neutrophils # (Manual) 7380 H RBC Morphology Normal morphology [facility] Medical History Obstructive sleep apnea of adult Sprain of shoulder, left Acute diverticulitis Lumbar stenosis with neurogenic claudication Lrrbucm-hg-irg Social History household members: none pets and animals: Yes (Anticipating getting a couple rescue dogs to foster for a period of time) Smoking Status: Former smoker alcohol intake: former substance use type: does not use Assessment & Plan Assessment & Plan narrative: 1. Asthma with possible hypersensitivity pneumonitis. Present on admission and improving. - improving today on therapy - bronchodilators, Singulair 2. Acute hypoxic respiratory failure due to 1. Present on admission and improving. -oxygen 3. HÉCTOR, stable. - CPAP 4. GERD, stable. - PPI 5. BPH with LUTS, stable. - Flomax, declines finasteride while in hospital ?due to cost? 6. Depression / Anxiety, stable. -declines Wellbutrin while in hospital? due to cost? 7. Chronic Pain - MSK / neuropathic, stable. - declines gabapentin while in the hospital ?due to cost?, but states that he would stopped taking it at home as it did not seem to help 8. Severe right hip osteoarthritis, stable. - total hip replacement planned with Dr. Aleksandar sauceda and resolved from current presentation - consult physical therapy PLAN: -CT lungs reveals possible hypersensitivity pneumonitis. We will contact Pulmonary today to see if they can review the CT scan and have additional recommendations -continue Abx and steroids at current dosing (medrol 60Q12) -bronchodilators DVT prophylaxis - Lovenox TANNER: 04/28. Time-Based Coding :: [TOTAL MINUTES] spent with patient and on the chart (including review of chart, obtaining history, exam, reviewing outside data, placing orders, documenting exam and treatment plan, and counseling patient) on [DATE].
[2024-04-26] MEDS: TAMSULOSIN 0.4 MG CAPSULE PO (09:03)
[2024-04-26] MEDS: guaiFENesin Solution 100 MG/5 ML UDC 200 MG PO ×3 (09:03→20:44)
[2024-04-26] MEDS: APIXABAN 5 MG TABLET PO ×2 (09:03→20:44)
[2024-04-26] MEDS: guaiFENesin ER 600 MG TAB PO ×2 (09:03→20:44)
[2024-04-26] MEDS: SODIUM CHLORIDE 0.9% FLUSH 10 ML IV ×2 (09:04→20:45)
--- NOTE | 2024-04-26 10:30 | PT.IPTN ---
Current Diagnoses Obstructive sleep apnea (adult) (pediatric) (04/23/24) Pneumonia, unspecified organism (04/23/24) Unspecified asthma, uncomplicated (04/23/24) Acute respiratory failure with hypoxia (04/23/24) Gastro-esophageal reflux disease without esophagitis (04/23/24) Other obstructive and reflux uropathy (04/23/24) Benign prostatic hyperplasia with lower urinary tract symptoms (04/23/24) Physical Therapy Treatment Note M2 PT-IP Current Condition Start: 04/24/24 11:49 Freq: NEEDED Status: Active Protocol: Document 04/24/24 11:54 MB (Rec: 04/24/24 12:31 MB [id number]) Physical Therapy Current Condition Current Condition Evaluation Date 04/24/24 Treatment Diagnosis Coughing, SOB, PNA M3 PT-IP Subjective Start: 04/24/24 11:49 Freq: NEEDED Status: Active Protocol: Document 04/26/24 10:30 AB (Rec: 04/26/24 13:05 AB [id number]) Subjective Physical Therapy Visit Type Type Treatment Note Visit Start Time 10:30 Visit Stop Time 10:50 Number of ASSEMBLER GARMENT FORM Visits 0 Physical Therapy Visit Comments Patient Comments agreeable to do PT M4 PT-IP Mobility and Gait Start: 04/24/24 11:49 Freq: NEEDED Status: Active Protocol: Document 04/26/24 10:30 AB (Rec: 04/26/24 13:05 AB [id number]) PT-Transfer Assessment Sit to and From Stand Sit to and from Stand Standby Assistance,1 Person Assistance,Use of Upper Extremities Equipment Transfer Assistive Device Gait Belt,Straight Cane Orthotic/Prosthetic Devices or Brace: No Comments Mobility Comments pt sitting on the chair. O2 sat with 1 1/2 L O2: 87-90%. informed nurse. O2 increased to 3L/min. completed sit to stand SBA and pt ambulated in the hallway using SPC SBA to CGA ~ 250 ft. pt with unsteady gait with several slight LOB requiring CGA for steadiness. O2 sat maintained at 91% during ambulation with 3L/min O2. pt sat back on the chair. decreased O2 back to 2L/min per nurse's instruction. call light and table placed next to pt. Gait Assessment Gait Gait Assistance Required: Standby Assistance,Contact Guard Assist,1 Person Assist Distance (Feet) 250 Able to Maintain Weight Bearing Status Yes During Gait Assistive Devices Assistive Device Gait Belt,Straight Cane Orthotic/Prosthetic Devices or Brace: No Gait Deviations General Gait Pattern Ataxic,Decreased Stride Length ,Decreased Feet Clearance Factors Limiting Gait Function Factors Limiting Gait Function Decreased Activity Tolerance, Decreased Strength,Limited Range of Motion,Poor Balance, Poor Safety Awareness, Respiratory Distress M5 PT-IP Objective Assessments Start: 04/24/24 11:49 Freq: NEEDED Status: Active Protocol: Document 04/24/24 11:54 MB (Rec: 04/24/24 12:31 MB [id number]) Orientation Orientation/Cognition Level of Alertness Alert Language Function Ability No Deficits Noted Safety Awareness Decreased Safety Awareness Memory Description No Deficits Noted Gross Range of Motion Upper Extremity ROM Assessment Within Functional Limits Lower Extremity ROM Assessment Within Functional Limits Strength Comments Strength Comments MMT B ankles, great toe extension and knee flexion and extension and WFLs Coordination Assessment Assessment Coordination Comments NT Sensation Assessment Sensation Gross Sensation Left LE Impaired Sensation Description Numbness Muscle Tone Muscle Tone WNL Yes M6 PT-IP Treatment Start: 04/24/24 11:49 Freq: NEEDED Status: Active Protocol: Document 04/26/24 10:30 AB (Rec: 04/26/24 13:05 AB [id number]) Physical Therapy Treatment Education Education Provided Safety M7 PT-IP Assessment and Plan Start: 04/24/24 11:49 Freq: NEEDED Status: Active Protocol: Document 04/26/24 10:30 AB (Rec: 04/26/24 13:05 AB [id number]) PT Summary Assessment and Plan Potential Rehabilitation Potential Fair Summary Impairments Pain,ROM,Strength,Balance, Coordination,Sensation,Tone, Cognition,Bed Mobility, Transfers,Gait,Activity Tolerance Progress Towards Goals Progressing Toward Goals Assessment Summary pt requiring SBA to CGA with ambulation using SPC and presents with unsteady gait with several slight LOB. pt needing 3L/min O2 during ambultion to maintain o2 sat at 91%. will continue to assess progress. Goals Bed Mobility Goal Independent Transfer Goal Independent,Cane Gait Goal Independent,Cane Gait Distance 100 Other Goals Pt states no steps to enter Days to Meet Goals 10 Frequency of Treatment Frequency Of Treatment Once a Day Treatment Plan Physical Therapy Treatment Plan Bed Mobility Training,Transfer Training,Gait Training, Therapeutic Exercise,Balance Retraining,Discharge Planning, Hot or Cold Pack,Neuromuscular Re-ed,Coordination Retraining ,Manual Therapy Precautions Other Precautions O2 sats on O2 Recommendations To Nursing Amount of Assist Needed 1 Person Assist Discharge Recommendations PT Discharge Recommendations Home with Assistance,Home Health Transportation Needs at Discharge Private Vehicle
[2024-04-26] MEDS: CARBOXYMETHYLCELLULOSE DROPS 1 DROPS EYE-BOTH (11:59)
[2024-04-26] MEDS: methylPREDNISolone 125 MG/2 ML VIAL 60 MG IV ×2 (12:00→23:01)
--- NOTE | 2024-04-26 15:28 | P.CONS_ITS ---
History of Present Illness Consult details Date Patient Seen: 04/26/24 Time Patient Seen: 15:28 Chief complaint: coughing, sob Requesting provider: Randall Hollins Narrative: Mr. Elgin Styles is a 78 yo M with longstanding food and environmental allergies, distant smoker, asthma on ICS only, hypertension, BPH who it was admitted to the hospital 04/22 for acute hypoxemic respiratory failure for from Pulmonary is consulted for management. Patient states he remembers having cough and shortness of breath and wheezing in 2010 ultimately relieved with a few hours with treatment in the emergency department. He has been on inhaled steroids Flovent for a number of years recently transitioned to Arnuity Ellipta. In September of 2023 he had a URI symptoms triggering an asthma exacerbation for which he was hospitalized. His chest x-ray and respiratory panel was negative. He improved with bronchodilators and steroids. At that time notably his peripheral eosinophilic count was greater than 1000. He has had some joint issues more recently right hip issues has been limiting his exertion however has not felt short of breath with activities on his baseline ICS regimen. He really felt like he did not have any active asthma issues. About 6-8 weeks ago he had myalgias diarrhea and flu-like symptoms without fevers and then started having worsening shortness of breath that has been ongoing and escalating up until he presented to the ED on 04/23. I again had a chest x-ray normal, peripheral eosinophilia and required supplemental oxygen. He was treated with bronchodilators, steroids, antibiotics, as well as supplemental oxygen. He mentions no pet birds or down pillows or comforters. No autoimmune disease. He does feel relief temporarily with nebulized treatments. He has been noticing a productive cough has part of his worsening symptoms. He was not seen pulmonology and been followed by his primary care doctor for his asthma issues. No PFTs. No prior CT up until yesterday 04/25/2024. Which showed GGO opacities primarily tucip-iyqdsze-ajuz-left with some peripheral reticulation thought to consider ILD organizing pneumonia versus HP. Since his initial peripheral eosinophilia this is resolved with corticosteroids. He was still using supplemental oxygen. Still having productive cough the slowly getting better. Meds Home Medications and Allergies Home Medications Medication Instructions Recorded Confirmed Type amlodipine 5 mg tablet 7.5 mg PO DAILY 06/17/22 04/23/24 History bupropion HCl 150 mg 24 hr tablet, 150 mg PO QAM 06/17/22 04/23/24 History extended release cetirizine 10 mg tablet 10 mg PO DAILY 06/17/22 04/23/24 History finasteride 5 mg tablet 5 mg PO DAILY 06/17/22 04/23/24 History montelukast 10 mg tablet 10 mg PO BEDTIME 06/17/22 04/23/24 History rosuvastatin 40 mg tablet 40 mg PO DAILY 06/17/22 04/23/24 History tamsulosin 0.4 mg capsule 0.4 mg PO DAILY 06/17/22 04/23/24 History fluticasone furoate 200 1 inh inhalation DAILY 09/23/23 04/23/24 History mcg/actuation blister powder for inhalation (Arnuity Ellipta) albuterol sulfate 90 mcg/actuation 2 puff inhalation Q6H PRN 04/23/24 04/23/24 History aerosol inhaler Bronchospasm Allergies Allergy/AdvReac Type Severity Reaction Status Date / Time oyster extract Allergy Unknown HIVES Verified 06/14/22 22:01 [OYSTER EXTRACT] Review of Systems Review of Systems ROS: Yes All systems reviewed with the patient and are negative except as otherwise documented Exam Vital Signs (past 8 hours): - 04/26/24 08:00 04/26/24 12:00 Temperature 98.3 F 98.6 F Pulse Rate 53 L 54 L Respiratory Rate 18 18 Blood Pressure 132/81 127/78 Pulse Oximetry 96 95 Oxygen Flow Rate 0 3 Fraction of Inspired Oxygen 32 SaO2/FiO2 Ratio 296 Oxygen Delivery Method Nasal Cannula Oxygen Flow Rate 3 Narrative Exam Narrative: Well-appearing elderly male sitting up in recliner in no distress however having productive cough during exam Const General: cooperative HENWV Other: Wearing supplemental oxygen Chest Chest: normal inspection of the chest Resp Effort & Inspection: normal respiratory effort and able to speak in complete sentences Auscultation: clear to auscultation bilaterally, no rales, no rhonchi and no wheezes Skin General: no rashes or lesions noted Neuro General: patient alert, patient awake and patient oriented x3 Psych Appearance: grossly normal Objective Labs 04/26/24 05:40 04/25/24 05:40 Labs: Laboratory Results - last 24 hr 04/26/24 05:40 WBC 8.2 RBC 4.54 Hgb 14.1 Hct 40.8 L MCV 89.9 MCH 31.1 MCHC 34.6 RDW 12.9 Plt Count 265 Total Counted 100 Seg Neutrophils % 90.0 H Lymphocytes % (Manual) 6.0 L Monocytes % (Manual) 4.0 Neutrophils # (Manual) 7380 H RBC Morphology Normal morphology I reviewed CT chest from 04/25/2024 showing predominantly right GGO opacities with some mild adenopathy, no effusion, no underlying interstitial lung disease I reviewed absolute eosinophilic count of 1000 on 09/23/2023 and 1100 on 04/22/2024 now 0 as of 04/23/2024 other labs Other labs showed mild hyponatremia, negative troponin, negative procalcitonin, respiratory viral panel davies negative No prior PFTs or CT chest review [facility] Medical History Obstructive sleep apnea of adult Sprain of shoulder, left Acute diverticulitis Lumbar stenosis with neurogenic claudication Cbgntzo-kz-hnm Social History household members: none pets and animals: Yes (Anticipating getting a couple rescue dogs to foster for a period of time) Tobacco & Substance Use Smoking Status: Former smoker alcohol intake: former substance use type: does not use Assessment & Plan Assessment and plan (1) Pneumonia: Qualifiers: Pneumonia type: due to unspecified organism Laterality: right Lung location: upper lobe of lung Qualified Code(s): J18.9 - Pneumonia, unspecified organism Status: Acute Plan: Patient had 6 weeks of myalgias and flu-like symptoms now presenting with ground-glass opacities is asymmetrically on the eflkq-qmouapx-rzgg-left. This is less consistent with a interstitial lung disease process and more consistent with a viral pneumonia. I do recommend ruling out fungal pneumonia even though this is not typical appearance with a 1 3 beta D glucan. Recommend supportive care and reasonable to treat with antibiotics though procalcitonin and viral panel negative. Would make sure to complete a total of a 5 day course for cap coverage. (2) Acute hypoxemic respiratory failure: Status: Acute Plan: Patient was acute hypoxemic respiratory failure most likely secondary to viral pneumonia less so contributions from asthma which typically does not cause hypoxemia. I am less suspicious for an interstitial lung disease however it would be helpful to rule this out with KIRSTIE, CCP, hypersensitivity pneumonitis panel, myositis panel, ESR, CRP. I recommend continuing to treat the underlying viral pneumonia, continue supplemental oxygen to maintain saturations greater than 92%. (3) Asthma: Qualifiers: Asthma severity: moderate Asthma persistence: persistent Asthma complication type: with acute exacerbation Qualified Code(s): J45.41 - Moderate persistent asthma with (acute) exacerbation Status: Acute Plan: Patient was had longstanding asthma maintained on ICS therapy. He was had rare intermittent exacerbations can recall in 2010 the last 1 prior to 2023 triggered by URI and again March triggered by URI. He would profound peripheral eosinophilia resolved with corticosteroids and continues on bronchodilators. I suspect this is contributing to his current presentation though the main active issue being viral pneumonia. I think ruling out comorbid contributors that mimic asthma including ABPA, EGPA would be helpful. I recommend serologic workup with IgE, Aspergillus fumigatus IgE. He was should continue IV corticosteroids until clinically improved then taper to oral steroids. I would recommend escalation to ICS Laba upon discharge and follow up in Pulmonary Clinic with PFTs as an outpatient. Patient agreeable to this plan. Time-Based Coding :: 85 spent with patient and on the chart (including review of chart, obtaining history, exam, reviewing outside data, placing orders, documenting exam and treatment plan, and counseling patient) on 04/26/24. PROFEE Charge Codes Inpatient or Observation consultation: [id number]
--- NOTE | 2024-04-26 15:46 | CM.DPC ---
DCP Cont: Per MD, pt's imaging showed signs of pneumonitis and remains on 3LO2 and to have Pulmonology Consult today towards ongoing plan of home when medically stable. Likely ready for d/c in 1-2 days pending progress. Per PT, recommending home with HH. SW met bedside with pt and explained role again and pt confirms that he feels worse today and more tired. Pt was seen ambulating the carrasco with PT and FWW and he is hesitant about HH and unsure if he wants HH at d/c. Pt requests to think about it and see how he feels tomorrow. Plan: SW to follow for plan of discharge home when stable via friend POV and to f/u with pt to determine if he is agreeable to HH referral. PAUL Sherman
[2024-04-26] MEDS: TRAZODONE 50 MG TABLET PO (20:44)
[2024-04-27] VITALS: BP 117/78; PULSE 66; RESP 16; TEMP 35.9; O2SAT 95
[2024-04-27 04:00] VITALS: BP 149/84; PULSE 47; RESP 18; TEMP 36.4; O2SAT 95
[2024-04-27] MEDS: HYDROCODONE/ACET 5/325 TABLET 1 TAB PO ×3 (05:07→21:14)
[2024-04-27 06:24] LABS: Creatine Kinase 21 U/L (55-170)
[2024-04-27 06:25] LABS: Erythrocyte Sedimentation Rate 2 MM/HR (0-15)
[2024-04-27 06:28] LABS: C-Reactive Protein Quant 0.6 mg/dL (<1.0)
[2024-04-27] MEDS: SODIUM CHLORIDE 0.9% FLUSH 10 ML IV ×2 (10:00→21:15)
[2024-04-27] MEDS: guaiFENesin ER 600 MG TAB PO ×2 (10:33→21:14)
[2024-04-27] MEDS: APIXABAN 5 MG TABLET PO ×2 (10:33→21:14)
[2024-04-27] MEDS: TAMSULOSIN 0.4 MG CAPSULE PO (10:33)
[2024-04-27] MEDS: predniSONE 20 MG TABLET 40 MG PO (10:34)
[2024-04-27] MEDS: LORATADINE 10 MG TABLET PO (11:02)
[2024-04-27] MEDS: polyethylene glycoL 3350 17 GM POWD.PACK PO (11:03)
[2024-04-27] MEDS: CARBOXYMETHYLCELLULOSE DROPS 1 DROPS EYE-BOTH (11:05)
[2024-04-27] MEDS: ALBUTEROL 2.5 MG/3 ML NEB (ADULT) INH ×2 (11:21→19:08)
--- NOTE | 2024-04-27 11:45 | PT.IPTN ---
Current Diagnoses Obstructive sleep apnea (adult) (pediatric) (04/23/24) Pneumonia, unspecified organism (04/23/24) Moderate persistent asthma with (acute) exacerbation (04/23/24) Unspecified asthma, uncomplicated (04/23/24) Acute respiratory failure with hypoxia (04/23/24) Gastro-esophageal reflux disease without esophagitis (04/23/24) Other obstructive and reflux uropathy (04/23/24) Benign prostatic hyperplasia with lower urinary tract symptoms (04/23/24) Physical Therapy Treatment Note M2 PT-IP Current Condition Start: 04/24/24 11:49 Freq: NEEDED Status: Active Protocol: Document 04/24/24 11:54 MB (Rec: 04/24/24 12:31 MB [id number]) Physical Therapy Current Condition Current Condition Evaluation Date 04/24/24 Treatment Diagnosis Coughing, SOB, PNA M3 PT-IP Subjective Start: 04/24/24 11:49 Freq: NEEDED Status: Active Protocol: Document 04/27/24 11:45 AB (Rec: 04/27/24 15:06 AB [id number]) Subjective Physical Therapy Visit Type Type Treatment Note Visit Start Time 11:45 Visit Stop Time 12:00 Number of BROKE HANDLER Visits 0 Physical Therapy Visit Comments Patient Comments agreeable to do PT M4 PT-IP Mobility and Gait Start: 04/24/24 11:49 Freq: NEEDED Status: Active Protocol: Document 04/27/24 11:45 AB (Rec: 04/27/24 15:06 AB [id number]) PT-Transfer Assessment Sit to and From Stand Sit to and from Stand Standby Assistance,1 Person Assistance,Use of Upper Extremities Equipment Transfer Assistive Device Gait Belt,Straight Cane Orthotic/Prosthetic Devices or Brace: No Comments Mobility Comments pt sitting on chair and agreed to do PT. pt on room air and stated that they stopped his supplemental O2 this morning. O2 sat: 90%. sit to stand SBA and pt ambulated in room using SPC SBA to CGA and O2 sat maintaining at 89%. pt ambulated to the hallway and after ~ 40 ft. O2 sat decreasing to 86%. instructed pt to ambulate back to his room. pt sat on the chair. O2 sat 85%. informed nurse that O2 desats during ambulation. nurse stated that the doctor wants his O2 88-90% due to COPD. nurse stated that pt can get 1L/min O2 for ambulation. provided pt with 1L/min O2 and pt ambulated in the hallway using SPC ~ 200 ft SBA to CGA. presents with unsteady gait with a few LOB but with recover. O2 sat maintained at 88-89% with O2 on during ambulation. pt ambulated back to his room. pt sat on the chair and positioned. supplemental O2 taken off. O2 sat: 95% . call light and table placed within reach. Gait Assessment Gait Gait Assistance Required: Standby Assistance,Contact Guard Assist Distance (Feet) 200 Able to Maintain Weight Bearing Status Yes During Gait Assistive Devices Assistive Device Gait Belt,Straight Cane Orthotic/Prosthetic Devices or Brace: No Gait Deviations General Gait Pattern Ataxic Factors Limiting Gait Function Factors Limiting Gait Function Decreased Activity Tolerance, Decreased Strength,Respiratory Distress M5 PT-IP Objective Assessments Start: 04/24/24 11:49 Freq: NEEDED Status: Active Protocol: Document 04/24/24 11:54 MB (Rec: 04/24/24 12:31 MB [id number]) Orientation Orientation/Cognition Level of Alertness Alert Language Function Ability No Deficits Noted Safety Awareness Decreased Safety Awareness Memory Description No Deficits Noted Gross Range of Motion Upper Extremity ROM Assessment Within Functional Limits Lower Extremity ROM Assessment Within Functional Limits Strength Comments Strength Comments MMT B ankles, great toe extension and knee flexion and extension and WFLs Coordination Assessment Assessment Coordination Comments NT Sensation Assessment Sensation Gross Sensation Left LE Impaired Sensation Description Numbness Muscle Tone Muscle Tone WNL Yes M6 PT-IP Treatment Start: 04/24/24 11:49 Freq: NEEDED Status: Active Protocol: Document 04/27/24 11:45 AB (Rec: 04/27/24 15:06 AB [id number]) Physical Therapy Treatment Education Education Provided Safety M7 PT-IP Assessment and Plan Start: 04/24/24 11:49 Freq: NEEDED Status: Active Protocol: Document 04/27/24 11:45 AB (Rec: 04/27/24 15:06 AB [id number]) PT Summary Assessment and Plan Potential Rehabilitation Potential Fair Summary Impairments Pain,ROM,Strength,Balance, Coordination,Sensation,Tone, Cognition,Bed Mobility, Transfers,Gait,Activity Tolerance Progress Towards Goals Slow Progress due to Activity Tolerance Assessment Summary pt requiring SBA to CGA with mobility using SPC. O2 sat decreases with ambulation at RA to 85% but able to maintain 88-89% with 1L/min O2. will continue to assess progress. Goals Bed Mobility Goal Independent Transfer Goal Independent,Cane Gait Goal Independent,Cane Gait Distance 100 Other Goals Pt states no steps to enter Days to Meet Goals 10 Frequency of Treatment Frequency Of Treatment Once a Day Treatment Plan Physical Therapy Treatment Plan Bed Mobility Training,Transfer Training,Gait Training, Therapeutic Exercise,Balance Retraining,Discharge Planning, Hot or Cold Pack,Neuromuscular Re-ed,Coordination Retraining ,Manual Therapy Precautions Other Precautions O2 sat Recommendations To Nursing Amount of Assist Needed 1 Person Assist Discharge Recommendations PT Discharge Recommendations Home with Assistance,Home Health Transportation Needs at Discharge Private Vehicle
[2024-04-27 12:00] VITALS: BP 150/80; PULSE 62; RESP 19; TEMP 36.6; O2SAT 95
[2024-04-27 16:00] VITALS: BP 167/89; PULSE 64; RESP 16; TEMP 36.1; O2SAT 98
[2024-04-27] MEDS: BUDESONIDE 0.5 MG/2 ML NEB INH (19:08)
--- NOTE | 2024-04-27 19:52 | PM.PN.1 ---
Subjective Subjective Interval history: Summary: Narrative: 77 y/o with PMH of smoking, COPD, GERD, BPH w LUTS,, presented to ED short of breath, hypoxemic, with dry coug, wheezy. Symptoms started a month ago and he had a few courses of antibiotics and steroid. Similar visit in September 2023. CXR showing b/l infiltrates, w/o leukocytosis, fever, negative viral respiratory panel but acutely hypoxemic. Sodium is 134 BUN 8 otherwise electrolytes are appropriate creatinine 0.72 glucose is 114 lactate 1.2 with negative LFTs troponins less than 0.012 procalcitonin 0.044. Treated with empiric abx, iv steroid and bronchodilators. The patient states he is feeling better but has persistent cough, mild nausea and occasional loose stools. He states 6 weeks of symptoms treated variably with antibiotics, steroids and inhalers as an outpatient. He denies recent sick exposures. He states he has had similar episodes in 2010 and 2022. The patient was noted to have intermittent atrial fibrillation in the 60s to 90s beat per minute range on telemetry. He notes a longstanding history of a arrhythmias but has never been told he has had atrial fibrillation. He denies chest pain or shortness of breath. Impression: Paroxysmal atrial fibrillation, rate controlled. This is explained to the patient and the rationale for treatment reviewed. Recommend chronic anticoagulation given chads 2 Vasc score of 3. Plan: Echocardiogram, TSH, Eliquis 5 mg b.i.d. 04/27: High resolution CT: Ground-glass opacities in the apices consistent with possible hypersensitivity pneumonitis. He has been on Solu-Medrol 60 q.12. S: Feels slightly better today, still continued cough and weakness. On room air this afternoon. Exam Vital Signs (past 8 hours): - 04/27/24 12:00 04/27/24 16:00 Temperature 97.8 F 97.0 F L Pulse Rate 62 64 Respiratory Rate 19 16 Blood Pressure 150/80 H 167/89 H Pulse Oximetry 95 98 Oxygen Flow Rate 0 Fraction of Inspired Oxygen 32 SaO2/FiO2 Ratio 296 Oxygen Delivery Method Room Air,Nasal Cannula Oxygen Flow Rate 0 Narrative Exam Narrative: NAD, alert and oriented. Fluent speech. Lungs are wheezing diffusely, normal rate and effort. Heart is regular, no murmur gallop or rub. Abdomen is soft, non distended. Extremities are free of edema. Objective Labs 04/26/24 05:40 04/25/24 05:40 Labs: Laboratory Results - last 24 hr 04/27/24 05:20 ESR 2 Total Creatine Kinase 21 L C-Reactive Protein 0.6 [facility] Medical History Obstructive sleep apnea of adult Sprain of shoulder, left Acute diverticulitis Lumbar stenosis with neurogenic claudication [id number] Social History household members: none pets and animals: Yes (Anticipating getting a couple rescue dogs to foster for a period of time) Smoking Status: Former smoker alcohol intake: former substance use type: does not use Assessment & Plan Assessment & Plan narrative: 1. Asthma with possible hypersensitivity pneumonitis. Present on admission and improving. - improving today on therapy. Previously received levaquin and 3 days of azithromycin. Given recommendation for 5 days of antibiotic therapy will resume with augmentin for the next 2 days. - recommended ICS/LABA on discharge per pulmonary. - will start to transition to PO steroids. - recommended for treatment for CAP by pulmonology for 5 days. - fungitell pending, along with other serologies. Appreciate pulmonary consultation. ESR and CRP are low. - ordered for repeat CBC and BMP tomorrow. 2. Acute hypoxic respiratory failure due to 1. Present on admission and improving. -now off supplemental o2, still short of breath though improving. 3. HÉCTOR, stable. - CPAP 4. GERD, stable. - PPI 5. BPH with LUTS, stable. - Flomax, declines finasteride while in hospital ?due to cost? 6. Depression / Anxiety, stable. -declines Wellbutrin while in hospital? due to cost? 7. Chronic Pain - MSK / neuropathic, stable. - declines gabapentin while in the hospital ?due to cost?, but states that he would stopped taking it at home as it did not seem to help 8. Severe right hip osteoarthritis, stable. - total hip replacement planned with Dr. Aleksandar sauceda and resolved from current presentation - consult physical therapy DVT prophylaxis - Lovenox TANNER: likely home tomorrow if continued improvement. Time-Based Coding :: [TOTAL MINUTES] spent with patient and on the chart (including review of chart, obtaining history, exam, reviewing outside data, placing orders, documenting exam and treatment plan, and counseling patient) on [DATE].
[2024-04-27 20:00] VITALS: BP 143/81; PULSE 113; RESP 18; TEMP 36.4; O2SAT 92
[2024-04-27] MEDS: TRAZODONE 50 MG TABLET PO (21:14)
[2024-04-27] MEDS: SENNOSIDES 8.6 MG TABLET 17.2 MG PO (21:14)
[2024-04-27] MEDS: AMOXICILLIN/CLAV 875/125 MG 1 TAB PO (21:14)
[2024-04-28] VITALS (9 sets, daily range): BP systolic 105–136; BP diastolic 70–85; PULSE 65–107; RESP 18–20; TEMP 36.4–36.7; O2SAT 92–95
[2024-04-28 05:30] LABS: Add Manual Diff / Slide Review NO; Basophils Absolute Auto 0 /uL (0-100); Basophils Percent Auto 0.2 % (0-2); Eosinophils Absolute Auto 0 /uL (0-450); Eosinophils Percent Auto 0.1 % (2-4); Hematocrit 40.2 % (41-53); Hemoglobin 13.7 g/dL (13.5-17.5); Lymphocytes Absolute Auto 2000 /uL (1100-4500); Lymphocytes Percent Auto 19.6 % (25-40); Mean Corpuscular HGB Conc 34.1 % (30-36); Mean Corpuscular Hemoglobin 30.7 PG (26-34); Mean Corpuscular Volume 90.2 fL (80-100); Monocytes Absolute Auto 900 /uL (0-900); Monocytes Percent Auto 9.3 % (3-14); Neutrophils Absolute Auto 7200 /uL (1500-7000); Neutrophils Percent Auto 70.8 % (50-75); Platelet Count 266 X10^3/uL (150-400); Red Blood Cell Count 4.45 X10^6/uL (4.5-5.9); Red Cell Distribution Width 12.7 % (11.6-14.8); White Blood Cell Count 10.1 X10^3/uL (4.5-11.0)
[2024-04-28 05:44] LABS: BUN Creatinine Ratio 31.9 (6-22); Blood Urea Nitrogen 23 mg/dL (9-20); Carbon Dioxide 24 mmol/L (22-32); Chloride 104 mmol/L (98-107); Estimated Glomerular Filt Rate > 60 mL/min (>60); Glucose 100 mg/dL (80-110); HEMOLYSIS < 15 (0-50); Potassium 3.7 mmol/L (3.4-5.1); Sodium 135 mmol/L (137-145)
[2024-04-28] MEDS: polyethylene glycoL 3350 17 GM POWD.PACK PO (08:08)
[2024-04-28] MEDS: HYDROCODONE/ACET 5/325 TABLET 1 TAB PO ×2 (08:08→21:11)
[2024-04-28] MEDS: AMLODIPINE 5 MG TABLET 7.5 MG PO (08:09)
[2024-04-28] MEDS: LORATADINE 10 MG TABLET PO (08:09)
[2024-04-28] MEDS: SODIUM CHLORIDE 0.9% FLUSH 10 ML IV ×2 (08:10→21:12)
[2024-04-28] MEDS: TAMSULOSIN 0.4 MG CAPSULE PO (08:10)
[2024-04-28] MEDS: predniSONE 20 MG TABLET 40 MG PO (08:10)
[2024-04-28] MEDS: guaiFENesin ER 600 MG TAB PO ×2 (08:10→21:11)
[2024-04-28] MEDS: AMOXICILLIN/CLAV 875/125 MG 1 TAB PO ×2 (08:10→21:11)
[2024-04-28] MEDS: APIXABAN 5 MG TABLET PO ×2 (08:10→21:11)
[2024-04-28] MEDS: BUDESONIDE 0.5 MG/2 ML NEB INH ×2 (10:22→18:52)
[2024-04-28] MEDS: ALBUTEROL 2.5 MG/3 ML NEB (ADULT) INH ×3 (10:23→18:52)
[2024-04-28] MEDS: guaiFENesin Solution 100 MG/5 ML UDC 200 MG PO ×2 (13:23→21:11)
--- NOTE | 2024-04-28 15:39 | EKG_ITS ---
[address] [address] [address] [address] Test Date: 2024-04-28 Pat Name: Elgin Styles Department: [facility] Room: 220 Gender: Male Sr. Consultant: CHEYENNE ZURITA : 1945 Requested By: Order Number: [id number] Reading MD: Robin Bernal MD Measurements Intervals [place] Rate: 81 P: -6 GA: 164 QRS: -12 QRSD: 84 T: 0 QT: 350 QTc: 406 Interpretive Statements Sinus rhythm with marked sinus arrhythmia Electronically Signed On 04-28-2024 16:56:00 PST by Robin Bernal MD
--- NOTE | 2024-04-28 15:47 | PT-IP ANOTE ---
PT checks in on pt who is sitting in chair and stating this breathing isn't all that good today. He has O2 and mask donned and O2 sats are 94% at rest and with talking and HR in the high 80s to 90s and up to 108 BPM. Con't PT efforts for mobility next date as pt appropriate medically.
--- NOTE | 2024-04-28 18:21 | P.PN_ITS ---
Subjective Subjective Interval history: Last night had a coughing fit, leading to hypoxia and this morning was up to 5L of O2. When I saw him he appeared comfortable, still feels horrible, and dyspnic with minimal exertion. I was able to turn down his oxygen for a few minutes to room air, then hypoxic again and put back on 2L. Fungal workup is still pending. Exam Vital Signs (past 8 hours): - 04/28/24 10:24 04/28/24 12:00 04/28/24 15:25 Temperature 97.6 F Pulse Rate 76 87 98 H Respiratory Rate 18 18 18 Blood Pressure 115/70 Pulse Oximetry 95 93 92 Oxygen Delivery Method Oximask Oximask Oxygen Flow Rate 5 5 2 04/28/24 16:00 Temperature 98.0 F Pulse Rate 78 Respiratory Rate 18 Blood Pressure 135/85 Pulse Oximetry 94 Oxygen Delivery Method Oxygen Flow Rate 2 Fraction of Inspired Oxygen 32 SaO2/FiO2 Ratio 296 Oxygen Delivery Method Oximask Oxygen Flow Rate 2 Narrative Exam Narrative: NAD, alert and oriented. Fluent speech. Lungs are wheezing diffusely, normal rate and effort. Heart is regular, no murmur gallop or rub. Abdomen is soft, non distended. Extremities are free of edema. Objective Labs 04/28/24 04:20 04/28/24 04:20 Labs: Laboratory Results - last 24 hr 04/28/24 04:20 WBC 10.1 RBC 4.45 L Hgb 13.7 Hct 40.2 L MCV 90.2 MCH 30.7 MCHC 34.1 RDW 12.7 Plt Count 266 Neut % (Auto) 70.8 Lymph % (Auto) 19.6 L [place] % (Auto) 9.3 Eos % (Auto) 0.1 L Baso % (Auto) 0.2 Neut # (Auto) 7200 H Lymph # (Auto) 2000 [place] # (Auto) 900 Eos # (Auto) 0 Baso # (Auto) 0 Sodium 135 L Potassium 3.7 Chloride 104 Carbon Dioxide 24 BUN 23 H Creatinine 0.72 Estimated GFR > 60 BUN/Creatinine Ratio 31.9 H Glucose 100 Calcium 9.0 PFSH Medical History Obstructive sleep apnea of adult Sprain of shoulder, left Acute diverticulitis Lumbar stenosis with neurogenic claudication [id number]-wd-[id number] Social History household members: none pets and animals: Yes (Anticipating getting a couple rescue dogs to foster for a period of time) Smoking Status: Former smoker alcohol intake: former substance use type: does not use Assessment & Plan Assessment & Plan narrative: 1. Asthma with possible hypersensitivity pneumonitis. Present on admission and improving. - improving today on therapy. Previously received levaquin and 3 days of azithromycin. Given recommendation for 5 days of antibiotic therapy will resume with augmentin for the next 2 days. - recommended ICS/LABA on discharge per pulmonary. - transitioned to PO steroids. - recommended for treatment for CAP by pulmonology for 5 days. - fungitell pending, along with other serologies. Appreciate pulmonary consultation. ESR and CRP are low. - ordered for repeat CBC and BMP tomorrow, no remarkable findings today. 2. Acute hypoxic respiratory failure due to 1. Present on admission and improving. -now off supplemental o2, still short of breath though improving. 3. HÉCTOR, stable. - CPAP 4. GERD, stable. - PPI 5. BPH with LUTS, stable. - Flomax, declines finasteride while in hospital ?due to cost? 6. Depression / Anxiety, stable. -declines Wellbutrin while in hospital? due to cost? 7. Chronic Pain - MSK / neuropathic, stable. - declines gabapentin while in the hospital ?due to cost?, but states that he would stopped taking it at home as it did not seem to help 8. Severe right hip osteoarthritis, stable. - total hip replacement planned with Dr. Aleksandar sauceda and resolved from current presentation - consult physical therapy DVT prophylaxis - Lovenox TANNER: home when off supplemental oxygen and improvement in dyspnea on exertion. Time-Based Coding :: [TOTAL MINUTES] spent with patient and on the chart (including review of chart, obtaining history, exam, reviewing outside data, placing orders, documenting exam and treatment plan, and counseling patient) on [DATE].
--- NOTE | 2024-04-28 18:46 | PC.NURSE ---
Day shift: Telemetry reading this afternoon looked atypical, according to MERVAT Sellers. EKG done, afib not seen, instead sinus arrhythmia. Patient reports starting to take Eliquis 4 days ago while in the hospital after hospitalist diagnosed him with afib. Not a home medication. Notified MD Kessler of EKG results today. He stated he would investigate further. Will continue to monitor.
[2024-04-28] MEDS: TRAZODONE 50 MG TABLET PO (21:11)
[2024-04-28] MEDS: SENNOSIDES 8.6 MG TABLET 17.2 MG PO (21:11)
[2024-04-29 05:32] LABS: Add Manual Diff / Slide Review NO; Basophils Absolute Auto 0 /uL (0-100); Basophils Percent Auto 0.2 % (0-2); Eosinophils Absolute Auto 100 /uL (0-450); Eosinophils Percent Auto 0.5 % (2-4); Hematocrit 40.1 % (41-53); Lymphocytes Absolute Auto 2700 /uL (1100-4500); Lymphocytes Percent Auto 26.3 % (25-40); Mean Corpuscular HGB Conc 34.8 % (30-36); Mean Corpuscular Hemoglobin 31.3 PG (26-34); Mean Corpuscular Volume 89.9 fL (80-100); Monocytes Absolute Auto 1000 /uL (0-900); Monocytes Percent Auto 9.7 % (3-14); Neutrophils Absolute Auto 6500 /uL (1500-7000); Neutrophils Percent Auto 63.3 % (50-75); Platelet Count 280 X10^3/uL (150-400); Red Blood Cell Count 4.46 X10^6/uL (4.5-5.9); Red Cell Distribution Width 12.8 % (11.6-14.8); White Blood Cell Count 10.2 X10^3/uL (4.5-11.0)
[2024-04-29 05:39] LABS: BUN Creatinine Ratio 22.4 (6-22); Blood Urea Nitrogen 15 mg/dL (9-20); Calcium 8.9 mg/dL (8.4-10.2); Carbon Dioxide 26 mmol/L (22-32); Chloride 103 mmol/L (98-107); Estimated Glomerular Filt Rate > 60 mL/min (>60); Glucose 91 mg/dL (80-110); HEMOLYSIS 16 (0-50); Potassium 3.9 mmol/L (3.4-5.1); Sodium 133 mmol/L (137-145)
[2024-04-29 07:50] VITALS: PULSE 75; RESP 18; O2SAT 92
[2024-04-29] MEDS: BUDESONIDE 0.5 MG/2 ML NEB INH (07:53)
[2024-04-29] MEDS: ALBUTEROL 2.5 MG/3 ML NEB (ADULT) INH (07:53)
[2024-04-29 08:00] VITALS: BP 145/86; PULSE 75; RESP 18; TEMP 36.7; O2SAT 92
[2024-04-29] MEDS: AMLODIPINE 5 MG TABLET 7.5 MG PO (08:14)
[2024-04-29] MEDS: TAMSULOSIN 0.4 MG CAPSULE PO (08:14)
[2024-04-29] MEDS: LORATADINE 10 MG TABLET PO (08:14)
[2024-04-29] MEDS: HYDROCODONE/ACET 5/325 TABLET 1 TAB PO (08:14)
[2024-04-29] MEDS: guaiFENesin ER 600 MG TAB PO (08:15)
[2024-04-29] MEDS: predniSONE 20 MG TABLET 40 MG PO (08:15)
[2024-04-29] MEDS: SODIUM CHLORIDE 0.9% FLUSH 10 ML IV (08:15)
[2024-04-29] MEDS: AMOXICILLIN/CLAV 875/125 MG 1 TAB PO (08:15)
--- NOTE | 2024-04-29 08:23 | DIET.CONS ---
Dietary Consultation Note Admission Date: 04/23/2024 00:41 Assessment: 78 y M presented to ED with SOB, hypoxemic. Dietitian screened for LOS. EMR reviewed. Pt with 100% PO intakes during admission. DFM reviewed for meal composition. No significant weight changes per chart. No nutritional interventions needed at this time. F/u 5-7 days if pt has not yet d/c. Will continue to monitor PO intakes. Ht: 172.72 cm Wt: 81.647 kg BMI: 27.3 UBW: 83 kg on 09/23/23 Last BM: 04/24/24 (04/24/24 06:00) MNA: Sebastián Score: 20 Diet: 04/23/24 Breakfast General (Regular) Diet Diet Modifications: Nutrition Percent Meal Consumed 100% 04/28/24 18:14 Percent Meal Consumed 100% 04/27/24 18:00 Percent Meal Consumed 100% 04/27/24 13:46 Percent Meal Consumed 100% 04/27/24 13:20 Labs: RBC 4.46 X10^6/uL (4.5-5.9) L 04/29/24 04:49 Hgb 14.0 g/dL (13.5-17.5) 04/29/24 04:49 Hct 40.1 % (41-53) L 04/29/24 04:49 Creatinine 0.67 mg/dL (0.66-1.25) 04/29/24 04:49 Lactate 1.2 mmol/L (0.7-2.1) 04/22/24 22:58 Nutrition Diagnosis: Interventions: EER: Monitoring/Evaluations: Electronically Signed by: Stephanie Spencer 04/29/24 08:23 Clinical Dietitian [address] [address]
[2024-04-29] MEDS: guaiFENesin Solution 100 MG/5 ML UDC 200 MG PO ×2 (08:24→13:03)
--- NOTE | 2024-04-29 09:06 | PM.DS.1 ---
History of Present Illness History of Present Illness Date Patient Seen: 04/29/24 Time Patient Seen: 08:35 Chief complaint: coughing, sob Narrative: From night hospitalist: Narrative: 77 y/o with PMH of smoking, COPD, GERD, BPH w LUTS,, presented to ED short of breath, hypoxemic, with dry coug, wheezy. Symptoms started a month ago and he had a few courses of antibiotics and steroid. Similar visit in September 2023. CXR showing b/l infiltrates, w/o leukocytosis, fever, negative viral respiratory panel but acutely hypoxemic. Sodium is 134 BUN 8 otherwise electrolytes are appropriate creatinine 0.72 glucose is 114 lactate 1.2 with negative LFTs troponins less than 0.012 procalcitonin 0.044. Treated with empiric abx, iv steroid and bronchodilators. Interval history: The patient states he is feeling better but has persistent cough, mild nausea and occasional loose stools. He states 6 weeks of symptoms treated variably with antibiotics, steroids and inhalers as an outpatient. He denies recent sick exposures. He states he has had similar episodes in 2010 and 2022. Discharge Providers Provider Date of admission: 04/23/24 00:41 Discharge Date: 04/29/24 Primary care physician: Hayden Castañeda MD Consults: 04/24/24 09:05 Consult to Physical Therapy Evaluate & Treat Comment: Physician Instructions: Evaluate and Treat Discharge provider: Scotty Kessler DO Summary Hospital Course Discharge Diagnosis: 1. Asthma with possible hypersensitivity pneumonitis, possible bacterial pneumonia. Present on admission and improving. 2. Acute hypoxic respiratory failure due to 1. Present on admission and improving. 3. HÉCTOR, stable. 4. GERD, stable. 5. BPH with LUTS, stable. 6. Depression / Anxiety, stable. 7. Chronic Pain - MSK / neuropathic, stable. 8. Severe right hip osteoarthritis, stable. Hospital Course: 78 year old male with PMH of asthma, admitted with acute respiratory failure with hypoxia. He was treated with IV steroids and antibiotics for possible pneumonia. Initially he was treated with levofloxacin, which were discontinued after a couple of days. Pulmonology was consulted and ordered fungitell and other lab evaluations. Fungitell was negative and the remainder of the studies are still pending. He was able to be weaned from oxygen after multiple days, continued to have intermittent coughing fits. On the day of discharge he finally felt much improved, after resumption of augmentin and cough syrups. He was discharged home with 3 more days of augmetin at discharge ,along with 3 more days of prednisone. He is recommended for follow up with pulmonology as an outpatient based on their inpatient consultation. He should continue on his ellipta and albuterol on discharge, consider ICS/LABA with PCP or pulmonology after discharge. No other changes were made to his home medications on discharge. Time Spent with Patient Time spent: Greater than 30 minutes Exam Vital Signs (past 8 hours): - 04/29/24 07:50 04/29/24 08:00 04/29/24 08:00 Temperature 98.1 F Pulse Rate 75 75 Respiratory Rate 18 18 Blood Pressure 145/86 H Pulse Oximetry 92 92 Oxygen Delivery Method Room Air Room Air Oxygen Flow Rate 0 Fraction of Inspired Oxygen 32 SaO2/FiO2 Ratio 296 Oxygen Delivery Method Room Air Oxygen Flow Rate 0 Narrative Exam Narrative: NAD, alert and oriented. Fluent speech. Lungs are wheezing diffusely, normal rate and effort. Heart is regular, no murmur gallop or rub. Abdomen is soft, non distended. Extremities are free of edema. Objective Labs 04/29/24 04:49 04/29/24 04:49 Labs: Laboratory Results - last 24 hr 04/29/24 04:49 WBC 10.2 RBC 4.46 L Hgb 14.0 Hct 40.1 L MCV 89.9 MCH 31.3 MCHC 34.8 RDW 12.8 Plt Count 280 Neut % (Auto) 63.3 Lymph % (Auto) 26.3 [place] % (Auto) 9.7 Eos % (Auto) 0.5 L Baso % (Auto) 0.2 Neut # (Auto) 6500 Lymph # (Auto) 2700 [place] # (Auto) 1000 H Eos # (Auto) 100 Baso # (Auto) 0 Sodium 133 L Potassium 3.9 Chloride 103 Carbon Dioxide 26 BUN 15 Creatinine 0.67 Estimated GFR > 60 BUN/Creatinine Ratio 22.4 H Glucose 91 Calcium 8.9 [facility] Medical History Obstructive sleep apnea of adult Sprain of shoulder, left Acute diverticulitis Lumbar stenosis with neurogenic claudication Lgyxtqe-qy-ksx Social History household members: none pets and animals: Yes (Anticipating getting a couple rescue dogs to foster for a period of time) Smoking Status: Former smoker alcohol intake: former substance use type: does not use Discharge Plan Discharge Plan Patient Disposition: Home Provider Discharge Comment: You were admitted to the hospital with an exacerbation of your lung disease and possible PNA. Now improving. Continue treatments at home. There was a question of afib during your admission, however in review your telemetry does not show afib. Discharge orders & Medications Prescriptions: New amoxicillin-pot clavulanate 875-125 mg Tablet 1 tab PO BID 3 Days Qty: 6 0RF guaifenesin 100 mg/5 mL Liquid 200 mg PO Q4HR PRN (Reason: Cough) Qty: 473 0RF prednisone 20 mg Tablet 40 mg PO DAILY 3 Days Qty: 6 0RF Continued cetirizine 10 mg Tablet 10 mg PO DAILY amlodipine 5 mg Tablet 7.5 mg PO DAILY tamsulosin 0.4 mg capsule 0.4 mg PO DAILY montelukast 10 mg Tablet 10 mg PO BEDTIME finasteride 5 mg Tablet 5 mg PO DAILY rosuvastatin 40 mg Tablet 40 mg PO DAILY bupropion HCl 150 mg Tablet Extended Release 24 Hr 150 mg PO QAM Arnuity Ellipta 200 mcg/actuation blister with device 1 inh inhalation DAILY Patient Comments: puffs albuterol sulfate 90 mcg/actuation HFA aerosol inhaler 2 puff INHALATION Q6H PRN (Reason: Bronchospasm) Follow up/Referrals: Hayden Castañeda MD [Primary Care Provider] - Diet/Activity/Treatments Diet: Diet as Tolerated and Regular Activity: As tolerated, no restrictions. Visit Report/Discharge Packet Instructions: DI for Pneumonia -- Adult Stand Alone Forms: Patient Portal/API, Stroke Signs & Symptoms Discharge Data Primary Care Provider: Hayden Castañeda
[2024-04-29 10:00] VITALS: O2SAT 96
[2024-04-29 11:14] LABS: CCP Antibodies IgG/IgA 0 units (0-19)
--- NOTE | 2024-04-29 13:23 | PC.NURSE ---
Day shift: Discharge instructions gone over with patient. All questions answered, patient stated understanding. PIV and tele removed prior to discharge. All belongings with patient. LUISA Butler escorted patient via wheelchair to main entrance where his friend plans to pick him up.
--- NOTE | 2024-04-29 14:16 | CM.DPNOTE ---
DC Note Discharge home w/friend, close outpatient follow up recommended. Patient cleared by therapies for this plan. No SW needs identified. JW
[2024-04-29 15:09] LABS: Immunoglobulin E 1357 IU/mL (6-495)
[2024-04-29 17:12] LABS: Antimyeloperoxidase Antibodies <0.2 units (0.0-0.9); Antiproteinase 3 Antibodies <0.2 units (0.0-0.9); Cytoplasmic C-ANCA <1:20 titer (Neg:<1:20); Perinuclear P-ANCA <1:20 titer (Neg:<1:20)
[2024-04-30 18:39] LABS: ANA Screen, IFA Negative (.)
== END 2024-04-29 13:24 | disposition home or self-care (01) | DRG 196 ==
LOC: ED 04-23 00:36 → AC 04-23 00:44
PROVIDERS: Hospitalist; Internal Medicine; Admitting Provider Internal Medicine; Emergency Provider Emergency Medicine; Family Provider Student in an Organized Health Care Education/Training Program; PCP Family Medicine; Visit Provider Internal Medicine
DX: J67.9 Hypersensitivity pneumonitis due to unspecified organic dust (principal); J96.01 Acute respiratory failure with hypoxia; N13.8 Other obstructive and reflux uropathy; J45.41 Moderate persistent asthma with (acute) exacerbation; J44.0 Chronic obstructive pulmonary disease with (acute) lower respiratory infection; J15.9 Unspecified bacterial pneumonia; G47.33 Obstructive sleep apnea (adult) (pediatric); K21.9 Gastro-esophageal reflux disease without esophagitis; N40.1 Benign prostatic hyperplasia with lower urinary tract symptoms; F41.9 Anxiety disorder, unspecified; F32.A Depression, unspecified; G62.9 Polyneuropathy, unspecified; I48.0 Paroxysmal atrial fibrillation; M16.11 Unilateral primary osteoarthritis, right hip; J44.9 Chronic obstructive pulmonary disease, unspecified; I10 Essential (primary) hypertension; Z87.891 Personal history of nicotine dependence
CPT/HCPCS: 36415; 71046; 71250; 80048; 80053; 82550; 82785; 83605; 83735; 84145; 84443; 84484; 85025; 85651; 86003; 86038; 86140; 86200; 86256; 87040; 87070; 87205; 87633; 93005; 93010; 93306; 94640; 94762; 96365; 96366; 96375; 97116; 97162; 99285; A9270; J1650; J1956; J2919; J7613

== ENCOUNTER → 2024-05-18 11:39 | Outpatient (CLI) | payer MEDICARE, OTHER, SELFPAY ==
[2024-04-23 01:58] VITALS: BMI 27.3
--- NOTE | 2024-05-18 11:41 | DI.RAD.S_ITS ---
PROCEDURE: XR CHEST 2V INDICATIONS: Pneumonia, unspecified organism TECHNIQUE: 2 views of the chest were acquired. COMPARISON: [facility], CR, XR CHEST 2V, 04/22/2024, 21:57. FINDINGS: Heart, mediastinum and pulmonary vascular: Heart is normal in size and configuration. Mediastinum is unremarkable. Pulmonary vascular is normal. Lungs: Since prior exam, bilateral mid lung infiltrates have almost totally resolved. There is minimal residual. Minor atelectasis seen in the right upper lobe Pleural spaces: Normal-no effusions or pneumothorax. Bones and soft tissues: Normal IMPRESSION: Near complete resolution bilateral infiltrates Dictated by: Robin Mott M.D. on 05/19/2024 at 12:15 Approved by: Robin Mott M.D. on 05/19/2024 at 12:17
== END ==
LOC: RAD 11:41
PROVIDERS: Family Provider Student in an Organized Health Care Education/Training Program; PCP Family Medicine; Referring Provider Family Medicine; Visit Provider Family Medicine
DX: J18.9 Pneumonia, unspecified organism (principal)
CPT/HCPCS: 71046

== ENCOUNTER → 2024-05-27 14:59 | Outpatient (CLI) | payer MEDICARE, OTHER, SELFPAY ==
[2024-04-23 01:58] VITALS: BMI 27.3
--- NOTE | 2024-05-27 15:05 | DI.RAD.S_ITS ---
PROCEDURE: XR HAND LT MIN 3V INDICATIONS: LT hand pain TECHNIQUE: 3 views of the hand(s) acquired. COMPARISON: None. FINDINGS: Bones: No fractures or dislocations. Carpal bones are normally aligned. No suspicious bony lesions. Interphalangeal joint space narrowing with osteophytosis. 1st CMC joint space narrowing with associated osteophytosis and sclerosis. Scapholunate dissociation. Soft tissues: No suspicious soft tissue calcifications. Chondrocalcinosis. 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 Chondrocalcinosis, which can be seen in the setting of CPPD, aging, and parathyroid disorders. Dictated by: Pk Jones M.D. on 05/27/2024 at 16:13 Approved by: Pk Jones M.D. on 05/27/2024 at 16:14
== END ==
PROVIDERS: Family Provider Student in an Organized Health Care Education/Training Program; PCP Family Medicine; Referring Provider Family Medicine; Visit Provider Family Medicine
DX: M18.12 Unilateral primary osteoarthritis of first carpometacarpal joint, left hand (principal); M11.242 Other chondrocalcinosis, left hand; M19.042 Primary osteoarthritis, left hand; M79.642 Pain in left hand
CPT/HCPCS: 73130

== ENCOUNTER → 2024-06-16 13:07 | Outpatient (CLI) | payer MEDICARE, OTHER, SELFPAY ==
[2024-04-23 01:58] VITALS: BMI 27.3
[2024-06-16 13:43] LABS: Appearance Urine UA CLEAR; Bilirubin Urine UA NEGATIVE (NEGATIVE); Color Urine UA YELLOW; Glucose Urine UA NEGATIVE (Negative); Ketones Urine UA NEGATIVE (NEGATIVE); Leukocyte Esterase Urine UA NEGATIVE (NEGATIVE); Nitrite Urine UA NEGATIVE (Negative); Occult Blood Urine UA NEGATIVE (Negative); Protein Urine UA NEGATIVE (Negative); Specific Gravity Urine UA <=1.005 (1.000-1.035); Urobilinogen Urine UA 0.2 E.U./dL (0.2)
[2024-06-16 13:52] LABS: Bacteria Urine None Seen; Culture Indicated Urine Cult Not Indicated; RBC Urine 0-1/HPF (0-5/HPF); Squamous Epithelial Cell Urine 0-1 /HPF (0-5/HPF); Urine Volume 10mL (spun); WBC Urine 0-1/HPF (0-5/HPF)
[2024-06-16 14:49] LABS: Add Manual Diff / Slide Review NO; Basophils Absolute Auto 100 /uL (0-100); Eosinophils Absolute Auto 300 /uL (0-450); Eosinophils Percent Auto 6.2 % (2-4); Hematocrit 41.9 % (41-53); Lymphocytes Absolute Auto 1300 /uL (1100-4500); Lymphocytes Percent Auto 22.6 % (25-40); Mean Corpuscular HGB Conc 33.4 % (30-36); Mean Corpuscular Hemoglobin 30.9 PG (26-34); Mean Corpuscular Volume 92.5 fL (80-100); Monocytes Absolute Auto 600 /uL (0-900); Monocytes Percent Auto 10.1 % (3-14); Neutrophils Absolute Auto 3400 /uL (1500-7000); Neutrophils Percent Auto 60.1 % (50-75); Platelet Count 189 X10^3/uL (150-400); Red Blood Cell Count 4.53 X10^6/uL (4.5-5.9); Red Cell Distribution Width 14.2 % (11.6-14.8); White Blood Cell Count 5.6 X10^3/uL (4.5-11.0)
[2024-06-16 15:05] LABS: Hemoglobin A1C% w Est Avg Glu 4.9 % (4.0-6.0)
[2024-06-16 15:29] LABS: BUN Creatinine Ratio 17.6 (6-22); Blood Urea Nitrogen 12 mg/dL (9-20); Calcium 9.8 mg/dL (8.4-10.2); Carbon Dioxide 23 mmol/L (22-32); Chloride 104 mmol/L (98-107); Estimated Glomerular Filt Rate > 60 mL/min (>60); Glucose 97 mg/dL (80-110); HEMOLYSIS < 15 (0-50); Sodium 136 mmol/L (137-145)
== END ==
PROVIDERS: Orthopaedic Surgery Adult Reconstructive Orthopaedic Surgery; Family Provider Student in an Organized Health Care Education/Training Program; PCP Family Medicine; Referring Provider Family Medicine; Visit Provider Orthopaedic Surgery
DX: Z01.812 Encounter for preprocedural laboratory examination (principal); R73.9 Hyperglycemia, unspecified; N39.0 Urinary tract infection, site not specified
CPT/HCPCS: 36415; 80048; 81001; 83036; 85025

== ENCOUNTER 2024-07-19 06:16 | Day surgery (SDC) | payer MEDICARE, OTHER, SELFPAY ==
[2024-04-23 01:58] VITALS: BMI 27.3
[2024-07-11 12:40] VITALS: BMI 27.6
[2024-07-19] VITALS (15 sets, daily range): BP systolic 86–143; BP diastolic 54–92; PULSE 56–84; RESP 8–18; TEMP 36.2–36.4; O2SAT 92–98; BMI 27.3
--- NOTE | 2024-07-19 | DI.RAD.S_ITS ---
PROCEDURE: XR HIP W PEL IF DONE RT 4V INDICATIONS: ANTERIOR RIGHT TOTAL HIP TECHNIQUE: AP pelvis and lateral view of the hip acquired. COMPARISON: [facility], CR, XR HIP W PEL IF DONE RT 2V, 02/16/2024, 13:42. FINDINGS: Intraoperative fluoroscopic C-arm images demonstrate placement of right hip arthroplasty with prosthetic components in expected positions. No periprosthetic fractures or evidence of loosening/infection. IMPRESSION: Intraoperative images demonstrating placement of right hip arthroplasty trial hardware. Dictated by: Marcus Franklin RR Interpreted: Pk Jones MD on 07/19/2024 at 11:58 Transcribed by: RAMIRO on 07/19/2024 at 11:59 Approved by: Pk Jones M.D. on 07/21/2024 at 10:38
--- NOTE | 2024-07-19 06:00 | DI.RAD.S_ITS ---
PROCEDURE: XR HIP W PEL IF DONE RT 2V INDICATIONS: total right hip TECHNIQUE: AP pelvis and lateral view of the hip acquired. [facility] 2[facility], 02/16/2024, 13:42. FINDINGS: Bones: Patient is status post right hip arthroplasty, with hardware components in expected positions. The hip joint appears congruent. Redemonstration of left hip arthroplasty. The visualized bony structures appear intact. Soft tissues: Overlying postoperative changes are noted. No suspicious soft tissue densities. IMPRESSION: Expected post-operative appearance of a hip arthroplasty. Dictated by: Lucius Maurer M.D. on 07/19/2024 at 11:23 Approved by: Lucius Maurer M.D. on 07/19/2024 at 11:24
[2024-07-19] MEDS: VANCOMYCIN 1,000 MG in SODIUM CHLORIDE 0.9% 250 ML 250 MG IV (07:01)
[2024-07-19] MEDS: ACETAMINOPHEN 325 MG TABLET 975 MG PO (07:01)
[2024-07-19] MEDS: LACTATED RINGERS 1,000 ML 42 ML IV ×2 (07:01→10:03)
--- NOTE | 2024-07-19 07:38 | PM.PREOP ---
Pre-operative Note Interval Note History & Physical reviewed/Exam performed by Physician: Yes Changes to H&P: No
--- NOTE | 2024-07-19 07:39 | PM.OP.1 ---
Operative Date/Time/Diagnoses Date of procedure: 07/19/24 Time of procedure: 08:00 Pre-op diagnosis: right hip OA Post-op diagnosis: same Procedure & Clinicians Procedure: Right total hip anterior approach Same procedure as scheduled: Yes Indications: The patient has had progressively worsening right hip pain with radiographic changes consistent with arthritis. Non-operative management has failed and the patient has requested total hip replacement. The risks, benefits and alternatives to surgery were discussed with the patient prior to proceeding. Risks discussed included, but were not limited to, failure to relieve pain, leg length discrepancy, dislocation, stiffness, infection, nerve damage, deep venous thrombosis, pulmonary embolism, stroke, coma, heart attack, permanent paralysis and , as well as the potential need for eventual revision of the prosthetic. Surgeon: Nirmala Hicks Lead Java Programmer: [place] Anesthesia Type: Spinal Operative Notes Findings: Severe right hip OA, adequate stability, adequate bone Closure Type: primary Specimen(s): none sent Prosthetic devices, grafts, tissues, transplants, or devices: Hicks and nephew R3 size 54, neutral poly liner,one 6.5 mm screw, polar stem size 2 collar standard offset, size 36 x -3 femoral head Estimated Blood Loss (mL): 250 Blood products transfused: none Procedure in detail: The patient was brought to the operating room. Patient was carefully positioned in the supine position. Time-out was performed and antibiotics were given. Anesthesia was induced. He was positioned in the on the table in order to allow hyperextension of the hip. The right lower extremity was prepped and draped in a standard sterile fashion. An anterior right hip incision was made 1 fingerbreadth lateral to the anterior superior iliac spine and extended distally towards the greater trochanter. Dissection was carried out through skin and subcutaneous tissues. Superficial hemostasis was achieved. The fascia over the tensor fascia susie was defined and incised with a knife. Two Allis clamps were used to grasp the fascia. Tensor fascia susie was retracted laterally. A gelpi retractor was placed. Dissection was carried out down along the neck. The circumflex vessels were carefully identified and cauterized with the Aqua Mantis. An assist was required for intraoperative safe implantation of the components and adequate retraction. Dr. Pineda assisted and provided essential intraoperative retraction and exposure. There was good visualization of the femoral neck. A Cobra was placed superior to the neck and the gluteus fibers were carefully stripped from that superior aspect of the capsule. A 2nd retractor was placed along the inferior aspect of the neck. The rectus insertion along the capsule was partially released. A 3rd retractor that was then gently placed over the rim of the acetabulum under the rectus. Capsule was carefully incised and released from the intertrochanteric line circumferentially superior to the mid sagittal line and inferiorly to the mid sagittal line until the lesser trochanter was palpable. A tag stitch was placed both in the superior and inferior limb of the capsular insertion. Along the acetabulum capsule was also released up to the mid sagittal 12:00 position. A portion of the labrum was resected. A saw was used to perform an osteotomy at the level of the intertrochanteric line and the junction of the superior femoral neck leaving approximately 1 finger breath of residual inferior neck above the lesser trochanter. A 2nd cut was made along the femoral neck at the base of the head and a napkin ring of neck was removed. Corkscrew was placed in the femoral head and the head was removed without difficulty. Retractors were then repositioned around the acetabulum. Residual labrum was resected and additional osteophytes were removed. A reamer that was 4 mm below the templated size was placed by hand in the acetabulum and it was reamed to centralize the acetabulum. It was then reamed up to 2 under the templated size and fluoroscopy was brought in to confirm the position of the reaming and depth of reaming. I reamed 1 under the anticipated size. A trial cup was placed and noted that it was appropriately sized and fluoroscopy confirmed position and depth. The component was open and inserted without difficulty fluoroscopic imaging was used to confirm that the cup had been adequately seated and was well positioned. It was further stabilized with a single screw. Neutral poly liner was placed. The cup was tested and noted to be stable. Attention was then directed to the femur. The femur was gently hyperextended additional capsular release was performed as needed in order to allow adequate visualization of the proximal femur with elevation of the femur. Patient was placed in a hyperextended slightly adducted position with maximum external rotation. Box osteotome was used to check for any residual neck as well as sclerotic bone along the trochanter. [place] pepper was placed in the femur. Additional broaching was performed. Canal finder was used to determine the alignment of the canal and position. Size 0-1 broach was placed. The canal was then appropriately broached up to the templated size as long as there was adequate stability of the broach and serial advancement of the broach without excessive impingement. Specific attention was directed at avoiding varus attempting to direct the distal aspect of the broach more anteriorly and avoiding excessive anteversion. Trial reduction showed acceptable range of motion, good stability, no posterior impingement, temple of leg length and appropriate lateral shuck. I also hyperflexed the hip and checked that there was no impingement anteriorly and there was good stability with flexion, adduction and internal rotation. Marcaine and Exparel were injected. The stem was placed without difficulty. Repeat trial reduction and x-ray showed acceptable overall position, length, and no evidence of the femoral fracture. Final head was placed. Wound was meticulously irrigated with normal saline. The hip was reduced and additional Exparel and Marcaine were injected. The capsule was closed with interrupted nonabsorbable sutures. The fascia of the tensor was closed with interrupted and running Vicryl. No drain was placed. Any tensor fascia susie muscle that appeared to be contused or injured which was a minimal amount was carefully resected. Capsule around the tensor was injected with Exparel and Marcaine. The skin was closed with barbed stitches for the subcutaneous tissue and skin. We also used surgical glue. The wound was dressed sterilely. Brief Betadine soak was also used and was meticulously irrigated with normal saline. Patient was transferred to recovery room in satisfactory condition. Complications: none Post-operative Condition: stable Disposition: Acute Care Plan for aftercare: The patient will be maintained on a standard total hip replacement protocol with weight bearing as tolerated and anterior hip precautions. The patient will receive Aspirin and sequential compression devices for DVT prophylaxis. The patient will be discharged home when safe for the home environment.
[2024-07-19] MEDS: CEFAZOLIN 2 GM/100 ML PREMIX 100 ML IV ×3 (08:03→23:41)
[2024-07-19] MEDS: TRANEXAMIC ACID 1,000 MG VIAL 1000 MG INJ ×2 (08:04→10:10)
[2024-07-19] MEDS: BUPIVACAINE 0.25% W/ EPI 30 ML VIAL 60 ML INJ (08:35)
[2024-07-19] MEDS: BUPIVACAINE LIPOSOME 266 MG/20 ML VIAL INJ (08:36)
--- NOTE | 2024-07-19 08:41 | SUR.OPER ---
Patient supine on padded [place] table, one arm on padded arm board at <90, other arm padded and secured with tape across patient's chest, both legs secured in padded traction boots and positioned per surgeon, padded post at patient's groin, pressure points checked and padded. Dr. Hicks in room at time of positioning and approved.
[2024-07-19] MEDS: OXYCODONE IR 5 MG TABLET PO ×3 (10:48→20:35)
--- NOTE | 2024-07-19 11:13 | SUR.PHASEI ---
Report called to
--- NOTE | 2024-07-19 11:27 | SUR.PHASEI ---
Patient transferred to the floor with belongings bag, cane, CPAP and glasses. Bedside report given to Robyn. Dressing CDI. IV patent. VS stable.
[2024-07-19] MEDS: ACETAMINOPHEN 325 MG TABLET 650 MG PO ×3 (11:52→23:41)
[2024-07-19] MEDS: LACTATED RINGERS 1,000 ML 100 ML IV ×2 (11:53→18:39)
--- NOTE | 2024-07-19 12:34 | OT.IPNOTE ---
Pt feeling numb in his groin still. Pt having lunch and able to give Anterior Hip folder to the pt. No charge.
[2024-07-19] MEDS: IBUPROFEN 400 MG TABLET PO ×2 (12:46→20:35)
--- NOTE | 2024-07-19 14:00 | OT.IPNOTE ---
Check on pt after lunch and states in too much pain and requesting pain medication. Nursing notified.
--- NOTE | 2024-07-19 14:35 | PT.IIE ---
Current Diagnoses Unilateral primary osteoarthritis, right hip (07/19/24) Surgery Performed Operation Date: 07/19/24 07:45 Actual Procedures p Total Hip Arthroplasty/Anterior Approach(Right) - Nirmala Hicks MD Surgical History (Last Updated 07/11/24 @ 13:24 by Vira Bose, RN) History of lumbar fusion (~2015) History of total left hip replacement (~2011) Hx of bilateral cataract extraction Hx of fusion of cervical spine (~2010) Hx of sinus surgery (06/2021) Medical History (Last Updated 07/11/24 @ 13:24 by Vira Bose RN) Acute diverticulitis Anxiety Depression Easy bruisability Myvdjla-yb-zab Hearing loss HLD (hyperlipidemia) HTN (hypertension) Lumbar stenosis with neurogenic claudication Obstructive sleep apnea of adult Osteoarthritis Sprain of shoulder, left Physical Therapy Inpatient Evaluation/Re-Eval M1 PT/OT-IP Prior Functional Status Start: 07/19/24 15:33 Freq: NEEDED Status: Active Protocol: Document 07/19/24 14:35 AB (Rec: 07/19/24 15:49 AB [id number]) Medical Review Prior Functional Status Medical History Reviewed Yes Communication able to make needs known Mobility and Gait pt stated that he was modified independent with all mobilities and ambulation using a SPC Social History Household Members none Living Arrangements House Number of Floors (Floors) Two Floors Number of Stairs To Enter/Railing? pt plans to stay on the first level of the house has a tub shower and walk in shower on the studio level with 3 steps B rails to go down to no steps to enter the house Home Environment Standard Height Toilet,Tub/ Shower Home Equipment Front Wheel Walker,Straight Cane,Grab Bars In Shower Additional Social History Comment pt has an adjustable bed pt has a friend who can drive him to outpt PT just on the first week upon d/c M2 PT-IP Current Condition Start: 07/19/24 15:33 Freq: NEEDED Status: Active Protocol: Document 07/19/24 14:35 AB (Rec: 07/19/24 15:49 AB [id number]) Physical Therapy Current Condition Current Condition Evaluation Date 07/19/24 Treatment Diagnosis s/p R LUIS anterior; difficulty in walking Onset Date 07/19/24 M3 PT-IP Subjective Start: 07/19/24 15:33 Freq: NEEDED Status: Active Protocol: Document 07/19/24 14:35 AB (Rec: 07/19/24 15:49 AB [id number]) Subjective Physical Therapy Visit Type Type Initial Evaluation Visit Start Time 14:35 Visit Stop Time 15:30 Number of STAFF PHARMACIST Visits 0 Physical Therapy Visit Comments Patient Comments agreeable to do PT Therapy Pain Assessment Pain When Pain Assessed At Rest Pain Present Pain Present Pain Reported Location Right Hip Intensity 7 Scale Used Numeric (0 - 10) Pain Management Techniques Apply Cold,Distraction, Modification of Treatment,Re- positioning,Timing of Activity with Medications M4 PT-IP Mobility and Gait Start: 07/19/24 15:33 Freq: NEEDED Status: Active Protocol: Document 07/19/24 14:35 AB (Rec: 07/19/24 15:49 [id number]) PT-Bed Mobility Assessment Supine to Sit Supine to Sit Minimal Assistance PT-Transfer Assessment Sit to and From Stand Sit to and from Stand Maximum Assistance,1 Person Assistance,Use of Upper Extremities Equipment Transfer Assistive Device Gait Belt,Front Wheeled Walker Orthotic/Prosthetic Devices or Brace: No Transfers Transfer Destination Chair Transfer Technique Stand Step Pivot Transfer Ability Level of Assist Moderate Assistance,Maximum Assistance,1 Person Assistance ,Use of Upper Extremities Comments Mobility Comments pt in bed and friends in room. obtained PLOF and home set up. educated pt on R hip anterior precautions. BP supine: 135/81. pt completed supine to sit min a and cues. pt able to sit on EOB SBA. BP sittin/85. sit to stand mod to max A and max cues. pt with uncontrolled slight voiding and instructed to sit back on EOB. provided pt with brief and assisted. sit to stand again from EOB max A and assisted pt with brief management. pt started to ambulate using fWW but only able to take steps to the chair using FWW max A and max cues. pt agreed to walk. sit to stand from the chair max A and max cues and ambulated ~ 5 ft using FWW mod to max A and max cues. chair follow. pt agreed to stay up on the chair . positioned pt on the chair. call light and table placed within reach. informed pt regarding assistance needed and agreed to go to rehab. stated that he prefers [facility]. Gait Assessment Gait Gait Assistance Required: Maximum Assistance Distance (Feet) 5 Able to Maintain Weight Bearing Status Yes During Gait Assistive Devices Assistive Device Gait Belt,Front Wheeled Walker Orthotic/Prosthetic Devices or Brace: No Gait Deviations General Gait Pattern Antalgic,Decreased Stride Length,Decreased Feet Clearance,Step-to Gait Factors Limiting Gait Function Factors Limiting Gait Function Decreased Activity Tolerance, Decreased Strength,Limited Range of Motion,Pain,Poor Balance,Poor Safety Awareness PT-Balance Assessment Sitting Balance and Reactions Static Sitting Balance Ability Good Dynamic Sitting Balance Ability Good Standing Balance and Reactions Static Standing Balance Ability Fair Dynamic Standing Balance Ability Poor Device Used FWW M5 PT-IP Objective Assessments Start: 07/19/24 15:33 Freq: NEEDED Status: Active Protocol: Document 07/19/24 14:35 AB (Rec: 07/19/24 15:49 AB [id number]) Orientation Orientation/Cognition Level of Alertness Alert Orientation Name,Place,Situation Language Function Ability Hard of Hearing Safety Awareness Decreased Safety Awareness Memory Description Short Term Impaired Gross Range of Motion Lower Extremity ROM Assessment Within Functional Limits Strength Lower Extremity Strength Assessment Right Impaired Hip 3-/5 Knee 3+/5 Sensation Assessment Sensation Sensation Description Tingling Comments Sensation Comments occasional LLE tingling per pt Muscle Tone Muscle Tone WNL Yes M6 PT-IP Treatment Start: 07/19/24 15:33 Freq: NEEDED Status: Active Protocol: Document 07/19/24 14:35 AB (Rec: 07/19/24 15:49 AB [id number]) Physical Therapy Treatment Exercises Exercises Heel Slides Education Education Provided Precautions,Weight Bearing Status,Post-Op Packet,Safety M7 PT-IP Assessment and Plan Start: 07/19/24 15:33 Freq: NEEDED Status: Active Protocol: Document 07/19/24 14:35 AB (Rec: 07/19/24 15:49 AB [id number]) PT Summary Assessment and Plan Potential Rehabilitation Potential Fair Status of Condition at Evaluation Evolving Summary Impairments Pain,ROM,Strength,Balance, Coordination,Sensation,Tone, Cognition,Bed Mobility, Transfers,Gait,Activity Tolerance Assessment Summary pt is a78 y/o M s/p R LUIS anterior approach POD 0. pt has R hip anterior precautions and is WBAT. pt requiring max A for sit to stand and mod to max A for ambulation. pt lives alone and will need assistance at home. pt will benefit from SNF rehab to improve strength and mobility. Goals Bed Mobility Goal Independent Transfer Goal Independent,Front Wheeled Walker Gait Goal Independent,Front Wheel Walker Gait Distance 75 Other Goals improve ambulation using FWW ~ 150 ft mod I Days to Meet Goals 5 Frequency of Treatment Frequency Of Treatment Twice a Day Treatment Plan Physical Therapy Treatment Plan Bed Mobility Training,Transfer Training,Gait Training, Therapeutic Exercise,Balance Retraining,Post Op Education, Discharge Planning,Hot or Cold Pack,Neuromuscular Re-ed, Coordination Retraining,Manual Therapy Precautions Anterior Hip Precautions No Hip Extension,No Hip External Rotation Weight Bearing Status Weight Bearing Status Weight Bear as Tolerated Allowed Weight Bearing Amount (enter % RLE WBAT or #) (%) Recommendations To Nursing Amount of Assist Needed 1 Person Assist Discharge Recommendations PT Discharge Recommendations SNF Rehab Transportation Needs at Discharge Wheelchair/Cabulance - PT assist 1
--- NOTE | 2024-07-19 17:21 | PC.NURSE ---
Patient arrived from PACU at approximately 1120 a.m. He is A&OX4, VSS, afebrile on RA. Aquacel c/d/i, IVF LR at 10 ml/hr. He tolerates lunch well. Slightly hypertensive but also c/o pain of 6/10. He is able to participate with PT this afternoon and noted to be a moderate assist with FWW. Patient attempts to void x2 this afternoon, some leaking noted from bladder but not able to fully voide. Endorsed to oncoming RN, will follow up with bladder scan.
[2024-07-19] MEDS: BUDESONIDE 0.5 MG/2 ML NEB INH (20:07)
[2024-07-19] MEDS: TAMSULOSIN 0.4 MG CAPSULE PO (20:34)
[2024-07-19] MEDS: FINASTERIDE 5 MG TABLET PO (20:34)
[2024-07-19] MEDS: LORATADINE 10 MG TABLET PO (20:35)
[2024-07-19] MEDS: PREGABALIN 75 MG CAPSULE PO (20:35)
[2024-07-19] MEDS: ASPIRIN EC 81 MG TABLET PO (20:35)
[2024-07-19] MEDS: AMLODIPINE 5 MG TABLET 7.5 MG PO (20:35)
[2024-07-19] MEDS: ATORVASTATIN 20 MG TABLET 80 MG PO (20:35)
[2024-07-19] MEDS: DOCUSATE 100 MG CAPSULE PO (20:35)
[2024-07-19] MEDS: MONTELUKAST 10 MG TABLET PO (20:35)
[2024-07-20 05:58] LABS: Hemoglobin 12.4 g/dL (13.5-17.5)
[2024-07-20] MEDS: CALCIUM CARBONATE 500 MG TAB PO (06:07)
[2024-07-20 08:00] VITALS: BP 129/81; PULSE 83; RESP 18; TEMP 36.6; O2SAT 98
--- NOTE | 2024-07-20 08:30 | OT.IP.EVAL ---
Current Diagnoses Unilateral primary osteoarthritis, right hip (07/19/24) Surgery Performed Operation Date: 07/19/24 07:45 Actual Procedures p Total Hip Arthroplasty/Anterior Approach(Right) - Nirmala Hicks MD Past Medical History (Last Updated 07/11/24 @ 13:24 by Vira Bose, RN) Acute diverticulitis Anxiety Depression Easy bruisability [id number]-cfn Hearing loss HLD (hyperlipidemia) HTN (hypertension) Lumbar stenosis with neurogenic claudication Obstructive sleep apnea of adult Osteoarthritis Sprain of shoulder, left Surgical History (Last Updated 07/11/24 @ 13:24 by Vira Bose, MERVAT) History of lumbar fusion (~2015) History of total left hip replacement (~2011) Hx of bilateral cataract extraction Hx of fusion of cervical spine (~2010) Hx of sinus surgery (06/2021) Occupational Therapy Inpatient Evaluation/Re-Eval M1 PT/OT-IP Prior Functional Status Start: 07/19/24 15:33 Freq: NEEDED Status: Active Protocol: Document 07/20/24 10:38 [facility] (Rec: 07/20/24 11:02 [facility] Desktop) Medical Review Prior Functional Status Medical History Reviewed Yes Communication able to make needs known Mobility and Gait pt stated that he was modified independent with all mobilities and ambulation using a SPC Activities of Daily Living and IADL's Pt states able to do all needs but having more pain. Social History Household Members none Living Arrangements House Number of Floors (Floors) Two Floors Number of Stairs To Enter/Railing? pt plans to stay on the first level of the house has a tub shower and walk in shower on the studio level with 3 steps B rails to go down to no steps to enter the house Home Environment Standard Height Toilet,Tub/ Shower Home Equipment Front Wheel Walker,Straight Cane,Grab Bars In Shower Additional Social History Comment pt has an adjustable bed pt has a friend who can drive him to outpt PT just on the first week upon d/c Pt has a friend that will be taking care of his dog for a week. M2 OT-IP Current Condition Start: 07/20/24 10:38 Freq: Status: Active Protocol: Document 07/20/24 10:38 [facility] (Rec: 07/20/24 11:02 [facility] Desktop) Occupational Therapy Current Condition Current Condition Evaluation Date 07/20/24 Treatment Diagnosis S/P R LUIS Anterior approach Diagnosis Onset Date 07/19/24 Post Operative Precautions Other Precautions Do not hyperextend hip. Weight Bearing Status Weight Bearing Status Weight Bear as Tolerated M3 OT- IP Subjective and Pain Start: 07/20/24 10:38 Freq: Status: Active Protocol: Document 07/20/24 10:38 [facility] (Rec: 07/20/24 11:02 [facility] Desktop) OT- Subjective Occupational Therapy Visit Type Type Initial Evaluation Visit Start Time 08:30 Visit Stop Time 09:14 Occupational Therapy Visit Comments Patient Comments Pt agreed to get up to brush his teeth. Patient/Caregiver Goals Pt realizing now best to go home. OT Pain Assessment Pain When Pain Assessed During Mobility Pain Present Pain Present Pain Reported Location Right Hip Intensity 3 Scale Used Numeric (0 - 10) M4 OT- IP ADL's Start: 07/20/24 10:38 Freq: Status: Active Protocol: Document 07/20/24 10:38 [facility] (Rec: 07/20/24 11:02 [facility] Desktop) OT ILZ-Duex-Nxvjtum General Evaluation Self-Feeding Ability Independent OT ADL-Grooming General Evaluation Grooming Ability Independent Comments OT Grooming Comments Able to do while standing with FWW. OT ADL-Oral Care General Eval Oral Care Ability Independent OT ADL-Dressing General Eval Lower Body Dressing Ability Standby Assistance Comments OT Dressing Comments Pt able to lean forwards appropriately to izabel/doff his socks. Able to show pt LB dressing equipment and pt states will not need it. Educated to dress the RLE first and take out last. OT ADL-Toileting Comments OT Toileting Comments Suggested pt take the urinal home. OT ADL-Bathing Comments OT Bathing Comments Pt states to just sponge off initially. Went over care of dressing for showering needs M5 OT- IP IADL's Start: 07/20/24 10:38 Freq: Status: Active Protocol: Document 07/20/24 10:38 [facility] (Rec: 07/20/24 11:02 [facility] Desktop) OT-Instrumental Activities of Daily Living Home Safety Awareness Awareness of Need for Assistance at Home Good Awareness Ability to Problem Solve Emergency Able to Problem Solve Situations Medication Management Medication Management No Deficits Identified Money Management Money Management No Deficits Identified M6 OT- IP Functional Cognition Start: 07/20/24 10:38 Freq: Status: Active Protocol: Document 07/20/24 10:38 [facility] (Rec: 07/20/24 11:02 [facility] Desktop) Cognitive Factors Limiting Selfcare Function Cognitive Ability Level of Alertness Alert Patient Orientation Name,Age,Birthday,Month,Date, Year,Day of Week,Place, Situation Attention Span Ability Capable of Focused Attention, Capable of Sustained Attention Ability to Follow Commands Able to Follow One Step Commands Cognitive Comments Cognitive Assessment Comments Pt a little insistent on his care. Pt feels that he is will be fine at home now. OT- Vision and Hearing OT- Hearing Assessment OT- Hearing Assessment Hearing Impaired OT- Vision Assessment Visual Acuity Glasses All The Time Visual Attentiveness WFL Occular Pursuits WFL M7 OT- IP Mobility and Balance Start: 07/20/24 10:38 Freq: Status: Active Protocol: Document 07/20/24 10:38 [facility] (Rec: 07/20/24 11:02 [facility] Desktop) OT- Bed Mobility Assessment Supine to Sit Supine to Sit Assist Standby Assistance Sit to Supine Sit to Supine Assist Standby Assistance OT-Transfer Assessment Sit to and From Stand Sit to and from Stand Standby Assistance Transfers Transfer Ability Standby Assistance Technique Transfer Destination Chair Transfer Technique Stand Step Pivot Devices Transfer Assistive Devices Gait Belt,Front Wheeled Walker Comments Mobility Comments SBA to stand and more around in the room with FWW. VC to keep the FWW of his at all times. OT- Balance Assessment Sitting Balance and Reactions Static Sitting Balance Ability Normal Dynamic Sitting Balance Ability Good Standing Balance and Reactions Static Standing Balance Ability Good Dynamic Standing Balance Ability Fair M8 OT- IP Objective Assessments Start: 07/20/24 10:38 Freq: Status: Active Protocol: Document 07/20/24 10:38 [facility] (Rec: 07/20/24 11:02 [facility] Desktop) OT Gross Range of Motion Upper Extremity Range of Motion Assessment Bilaterally Impaired OT Strength Upper Extremity Strength Assessment Bilaterally Impaired M9 OT- IP Assessment and Plan Start: 07/20/24 10:38 Freq: Status: Active Protocol: Document 07/20/24 10:38 [facility] (Rec: 07/20/24 11:02 [facility] Desktop) OT Summary Assessment and Plan Potential Rehabilitation Potential Excellent Analytic Complexity at Evaluation Low Summary OT Impairments Pain,Balance,Functional Mobility,Dressing,Toileting, Bathing,Toilet Transfers, Shower Transfers Progress Towards Goals Progressing Toward Goals Assessment Summary Pt low complexity and main barriers are pain, and having to walk 30-40 ft on uneven surfaces at home. Pt able to do basic ADL needs and mobility with SBA. Pt would benefit form having at least supervision for showering needs and IADL. Pt to go home with assist and outpt PT when medically stable. Goals Dressing Goal Independent Toileting Goal Independent Bathing Goal Standby Assistance Toilet Transfer Goal Independent Shower Transfer Goal Standby Assistance Days to Meet Goals 2 Frequency of Treatment Frequency Of Treatment Once a Day Treatment Plan OT Treatment Plan ADL Training,Functional Mobility,Patient/Family Education,Discharge Planning Discharge Recommendations OT Discharge Recommendations Home with Assistance, Outpatient PT Transportation Needs at Discharge Private Vehicle
[2024-07-20] MEDS: ASPIRIN EC 81 MG TABLET PO (08:37)
[2024-07-20] MEDS: IBUPROFEN 400 MG TABLET PO (08:37)
[2024-07-20] MEDS: buPROPion XL 150 MG TAB PO (08:37)
[2024-07-20] MEDS: DOCUSATE 100 MG CAPSULE PO (08:39)
[2024-07-20] MEDS: BUDESONIDE 0.5 MG/2 ML NEB INH (09:28)
--- NOTE | 2024-07-20 09:46 | PT.IPTN ---
Current Diagnoses Unilateral primary osteoarthritis, right hip (07/19/24) Surgery Performed Operation Date: 07/19/24 07:45 Actual Procedures p Total Hip Arthroplasty/Anterior Approach(Right) - Nirmala Hicks MD Physical Therapy Treatment Note M2 PT-IP Current Condition Start: 07/19/24 15:33 Freq: NEEDED Status: Active Protocol: Document 07/19/24 14:35 AB (Rec: 07/19/24 15:49 AB [id number]) Physical Therapy Current Condition Current Condition Evaluation Date 07/19/24 Treatment Diagnosis s/p R LUIS anterior; difficulty in walking Onset Date 07/19/24 M3 PT-IP Subjective Start: 07/19/24 15:33 Freq: NEEDED Status: Active Protocol: Document 07/20/24 09:46 [facility] (Rec: 07/20/24 12:12 AB [id number]) Subjective Physical Therapy Visit Type Type Treatment Note Visit Start Time 09:46 Visit Stop Time 10:20 Number of GLAZE CARRIER Visits 0 Physical Therapy Visit Comments Patient Comments agreeable to do PT Therapy Pain Assessment Pain When Pain Assessed At Rest Pain Present Pain Present Pain Reported Location Right Hip Intensity 3 Scale Used increases during movement Pain Management Techniques Apply Cold,Distraction, Modification of Treatment,Re- positioning,Timing of Activity with Medications M4 PT-IP Mobility and Gait Start: 07/19/24 15:33 Freq: NEEDED Status: Active Protocol: Document 07/20/24 09:46 AB (Rec: 07/20/24 12:12 AB [id number]) PT-Bed Mobility Assessment Supine to Sit Supine to Sit Independent Sit to Supine Sit to Supine Standby Assistance PT-Transfer Assessment Sit to and From Stand Sit to and from Stand Standby Assistance,Contact Guard Assistance,1 Person Assistance,Use of Upper Extremities Equipment Transfer Assistive Device Gait Belt,Front Wheeled Walker Orthotic/Prosthetic Devices or Brace: No Transfers Transfer Destination Bed,Chair Transfer Technique ambulated Transfer Ability Level of Assist Standby Assistance,Contact Guard Assistance,1 Person Assistance,Use of Upper Extremities Comments Mobility Comments pt sitting on the chair and agreeable to do PT. sit to stand SBA and ambulated to EOB using FWW SBA to CGA. c/o increase R hip pain. completed sit<>supine using SPC as leg child day care center worker SBA. sit to stand from EOB SBA and step transfer to chair SBA using FWW. pt stated that he has 2 steps with B rails + 1 step to his studio where the walk in shower and wants to do stairs. educated pt on stair climbing. sit to stand from chair SBA and ambulated ~ 30 ft using fWW SBA to CGA. pt completed up/down platform step using FWW CGA and also completed 3 steps B rails CGA. assisted pt back to his room. pt ambulated from w/c to chair using FWW SBA to CGA. positioned pt on the chair. call light and table placed within reach. pt has no further concerns. Gait Assessment Gait Gait Assistance Required: Standby Assistance,Contact Guard Assist Distance (Feet) 30 Able to Maintain Weight Bearing Status Yes During Gait Assistive Devices Assistive Device Gait Belt,Front Wheeled Walker Orthotic/Prosthetic Devices or Brace: No Gait Deviations General Gait Pattern Decreased Stride Length, Decreased Feet Clearance Factors Limiting Gait Function Factors Limiting Gait Function Decreased Activity Tolerance, Decreased Strength,Limited Range of Motion,Pain,Poor Balance,Poor Safety Awareness Stair Climbing Assessment Evaluation Level of Assist On Stairs Contact Guard Assistance Devices Stair Climbing Assistive Devices None,Front Wheel Walker,Left Railing,Right Railing Technique/Endurance Stair Climbing Direction Ascend and Descend Stair Climbing Technique Step to Step Number of Steps Climbed 3 Stair Climbing Set # Repetitions (reps) 1 M5 PT-IP Objective Assessments Start: 07/19/24 15:33 Freq: NEEDED Status: Active Protocol: Document 07/19/24 14:35 AB (Rec: 07/19/24 15:49 AB [id number]) Orientation Orientation/Cognition Level of Alertness Alert Orientation Name,Place,Situation Language Function Ability Hard of Hearing Safety Awareness Decreased Safety Awareness Memory Description Short Term Impaired Gross Range of Motion Lower Extremity ROM Assessment Within Functional Limits Strength Lower Extremity Strength Assessment Right Impaired Hip 3-/5 Knee 3+/5 Sensation Assessment Sensation Sensation Description Tingling Comments Sensation Comments occasional LLE tingling per pt Muscle Tone Muscle Tone WNL Yes M6 PT-IP Treatment Start: 07/19/24 15:33 Freq: NEEDED Status: Active Protocol: Document 07/20/24 09:46 AB (Rec: 07/20/24 12:12 AB [id number]) Physical Therapy Treatment Education Education Provided Precautions,Weight Bearing Status,Safety M7 PT-IP Assessment and Plan Start: 07/19/24 15:33 Freq: NEEDED Status: Active Protocol: Document 07/20/24 09:46 AB (Rec: 07/20/24 12:12 AB [id number]) PT Summary Assessment and Plan Potential Rehabilitation Potential Good Summary Impairments Pain,ROM,Strength,Balance, Coordination,Sensation,Tone, Cognition,Bed Mobility, Transfers,Gait,Activity Tolerance Progress Towards Goals Progressing Toward Goals Assessment Summary pt progressing well with mobility and able to ambulate using FWW SBA to CGA. pt c/o increase R hip with mobility. pt plans to go home and has outpt PT set up. Goals Bed Mobility Goal Independent Transfer Goal Independent,Front Wheeled Walker Gait Goal Independent,Front Wheel Walker Gait Distance 75 Other Goals improve ambulation using FWW ~ 150 ft mod I up/down 2 steps B rails + 1 step using FWW SBA Days to Meet Goals 5 Frequency of Treatment Frequency Of Treatment Twice a Day Treatment Plan Physical Therapy Treatment Plan Bed Mobility Training,Transfer Training,Gait Training, Therapeutic Exercise,Balance Retraining,Post Op Education, Discharge Planning,Hot or Cold Pack,Neuromuscular Re-ed, Coordination Retraining,Manual Therapy Precautions Anterior Hip Precautions No Hip Extension,No Hip External Rotation Weight Bearing Status Weight Bearing Status Weight Bear as Tolerated Allowed Weight Bearing Amount (enter % RLE WBAT or #) (%) Recommendations To Nursing Amount of Assist Needed 1 Person Assist Discharge Recommendations PT Discharge Recommendations Home with Assistance, Outpatient PT Transportation Needs at Discharge Private Vehicle - PT assist 1
[2024-07-20] MEDS: OXYCODONE IR 5 MG TABLET PO ×2 (10:40→13:09)
[2024-07-20] MEDS: ACETAMINOPHEN 325 MG TABLET 650 MG PO (10:40)
--- NOTE | 2024-07-20 12:46 | CM.DANOTE ---
Initial DCP Assessment Visit Note Reviewed EMR and team rounds for status updates. Met with pt at bedside to introduce self and role, pt was found to be alert/oriented, was able to ambulate to the bathroom and back to the bed, as well as get himself back in bed independently. He is having mod. pain, however not above what is expected for this type of surgery. Pt resides alone modified independently with a cane in his own home here in [place]. He has a friend who will be transporting him home later this afternoon. Pt has been medically discharged. CUSHION INSTALLER did provide him with a list of caregiving agencies should he feel that he needs more help at home after post-d/c. CUSHION INSTALLER explained that he is not eligible for Medicare SNF rehab due to his outpatient surgery (SDC). Payor: Medicare Attending: Dr. Hicks Pt is a 78 year-old M post-op day 1 from a R-total hip arthroplasty surgery. He has a hx of worsening R-hip pain, however only very limited information was available in the H&P re: conservative efforts at pain control. Pt worked with PT/OT who both cleared him for home d/c, he does already have a plan for OP PT post-d/c. No further CM d/c needs are identified at this time. Discharge Planning/Care Management Advanced directive, confirm from FAMILY Start: 07/19/24 12:03 Freq: Q24H Status: Active Protocol: Document 07/19/24 18:41 (Rec: 07/19/24 18:41 [id number]) Advance Directive, confirm on record Time 18:41 Person contacted patient Copy received No CM Discharge Assessment Start: 07/19/24 06:22 Freq: Status: Active Protocol: Document 07/20/24 12:44 DPL (Rec: 07/20/24 12:45 DPL [id number]) Discharge Planning Assessment Assigned Knitted Garment Finisher PAUL Schneider Advance Directives? Yes Advance Directives on File No History Provided By Patient,Friend,Medical Record Has Patient been admitted in last 30 No days? Prior Living Arrangements House Household Members none Type of transporation used prior to Drives own vehicle admit Independent with ADL's No: modified independent with a cane Is patient alert and oriented? Yes Comment N/A Caregiver for Another No DME Already Rented / Owned Elevated Toilet Seat,FWW / Walker,Cane Patient/Family Preference OP PT Therapy Barriers to Discharge No Discharge Plan Home Transportation Arrangement Friend Mary confirms she will transport pt home at d/c Referrals Initiated None needed Review Status In Process Please Provide Date Initial DC 07/20/24 Assessment Was Performed Pre-Anesthesia Assessment Start: 07/11/24 12:33 Freq: Status: Active Protocol: Document 07/11/24 12:40 CAB (Rec: 07/11/24 13:49 CAB [id number]) Pre-Anesthesia Assessment PAC Comment Phone assess 07/11/24 Patient Information Reviewed Via Phone Assessment Assessment Completed With Patient Diagnostic Results BMP/CMP,CBC,EKG Primary Care Provider Neil Funes Seen Specialist in Last 12 Months Yes Specialist Seen Trip Rider,Oral surgeon, Orthopedist Primary Language Malagasy Preferred Language Malagasy Pediatric Psychiatrist Required No Height 172.72 cm Weight 82.554 kg Body Mass Index (BMI) 27.6 Hearing Ability Hearing Impaired,Use of Hearing Aid Visual Assist Glasses Dentition Type Teeth, Natural Present,Teeth, Missing Barriers to Learning Auditory,Visual Hx Anesthesia Reactions No Hx Family Anesthesia Reaction No Hx Malignant Hyperthermia No Hx Blood Transfusions No Hx Blood Transfusion Reaction No Anesthesia Review Requested Yes: PAC courtesy re: Medical history, recent admit to . Bottling Line Attendant No alcohol intake current Alcohol Intake Frequency Other: On & Off Smoking Status Former smoker Tobacco type cigarettes how long ago did patient quit smoking 1974 Substance Use Type [#R] marijuana Comment Edibles only, rare Pain Present Pain Reported Musculoskeletal Symptoms Abnormal Gait,Back Pain, Difficulty Walking,Joint Pain History of Falling (Recent or History of Yes ) Patient is completely paralyzed or No completely immobile Prosthesis or Orthotic Device Cane Mental Status Oriented to own ability Is patient on oxygen? No Does patient have BISHOP/SOB No Hx Sleep Apnea Yes CPAP/BIPAP use prescribed and used routinely Will Bring CPAP/BIPAP DOS Yes Currently Taking a Beta Loulou No Can You Climb a Flight of Stairs Without Yes SOB Hx Chest Pain No Hx SOB No Hx Syncope or Dizziness No Anti-Coagulant Therapy No Has a Tire And Lube Technician No Cardiac Testing No Hx Pacemaker/ICD No Pacemaker Rep Required? No Cardiac Clearance Received No Gastrointestinal Symptoms Constipation,Diarrhea,Reflux Bladder Pattern Nocturia Urinary Catheter Present No Hx Urinary Self Catheterization No Diabetes No HgbA1C 4.9 Date 06/16/24 Hx Drug Resistant Organism No Presence of External or Internal Medical Yes: hip, neck, ankle Devices Month and year received flu vaccine 11/30 Received a COVID vaccine? Yes Marital Status Lives With none Current Living Arrangements House Number of Floors (Floors) One Floor Does the Patient Have Assistance After No: No available assistance at Surgery home Patient Discharge Plan Description Return Home Comment Pt told possible same day vs overnight length of stay per surgeon Feels Safe in Current Environment Yes Been Physically Hurt or Threatened By a No Person in Current Environment Do you have thoughts of harming yourself None or others? Are you currently considering suicide? No Do you have a plan to hurt yourself or No Plan others? Do You Have Any Spiritual Beliefs That No May Affect Your HC Choices? Do You Have Any Cultural Practices That No May Affect Your HC Choices? Who Can We Speak to About Patient's Care Family, friends Identifying Code for Release of Patient Declines to issue Information Health Care Proxy/Next of Kin Alexandra (daughter) Health Care Proxy Emergency Contact Name Chandni Haney (friend) Emergency Contact Advance Directives? No Advance Directives on File No Power of Machine Operations Supervisor No PAC Instructions Bring CPAP/BIPAP,Durable medical equipment,Medications to take/avoid,Nasal antibiotic ,No ETOH/petroleum product on skin DOS,NPO,Pre-surgical wash ,Sensory aids,Sturdy shoes/ comfortable clothes,Do not bring valuables and remove jewelry
--- NOTE | 2024-07-20 15:39 | PC.NURSE ---
Patient is A&OX4, VSS, afebrile. He is cleared for discharge medically this a.m. by surgeon. PT and OT working with patient today, and he is cleared for discharge home today. He is given referral and information for private pay at home/facility. He acknowledges understanding of medications, activity limitations, site care as well as follow up appointment post operatively. He calls for his ride home and is escorted to main entrance however transportation did not arrive for over 30 minutes. Currently patient waiting in waiting room and nurse checking up to see status of ride.
--- NOTE | 2024-07-20 20:16 | PM.DS.1 ---
History of Present Illness History of Present Illness Date Patient Seen: 07/20/24 Time Patient Seen: 08:00 Chief complaint: Right Total Hip Arthroplasty/Anterior Approach Narrative: He notes he is doing reasonably well. He did have some problems voiding. They had to I and O cath him once. He takes Flomax and finasteride for prostate issues. He has been ambulating with therapy. He was cleared by therapy. His exam showed his dressing was intact he could fire his toe flexors and extensors his thigh was soft and his calf was soft. He is neurologically intact distally he was able to do a hip flexion exercise and a straight leg raise in order to mobilize. Discharge Providers Provider Discharge Date: 07/20/24 Primary care physician: Neil Funes MD Consults: 07/11/24 14:58 Consult to Anesthesiology Routine Comment: Consulting Provider: Anesthesiologist Reason for consultation: PAC courtesy re: Medical history 07/19/24 06:00 Consult to Anesthesiology Routine Comment: Consulting Provider: Anesthesiologist Reason for consultation: Regional block for post operative pain control Has provider been notified: No 07/19/24 11:28 Consult to Discharge Planning Routine Comment: Consult to Occupational Therapy Evaluate & Treat Comment: Physician Instructions: Evaluate and treat Consult to Physical Therapy Evaluate & Treat Comment: Physician Instructions: post op LUIS protocol Discharge provider: Nirmala Hicks MD Summary Hospital Course Discharge Diagnosis: Severe right hip OA right total hip arthroplasty anterior approach BPH Hospital Course: Patient underwent anterior right total hip arthroplasty. He tolerated the procedure well. He was transferred to the [facility] in stable condition. Did have some difficulty voiding due to his BPH and did require overnight admission for neurological monitoring and an I and O catheterization as well as medical management. He was seen by Physical therapy and was cleared for discharge to home. He did have 1 support person available for discharge to home. Status at Discharge Cognitive/behavioral status at discharge: oriented Functional status at discharge: uses cane/walker Overall status at discharge: patient is not back to baseline Time Spent with Patient Time spent: Less than 30 minutes Time spent discussing smoking cessation with patient: 3 to 10 minutes Exam Vital Signs (past 8 hours): Oxygen Delivery Method Room Air Oxygen Flow Rate 0 Narrative Exam Narrative: Dressing intact, leg benign, see above Objective Labs 07/20/24 05:40 Labs: Laboratory Results - last 24 hr 07/20/24 05:40 Hgb 12.4 L Hct 36.0 L PFSH Medical History (Updated 07/11/24 @ 13:24 by Vira Bose RN) Anxiety Depression Easy bruisability Osteoarthritis HLD (hyperlipidemia) HTN (hypertension) Hearing loss Obstructive sleep apnea of adult Sprain of shoulder, left Acute diverticulitis Lumbar stenosis with neurogenic claudication [id number]-nm-hst Surgical History (Updated 07/11/24 @ 13:24 by Vira Bose RN) History of lumbar fusion (~2015) Hx of fusion of cervical spine (~2010) History of total left hip replacement (~2011) Hx of bilateral cataract extraction Hx of sinus surgery (06/2021) Social History household members: none pets and animals: Yes (Anticipating getting a couple rescue dogs to foster for a period of time) Smoking Status: Former smoker alcohol intake: current substance use type: does not use Discharge Plan Discharge Plan Patient Disposition: Home Discharge orders & Medications Discharge Orders: Discharge (Order); Ordered 07/20/24 Ordered By: Nirmala Hicks Prescriptions: New acetaminophen 325 mg Tablet 650 mg PO Q6H Qty: 90 0RF aspirin 81 mg Tablet,Delayed Release (Dr/Ec) 81 mg PO BID Qty: 90 0RF polyethylene glycol 3350 17 gram Powder In Packet 17 g PO DAILY PRN (Reason: Constipation) Qty: 14 0RF oxycodone 5 mg Tablet 5 mg PO Q3H PRN (Reason: Pain, Moderate (4-6)) Qty: 30 0RF Continued cetirizine 10 mg Tablet 10 mg PO BEDTIME amlodipine 5 mg Tablet 7.5 mg PO BEDTIME tamsulosin 0.4 mg capsule 0.4 mg PO BEDTIME montelukast 10 mg Tablet 10 mg PO BEDTIME finasteride 5 mg Tablet 5 mg PO BEDTIME rosuvastatin 40 mg Tablet 40 mg PO BEDTIME bupropion HCl 150 mg Tablet Extended Release 24 Hr 150 mg PO QAM Arnuity Ellipta 200 mcg/actuation blister with device 1 inh inhalation DAILY Patient Comments: puffs albuterol sulfate 90 mcg/actuation HFA aerosol inhaler 2 puff INHALATION Q6H PRN (Reason: Bronchospasm) guaifenesin 100 mg/5 mL Liquid 200 mg PO Q4HR PRN (Reason: Cough) Qty: 473 0RF pregabalin 75 mg Capsule 75 mg PO BID albuterol sulfate 90 mcg/actuation HFA aerosol inhaler 2 puff inhalation Q6H PRN (Reason: Shortness Of Breath) fluticasone propionate 50 mcg/actuation spray,suspension 2 spray intranasal DAILY Follow up/Referrals: Neil Funes MD [Primary Care Provider] - Nirmala Hicks MD [Physician] - 08/03/24 3:00 pm (APPT:08/03 @ 3:[address] Hicks @ [address] ) Diet/Activity/Treatments Diet: Diet as Tolerated Activity: Walk multiple times a day. Cold/Heat Therapy: Use ice multiple times a day. Skin/Wound/Dressing Care Report to your healthcare provider any signs of infection, such as:: chills, fever, night sweats, increased pain, unusual drainage and unusual redness Dressing: Leave dressing on. Okay to shower. Visit Report/Discharge Packet Instructions: DI for Hip Replacement, DI for Prescription Opioid Use Stand Alone Forms: Patient Portal/API, Surgery Discharge Discharge Data Primary Care Provider: Neil Funes Attending Provider: Nirmala Hicks
== END 2024-07-20 14:44 | disposition home or self-care (01) ==
LOC: OR 06:17 → AC 06:17
PROVIDERS: Family Provider Student in an Organized Health Care Education/Training Program; PCP Family Medicine; Referring Provider Orthopaedic Surgery; Visit Provider Orthopaedic Surgery
PROC: (CPT 27130; principal; 2024-07-19 07:45)
DX: M16.11 Unilateral primary osteoarthritis, right hip (principal); M25.751 Osteophyte, right hip; N40.0 Benign prostatic hyperplasia without lower urinary tract symptoms
CPT/HCPCS: 27130; 36415; 73502; 73503; 76000; 85014; 85018; 94640; 97116; 97162; 97165; 97530; 97535; C1776; J0666; J0690; J1100; J2405; J2704; J3010

== ENCOUNTER 2024-07-25 16:50 | Emergency (ER) | payer MEDICARE, OTHER, SELFPAY ==
[2024-07-19 11:55] VITALS: BMI 27.3
[2024-07-25 16:58] VITALS: BP 138/76; PULSE 80; RESP 17; TEMP 36.6; O2SAT 99; BMI 27.3
--- NOTE | 2024-07-25 16:58 | DI.US.S_ITS ---
PROCEDURE: US PERIPH VENOUS LOW EXTREM RT INDICATIONS: red and swollen after knee replacement TECHNIQUE: Real-time imaging, as well as color and pulse Doppler interrogation, were performed of the lower extremity deep veins from the inguinal ligament to the popliteal fossa, with documentation of the visualized calf veins. COMPARISON: None. FINDINGS: The common femoral, femoral, popliteal, and the visualized calf veins are normally compressible, and free of intraluminal thrombus. Color and pulse Doppler demonstrate normal phasic intraluminal flow. There is normal augmentation response to distal compression maneuver. This is a limited examination, secondary to soft tissue swelling/edema. IMPRESSION: No findings of lower extremity deep venous thrombosis. Dictated by: Moe Bush M.D. on 07/25/2024 at 17:29 Approved by: Moe Bush M.D. on 07/25/2024 at 17:30
[2024-07-25 17:28] LABS: Add Manual Diff / Slide Review NO; Basophils Absolute Auto 0 /uL (0-100); Basophils Percent Auto 0.5 % (0-2); Eosinophils Absolute Auto 400 /uL (0-450); Eosinophils Percent Auto 4.2 % (2-4); Hematocrit 34.7 % (41-53); Hemoglobin 11.8 g/dL (13.5-17.5); Lymphocytes Absolute Auto 1100 /uL (1100-4500); Lymphocytes Percent Auto 12.1 % (25-40); Mean Corpuscular Hemoglobin 31.1 PG (26-34); Mean Corpuscular Volume 91.6 fL (80-100); Monocytes Absolute Auto 1300 /uL (0-900); Neutrophils Absolute Auto 6200 /uL (1500-7000); Neutrophils Percent Auto 69.2 % (50-75); Platelet Count 293 X10^3/uL (150-400); Red Blood Cell Count 3.79 X10^6/uL (4.5-5.9); Red Cell Distribution Width 13.7 % (11.6-14.8)
[2024-07-25 17:36] LABS: Lactate (Lactic Acid) 1.1 mmol/L (0.7-2.1)
[2024-07-25 17:37] LABS: Alanine Aminotransferase 33 IU/L (<50); Albumin 3.6 g/dL (3.5-5.0); Albumin Globulin Ratio 1.2 (1.0-2.8); Alkaline Phosphatase 86 U/L (38-126); Aspartate Aminotransferase 54 IU/L (17-59); Bilirubin Total 0.8 mg/dL (0.2-1.3); Blood Urea Nitrogen 11 mg/dL (9-20); Calcium 9.1 mg/dL (8.4-10.2); Carbon Dioxide 24 mmol/L (22-32); Chloride 103 mmol/L (98-107); Estimated Glomerular Filt Rate > 60 mL/min (>60); Globulin 3.1 g/dL (1.7-4.1); Glucose 117 mg/dL (70-99); HEMOLYSIS < 15 (0-50); Potassium 3.8 mmol/L (3.4-5.1); Sodium 135 mmol/L (137-145); Total Protein 6.7 g/dL (6.3-8.2)
[2024-07-25 17:53] LABS: Procalcitonin 0.076 ng/mL (<0.5)
[2024-07-25 19:16] VITALS: BP 141/70; PULSE 80; RESP 12; O2SAT 98
--- NOTE | 2024-07-26 00:42 | ED_ITS ---
HPI - Extremity Problem General Chief complaint: Extremity Problem,Nontraumatic Stated complaint: sent by toyin, problem after sx on 13 Time Seen by Provider: 07/26/24 00:42 Source: patient Mode of arrival: Ambulatory History of Present Illness HPI Narrative: Patient is a 78-year-old male history of smoking, COPD, GERD BPH presenting to day with right leg lower extremity erythema and swelling. He was status post right total hip anterior approach day number 5. He says that he was not feeling well yesterday felt like his skin was hot and irritated on his scalp and all over his body. [place] like he might have had a fever but not really sure. Has some mild upper respiratory symptoms. Reports he would stay overnight after surgery due to urinary retention where he did receive a catheter. He no longer has a catheter. He has no significant abdominal pain nausea vomiting. No significant cough shortness of breath her other symptoms. He went to physical therapy today who noticed that his leg was red hot and swollen symptom immediately to the ED. patient also reports that he has had multiple bouts of pneumonia took awhile to get him cleared for surgery. He denies significant cough sore throat or other symptoms Related Data Home Medications Medication Instructions Recorded Confirmed amlodipine 5 mg tablet 7.5 mg PO BEDTIME 06/17/22 07/19/24 bupropion HCl 150 mg 24 hr tablet, 150 mg PO QAM 06/17/22 07/19/24 extended release cetirizine 10 mg tablet 10 mg PO BEDTIME 06/17/22 07/19/24 finasteride 5 mg tablet 5 mg PO BEDTIME 06/17/22 07/19/24 montelukast 10 mg tablet 10 mg PO BEDTIME 06/17/22 07/19/24 rosuvastatin 40 mg tablet 40 mg PO BEDTIME 06/17/22 07/19/24 tamsulosin 0.4 mg capsule 0.4 mg PO BEDTIME 06/17/22 07/19/24 fluticasone furoate 200 1 inh inhalation DAILY 09/23/23 07/19/24 mcg/actuation blister powder for inhalation (Arnuity Ellipta) albuterol sulfate 90 mcg/actuation 2 puff inhalation Q6H PRN 04/23/24 07/11/24 aerosol inhaler Bronchospasm pregabalin 75 mg capsule 75 mg PO BID 07/11/24 07/19/24 albuterol sulfate 90 mcg/actuation 2 puff inhalation Q6H PRN 07/19/24 07/19/24 aerosol inhaler Shortness Of Breath fluticasone propionate 50 2 spray intranasal DAILY 07/19/24 07/19/24 mcg/actuation nasal spray,suspension Previous Rx's Medication Instructions Recorded guaifenesin 100 mg/5 mL oral liquid 200 mg (10 mL) PO Q4HR PRN Cough 04/29/24 #473 mL acetaminophen 325 mg tablet 650 mg (2 x 325 mg) PO Q6H #90 tabs 07/20/24 aspirin 81 mg tablet,delayed 81 mg PO BID #90 tabs 07/20/24 release oxycodone 5 mg tablet 5 mg PO Q3H PRN Pain, Moderate 07/20/24 (4-6) #30 tabs polyethylene glycol 3350 17 gram 17 g PO DAILY PRN Constipation #14 07/20/24 oral powder packet ea Allergies Allergy/AdvReac Type Severity Reaction Status Date / Time oyster extract Allergy Unknown HIVES Verified 07/25/24 17:02 [OYSTER EXTRACT] Patient History Medical History Anxiety Depression Easy bruisability Osteoarthritis HLD (hyperlipidemia) HTN (hypertension) Hearing loss Obstructive sleep apnea of adult Sprain of shoulder, left Acute diverticulitis Lumbar stenosis with neurogenic claudication [id number] Surgical History History of lumbar fusion (~2015) Hx of fusion of cervical spine (~2010) History of total left hip replacement (~2011) Hx of bilateral cataract extraction Hx of sinus surgery (06/2021) Social History household members: none pets and animals: Yes (Anticipating getting a couple rescue dogs to foster for a period of time) Smoking Status: Current every day smoker alcohol intake: current substance use type: does not use Smoking Status: Current every day smoker alcohol intake frequency: 3 or more drinks per day Exam Initial Vital Signs Initial Vital Signs: Vital Signs Temperature 97.8 F 07/25/24 16:58 Pulse Rate 80 07/25/24 16:58 Respiratory Rate 17 07/25/24 16:58 Blood Pressure 138/76 07/25/24 16:58 Pulse Oximetry 99 07/25/24 16:58 Oxygen Delivery Method Room Air 07/25/24 16:58 GENERAL: Alert pleasant 78-year-old HEENT: Head atraumatic,EOMI, pupils reactive, face symmetric, moist mucous membranes CARDIOVASCULAR: Regular rate and rhythm without murmurs, rubs or gallops. RESPIRATORY: Breath sounds equal bilaterally, no wheezes rales or rhonchi. ABDOMEN: Soft, nontender. Normoactive bowel sounds all 4 quadrants. No guarding or rebound. EXTREMITIES: Normal range of motion, no clubbing or edema. Neurovascularly intact NEUROLOGICAL: Alert and oriented x4.Normal gait and speech. Cranial nerves II through XII grossly intact. SKIN: Right lower extremity is significantly more swollen than the. Seems to be some postoperative changes it was warm to touch. Mild erythema blanchable incision site has a good dressing on it no surrounding erythema Course Orders Ordered: ED Orders 07/26/24 00:51 Chest [XR chest 1V] Stat Vital Signs Vital signs: Vital Signs - 8 hr 07/26/24 01:54 Pulse Rate 72 Respiratory Rate 16 Blood Pressure 140/68 Pulse Oximetry 100 Oxygen Delivery Method Room Air MDM - Extremity (Nontraumatic) Lab Data 07/25/24 17:15 07/25/24 17:15 Labs: Lab Results 07/25/24 Range/Units 17:15 WBC 9.0 (4.5-11.0) X10^3/uL RBC 3.79 L (4.5-5.9) X10^6/uL Hgb 11.8 L (13.5-17.5) g/dL Hct 34.7 L (41-53) % MCV 91.6 (80-100) fL MCH 31.1 (26-34) PG MCHC 34.0 (30-36) % RDW 13.7 (11.6-14.8) % Plt Count 293 (150-400) X10^3/uL Neut % (Auto) 69.2 (50-75) % Lymph % (Auto) 12.1 L (25-40) % Bowie % (Auto) 14.0 (3-14) % Eos % (Auto) 4.2 H (2-4) % Baso % (Auto) 0.5 (0-2) % Neut # (Auto) 6200 (9283-1066) /uL Lymph # (Auto) 1100 (2694-1307) /uL Bowie # (Auto) 1300 H (0-900) /uL Eos # (Auto) 400 (0-450) /uL Baso # (Auto) 0 (0-100) /uL Sodium 135 L (137-145) mmol/L Potassium 3.8 (3.4-5.1) mmol/L Chloride 103 (98-107) mmol/L Carbon Dioxide 24 (22-32) mmol/L BUN 11 (9-20) mg/dL Creatinine 0.61 L (0.66-1.25) mg/dL Estimated GFR > 60 (>60) mL/min BUN/Creatinine Ratio 18.0 (6-22) Glucose 117 H (70-99) mg/dL Lactate 1.1 (0.7-2.1) mmol/L Calcium 9.1 (8.4-10.2) mg/dL Total Bilirubin 0.8 (0.2-1.3) mg/dL AST 54 (17-59) IU/L ALT 33 (<50) IU/L Alkaline Phosphatase 86 (38-126) U/L Total Protein 6.7 (6.3-8.2) g/dL Albumin 3.6 (3.5-5.0) g/dL Globulin 3.1 (1.7-4.1) g/dL Albumin/Globulin Ratio 1.2 (1.0-2.8) Procalcitonin 0.076 (<0.5) ng/mL Urine Dip Bedside Urine Glucose Negative Bedside Urine Bilirubin - Negative Bedside Urine Ketone +/- 5 Urine Specific [place] 1.010 Bedside Urine Occult Blood - Negative Bedside Urine pH 7.5 Bedside Urine Protein - Negative Bedside Urine Urobilinogen +/- 1mg Bedside Urine Nitrite - Negative Bedside Urine Leukocytes - Negative Esterase Imaging Data US - DVT: Radiologist's Impression: PROCEDURE: US PERIPH VENOUS LOW EXTREM RT INDICATIONS: red and swollen after knee replacement TECHNIQUE: Real-time imaging, as well as color and pulse Doppler interrogation, were performed of the lower extremity deep veins from the inguinal ligament to the popliteal fossa, with documentation of the visualized calf veins. COMPARISON: None. FINDINGS: The common femoral, femoral, popliteal, and the visualized calf veins are normally compressible, and free of intraluminal thrombus. Color and pulse Doppler demonstrate normal phasic intraluminal flow. There is normal augmentation response to distal compression maneuver. This is a limited examination, secondary to soft tissue swelling/edema. IMPRESSION: No findings of lower extremity deep venous thrombosis. Dictated by: Moe Bush M.D. on 07/25/2024 at 17:29 Approved by: Moe Bush M.D. on 07/25/2024 at 17:30 Chest x-ray: Radiologist's Impression: PROCEDURE: XR CHEST 1V INDICATIONS: post op fever TECHNIQUE: One view of the chest was acquired. COMPARISON: [facility], CR, XR CHEST 2V, 05/18/2024, 11:06. [facility], CR, XR CHEST 2V, 04/22/2024, 21:57. FINDINGS: Surgical changes and devices: ACDF. Lungs and pleura: Lungs are clear. No pleural effusions or pneumothorax. Mediastinum: Mediastinal contours appear normal. Heart size is normal. Bones and chest wall: No suspicious bony lesions. Overlying soft tissues appear unremarkable. IMPRESSION: No acute cardiopulmonary abnormality is seen. Dictated by: Guido Cook M.D. on 07/26/2024 at 1:14 MDM Narrative Medical decision making narrative: MDM CC: Right leg swelling Complicating co-morbidities: COPD Medical records reviewed: Recent admission July 19 H and P reviewed Differential considered: Postoperative fever, DVT, cellulitis Exam documented above, pertinent findings include: Right lower extremity is significantly swollen does have some contusion consistent with postoperative swelling. There is some mild erythema and warmth but noncircumferential it is blanchable very mild Lab Test results independently reviewed as above. Pertinent findings: CBC WBC 9.0 hemoglobin 11.8 hematocrit 34.7 platelets 293 Sodium 135 potassium 3.5 chloride 103 carbon dioxide 24 BUN 11 creatinine 0.61 glucose 117 Lactate 1.1 Bilirubin liver enzymes within normal limits Urinalysis negative for infection Independently reviewed EKG as above Imaging studies independently reviewed: Chest x-ray no acute cardiopulmonary process Ultrasound negative for DVT Consultations: Dr. Hicks notified of patient's findings Treatments: None Re-evaluations: Patient was ambulatory and weight-bearing in the ED. He appears well vitals are stable no fever Discussion: Patient status post right total hip 5 days ago presenting today with increasing swelling. He reports having some feverish like symptoms yesterday. He has no significant leukocytosis he has a normal lactate and normal procalcitonin. Leg is swollen but appears to be postoperative minimally red do not really appreciate a cellulitis. Incision site is clean with a good dressing on it. Ultrasound negative for DVT. No other source of infection found chest x-ray and urinalysis are clear. Certainly no evidence of sepsis vitals are stable he appears well in his ambulating. Discharge Plan Departure Patient Disposition: Home Clinical Impression: Post-operative pain Instructions: DI for Postoperative Pain Activity Restrictions/Additional Instructions: *You have been diagnosed with postoperative pain *What to do: At this time blood work and workup in the emergency department overall reassuring. No need for antibiotics at this time. Dr. Hicks notified. She will likely contact you tomorrow *Continue to take medications as directed *Follow up with your primary care provider in 2-3 days or call [phone] *Return to ER if you should have increasing redness fever greater than 101 or any new, worsening or concerning symptoms Prescriptions: No Action cetirizine 10 mg Tablet 10 mg PO BEDTIME amlodipine 5 mg Tablet 7.5 mg PO BEDTIME tamsulosin 0.4 mg capsule 0.4 mg PO BEDTIME montelukast 10 mg Tablet 10 mg PO BEDTIME finasteride 5 mg Tablet 5 mg PO BEDTIME rosuvastatin 40 mg Tablet 40 mg PO BEDTIME bupropion HCl 150 mg Tablet Extended Release 24 Hr 150 mg PO QAM Arnuity Ellipta 200 mcg/actuation blister with device 1 inh inhalation DAILY Patient Comments: puffs albuterol sulfate 90 mcg/actuation HFA aerosol inhaler 2 puff INHALATION Q6H PRN (Reason: Bronchospasm) guaifenesin 100 mg/5 mL Liquid 200 mg PO Q4HR PRN (Reason: Cough) Qty: 473 0RF pregabalin 75 mg Capsule 75 mg PO BID albuterol sulfate 90 mcg/actuation HFA aerosol inhaler 2 puff inhalation Q6H PRN (Reason: Shortness Of Breath) fluticasone propionate 50 mcg/actuation spray,suspension 2 spray intranasal DAILY acetaminophen 325 mg Tablet 650 mg PO Q6H Qty: 90 0RF aspirin 81 mg Tablet,Delayed Release (Dr/Ec) 81 mg PO BID Qty: 90 0RF polyethylene glycol 3350 17 gram Powder In Packet 17 g PO DAILY PRN (Reason: Constipation) Qty: 14 0RF oxycodone 5 mg Tablet 5 mg PO Q3H PRN (Reason: Pain, Moderate (4-6)) Qty: 30 0RF Referrals: Neil Funes MD [Primary Care Provider] - Stand Alone Forms: Patient Portal/API/Survey
--- NOTE | 2024-07-26 00:51 | DI.RAD.S_ITS ---
PROCEDURE: XR CHEST 1V INDICATIONS: post op fever TECHNIQUE: One view of the chest was acquired. COMPARISON: [facility], CR, XR CHEST 2V, 05/18/2024, 11:06. [facility], CR, XR CHEST 2V, 04/22/2024, 21:57. FINDINGS: Surgical changes and devices: ACDF. Lungs and pleura: Lungs are clear. No pleural effusions or pneumothorax. Mediastinum: Mediastinal contours appear normal. Heart size is normal. Bones and chest wall: No suspicious bony lesions. Overlying soft tissues appear unremarkable. IMPRESSION: No acute cardiopulmonary abnormality is seen. Dictated by: Guido Cook M.D. on 07/26/2024 at 1:14 Approved by: Guido Cook M.D. on 07/26/2024 at 1:15
[2024-07-26 01:54] VITALS: BP 140/68; PULSE 72; RESP 16; O2SAT 100
== END 2024-07-26 01:56 | disposition home or self-care (01) ==
PROVIDERS: Emergency Medicine; Emergency Provider Emergency Medicine; Family Provider Student in an Organized Health Care Education/Training Program; PCP Family Medicine
DX: G89.18 Other acute postprocedural pain (principal); M79.89 Other specified soft tissue disorders; M79.604 Pain in right leg; R50.9 Fever, unspecified
CPT/HCPCS: 36415; 71045; 80053; 81003; 83605; 84145; 85025; 87040; 93971; 99283; 99284

== ENCOUNTER → 2024-08-25 10:27 | Outpatient (CLI) | payer MEDICARE, OTHER, SELFPAY ==
[2024-07-19 11:55] VITALS: BMI 27.3
--- NOTE | 2024-08-25 10:30 | DI.RAD.S_ITS ---
PROCEDURE: XR CHEST 2V INDICATIONS: COUGH, SoB TECHNIQUE: 2 views of the chest were acquired. COMPARISON: [facility], CR, XR CHEST 1V, 07/26/2024, 0:48. FINDINGS: Surgical changes and devices: None. Lungs and pleura: Lungs are clear. No pleural effusions or pneumothorax. Mediastinum: Mediastinal contours are normal. Heart size is normal. Bones and chest wall: No suspicious bony abnormalities. Soft tissues appear unremarkable. IMPRESSION: No acute pulmonary process. Dictated by: Lennie Kramer M.D. on 08/25/2024 at 11:05 Approved by: Lennie Kramer M.D. on 08/25/2024 at 11:05
== END ==
PROVIDERS: Family Provider Student in an Organized Health Care Education/Training Program; PCP Family Medicine; Referring Provider Family Medicine; Visit Provider Family Medicine
DX: R05.9 Cough, unspecified (principal)
CPT/HCPCS: 71046

== ENCOUNTER → 2024-09-05 15:12 | Outpatient (CLI) | payer MEDICARE, OTHER, SELFPAY ==
[2024-07-19 11:55] VITALS: BMI 27.3
--- NOTE | 2024-09-05 15:14 | DI.CT.S_ITS ---
PROCEDURE: CT CHEST HIGH RESOLUTION INDICATIONS: wheezy bronchitis TECHNIQUE: Noncontrast 1.0 and 5.0 mm thick contiguous axial sections from the pulmonary apex to the posterior costophrenic angles, with 7 mm thick coronal and sagittal MIP reformats. 1 mm thick dynamic expiratory images acquired through the upper, mid, and lower lungs. 1.0 mm thick axial sections acquired from the yenny to the posterior costophrenic angles in the prone end-inspiration position. For radiation dose reduction, the following was used: automated exposure control, adjustment of mA and/or kV according to patient size. COMPARISON: [facility], CT, CT CHEST HIGH RESOLUTION, 04/25/2024, 14:19. FINDINGS: Image quality: Diagnostic Lungs and pleura: [id number] air trapping with mosaic attenuation on expiratory phase images. Prior ground-glass opacities in the right upper lung have decreased. However, there is a new nodular opacity with irregular borders in the superior portion of the right lower lobe (4/241 Mild lower lung opacities present. No significant changes with prone imaging. Mediastinum, heart, and esophagus: Coronary calcifications are present. No enlarged lymph nodes by size criteria. Unremarkable esophagus Chest wall and thyroid: Unremarkable Upper abdomen: No gross abnormality on these noncontrast images Bones: No aggressive appearing osseous abnormality. Partially seen cervical fusion hardware. IMPRESSION: Moderate mosaic attenuation compatible with chronic bronchiolitis and air trapping. Ground-glass opacities right upper lung have decreased, likely infectious/inflammatory from prior imaging. No evidence of interstitial fibrosis. Findings are not compatible with UIP ILD There is a new nodular opacity in the right lower lung with irregular borders, either neoplastic or focus of airspace infection. A 1-2 month follow-up chest CT is recommended to ensure this resolves. Consider PET-CT or sampling if persistent. Mild lower lung opacities also present likely infectious/inflammatory. No pleural effusions. Other findings above. Dictated by: Juan Francisco Scott M.D. on 09/06/2024 at 13:49 Approved by: Juan Francisco Scott M.D. on 09/06/2024 at 14:00
== END ==
PROVIDERS: Family Provider Student in an Organized Health Care Education/Training Program; PCP Family Medicine; Referring Provider Family Medicine; Visit Provider Family Medicine
DX: J40 Bronchitis, not specified as acute or chronic (principal); R91.8 Other nonspecific abnormal finding of lung field; I25.10 Atherosclerotic heart disease of native coronary artery without angina pectoris
CPT/HCPCS: 71250

== ENCOUNTER → 2024-10-13 13:11 | Outpatient (CLI) | payer MEDICARE, OTHER, SELFPAY ==
[2024-07-19 11:55] VITALS: BMI 27.3
== END ==
LOC: RESP 13:12
PROVIDERS: Family Provider Student in an Organized Health Care Education/Training Program; PCP Family Medicine; Referring Provider Family Medicine; Visit Provider Family Medicine
DX: J45.30 Mild persistent asthma, uncomplicated (principal); Z87.891 Personal history of nicotine dependence; R94.2 Abnormal results of pulmonary function studies
CPT/HCPCS: 94060; 94726; 94729

== ENCOUNTER 2024-11-14 14:35 | Day surgery (SDC) | payer MEDICARE, OTHER, SELFPAY ==
[2024-07-19 11:55] VITALS: BMI 27.3
--- NOTE | 2024-11-14 | PATH_ITS ---
[facility] Accession Number: [id number] No. of containers..02 Tissue . 01 Material submitted: . PART A: gastrointestinal site - GASTRIC BIOPSY PART B: esophagus - ESOPHAGUS BIOPSY . 01 Clinical history: . A-B: R/O H.PYLORI . 01 Diagnosis: A. STOMACH, BIOPSY: Gsstric body mucosa with no diagnostic abnormality. No evidence of Helicobacter organisms on H/E stain. Negative for intestinal metaplasia. Negative for dysplasia or malignancy. . B. ESOPHAGUS, BIOPSY: Squamous epithelium with no diagnostic abnormality. Intraepithelial eosinophils are not increased. Negative for dysplasia and malignancy. [facility] 11/24/2024 1526 Local . 01 Electronically signed: . Ricky Moody MD, PhD, Pathologist NPI- [id number] . 01 Gross description: . A. Received in formalin with two identifiers and gastric, are two soft briceno tissue fragments ranging from 0.3 to 0.4 cm in greatest dimension. Entirely submitted in cassette A1. B. Received in formalin with two identifiers and esophagus, are two soft briceno tissue fragments ranging from 0.2 to 0.4 cm in greatest dimension. Entirely submitted in cassette B1. (AER:[id number]) /NAFISA 11/22/2024 0117 Local . 01 Pathologist provided ICD-10: R10.13, K21.9 . 01 CPT . 897147, [id number] Specimen Comment: A courtesy copy of this report has been sent to [phone] Performed at: [address] [address], [place], [place] [id number] MD Albert Duarte MD Phone: [phone]
--- NOTE | 2024-11-14 12:38 | PM.PREOP ---
Pre-operative Note COVID-19 COVID-19 status: Not tested Interval Note History & Physical reviewed/Exam performed by Physician: Yes Changes to H&P: No ASA Class (for procedural sedation): III
--- NOTE | 2024-11-14 12:39 | PM.OP.ENDO ---
Operative Date/Time/Diagnoses Date of procedure: 11/14/24 Time of procedure: 12:39 Pre-op diagnosis: See indication and findings Post-op diagnosis: same Procedure & Clinicians Study performed: EGD Same procedure(s) as scheduled: Yes Indications: Chest discomfort and possible history of Barretts esophagus Surgeon: Michael Zhang Anesthesia Type: Other Procedure Notes Procedure in detail: After informed consent was obtained the patient was placed in left lateral decubitus position. The video upper scope was placed into the oropharynx and with the patient's help swallowed into the esophagus. The esophagus stomach duodenal were carefully evaluated. Preparation was good. On on slow withdrawal mucosa was carefully examined. The scope was removed. The patient tolerated procedure well. Blood loss none Complications none Sedation mac Findings 1. Generally somewhat irregular distal esophageal mucosa biopsies taken 9 2. Patchy gastric erythema biopsies taken to rule out Helicobacter 3. Normal duodenal bulb and sweep We will merely await biopsy results and discuss further treatment.
[2024-11-14 15:07] VITALS: BP 147/78; PULSE 53; RESP 16; TEMP 36.9; O2SAT 95
[2024-11-14] MEDS: LACTATED RINGERS 1,000 ML 42 ML IV (15:11)
[2024-11-14 16:15] VITALS: BP 121/73; PULSE 56; RESP 12; TEMP 36.7; O2SAT 93
[2024-11-14 16:21] VITALS: BP 127/86; PULSE 53; RESP 9; O2SAT 92
[2024-11-14 16:28] VITALS: BP 130/80; PULSE 62; RESP 20; TEMP 36.2; O2SAT 97
== END 2024-11-14 16:46 | disposition home or self-care (01) ==
PROVIDERS: Family Provider Student in an Organized Health Care Education/Training Program; PCP Family Medicine; Referring Provider Family Medicine; Visit Provider Internal Medicine Gastroenterology
PROC: 0DJ08ZZ Inspection of Upper Intestinal Tract, Via Natural or Artificial Opening Endoscopic (ICD-10-PCS; CPT 43239; principal; 2024-11-14 15:45)
DX: R07.89 Other chest pain (principal); K21.9 Gastro-esophageal reflux disease without esophagitis
CPT/HCPCS: 43239; J2704

== ENCOUNTER 2025-01-28 16:04 | Emergency (ER) | payer MEDICARE, OTHER, SELFPAY ==
[2024-07-19 11:55] VITALS: BMI 27.3
[2025-01-28 16:13] VITALS: BP 161/97; PULSE 70; RESP 16; TEMP 36.9; O2SAT 99; BMI 28.5
--- NOTE | 2025-01-28 16:28 | ED.FALL ---
HPI - Fall General Chief Complaint: Fall Stated Complaint: GLF pain left side Time Seen by Provider: 01/28/25 16:28 History of Present Illness HPI Narrative: 79yo gentleman with a diagnosis of asthma, hypertension, hyperlipidemia who presents complaining of right groin pain. Five days ago he ran over a cone in a parking lot was trying to get the cone out of his car pulled and strained the anterior portion of the right groin. Today he was walking his dog and was slightly off balance when the dog pulled on the leash he ended up falling and again re-injuring the right groin and has an injury to the left hand as well. He did not hit his head there was no loss of consciousness Related Data Home Medications ?Medication ?Instructions ?Recorded ?Confirmed amlodipine 5 mg tablet 7.5 mg PO BEDTIME 06/17/22 01/05/25 bupropion HCl 150 mg 24 hr tablet, 150 mg PO QAM 06/17/22 01/05/25 extended release cetirizine 10 mg tablet 10 mg PO BEDTIME 06/17/22 01/05/25 finasteride 5 mg tablet 5 mg PO BEDTIME 06/17/22 01/05/25 rosuvastatin 40 mg tablet 40 mg PO BEDTIME 06/17/22 01/05/25 tamsulosin 0.4 mg capsule 0.4 mg PO BEDTIME 06/17/22 01/05/25 pregabalin 75 mg capsule 75 mg PO BID 07/11/24 01/05/25 albuterol sulfate 90 mcg/actuation 2 puff inhalation Q6H PRN 07/19/24 01/05/25 aerosol inhaler Shortness Of Breath budesonide-formoterol HFA 80 2 puff inhalation BID 11/10/24 01/05/25 mcg-4.5 mcg/actuation aerosol inhaler (Symbicort) clotrimazole 10 mg jesus 10 mg PO 5XD 11/10/24 01/05/25 Previous Rx's ?Medication ?Instructions ?Recorded acetaminophen 325 mg tablet 650 mg (2 x 325 mg) PO Q6H #90 tabs 07/20/24 aspirin 81 mg tablet,delayed 81 mg PO BID #90 tabs 07/20/24 release dupilumab 300 mg/2 mL subcutaneous 300 mg (2 mL) SUBCUT Q2W #4 mL 11/23/24 pen injector (Dupixent) dupilumab 300 mg/2 mL subcutaneous 600 mg (4 mL) SUBCUT ONCE #4 mL 11/23/24 pen injector (Dupixent) oxycodone-acetaminophen 5 mg-325 1 tab PO Q6H PRN pain #14 tabs 01/28/25 mg tablet Allergies Allergy/AdvReac Type Severity Reaction Status Date / Time oyster extract (OYSTER Allergy Unknown HIVES Verified 01/05/25 14:25 EXTRACT) Review of Systems Review of Systems Narrative: Pertinent positive and negative findings as per HPI Patient History Medical History Anxiety Depression Easy bruisability Osteoarthritis HLD (hyperlipidemia) HTN (hypertension) Hearing loss Obstructive sleep apnea of adult Sprain of shoulder, left Acute diverticulitis Lumbar stenosis with neurogenic claudication [id number] Surgical History History of lumbar fusion (~2015) Hx of fusion of cervical spine (~2010) History of total left hip replacement (~2011) Hx of bilateral cataract extraction Hx of sinus surgery (06/2021) Social History household members: none pets and animals: Yes (Anticipating getting a couple rescue dogs to foster for a period of time) alcohol intake: current substance use type: does not use alcohol intake frequency: 3 or more drinks per day Exam Initial Vital Signs Initial Vital Signs: Vital Signs Temperature 98.4 F 01/28/25 16:13 Pulse Rate 70 01/28/25 16:13 Respiratory Rate 16 01/28/25 16:13 Blood Pressure 161/97 H 01/28/25 16:13 Pulse Oximetry 99 01/28/25 16:13 Oxygen Delivery Method Room Air 01/28/25 16:13 General: Alert appropriate in no acute distress while lying still, moderate pain if trying to raise his right leg Respiratory: Able to speak in full sentences, no obvious respiratory distress Skin: No abrasions to left 3rd and 4th fingers Extremity: No pain with moving his left hand or wrist. I has tenderness along the right groin and into the anterior quadricep. No tender at the knee, pelvic ring or hip joint with pain-free internal external rotation of the hip. No obvious hematoma Neurologic: Grossly intact no obvious asymmetries or abnormalities Psych: appropriate insight and affect, cooperative Course Vital Signs Vital signs: Vital Signs - 8 hr 01/28/25 16:13 Temperature 98.4 F Pulse Rate 70 Respiratory Rate 16 Blood Pressure 161/97 H Pulse Oximetry 99 Oxygen Delivery Method Room Air MDM - Fall MDM Narrative Medical decision making narrative: 79-year-old gentleman comes in complaining of right groin pain. He was pulled off balanced by his dog and was unable to get up off the ground. He notes that earlier this week he pulls right groin while he was trying to remove some debris from under his car. It was bothering him this morning and then with the twisting turning pulling off motion and then falling due to holding his dog on his leash he clearly has exacerbated that injury. 911 was required to help get him off the ground. In the emergency department who was given a Percocet. X-rays do not show any fractures or loosening of recently placed right hip hardware He is neurovascularly intact and remainder of physical exam is unremarkable After the Percocet he is able to walk with the assistance of a walker. We discussed using appropriate pain control, making sure that he is stable to prevent falls. Reviewed the normal x-rays. Questions were answered, patient does not need to be admitted and advanced imaging is not required at this time. He is safely discharged Discharge Plan Departure Patient Disposition: Home Clinical Impression: Fall, Strain of muscle of right groin region, Contusion of left hand including fingers Instructions: DI for Musculoskeletal Pain Activity Restrictions/Additional Instructions: Thank you for coming in today I am sorry that you injured herself with your fall. I suspect that you had a small groin strain earlier this week and with this fall simply exacerbated that. Fortunately, your x-ray is very reassuring. There was no sign of fractures or injury to the hip prosthesis With the abrasions on your left fingers, please keep some Band-Aids on these until that is healed You were given Percocet in the emergency department and were able to move with a walker. I suspect that your pain is actually going to be increased over the next 24-48 hours. I have given you a prescription for Percocet to use for severe pain. You can use Tylenol as well. Percocet is a narcotic and will make you constipated. Please make sure you take a stool softener any day that you take this narcotic. Mixing narcotics and alcohol have the potential for making you stopped breathing and dying Please make sure you are using the walker for stability until you are over the acute pain phase. If you find that you are getting worse or develop any new symptoms, please feel free to return to the emergency department for further evaluation. Prescriptions: New oxycodone-acetaminophen 5-325 mg tablet 1 tab PO Q6H PRN (Reason: pain) Qty: 14 0RF No Action clotrimazole 10 mg jesus 10 mg PO 5XD budesonide-formoterol [Symbicort] 80-4.5 mcg/actuation HFA aerosol inhaler 2 puff inhalation BID cetirizine 10 mg Tablet 10 mg PO BEDTIME amlodipine 5 mg Tablet 7.5 mg PO BEDTIME tamsulosin 0.4 mg capsule 0.4 mg PO BEDTIME finasteride 5 mg Tablet 5 mg PO BEDTIME rosuvastatin 40 mg Tablet 40 mg PO BEDTIME bupropion HCl 150 mg Tablet Extended Release 24 Hr 150 mg PO QAM pregabalin 75 mg Capsule 75 mg PO BID albuterol sulfate 90 mcg/actuation HFA aerosol inhaler 2 puff inhalation Q6H PRN (Reason: Shortness Of Breath) acetaminophen 325 mg Tablet 650 mg PO Q6H Qty: 90 0RF aspirin 81 mg Tablet,Delayed Release (Dr/Ec) 81 mg PO BID Qty: 90 0RF Dupixent Pen 300 mg/2 mL pen injector 600 mg SUBCUT ONCE Qty: 4 0RF Rx Instructions: as a single dose Dupixent Pen 300 mg/2 mL pen injector 300 mg SUBCUT Q2W Qty: 4 11RF Referrals: Neil Funes MD [Primary Care Provider, Family Practice] Stand Alone Forms: Patient Portal/API
--- NOTE | 2025-01-28 16:36 | DI.RAD.S_ITS ---
PROCEDURE: XR HIP W PEL IF DONE RT 2V INDICATIONS: painful hip after fall TECHNIQUE: 3 views of the hip were acquired. COMPARISON: [facility], CR, XR HIP W PEL RT 2V, 07/19/2024, 10:43. FINDINGS: Bones: Bilateral hip arthroplasty. No evidence of hardware failure loosening. No fracture. Pelvic ring intact. Degenerative changes noted lower lumbar spine Soft tissues: No suspicious soft tissue calcifications or masses. IMPRESSION: Bilateral hip arthroplasty without fracture or hardware failure Approved by: Aleksandar Sebastian M.D. on 01/28/2025 at 16:43
[2025-01-28 18:50] VITALS: BP 158/90; PULSE 75; RESP 16; O2SAT 99
== END 2025-01-28 18:52 | disposition home or self-care (01) ==
PROVIDERS: Emergency Provider Emergency Medicine; Family Provider Student in an Organized Health Care Education/Training Program; PCP Family Medicine
DX: S39.011A Strain of muscle, fascia and tendon of abdomen, initial encounter (principal); S60.222A Contusion of left hand, initial encounter; W18.30XA Fall on same level, unspecified, initial encounter
CPT/HCPCS: 73502; 99283